=== PATIENT | female | born 1980 | race Caucasian/White ===

== ENCOUNTER 2017-11-06 18:40 | Inpatient (IN) | payer MEDICAID ==
[~2017-11-06] VITALS: Ht 152.4 cm; Wt 102.5 kg
--- OUTSIDE RECORDS SUMMARY | ~2017-11-06 | XMS ---
Demographics + + + | Address | [address] | | | [place] [address] | + + + | Preferred Language | Unknown | + + + | Marital Status | Unknown | + + + | Yazidi Affiliation | Unknown | + + + | Race | Unknown | + + + | Ethnic Group | Unknown | + + + Author + + + | Author | [facility] | + + + | Organization | [facility] | + + + | Address | [address] | | | [place] [address] | + + + | Phone | | + + + Care Team Providers + + + + | Care Smokehouse Operator Name | Role | Phone | + + + + Unavailable | Unavailable | + + + + PROBLEMS + + + + + + + + | Type | Condition | ICD9-CM | [id number] | Onset | Condition | SNOMED | | | | Code | Code | Dates | Status | Code | + + + + + + + + | Problem | History of | | Z86.39 | | Active | | | | | | | | | | | | hyperlipid | | | | | | | | emia | | | | | | + + + + + + + + | Problem | Hypertensi | | I10 | | Active | [id number] | | | on | | | | | | + + + + + + + + | Problem | PTSD | | F43.10 | | Active | 59263191 | | | (post-trau | | | | | | | | matic | | | | | | | | stress | | | | | | | | disorder) | | | | | | + + + + + + + + | Assessment | Peripheral | | G62.9 | 04 Apr, | Active | [id number] | | | | | | 2017 | | | | | neuropathy | | | | | | + + + + + + + + | Problem | Pain in | | M25.552 | | Active | 964406778 | | | left hip | | | | | | + + + + + + + + | Problem | Type 2 | | E11.9 | | Active | [id number] | | | diabetes | | | | | | | | mellitus | | | | | | | | without | | | | | | | | complicati | | | | | | | | ons | | | | | | + + + + + + + + | Problem | Peripheral | | G62.9 | | Active | [id number] | | | | | | | | | | | neuropathy | | | | | | + + + + + + + + | Problem | Menorrhagi | N92.0 | | | Active | [id number] | | | a | | | | | | + + + + + + + + | Problem | Insomnia | | G47.00 | | Active | 134515218 | + + + + + + + + | Problem | History of | Z87.09 | | | Active | 302403225 | | | sleep | | | | | | | | apnea | | | | | | + + + + + + + + | Problem | Encounter | | Z13.89 | | Active | 325980778 | | | for | | | | | | | | screening | | | | | | | | for other | | | | | | | | disorder | | | | | | + + + + + + + + | Problem | Lumbar | M54.16 | | | Active | 214978552 | | | radicular | | | | | | | | pain | | | | | | + + + + + + + + ALLERGIES + + + + +--------+ | Substance | Reaction | Event Type | Date | Status | + + + + +--------+ | lisinopril | dry cough | Drug Allergy | Oct, | Active | + + + + +--------+ | Doxepin HCl | behavior | Drug Allergy | Oct, | Active | | | change, mean | | | | + + + + +--------+ | Holter monitor | blister | Non Drug | Oct, | Active | | adhesive | | Allergy | | | + + + + +--------+ | tape | blisters | Non Drug | Oct, | Active | | | | Allergy | | | + + + + +--------+ | pork | anaphylaxis | Non Drug | Oct, | Active | | | | Allergy | | | + + + + +--------+ | Morphine | vomiting | Non Drug | Oct, | Active | | | | Allergy | | | + + + + +--------+ SOCIAL HISTORY No smoking Hx information available PLAN OF CARE VITAL SIGNS + + + + | Height | 59 in | 2016-10-06 | + + + + | Weight | 224.4 lbs | 2016-10-06 | + + + + | BMI | 45.32 kg/m2 | 2016-10-06 | + + + + | Temperature | 97.4 degrees Fahrenheit | 2016-10-06 | + + + + | Heart Rate | 64 /min | 2016-10-06 | + + + + | Blood pressure systolic | 131 mm Hg | 2016-10-06 | + + + + | Blood pressure diastolic | 64 mm Hg | 2016-10-06 | + + + + MEDICATIONS + + + + + + + +--------+ | Medicati | Instruct | Dosage | Frequenc | Start | End Date | Duration | Status | | on | ions | | y | Date | | | | + + + + + + + +--------+ | HydrOXYz | Orally | 1 tablet | | | | 30 | Active | | ine HCl | qhs | as | | | | day(s) | | | 25 MG | | needed | | | | | | + + + + + + + +--------+ | EpiPen | Injectio | as | | 29 Kwame, | | 1 | Active | | 2-Patrick | n as | directed | | 2016 | | dose(s) | | | 0.3 | needed | | | | | | | | MG/0.3ML | for | | | | | | | | | severe | | | | | | | | | allergic | | | | | | | | | | | | | | | | | | reaction | | | | | | | + + + + + + + +--------+ | Metformi | Orally | as | 12h | | | 1 month | Active | | n HCl | bid | directed | | | | | | | 1000 mg | | | | | | | | + + + + + + + +--------+ | Lyrica | Orally | 1 | 8h | 04 Apr, | | 30 | Active | | 50 mg | Three | capsule | | 2017 | | day(s) | | | | times a | | | | | | | | | day | | | | | | | + + + + + + + +--------+ | tylenol | | | | | | | Active | + + + + + + + +--------+ | ibuprofe | | | | | | | Active | | n 800mg | | | | | | | | + + + + + + + +--------+ | Metoprol | Orally | 1 tablet | 24h | May, | 11 Jul, | 90 days | Active | | ol | Once a | | | 2013 | 2018 | | | | Succinat | day | | | | | | | | e 50 mg | | | | | | | | + + + + + + + +--------+ | Albutero | Inhalati | 1 puff | 4h | Jul, | | 15 | Active | | l | on every | as | | 2017 | | day(s) | | | Sulfate | 4 hrs | needed | | | | | | | 108 (90 | | | | | | | | | Base) | | | | | | | | | MCG/ACT | | | | | | | | + + + + + + + +--------+ RESULTS No Results PROCEDURES No Known procedures IMMUNIZATIONS No Known Immunizations"
--- OUTSIDE RECORDS SUMMARY | ~2017-11-06 | XMS | Clinical Summary ---
Demographics + + + | Address | [address] | | | [place] [address] | + + + | Home Phone | | + + + | Preferred Language | Unknown | + + + | Marital Status | | + + + | Hoahaoism Affiliation | Unknown | + + + | Race | White | + + + | Ethnic Group | Not or | + + + Author + + + | Author | [facility] | + + + | Organization | [facility] | + + + | Address | Unknown | + + + | Phone | Unavailable | + + + Support + + +---------+ + | Name | Relationship | Address | Phone | + + +---------+ + | YANG ROGERS | ECON | Unknown | | + + +---------+ + Care Team Providers + +------+ + | Care Mushroom Laborer Name | Role | Phone | + +------+ + PP | Unavailable | + +------+ + Source Comments WENDY is fully live on both [facility] and [facility] InPatient.[facility] Allergies Not on File Current Medications Not on file Active Problems Not on file Social History + +-------+ +--------+------+ | Tobacco [...] on file | | + + + Plan of Treatment + + + + + | Health Maintenance | Due Date | Last Done | Comments | + + + + + | INFLUENZA VACCINE | | | | | (FLU SHOT) | 8 | | | + + + + + Results Not on filefrom Last 3 Months"
--- OUTSIDE RECORDS SUMMARY | ~2017-11-06 | XMS ---
Demographics + + + | Address | [address] | | | [place] [address] | + + + | Preferred Language | Unknown | + + + | Marital Status | Unknown | + + + | Yazidism Affiliation | Unknown | + + + | Race | Unknown | + + + | Ethnic Group | Unknown | + + + Author + + + | Author | [facility] | + + + | Organization | [facility] | + + + | Address | [address] | | | [place] [address] | + + + | Phone | | + + + Care Team Providers + + + + | Care Supervisor Dock Name | Role | Phone | + + + + Unavailable | Unavailable | + + + + PROBLEMS + + + + + + + + | Type | Condition | ICD9-CM | [id number] | Onset | Condition | SNOMED | [...] | | I10 | | Active | [id number] | | | on | | | | | | + + + + + + + + | Problem | PTSD | | F43.10 | | Active | 17826394 | | | (post-trau | | | | | | | | matic | | | | | | | | stress | | | | | | | | disorder) | | | | | | + + + + + + + + | Assessment | Iron | | D50.9 | 12 Apr, | Active | [id number] | | | deficiency | | | 2017 | | | | | anemia | | | | | | + + + + + + + + | Problem | Pain in | | M25.552 | | Active | 447704039 | | | left hip | | | | | | + + + + + + + + | Problem | Type 2 | | E11.9 | | Active | 945605944 | | | diabetes | | | [...] | | G62.9 | | Active | 031160515 | | | | | | | | | | | neuropathy | | | | | | + + + + + + + + | Problem | Menorrhagi | N92.0 | | | Active | 597024792 | | | a | | | | | | + + + + + + + + | Problem | Insomnia | | G47.00 | | Active | 047319588 | + + + + + + + + | Problem | History of | Z87.09 | | | Active | 354802329 | | | sleep | | | | | | | | apnea | | | | | | + + + + + + + + | Problem | Encounter | | Z13.89 | | Active | 414095931 | | | for | | | | | | | | screening | | | | | | | | for other | | | | | | | | disorder | | | | | | + + + + + + + + | Problem | Lumbar | M54.16 | | | Active | [id number] | | | radicular | | | [...] + | Height | 59 in | 2016-10-14 | + + + + | Weight | 223.4 lbs | 2016-10-14 | + + + + | BMI | 45.12 kg/m2 | 2016-10-14 | + + + + | Temperature | 96.6 degrees Fahrenheit | 2016-10-14 | + + + + | Heart Rate | 68 /min | 2016-10-14 | + + + + | Blood pressure systolic | 149 mm Hg | 2016-10-14 | + + + + | Blood pressure diastolic | 84 mm Hg | 2016-10-14 | + + + + MEDICATIONS + [...] + + + + + +--------+ | Dulcolax | Orally | 1 tablet | 24h | 12 Oct, | 10 Feb, | 30 | Active | | 5 MG | Once a | as | | 2017 | 2017 | day(s) | | | | day | needed | | | | | | + + + + + + + +--------+ | Lyrica | Orally | 1 | 8h | 04 Oct, | | 30 | Active | | [...] Inhalati | 1 puff | 4h | 28 Jul, | | 15 | Active | | l | on every | as | | 2016 | | day(s) | | | Sulfate [...] EpiPen | Injectio | as | | Dec, | | 1 | Active | | 2-Patrick | n as | directed | | 2015 | | dose(s) | | | 0.3 [...] + + + + + +--------+ | calcium | orally | 1 tablet | 24h | 12 Apr, | 16 Apr, | 1 | Active | | 500mg | daily | | | 2016 | 2017 | dose(s) | | + + + + + + + +--------+ | Feosol | Orally | 1 tablet | 12h | 12 Oct, | | 30 | Active | | 325 (65 | bid | | | 2017 | | day(s) | | | Fe) MG | | | | | | | | + + + + + + + +--------+ RESULTS No Results PROCEDURES + + + + + | Procedure | Date Ordered | Related Diagnosis | Body Site | + + + + + | Est Level III | October 14, 2016 | | | | Intermediate | | | | + + + + + IMMUNIZATIONS No Known Immunizations"
--- OUTSIDE RECORDS SUMMARY | ~2017-11-06 | XMS ---
Demographics + + + | Address | [address] | | | [place] [address] | + + + | Preferred Language | Unknown | + + + | Marital Status | Unknown | + + + | Hinduism Affiliation | Unknown | + + + | Race | Unknown | + + + | Ethnic Group | Unknown | + + + Author + + + | Author | [facility] | + + + | Organization | [facility] | + + + | Address | [address] | | | [place] [address] | + + + | Phone | | + + + Care Team Providers + + + + | Care Drug Abuse Technician Name | Role | Phone | + + + + Unavailable | Unavailable | + + + + PROBLEMS + + + + + + + + | Type | Condition | ICD9-CM | [id number] | Onset | Condition | SNOMED | [...] | | I10 | | Active | [id number] | | | on | | | | | | + + + + + + + + | Problem | PTSD | | F43.10 | | Active | 17077549 | | | (post-trau | | | | | | | | matic | | | | | | | | stress | | | | | | | | disorder) | | | | | | + + + + + + + + | Assessment | Peripheral | | G62.9 | 04 Apr, | Active | [id number] | | | | | | 2017 | | | | | neuropathy | | | | | | + + + + + + + + | Problem | Pain in | | M25.552 | | Active | 181886778 | | | left hip | | | | | | + + + + + + + + | Problem | Type 2 | | E11.9 | | Active | 539465177 | | | diabetes | | | [...] | | G62.9 | | Active | 351205003 | | | | | | | | | | | neuropathy | | | | | | + + + + + + + + | Problem | Menorrhagi | N92.0 | | | Active | 214375691 | | | a | | | | | | + + + + + + + + | Problem | Insomnia | | G47.00 | | Active | 867696190 | + + + + + + + + | Problem | History of | Z87.09 | | | Active | 010728031 | | | sleep | | | | | | | | apnea | | | | | | + + + + + + + + | Problem | Encounter | | Z13.89 | | Active | 149993164 | | | for | | | | | | | | screening | | | | | | | | for other | | | | | | | | disorder | | | | | | + + + + + + + + | Problem | Lumbar | M54.16 | | | Active | 571558420 | | | radicular | | | [...] | | 1 | Active | | 2-Ptarick | n as | directed | | [...] Once a | | | 2013 | 2017 | | | | Succinat | day [...] + | Est Level III | October 06, 2016 | | | | Intermediate | | | | + + + + + IMMUNIZATIONS No Known Immunizations"
--- OUTSIDE RECORDS SUMMARY | ~2017-11-06 | XMS | Clinical Summary ---
Demographics + + + | Address | [address] | | | [place] [address] | + + + | Home Phone | | + + + | Preferred Language | Unknown | + + + | Marital Status | | + + + | Worship Affiliation | Unknown | + + + [...] Team Providers + +------+ + | Care Map Maker Name | Role | Phone | + +------+ + PP | Unavailable | + +------+ + Source Comments WENDY is fully live on both [facility] and [facility] InPatient.[facility] Allergies Not on File Current [...]
--- OUTSIDE RECORDS SUMMARY | ~2017-11-06 | XMS | Clinical Summary ---
Demographics + + + | Address | [address] | | | [place] [address] | + + + | Home Phone | | + + + | Preferred Language | Unknown | + + + | Marital Status | Single | + + + | Orthodox Affiliation | Unknown | + + + | Race | Unknown | + + + | Ethnic Group | Unknown | + + + Author + + + | Author | [facility] | | | and [place] | + + + | Organization | [facility] | | | and [place] | + + + | Address | Unknown | + + + | Phone | Unavailable | + + + Support + + + + + | Name | Relationship | Address | Phone | + + + + + | Darrin Woods | ECON | [address] | | | | | [place], | | | | | [place] [address] | | + + + + + Care Team Providers + +------+ + | Care Chemistry Specialist Name | Role | Phone | + +------+ + | Tiffanie Flynn | PP | Unavailable | + +------+ + Allergies + + [...] + + + + + | Morphine And Related | Nausea And Vomiting | Medium | 02/17/20 | | | | | | 16 | | + + + + + + | Pork-Derived | Anaphylaxis | High | 02/04/20 | | | Products | | | 16 | | + + + + + + | Adhesive & Tape | Other (See Comments) | Low | 02/04/20 | Blisters | | | | | 16 | | + + + + + + Current Medications + + +--------+---------+------+------+-------+ | Prescription | Sig. | Disp. | Refills | Star | End | Statu | | | | | | t | Date | s | | | | | | Date | | | + + +--------+---------+------+------+-------+ | ferrous sulfate | Take 325 mg by mouth | | | | | Activ | | 325 mg tablet | Daily as needed. | | | | | e | + + +--------+---------+------+------+-------+ | metFORMIN | Take 500 mg by mouth | | | | | Activ | | (GLUCOPHAGE) 500 mg | daily (with | | | | | e | | tablet | breakfast). | | | | | | + + +--------+---------+------+------+-------+ | VENTOLIN HFA 108 | inhale 1 puff every | | 0 | 01/2 | | Activ | | (90 Base) MCG/ACT | 4 hours if needed | | | 8/20 | | e | | inhaler | | | | 17 | | | + + +--------+---------+------+------+-------+ | cyclobenzaprine | PRN ONLY | | 0 | 01/1 | | Activ | | (FLEXERIL) 10 mg | | | | 6/20 | | e | | tablet | | | | 17 | | | + + +--------+---------+------+------+-------+ | | take 1 tablet by | | 0 | 03/0 | | Activ | | HYDROcodone-acetamin | mouth twice a day if | | | 7/20 | | e | | ophen (NORCO) 5-325 | needed | | | 17 | | | | mg per tablet | | | | | | | + + +--------+---------+------+------+-------+ | losartan (COZAAR) | Take 1 tablet by | 90 | 3 | 04/1 | | Activ | | 50 mg tablet | mouth Daily. | tablet | | 2/20 | | e | | | | | | 17 | | | + + +--------+---------+------+------+-------+ | metoprolol | Take 0.5 tablets by | 45 | 3 | 04/1 | | Activ | | succinate | mouth Daily. | tablet | | 2/20 | | e | | (TOPROL-XL) 50 mg 24 | | | | 17 | | | | hr tablet | | | | | | | + + +--------+---------+------+------+-------+ | CALCIUM PO | Take 1 tablet by | | | | | Activ | | | mouth Daily. | | | | | e | + + +--------+---------+------+------+-------+ Active Problems + + + | Problem | Noted Date | + + + | Syncope | 02/18/2016 | + + + | Lightheadedness | 02/18/2016 | + + + | Obesity | | + + + | H/O eclampsia | | + + + | HBP (high blood pressure) | | + + + | Chronic kidney disease | | + + + + + | Overview: Related to history of eclampsia | + + + +---+ | Diabetes type 2, controlled (HCC) | | + +---+ | NIKOLAS (obstructive sleep apnea) | | + +---+ | Nocturnal hypoxemia | | + +---+ | Bipolar 1 disorder (HCC) | | + +---+ | Hypercholesterolemia | [...] implantable loop | 02/18/20 | | | efqndyke-OZLL-Iswdjihia-08/16/16-SSM | 16 | 7 | + + + + + + | Overview: Formatting of this note may be different from the | | original. MODEL NAME MODEL# SERIAL# DATE IMPLANTED GENERATOR | | MedXipin LINQ [id number] 02/18/16 Explanted 11/09/16 by | Shi Dupont. | |Explanted 11/09/[address] Dupont. | + + Family History + + +------+ [...] + +---------+ + | Alcohol Use | Drinks/We | oz/Week | Comments | | | ek | | | + + +---------+ + | Yes | 0 | 0.0 | every 6 months | | | Standard | | | | | drinks or | | | | | | | | | | equivalen | | | | | t | | | + + +---------+ + + + + | Sex Assigned at | Date Recorded | | | | + + + | Not on file | | + + + Last Filed Vital Signs + + + + | Vital Sign | Reading | Time Taken | + + + + | Blood Pressure | 107/66 | 11/03/2016914 PDT | + + + + | Pulse | 45 | 11/03/2016914 PDT | + + + + | Temperature | 36.3 C (97.3 F) | 11/03/2016631 PDT | + + + + | Respiratory Rate | 16 | 11/03/2016631 PDT | + + + + | Oxygen Saturation | 100% | 11/03/2016914 PDT | + + + + | Inhaled Oxygen | - | - | | Concentration | | | + + + + | Weight | 101.2 kg (223 lb) | 11/03/2016631 PDT | + + + + | Height | 152.4 cm (5') | 11/03/2016631 PDT | + + + + | Body Mass Index | 43.55 | 11/03/2016 0632 PDT | + + + + Plan of Treatment + + + + + | Health Maintenance | Due Date | Last Done | Comments | + + + + + | Diabetic Eye Exam | | | | | (Bi-Annually) | 9 | | | + + + + + | Diabetic Foot Exam | | | | | | 9 | | | + + + + + | Hemoglobin A1c Q3 | | | | | Months | 9 | | | + + + + + | Vaccine: | | | | | Dtap/Tdap/Td (1 - | 0 | | | | Tdap) | | | | + + + + + | Vaccine: | | | | | Pneumococcal 19-64 | 0 | | | | (PPSV23 only) Medium | | | | | Risk (1 of 1 - | | | | | PPSV23) | | | | + + + + + | CERVICAL CANCER | | | | | SCREENING (PAP EVERY | 2 | | | | 3 YEARS 21-64 ) | | | | + + + + + | Vaccine: Influenza | | | | | (Season Ended) | 8 | | | + + + + + Implants + +--------+--------+ +--------+--------+--------+ | Implanted | Type | Area | Manufacture | Device | Expira | Model | | | | | r | | tion | / | | | | | | Identi | Date | Serial | | | | | | fier | | / Lot | + +--------+--------+ +--------+--------+--------+ | Reveal LinqImplanted: Qty: 1 | Implan | Anteri | [employer] - | | 12/16/ | [id number] | | on 02/18/2016 by Cresencio, | table | or: | MEDT | | 2017 | /[id number] | | Delvin MD Bill | Loop | Chest | | | | [id number] | | | Record | | | | | / | | | er | | | | | | + +--------+--------+ +--------+--------+--------+ Results Not on filefrom Last 3 Months Insurance + +--------+ +--------+ +---------+ | Payer | Benefi | Subscriber | Type | Phone | Address | | | t Plan | ID | | | | | | / | | | | | | | Group | | | | | + +--------+ +--------+ +---------+ | [employer] | MODA | [id number] | Medica | [phone] | | MEDICAID HMO | HEALTH | | id | [id number] | | | | [place] | | | | | | | [place] | | | | | + +--------+ +--------+ +---------+ + +--------+ +--------+ + + | Guarantor Name | Accoun | Relation to | Date | Phone | Billing Address | | | t Type | Patient | of | | | | | | | | | | + +--------+ +--------+ + + | CORINA PARADA | Person | Self [birth year] Home: | [address] | | [place] | [place] | | 1979 | [phone] | [place] | | | [place] | | | [address] | [place] [address] | + +--------+ +--------+ + +"
--- OUTSIDE RECORDS SUMMARY | ~2017-11-06 | XMS ---
Demographics + + + | Address | [address] | | | [place] [address] | + + + | Preferred Language | Unknown | + + + | Marital Status | Unknown | + + + | Holiness Affiliation | Unknown | + + + | Race | Unknown | + + + | Ethnic Group | Unknown | + + + Author + + + | Author | [facility] | + + + | Organization | [facility] | + + + | Address | [address] | | | [place] [address] | + + + | Phone | | + + + Care Team Providers + + + + | Care Stitch Separator Name | Role | Phone | + + + + Unavailable | Unavailable | + + + + PROBLEMS + + + + + + + + | Type | Condition | ICD9-CM | [id number] | Onset | Condition | SNOMED | [...] | | I10 | | Active | [id number] | | | on | | | | | | + + + + + + + + | Problem | PTSD | | F43.10 | | Active | 80915696 | | | (post-trau | | | | | | | | matic | | | | | | | | stress | | | | | | | | disorder) | | | | | | + + + + + + + + | Assessment | Allergic | L23.9 | | 03 November, | Active | 66062282 | | | dermatitis | | | 2017 | | | + + + + + + + + | Problem | Pain in | | M25.552 | | Active | 969401399 | | | left hip | | | | | | + + + + + + + + | Problem | Type 2 | | E11.9 | | Active | 168944006 | | | diabetes | | | [...] | | G62.9 | | Active | 048563001 | | | | | | | | | | | neuropathy | | | | | | + + + + + + + + | Problem | Menorrhagi | N92.0 | | | Active | 713786188 | | | a | | | | | | + + + + + + + + | Problem | Insomnia | | G47.00 | | Active | 485513034 | + + + + + + + + | Problem | History of | Z87.09 | | | Active | 172004090 | | | sleep | | | | | | | | apnea | | | | | | + + + + + + + + | Problem | Encounter | | Z13.89 | | Active | 921154588 | | | for | | | | | | | | screening | | | | | | | | for other | | | | | | | | disorder | | | | | | + + + + + + + + | Problem | Lumbar | M54.16 | | | Active | 348225246 | | | radicular | | | | | | | | pain | | | | | | + + + + + + + + ALLERGIES + + + + +--------+ | Substance | Reaction | Event Type | Date | Status | + + + + +--------+ | lisinopril | dry cough | Drug Allergy | November, | Active | + + + + +--------+ | Doxepin HCl | behavior | Drug Allergy | November, | Active | | | change, mean | | | | + + + + +--------+ | Holter monitor | blister | Non Drug | November, | Active | | adhesive | | Allergy | | | + + + + +--------+ | tape | blisters | Non Drug | November, | Active | | | | Allergy | | | + + + + +--------+ | pork | anaphylaxis | Non Drug | November, | Active | | | | Allergy | | | + + + + +--------+ | Morphine | vomiting | Non Drug | November, | Active | | | | Allergy | | | + + + + +--------+ SOCIAL HISTORY No smoking Hx information available PLAN OF CARE VITAL SIGNS + + + + | Height | 59 in | 2016-11-03 | + + + + | Weight | 227.5 lbs | 2016-11-03 | + + + + | BMI | 45.94 kg/m2 | 2016-11-03 | + + + + | Temperature | 97.5 degrees Fahrenheit | 2016-11-03 | + + + + | Heart Rate | 62 /min | 2016-11-03 | + + + + | Blood pressure systolic | 150 mm Hg | 2016-11-03 | + + + + | Blood pressure diastolic | 96 mm Hg | 2016-11-03 | + + + + MEDICATIONS + [...] + + + + + +--------+ | Calcium | | | | | | | Active | + + + + + + + +--------+ | Stool | | | | | | | Active | | Softener | | | | | | | [...] Orally | 1 tablet | 24h | 04 May, | 11 Jul, | 90 days [...] 325 (65 | bid | | | 2016 | | day(s) | | | Fe) [...] + + + + + +--------+ | Iron | | | | | | | [...] + + + + | Est Level II | November 03, 2016 | | | | Limited | | | | + + + + + IMMUNIZATIONS No Known Immunizations"
--- OUTSIDE RECORDS SUMMARY | ~2017-11-06 | XMS ---
Demographics + + + | Address | [address] | | | [place] [address] | + + + | Preferred Language | Unknown | + + + | Marital Status | Unknown | + + + | Spiritism Affiliation | Unknown | + + + | Race | Unknown | + + + | Ethnic Group | Unknown | + + + Author + + + | Author | [facility] | + + + | Organization | [facility] | + + + | Address | [address] | | | [place] [address] | + + + | Phone | | + + + Care Team Providers + + + + | Care Last Scourer Name | Role | Phone | + + + + Unavailable | Unavailable | + + + + PROBLEMS +---------+ + + +--------+ + + | Type | Condition | ICD9-CM | [id number] | Onset | Condition | SNOMED | | | | Code | Code | Dates | Status | Code | +---------+ + + +--------+ + + | Problem | History of | | Z86.39 | | Active | | | | | | | | | | | | hyperlipid | | | | | | | | emia | | | | | | +---------+ + + +--------+ + + | Problem | Hypertensi | | I10 | | Active | [id number] | | | on | | | | | | +---------+ + + +--------+ + + | Problem | PTSD | | F43.10 | | Active | 34393926 | | | (post-trau | | | | | | | | matic | | | | | | | | stress | | | | | | | | disorder) | | | | | | +---------+ + + +--------+ + + | Problem | Pain in | | M25.552 | | Active | 650678656 | | | left hip | | | | | | +---------+ + + +--------+ + + | Problem | Type 2 | | E11.9 | | Active | 564930124 | | | diabetes | | | | | | | | mellitus | | | | | | | | without | | | | | | | | complicati | | | | | | | | ons | | | | | | +---------+ + + +--------+ + + | Problem | Peripheral | | G62.9 | | Active | 534739907 | | | | | | | | | | | neuropathy | | | | | | +---------+ + + +--------+ + + | Problem | Menorrhagi | N92.0 | | | Active | 530350434 | | | a | | | | | | +---------+ + + +--------+ + + | Problem | Insomnia | | G47.00 | | Active | 717368301 | +---------+ + + +--------+ + + | Problem | History of | Z87.09 | | | Active | 730639432 | | | sleep | | | | | | | | apnea | | | | | | +---------+ + + +--------+ + + | Problem | Encounter | | Z13.89 | | Active | 935469617 | | | for | | | | | | | | screening | | | | | | | | for other | | | | | | | | disorder | | | | | | +---------+ + + +--------+ + + | Problem | Lumbar | M54.16 | | | Active | 431811826 | | | radicular | | | | | | | | pain | | | | | | +---------+ + + +--------+ + + ALLERGIES Unknown Allergies SOCIAL HISTORY No smoking Hx information available PLAN OF CARE VITAL SIGNS MEDICATIONS + + + + + + + +--------+ | Medicati | Instruct | Dosage | Frequenc | Start | End Date | Duration | Status | | on | ions | | y | Date | | | | + + + + + + + +--------+ | Phoenix | Orally | 1 tablet | | 13 Apr, | 23 Apr, | 10 | Active | | 5-325 MG | up to 2 | as | | 2017 | 2017 | day(s) | | | | times | needed | | | | | | | | daily | | | | | | | + + + + + + + +--------+ RESULTS No Results PROCEDURES No Known procedures IMMUNIZATIONS No Known Immunizations"
--- OUTSIDE RECORDS SUMMARY | ~2017-11-06 | XMS ---
Demographics + + + | Address | [address] | | | [place] [address] | + + + | Preferred Language | Unknown | + + + | Marital Status | Unknown | + + + | Catholic Affiliation | Unknown | + + + | Race | Unknown | + + + | Ethnic Group | Unknown | + + + Author + + + | Author | [facility] | + + + | Organization | [facility] | + + + | Address | [address] | | | [place] [address] | + + + | Phone | | + + + Care Team Providers + + + + | Care Specialist Managers Name | Role | Phone | + + + + Unavailable | Unavailable | + + + + PROBLEMS +---------+ + + +--------+ + + | Type | Condition | ICD9-CM | [id number] | Onset | Condition | SNOMED | [...] | | I10 | | Active | [id number] | | | on | | | | | | +---------+ + + +--------+ + + | Problem | PTSD | | F43.10 | | Active | 45857893 | | | (post-trau | | | | | | | | matic | | | | | | | | stress | | | | | | | | disorder) | | | | | | +---------+ + + +--------+ + + | Problem | Pain in | | M25.552 | | Active | 782053533 | | | left hip | | | | | | +---------+ + + +--------+ + + | Problem | Type 2 | | E11.9 | | Active | 575000121 | | | diabetes | | | | | | | | mellitus | | | | | | | | without | | | | | | | | complicati | | | | | | | | ons | | | | | | +---------+ + + +--------+ + + | Problem | Peripheral | | G62.9 | | Active | 801082279 | | | | | | | | | | | neuropathy | | | | | | +---------+ + + +--------+ + + | Problem | Menorrhagi | N92.0 | | | Active | 927282706 | | | a | | | | | | +---------+ + + +--------+ + + | Problem | Insomnia | | G47.00 | | Active | 865625778 | +---------+ + + +--------+ + + | Problem | History of | Z87.09 | | | Active | 403095719 | | | sleep | | | | | | | | apnea | | | | | | +---------+ + + +--------+ + + | Problem | Encounter | | Z13.89 | | Active | 982731838 | | | for | | | | | | | | screening | | | | | | | | for other | | | | | | | | disorder | | | | | | +---------+ + + +--------+ + + | Problem | Lumbar | M54.16 | | | Active | 402782831 | | | radicular | | | | | | | | pain | | | | | | +---------+ + + +--------+ + + ALLERGIES Unknown Allergies SOCIAL HISTORY No smoking Hx information available PLAN OF CARE VITAL SIGNS MEDICATIONS Unknown Medications RESULTS No Results PROCEDURES No Known procedures IMMUNIZATIONS No Known Immunizations"
--- OUTSIDE RECORDS SUMMARY | ~2017-11-06 | XMS | Clinical Summary ---
Demographics + + + | Address | [address] | | | [place] [address] | + + + | Home Phone | | + + + | Preferred Language | Unknown | + + + | Marital Status | Single | + + + | Denominational Affiliation | Unknown | + + + | Race | Unknown | + + + | Ethnic Group | Unknown | + + + Author + + + | Author | [facility] | + + + | Organization | [facility] | + + + | Address | Unknown | + + + | Phone | Unavailable | + + + Support + + + + + | Name | Relationship | Address | Phone | + + + + + | Darrin Woods | ECON | Unknown | | + + + + + | Sonia,Heather | [place] | [address] | | | | | TRAIL | | | | | [place] | | | | | [address] | | + + + + + | Joel Adams | ECON | Unknown | | + + + + + Care Team Providers + +------+ + | Care Patient Financial Services Specialist Name | Role | Phone | + +------+ + | Tiffanie Flynn NP | PP | | + +------+ + Allergies + + + + + + | Active Allergy | Reactions | Severity | Noted | Comments | | | | | Date | | + + + + + + | Morphine | Nausea and Vomiting | Low | 03/20/20 | | | | | | 15 | | + + + + + + | Pork-Derived | Anaphylaxis | High | 04/25/20 | | | Products | | | 15 | | + + + + + + Current Medications + + +-------+---------+------+------+-------+ | Prescription | Sig. | Disp. | Refills | Star | End | Statu | | | | | | t | Date | s | | | | | | Date | | | + + +-------+---------+------+------+-------+ | Ferrous Sulfate | Take 325 mg by mouth | | | | | Activ | | (IRON) 325 (65 FE) | daily as needed. | | | | | e | | MG TABS | | | | | | | + + +-------+---------+------+------+-------+ | metoprolol | Take 25 mg by mouth | | | | | Activ | | (TOPROL-XL) 25 MG 24 | daily. | | | | | e | | hr tablet | | | | | | | + + +-------+---------+------+------+-------+ Active Problems +---------+ + | Problem | Noted Date | +---------+ + | Syncope | 11/13/2015 | +---------+ + + + | Last Assessment & Plan: Syncope. 35yo WF, with | | history of syncope. The first episode occurring [...] | | Cath: naLast Echo, 11/21/2015 ([facility]): cardiac chamber | | dimensions NML, LVEF [...] | + + + + + | Mediastinal adenopathy | 03/20/2015 | + + + | Lung nodules | 03/20/2015 | + + + Family History + + +------+ + | Medical History | Relation | Name | Comments | + + +------+ + | Heart disease | Father | | | + + +------+ + + +------+--------+ + | Relation | Name | Status | Comments | + +------+--------+ + | Father | | Alive | | + +------+--------+ + | Mother | | Alive | | + +------+--------+ + Social History + +-------+ +--------+------+ | [...] | | + + +---------+ + | No | 0 | 0.0 | | | | Standard | | | [...] + + + | Blood Pressure | 116/70 | 01/08/2016 10:04 AM PDT | + + + + | Pulse | 53 | 01/08/2016 10:04 AM PDT | + + + + | Temperature | 36 C (96.8 F) | 05/03/2015 9:47 AM PDT | + + + + | Respiratory Rate | 16 | 01/08/2016 10:04 AM PDT | + + + + | Oxygen Saturation | 97% | 01/08/2016 10:04 AM PDT | + + + + | Inhaled Oxygen | - | - | | Concentration | | | + + + + | Weight | 96.5 kg (212 lb 11.2 | 01/08/2016 10:04 AM PDT | | | oz) | | + + + + | Height | 152.4 cm (5') | 01/08/2016 10:04 AM PDT | + + + + | Body Mass Index | 41.54 | 01/08/2016 10:04 AM PDT | + + + + Plan [...] | | | | Screening (Pap) | 2 | | | + + + + + | Vaccine: Influenza | | | | | (Season Ended) | 8 | | | + + + + + Results Not on filefrom Last 3 Months Insurance + +--------+ +------+-------+ + | Payer | Benefi | Subscriber | Type | Phone | Address | | | t Plan | ID | | | | | | / | | | | | | | Group | | | | | + +--------+ +------+-------+ + | MEDICAID | [place] | xxxxxxxx | | | [address] | | | N | | | | [place], [place] | | | [place] | | | | [address] | | | ASSOCIATE SOFTWARE APPLICATION ENGINEER | | | | | + +--------+ +------+-------+ + + +--------+ +--------+ + + | Guarantor Name | Accoun | Relation to | Date | Phone | Billing Address | | | t Type | Patient | of | | | | | | | | | | + +--------+ +--------+ + + | CORINA PARADA | Person | Self [birth year] Home: | [address] | | | [place] | | 1980 | [phone] | | | [place] | | | [phone] | [place] [address] | + +--------+ +--------+ + +"
--- OUTSIDE RECORDS SUMMARY | ~2017-11-06 | XMS | Clinical Summary ---
Demographics + + + | Address | [address] | | | [place] [address] | + + + | Home Phone | | + + + | Preferred Language | Unknown | + + + | Marital Status | Single | + + + | Buddhist Affiliation | Unknown | + + + | Race | Unknown | + + + | Ethnic Group | Unknown | + + + Author + + + | Author | [facility] | + + + | Organization | [facility] | + + + | Address | Unknown | + + + | Phone | Unavailable | + + + Support + + + + + | Name | Relationship | Address | Phone | + + + + + | Darrin Woods | ECON | Unknown | | + + + + + | Sonia,Heather | [place] | [address] | | | | | TRAIL | | | | | [place] | | | | | [address] | | + + + + + | Joel Adams | ECON | Unknown | | + + + + + Care Team Providers + +------+ + | Care Bottom Presser Name | Role | Phone | + [...] | | [place] | | | | [address] | | | LOGISTICS TEAM LEADER | | | | | + +--------+ [...] | Self | [birth year] | Home: | [address] | | | [place] | | 1980 | [phone] | [address] | | | [place] | | | [phone] | [place] [address] | + +--------+ +--------+ + +"
--- OUTSIDE RECORDS SUMMARY | ~2017-11-06 | XMS ---
Demographics + + + | Address | [address] | | | [place] [address] | + + + | Preferred Language | Unknown | + + + | Marital Status | Unknown | + + + | Lutheran Affiliation | Unknown | + + + | Race | Unknown | + + + | Ethnic Group | Unknown | + + + Author + + + | Author | [facility] | + + + | Organization | [facility] | + + + | Address | [address] | | | [place] [address] | + + + | Phone | | + + + Care Team Providers + + + + | Care Imaging Manager Name | Role | Phone | + + + + Unavailable | Unavailable | + + + + PROBLEMS +---------+ + + +--------+ + + | Type | Condition | ICD9-CM | [id number] | Onset | Condition | SNOMED | [...] | | I10 | | Active | [id number] | | | on | | | | | | +---------+ + + +--------+ + + | Problem | PTSD | | F43.10 | | Active | 21834834 | | | (post-trau | | | | | | | | matic | | | | | | | | stress | | | | | | | | disorder) | | | | | | +---------+ + + +--------+ + + | Problem | Pain in | | M25.552 | | Active | 504267763 | | | left hip | | | | | | +---------+ + + +--------+ + + | Problem | Type 2 | | E11.9 | | Active | 268997314 | | | diabetes | | | | | | | | mellitus | | | | | | | | without | | | | | | | | complicati | | | | | | | | ons | | | | | | +---------+ + + +--------+ + + | Problem | Peripheral | | G62.9 | | Active | 984168313 | | | | | | | | | | | neuropathy | | | | | | +---------+ + + +--------+ + + | Problem | Menorrhagi | N92.0 | | | Active | 107344161 | | | a | | | | | | +---------+ + + +--------+ + + | Problem | Insomnia | | G47.00 | | Active | 750885808 | +---------+ + + +--------+ + + | Problem | History of | Z87.09 | | | Active | 944869152 | | | sleep | | | | | | | | apnea | | | | | | +---------+ + + +--------+ + + | Problem | Encounter | | Z13.89 | | Active | 340841509 | | | for | | | | | | | | screening | | | | | | | | for other | | | | | | | | disorder | | | | | | +---------+ + + +--------+ + + | Problem | Lumbar | M54.16 | | | Active | [id number] | | | radicular | | | | | | | | pain | | | | | | +---------+ + + +--------+ + + ALLERGIES Unknown Allergies SOCIAL HISTORY No smoking Hx information available PLAN OF CARE VITAL SIGNS MEDICATIONS Unknown Medications RESULTS No Results PROCEDURES No Known procedures IMMUNIZATIONS No Known Immunizations"
--- OUTSIDE RECORDS SUMMARY | ~2017-11-06 | XMS | Clinical Summary ---
Demographics + + + | Address | [address] | | | [place] [address] | + + + | Home Phone | | + + + | Preferred Language | Unknown | + + + | Marital Status | Single | + + + | Sikhism Affiliation [...] + | Darrin Woods | ECON | [address] | | | | | [place], | | | | | [place] [address] | | + + + + + Care Team Providers + +------+ + | Care Loss Prevention Supervisor Name | Role | Phone | [...] implantable loop | 02/18/20 | | | [id number]-DPDV-Lhzbtqurg-08/16/16-SSM | 16 | 7 | + + + + + + | Overview: Formatting of this note may be different from the | | original. MODEL NAME MODEL# SERIAL# DATE IMPLANTED GENERATOR | | [employer] LINQ [id number] 02/18/16 Explanted 11/09/16 by | Shi Dupont. [...] | Self | [birth year] | Home: | [address] | | [place] | [place] | | 1979 | [phone] | [place] | | | [place] | | | [phone] | [place] [address] | + +--------+ +--------+ + +"
[~2017-11-06 18:40] MED LIST: ALPRAZOLAM0.25 MG PO; AMBIEN5 MG; AMBIEN5 MG PO; DAYPRO600 MG PO; DOXEPIN HCL50 MG PO; EPIPEN 2-P0.3 MG/0.3 IM; FLAGYL500 MG PO; GABAPENTIN300 MG PO; HYZAAR 100-12.1 EACH PO; IBUPROFEN800 MG PO; LISINOPRIL2.5 MG; LOSARTAN-HCTZ1 EAC2 PO; METFORMIN HCL500 MG; METFORMIN HCL500 MG PO; METOPROLOL SUC100 MG PO; METOPROLOL SUCC50 MG PO; NEURONTIN100 MG PO; NITROSTAT0.4 MG SL; NORCO 5-325 TA1 EACH PO; NORCO 7.5-3251 EACH PO; PERCOCET 5-3251 EACH PO; SIMVASTATIN10 MG; SIMVASTATIN20 MG PO; SUCRALFATE1 GM PO; XANAX0.25 MG PO; ZOFRAN ODT8 MG SL; ZOLPIDEM TARTRAT5 MG PO
[2017-11-06] MEDS ORDERED: TOPROL XL50 MG PO (19:07)
[2017-11-06] MEDS ORDERED: COZAAR25 MG PO (19:09)
[2017-11-07] MEDS ORDERED: NORCO 5-325 TA1 EACH PO (11:49)
--- NOTE | 2017-11-09 12:56 | OR ---
[facility] [address] [place], [place] [address] Signed DATE OF OPERATION: 11/07/2017 SURGEON: Steve Garcia MD PREOPERATIVE DIAGNOSES: 1. Incarcerated incisional hernia at umbilicus. 2. Obesity. POSTOPERATIVE DIAGNOSES: 1. Incarcerated incisional hernia at umbilicus. 2. Obesity. 3. Incarcerated viscus, omentum. PROCEDURES: 1. Reduction of incarcerated incisional hernia. 2. Repair of incarcerated incisional hernia at umbilicus. 3. Implantation of Prolene mesh underlay technique with closure of fascia. ANESTHESIA: General endotracheal, Steve Polanco CRNA, and local 20 mL of 0.25% Marcaine with epinephrine. INDICATION: This 37-year-old obese white woman presented to the emergency room late last night, evaluated thoroughly by Dr. Elise and found to have market pain at the umbilicus. A small transverse incision was noted above the umbilicus related to the laparoscopy performed by Dr. Stein a number of years ago. Evaluation showed tenderness, but no erythema of the skin. Given her obesity, a CT scan was performed, which confirmed an incarcerated hernia. The fascial defect measured at 0.5 cm. Incarcerated viscus was omentum rather than hollow viscus (bowel). She was directly admitted to the hospital given fluid, pain medication, and is now to undergo repair of incarcerated incisional hernia. The risks of bleeding, infection, recurrence, and other unforeseen complications were reviewed with her in detail. She understands and wished to proceed. FINDINGS: The fascial defect was more than 0.5 cm, indeed about 1.5 cm I would say. A well-formed hernia sac was noted and the incarcerated viscus was omentum. This was reduced. Repair was undertaken with implantation of Prolene mesh in the properitoneal space with Electronically Signed By: STEVE GARCIA MD 11/09/17 8776 PATIENT NAME: RIAN SAUCEDA OPERATIVE REPORT DATE OF : 82 REPORT #: [id number] PHYSICIAN: STEVE GARCIA MD PCP: LORENZO SY REPORT IS CONFIDENTIAL AND NOT TO BE RELEASED WITHOUT AUTHORIZATION [facility] [address] [place], [place] [address] Signed transverse reapproximation of the fascia as well. DESCRIPTION OF PROCEDURE: The patient was brought to the operating room, given a general endotracheal anesthesia. Notably, she had desaturation rather promptly despite successful intubation, which promptly resolved notably. This may be indicative of underlying pulmonary disease. A transverse incision was noted cephalad to the umbilicus. An incision was made transecting that and circumnavigating the umbilicus to the left and dissection carried through the subcutaneous tissue where the hernia sac was identified. It was free from the surrounding soft tissue with blunt and electrocautery dissection. The fascial defect looked to be about 1.5 cm rather than 0.5 cm as measured on CT scan. With various maneuvers, the hernia sac was freed from the overlying dermis of the umbilicus and opened and incarcerated omentum was noted. This was reduced. Once reduced, a photograph was taken. The hernia sac was freed from the surrounding soft tissue of the fascia and opened longitudinally so as to avoid incorporation of internal organs and then reduced into the properitoneal space. Properitoneal space was dissected free circumferentially. Given the size of the defect, implantation of mesh was deemed advisable, particularly given the underlying obesity issue. An elliptical segment of Prolene mesh was secured in an underlay technique with interrupted 0 Prolene suture. This was well secured to the properitoneal space. The fascia was reapproximated with interrupted 0 Prolene sutures as well. A 20 mL of 0.25% Marcaine with epinephrine was injected locally. Bahman's layer was reapproximated with interrupted 2-0 Vicryl and skin closed with running subcuticular 3-0 Vicryl. Steri-Strips were applied as was a Mepilex silver sponge dressing and OpSite. The patient was ultimately extubated without problem, taken to recovery room in good condition and suffered no complication. Sponge, needle, and instruments counts reported as correct x3. Steve Garcia MD /MODL /[id number] Electronically Signed By: STEVE GARCIA MD 11/09/17 1256 PATIENT NAME: RIAN SAUCEDA OPERATIVE REPORT DATE OF : 82 REPORT #: [id number] PHYSICIAN: STEVE GARCIA MD PCP: LORENZO SY REPORT IS CONFIDENTIAL AND NOT TO BE RELEASED WITHOUT AUTHORIZATION [address] [address] Signed cc: TIERNEY Noe MD Copies: LORENZO SY SHELDON MD ~ Electronically Signed By: STEVE GARCIA MD 11/09/17 1256 PATIENT NAME: RIAN SAUCEDA OPERATIVE REPORT DATE OF : 82 REPORT #: [id number] PHYSICIAN: STEVE GARCIA MD PCP: LORENZO SY REPORT IS CONFIDENTIAL AND NOT TO BE RELEASED WITHOUT AUTHORIZATION
--- NOTE | 2017-11-09 12:56 | HP ---
[facility] [address] [place], [place] [address] Signed ADMISSION DATE: 11/06/2017 REASON FOR ADMISSION: Incarcerated symptomatic umbilical hernia. HISTORY: This obese (BMI of 44.1) a 37-year-old white woman, presented to the emergency room in the late hours and was evaluated by Dr. Elise with significant pain in the region of the umbilicus. Due to abdominal wall obesity and clear indication, the source of the problem was not forthcoming initially. She had noted a mass in the umbilical area the day prior to evaluation, which was uncomfortable and she manipulated it and it caused much more pain. A CT scan was performed in the direction of Dr. Elise, which confirmed a small fascial defect of about 5 mm, but with a 3.5 cm protruding fatty mass consistent with incarcerated hernia. She is admitted for further evaluation and care. PAST MEDICAL HISTORY: Does include obesity. She has never had abdominal surgery in the region of the umbilicus before. She does have type 2 diabetes, hypertension, and sleep apnea syndrome. SOCIAL HISTORY: She does not smoke nor has she ever. She does not use alcohol or drugs. PAST SURGICAL HISTORY: Her surgical history does include hernia repair, is said to have cholecystectomy, tubal ligation, x3, as well as some pulmonary operation in the past. Review of her archived medical records shows her to have undergone diagnostic laparoscopy by Dr. Stein in 2009. Therefore, this lesion may represent an incarcerated incisional hernia after all. REVIEW OF SYSTEMS: She denies any shortness of breath or chest pain. She has had no dysphagia or dysuria. Denies any hematemesis or blood per rectum. PHYSICAL EXAMINATION: GENERAL: An obese white woman, who looks to be not systemically toxic. HEENT: Trachea is midline. CHEST: Clear. Electronically Signed By: STEVE GARCIA MD 11/09/17 9806 PATIENT NAME: RIAN SAUCEDA HISTORY AND PHYSICAL DATE OF : 82 REPORT #: [id number] PHYSICIAN: STEVE GARCIA MD PCP: LORENZO SY REPORT IS CONFIDENTIAL AND NOT TO BE RELEASED WITHOUT AUTHORIZATION [facility] [address] [place], [place] [address] Signed HEART: Regular without murmur. ABDOMEN: Quite obese, but generally soft. She does not have signs of peritonitis proper. There is mild tenderness in the region of the umbilicus. It is difficult to palpate the incarcerated properitoneal fat that has been demonstrated on CT scan. CT scan is reviewed showing a small fascial defect and relatively large subcutaneous mass of fat that is herniated. LABORATORY DATA: Show a negative beta hCG. ALT of 66, alkaline phosphatase 82, lipase 14, glucose 143, calcium 10.6. Electrolytes otherwise normal. White count 7.7, hematocrit 35.4, platelets 297,000. Urinalysis is normal. ASSESSMENT: She has incarcerated incisional hernia at the umbilicus, probably related to laparoscopic incision from the past. The fascial defect is relatively small, although the herniated viscus is large. Spontaneous reduction is quite unlikely. Infarction of the fatty tissue is a possibility given her tenderness previously. I would recommend exploration of the area with reduction of the hernia or excision of the fat as necessary with fascial repair. This may not require mesh depending on its size and in fact. The risks of bleeding, infection, and recurrence were reviewed with her in detail. She understands and wished to proceed. PLAN: We will plan to do this today. She might be able to be done as an outpatient depending on findings. MD IBIS Teague/RAGHAVENDRAL /[id number] Copies: Electronically Signed By: STEVE GARCIA MD 11/09/17 1256 PATIENT NAME: RIAN SAUCEDA HISTORY AND PHYSICAL DATE OF : 82 REPORT #: [id number] PHYSICIAN: STEVE GARCIA MD PCP: LORENZO SY REPORT IS CONFIDENTIAL AND NOT TO BE RELEASED WITHOUT AUTHORIZATION [facility] [address] [facility] [place] [address] Signed ~ Electronically Signed By: STEVE GARCIA MD 11/09/17 1256 PATIENT NAME: RIAN SAUCEDA HISTORY AND PHYSICAL DATE OF : 82 REPORT #: [id number] PHYSICIAN: STEVE GARCIA MD PCP: LORENZO SY REPORT IS CONFIDENTIAL AND NOT TO BE RELEASED WITHOUT AUTHORIZATION
[2017-11-09] MEDS ORDERED: CEPHALEXIN500 MG PO (14:19)
[2017-11-09] MEDS ORDERED: PROMETHAZINE-C118 ML PO (14:19)
== END 2017-11-07 16:17 | disposition home or self-care (01) | DRG 354 ==
LOC: ED 18:40 → MS 22:40
PROVIDERS: ADMIT Surgery
PROC: 0WUF0JZ Supplement Abdominal Wall with Synthetic Substitute, Open Approach (ICD-10-PCS; principal; 2017-11-07 11:00)
DX: K43.0 Incisional hernia with obstruction, without gangrene (principal); Z68.41 Body mass index [BMI] 40.0-44.9, adult; E66.01 Morbid (severe) obesity due to excess calories; E11.9 Type 2 diabetes mellitus without complications; I10 Essential (primary) hypertension; G47.33 Obstructive sleep apnea (adult) (pediatric); Z79.899 Other long term (current) drug therapy; Z88.5 Allergy status to narcotic agent; Z88.8 Allergy status to other drugs, medicaments and biological substances
CPT/HCPCS: 00750; 74177; 80053; 81001; 83690; 84703; 85025; 96374; 96375; 96376; 99285; C1781; J0330; J0690; J1100; J1170; J1885; J2250; J2405; J2704; J2710; J2765; J3010; J7030; J7120; Q9967

== ENCOUNTER 2018-01-25 00:49 | Emergency (ER) | payer SELFPAY ==
[~2018-01-25] VITALS: Ht 152.4 cm; Wt 102.5 kg
[~2018-01-25 00:49] MED LIST changes: +CEPHALEXIN500 MG PO; +COZAAR25 MG PO; +PROMETHAZINE-C118 ML PO; +TOPROL XL50 MG PO
[2018-01-25] MEDS ORDERED: OXYBUTYNIN CHLOR5 M1 PO (02:13)
== END 2018-01-25 02:26 | disposition home or self-care (01) ==
LOC: ED 00:49
DX: R30.0 Dysuria (principal); R35.0 Frequency of micturition; E11.9 Type 2 diabetes mellitus without complications; I10 Essential (primary) hypertension; Z91.018 Allergy to other foods; Z88.5 Allergy status to narcotic agent; Z88.8 Allergy status to other drugs, medicaments and biological substances; Z79.899 Other long term (current) drug therapy
CPT/HCPCS: 81001; 84703; 87491; 87591; 99283

== ENCOUNTER 2018-12-15 13:56 | Emergency (ER) | payer OTHER ==
[~2018-12-15] VITALS: Ht 152.4 cm; Wt 98.0 kg
[~2018-12-15 13:56] MED LIST changes: +ASPIR-LOW81 MG PO; +DIFLUCAN150 MG PO; +DOXYCYCLINE HY100 MG PO; +GLUCOPHAGE XR500 MG PO; +LANTUS100 UNITS/ SUB-Q; +LIPITOR20 MG PO; +METOPROLOL SUCC25 MG PO; +MOTRIN IB200 MG PO; +OXYBUTYNIN CHLOR5 M1 PO; +VISTARIL25 MG PO; +WELLBUTRIN SR100 MG PO
--- OUTSIDE RECORDS SUMMARY | 2018-12-15 13:58 | XMS ---
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 Care History Medical/Surgical 06/09/2018 [facility] MARYLOU CHW OF [facility] HAS SENT OUT A REQUEST FOR PATIENT TO ESTABLISH CARE WITH A PROVIDER AT THE CLINIC. - PATIENT CURRENTLY DOES NOT HAVE A PCP BUT CAN UTILIZE THE WALK IN CLINIC UNTIL ESTABLISHED WITH A PROVIDER. E.D. VISIT COUNT (12 MO.) [address] [facility] T[facility] NOTE: Visits indicate total known visits. 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 - Essential (primary) hypertension - Hypertensive urgency - Other chest pain 04/11/2018 06:34 KAROLINE Erickson [place] TYPE: Emergency COMPLAINT: - VAGINAL PAIN DIAGNOSES: - Allergy to other foods - Type 2 diabetes mellitus without complications - Pelvic and perineal pain - Allergy status to narcotic agent status - Other supervisor long goods (current) drug therapy - senior living (current) use of oral hypoglycemic drugs - Allergy status to other drugs, medicaments and biological substances status - Essential (primary) hypertension - Other urethritis 01/25/2018 00:50 KAROLINE Erickson [place] TYPE: Emergency COMPLAINT: - UTI SX DIAGNOSES: - Other supervisor long goods (current) drug therapy - Frequency of micturition - Essential (primary) hypertension - Dysuria - Allergy status to narcotic agent status - Allergy status to other drugs, medicaments and biological substances status - Allergy to other foods - Other symptoms and signs involving the genitourinary system - Type 2 diabetes mellitus without complications 12/30/2017 07:38 Lucio CRUZ OR TYPE: Emergency DIAGNOSES: - Unspecified ovarian cyst, right side - Rt side pain - Abdominal Pain INPATIENT VISIT TRACKING (12 MO.) 06/08/2018 16:33 [facility] Gal TYLER TYPE: Medical Surgical DIAGNOSES: - Atherosclerotic heart disease of [place] coronary artery without angina pectoris - Chest pain, unspecified - Type 2 diabetes mellitus with unspecified complications - Excessive and frequent menstruation with irregular cycle - Essential (primary) hypertension - chest pain rule out [id number]
[2018-12-15] MEDS ORDERED: TRULICITY0.75 MG/0. SUB-Q (15:29)
[2018-12-15] MEDS ORDERED: INDOMETHACIN50 MG PO (16:56)
== END 2018-12-15 17:08 | disposition home or self-care (01) ==
LOC: ED 13:56
DX: R10.9 Unspecified abdominal pain (principal); E11.9 Type 2 diabetes mellitus without complications; I10 Essential (primary) hypertension; Z90.710 Acquired absence of both cervix and uterus; Z90.49 Acquired absence of other specified parts of digestive tract; Z88.5 Allergy status to narcotic agent; Z88.8 Allergy status to other drugs, medicaments and biological substances; Z79.4 Long term (current) use of insulin; Z79.899 Other long term (current) drug therapy
CPT/HCPCS: 80053; 81001; 83690; 85025; 99284

== ENCOUNTER 2019-04-18 12:59 | Emergency (ER) | payer OTHER ==
[~2019-04-18] VITALS: Ht 152.4 cm; Wt 100.3 kg
[~2019-04-18 12:59] MED LIST changes: +BACTRIM DS TAB1 EACH PO; +BUPROPION XL450 MG PO; +HYDROXYZINE HCL25 MG PO; +INDOMETHACIN50 MG PO; +KEFLEX500 MG PO; +KETOROLAC TROME10 MG PO; +METFORMIN HCL1000 MG PO; +METOPROLOL TART25 MG PO; +ONDANSETRON ODT8 MG PO; +TRULICITY0.75 MG/0. SUB-Q
--- OUTSIDE RECORDS SUMMARY | 2019-04-18 13:02 | XMS ---
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 Care History Medical/Surgical 12/16/2018 [facility] - Patient is currently established with [facility]. If patient is seen in the ED during business hours. Please contact CHWs at [facility]. Care Recommendation: This patient has had 5 or more Emergency Department visits in the last 12 months.\T\nbsp; Patient requires education on the scope and purpose of the ED as an acute care provider not a Primary Care Provider and should not be utilized for chronic conditions.\T\nbsp; These are guidelines and the provider should exercise clinical judgment when providing care. 06/09/2018 [facility] CHW OF [facility] HAS SENT OUT A REQUEST FOR PATIENT TO ESTABLISH CARE WITH A PROVIDER AT THE CLINIC. - PATIENT CURRENTLY DOES NOT HAVE A PCP BUT CAN UTILIZE THE WALK IN CLINIC UNTIL ESTABLISHED WITH A PROVIDER. E.D. VISIT COUNT (12 MO.) 7 [facility]. TOTAL 7 NOTE: Visits indicate total known visits. 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 therapy - Allergy status to oth drug/meds/biol subst status - Essential (primary) hypertension 02/07/2019 17:04 KAROLINE Erickson OR TYPE: Emergency COMPLAINT: - RIGHT FLANK PAIN 02/03/2019 06:40 KAROLINE Erickson OR TYPE: Emergency COMPLAINT: - BLOOD IN URINE DIAGNOSES: - Hydronephrosis with renal and ureteral calculous obstruction - Unspecified abdominal pain - 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 - Allergy status to narcotic agent status - 1 Type 2 diabetes mellitus without complications - Essential (primary) hypertension - Allergy status to oth drug/meds/biol subst status - Acquired absence of both cervix and uterus - Acquired absence of other specified parts of digestive tract - Other terminal worker (current) drug therapy 02/01/2019 12:48 KAROLINE Erickson OR TYPE: Emergency COMPLAINT: - BLOOD IN URINE, ABDOMINAL PAIN DIAGNOSES: - Allergy status to narcotic agent status - Essential (primary) hypertension - Acquired absence of both cervix and uterus - Unspecified abdominal pain - Other terminal worker (current) 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 therapy - Allergy status to oth drug/meds/biol subst status - shelter (current) use of oral hypoglycemic drugs - 1 Type 2 diabetes mellitus without complications - Urinary tract infection, site not specified 12/15/2018 13:56 KAROLINE Erickson OR TYPE: Emergency COMPLAINT: - LOWER ABD PAIN DIAGNOSES: - 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 - Allergy status to narcotic agent status - Essential (primary) hypertension - 1 Type 2 diabetes mellitus without complications - Acquired absence of both cervix and uterus - Other terminal worker (current) 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 therapy - Unspecified abdominal pain - Acquired absence of other specified parts of digestive tract - Allergy status to oth drug/meds/biol subst status 06/08/2018 10:22 KAROLINE Erickson OR TYPE: Emergency COMPLAINT: - CP BLOOD PRESSURE PROBLEM DIAGNOSES: - Allergy status to oth drug/meds/biol subst status - 1 Type 2 diabetes mellitus without complications - Allergy status to narcotic agent status - shelter (current) use of oral hypoglycemic drugs - Essential (primary) hypertension - Hypertensive urgency - Other chest pain INPATIENT VISIT TRACKING (12 MO.) 02/07/2019 21:32 KAROLINE Erickson OR TYPE: Observation COMPLAINT: - KIDNEY STONES DIAGNOSES: - Right lower quadrant pain - Nausea with vomiting, unspecified - Calculus of ureter - Essential (primary) hypertension - shelter (current) use of insulin - Allergy status to oth drug/meds/biol subst status - Allergy status to narcotic agent status - Morbid (severe) obesity due to excess calories - Other terminal worker (current) drug therapy - Obstructive sleep apnea (adult) (pediatric) - Sleep apnea, unspecified - 1 Type 2 diabetes mellitus without complications - Personal history of urinary calculi - Body mass index (BMI) 40.0-44.9, adult 06/08/2018 16:33 [facility] Gal TYLER TYPE: Medical Surgical DIAGNOSES: - Athscl heart disease of [place] coronary artery w/o ang pctrs - Chest pain, unspecified - 1 Type 2 diabetes mellitus with unspecified complications - Excessive and frequent menstruation with irregular cycle - Essential (primary) hypertension - chest pain rule out [email or web address]
[2019-04-18] MEDS ORDERED: FLOMAX0.4 MG PO (15:21)
[2019-04-18] MEDS ORDERED: ZOFRAN4 MG PO (15:21)
[2019-04-18] MEDS ORDERED: NORCO 5-325 TA1 EACH PO (15:21)
== END 2019-04-18 16:38 | disposition home or self-care (01) ==
LOC: ED 12:59
DX: N13.2 Hydronephrosis with renal and ureteral calculous obstruction (principal); E11.9 Type 2 diabetes mellitus without complications; I10 Essential (primary) hypertension; Z90.710 Acquired absence of both cervix and uterus; Z90.49 Acquired absence of other specified parts of digestive tract; Z88.5 Allergy status to narcotic agent; Z88.8 Allergy status to other drugs, medicaments and biological substances; Z79.4 Long term (current) use of insulin; Z87.442 Personal history of urinary calculi; Z79.899 Other long term (current) drug therapy
CPT/HCPCS: 74176; 80053; 81001; 83690; 84703; 85025; 96361; 96374; 96375; 96376; 99284-25; J1170; J1885; J2405; J7030

== ENCOUNTER 2019-11-14 08:29 | Emergency (ER) | payer OTHER ==
[~2019-11-14] VITALS: Ht 152.4 cm; Wt 100.3 kg
--- OUTSIDE RECORDS SUMMARY | ~2019-11-14 | XMS | Encounter Summary ---
Demographics + + + | Address | [address] | | | [place] [address] | + + + | Home Phone | | + + + | Preferred Language | Unknown | + + + | Marital Status | | + + + | Christian Affiliation | Unknown | + + + | Race | Unknown | + + + | Ethnic Group | Unknown | + + + Author + + + | Author | [facility] | | | and [place] | + + + | Organization | [facility] | | | and [place] | + + + | Address | Unknown | + + + | Phone | Unavailable | + + + Support + + +---------+ + | Name | Relationship | Address | Phone | + + +---------+ + | Darrin Woods | FRANK | Unknown | | + + +---------+ + Care Team Providers + +------+ + | Care Technical Producer Name | Role | Phone | + +------+ + | Tiffanie Flynn | PCP | | + +------+ + Reason for Visit + + + | Reason | Comments | + + + | Wound Check | loop recorder inplant | + + + Follow Up (Routine) +--------+--------+ + + + + | Status | Reason | Specialty | Diagnoses / | Referred By | Referred To | | | | | Procedures | Contact | Contact | +--------+--------+ + + + + | Closed | | Cardiology | Diagnoses | Gee, | Cresencio, | | | | | Essential | Tiffanie Gale, | Delvin | | | | | (primary) | VIDEOTAPE EDITOR [address] | MD Bill | | | | | hypertension | [address] | [address] | | | | | Syncope | [place], | [place] | | | | | and collapse | [place] [address] | [place], [place] | | | | | Pure | Phone: | [phone] Phone: | | | | | hypercholest | [phone] | [phone] | | | | | erolemia | Fax: | Fax: | | | | | WOUND CHECK | [phone] | [phone] | | | | | FOR IMPLANT | | | | | | | Procedures | | | | | | | FUP | | | +--------+--------+ + + + + Encounter Details +--------+ + + + + | Date | Type | Department | Care Team | Description | +--------+ + + + + | 02/25/ | Clinical | [facility] [place] | AnsonDelvin hunter | Status post | | 2015 | Support | CARDIOLOGY [address] | MD Bill [address] | placement of | | | | [address], | [address] [place] | implantable loop | | | | [place] [address] | [place] [address] | [id number]-Oufnvg | | | | [phone] | [phone] | kathi-02/18/16-[facility] | | | | | | (Primary Dx); | | | | | | Syncope, unspecified | | | | | | syncope type | +--------+ + + + + Social History + +-------+ +--------+------+ | Tobacco Use | Types | Packs/Day | Years | Date | | | | | Used | | + +-------+ +--------+------+ | Never Assessed | | | | | + +-------+ +--------+------+ + + + | Sex Assigned at | Date Recorded | | | | + + + | Not on file | | + + + + + + + | Job Start Date | Occupation | Industry | + + + + | Not on file | Not on file | Not on file | + + + + + + + + | Travel History | Travel Start | Travel End | + + + + + + | No recent travel history available. | + + documented as of this encounter Last Filed Vital Signs + +---------+ + + | Vital Sign | Reading | Time Taken | Comments | + +---------+ + + | Blood Pressure | 132/78 | 02/26/2016 1:46 PM | | | | | PDT | | + +---------+ + + | Pulse | 60 | 02/26/2016 1:46 PM | | | | | PDT | | + +---------+ + + | Temperature | - | - | | + +---------+ + + | Respiratory Rate | - | - | | + +---------+ + + | Oxygen Saturation | - | - | | + +---------+ + + | Inhaled Oxygen | - | - | | | Concentration | | | | + +---------+ + + | Weight | - | - | | + +---------+ + + | Height | - | - | | + +---------+ + + | Body Mass Index | - | - | | + +---------+ + + documented in this encounter Progress Notes Gayathri Saldana RN - 02/26/2016 1:48 PM Bren was here today with her for a one week wound check after loop recorder implantation. She states that the spot that she thought looked like a car cigarette specialty trimmer burn turned out to be the glue that they put on . She removed it a few days ago. She states that there was some drainage when she removed it but she cleaned it with alcohol and dressed it with a band aid and it is much better now. S he denies any fever, or palpitations. She states that she did have one episode of chest pain . She had surgical pain earlier on but that is much improved at this time. She does have so me dizziness, lightheadedness and shortness of breath. She has marked more than 3 episodes but has not downloaded any of them. She did not remember how it all worked and states that s he remembers someone telling her something but she was still very out of it so did not remem [place] much. She was instructed on how it all works and will do a remote download as soon as s he gets home. Her incision is well approximated and appears to be healing well. There is n o redness, moderate bruising and mild swelling. She will follow up as planned in May . ..........................................Gayathri Saldana RN on 02/26/16 at 13:55 documented in this encounter Plan of Treatment Not on filedocumented as of this encounter Visit Diagnoses + + | Diagnosis | + + | Status post placement of implantable loop [id number]-MESI-Hlmlrsrad-02/18/16-[facility] - | | Primary | + + | Syncope, unspecified syncope type | + + documented in this encounter"
--- OUTSIDE RECORDS SUMMARY | ~2019-11-14 | XMS | Encounter Summary ---
Demographics + + + | Address | [address] | | | [place] [address] | + + + | Home Phone | | + + + | Preferred Language | Unknown | + + + | Marital Status | | + + + | Sikh Affiliation | Unknown | + + + | Race | Unknown | + + + | Ethnic Group | Unknown | + + + Author + + + | Author | [facility] | | | and [place] | + + + | Organization | [facility] | | | and [...] Team Providers + +------+ + | Care Transporter Driver Name | Role | Phone | + +------+ + | Tiffanie Flynn | PCP | | + +------+ + Reason for Visit + + + | Reason | Comments | + + + | Device Check | | | (Remote) | | + + + Encounter Details +--------+ + + + + | Date | Type | Department | Care Team | Description | +--------+ + + + + | 03/11/ | Implant | [facility] [place] | Delvin Dupont | Remote Device | | 2016 | Monitor | CARDIOLOGY [address] | MD Bill [address] | Interrogation | | | | [place], | [address] [place] | (Primary Dx); Status | | | | [place] [address] | [place] [address] | post placement of | | | | [phone] | [phone] | implantable loop | | | | | | [id number]-CHLC-Glpcaz | | | | | | kathi-02/18/16-[facility]; | | | | | | Syncope, [...] + + documented as of this encounter Plan of Treatment Not on filedocumented as of this encounter Procedures + +--------+ + + + | Procedure Name | Priori | Date/Time | Associated Diagnosis | Comments | | | ty | | | | + +--------+ + + + | DEVICE | Routin | 06/24/2016 | Status post | Results for this | | INTERROGATION- | e | 5:15 PM | placement of | procedure are in the | | REMOTE | | PST | implantable loop | results section. | | | | | [id number]-ZDWE-Uxqcjj | | | | | | kathi-02/18/16-[facility] | | | | | | Remote Device | | | | | | Interrogation | | | | | | Syncope, unspecified | | | | | | syncope type | | + +--------+ + + + documented in this encounter Results Device Interrogation - Remote (06/24/2016 5:15 PM PST) + + + | Narrative | Performed At | + + + | Delvin Dupont MD 06/24/2016 17:15 Refer to [facility] | [facility] | | documentation and remote PDF scanned into [employer] for remote | | | interrogation results. Data collected by Antonella Dooley RN | | | Presenting rhythm: Sinus bradycardia to sinus rhythm heart rate | | | 51-76. 1 Symptom Episodes #9 occurred 03/06/16 at 2058. EGM is | | | consistent with sinus rhythm heart rate 61-85. 0 Tachy Episodes | | | 0 Pause Episodes 0 Jean Episodes 0 AT Episodes 0 AF Episodes | | | % of time in AT/AF 0.0 % Histogram good. Battery ok. Apparent | | | normal and stable function. Device interrogation due in office in | | | 06/12. Patient notified. Patient states "feels real dizzy." This | | | transmission was related to an alert and is not billable. | | + + + + +---------+ + + | Performing | Address | City/State/Zipcode | Phone Number | | Organization | | | | + +---------+ + + | [facility] | | | | + +---------+ + + documented in this encounter Visit Diagnoses + + | Diagnosis | + + | Remote Device Interrogation - Primary | + + | Status post placement of implantable loop anoqnswt-IDQF-Lcvxwvfhr-02/18/16-[facility] | + + | Syncope, unspecified syncope type | + + documented in this encounter
--- OUTSIDE RECORDS SUMMARY | ~2019-11-14 | XMS | Encounter Summary ---
Demographics + + + | Address | [address] | | | [place] [address] | + + + | Home Phone | | + + + | Preferred Language | Unknown | + + + | Marital Status | | + + + | Latter-Day Affiliation | Unknown | + + + | Race | Unknown | + + + | Ethnic Group | Unknown | + + + Author + + + | Author | [facility] | | | and [place] | + + + | Organization | [facility] | | | and [...] Team Providers + +------+ + | Care Supervisor Nurse Name | Role | Phone | + [...] W | Interrogation | | | | [place], | [address] [place] | (Primary Dx); Status | | | | [place] [address] | [place] [address] | post placement of | | | | [phone] | [phone] | implantable loop | | | | | | hvffxzlw-QBCU-Tdkcdu | | | | | | kathi-02/18/16-[facility]; [...] results section. | | | | | tqnxqgnq-ONRT-Hnnifo | | | | | | kathi-02/18/16-[facility] [...] | documentation and remote PDF scanned into [employer] for remote | | | interrogation results. [...] | Status post placement of implantable loop mjvevqaw-MPQX-Hsjvvslhh-02/18/16-[facility] | + + | Syncope, unspecified syncope type | + + documented in this encounter
--- OUTSIDE RECORDS SUMMARY | ~2019-11-14 | XMS | Encounter Summary ---
Demographics + + + | Address | [address] | | | [place] [address] | + + + | Home Phone | | + + + | Preferred Language | Unknown | + + + | Marital Status | | + + + | Latter-Day Affiliation | Unknown | + + + | Race | Unknown | + + + | Ethnic Group | Unknown | + + + Author + + + | Author | [facility] | | | and [place] | + + + | Organization | [facility] | | | and [...] Team Providers + +------+ + | Care Staffing Program Manager Name | Role | Phone | + +------+ + | Gee Tiffaniejennifer ROGERS | PCP | | + +------+ + Reason for Visit + + + | Reason | Comments | + + + | Abdominal Pain | right | + + + Encounter Details +--------+ + + + + | Date | Type | Department | Care Team | Description | +--------+ + + + + | 12/30/ | Emergency | [facility] | Tee Lamar | Cyst of right ovary | | 2018 | | [facility] | [address] | (Primary Dx) | | | | [address] [address] | [address] | | | | | [address] [place], [place] | [place] [address] | | | | | [address] | [phone] | | | | | [phone] | | | +--------+ + + + + Social History + +-------+ +--------+------+ | Tobacco Use | Types | Packs/Day | Years | Date | | | | | Used | | + +-------+ +--------+------+ | Never Smoker | | | | | + +-------+ +--------+------+ + +---+---+---+ | Smokeless Tobacco: | | | | | Never Used | | | | + +---+---+---+ + + +---------+ + | Alcohol Use | Drinks/Week | oz/Week | Comments | + + +---------+ + | Yes | 0 Standard drinks | 0.0 | every 6 months | | | or equivalent | | | + + +---------+ + + + + | Sex Assigned at [...] this encounter Last Filed Vital Signs + + + + + | Vital Sign | Reading | Time Taken | Comments | + + + + + | Blood Pressure | 113/69 | 12/30/2017 9:47 AM | | | | | PDT | | + + + + + | Pulse | 50 | 12/30/2017 9:56 AM | | | | | PDT | | + + + + + | Temperature | 35.8 C (96.4 F) | 12/30/2017 7:43 AM | | | | | PDT | | + + + + + | Respiratory Rate | 16 | 12/30/2017 9:56 AM | | | | | PDT | | + + + + + | Oxygen Saturation | 98% | 12/30/2017 9:56 AM | | | | | PDT | | + + + + + | Inhaled Oxygen | - | - | | | Concentration | | | | + + + + + | Weight | 95.3 kg (210 lb) | 12/30/2017 7:43 AM | | | | | PDT | | + + + + + | Height | 152.4 cm (5') | 12/30/2017 7:43 AM | | | | | PDT | | + + + + + | Body Mass Index | 41.01 | 12/30/2017 7:43 AM | | | | | PDT | | + + + + + documented in this encounter Discharge Instructions Tee Allen DO - 12/30/2017Follow up with your primary provider as needed. Continue to use ibuprofen and tylenol for pain and norco for breakthrough pain. AttachmentsThe following attachments cannot be sent through Care Everywhere.Ovarian Cyst (E nglish)documented in this encounter Medications at Time of Discharge + + + +---------+ + + | Medication | Sig | Dispensed | Refills | Start | End Date | | | | | | Date | | + + + +---------+ + + | losartan (COZAAR) | Take 1 tablet by | 90 | 3 | 10/15/19 | | | 50 mg tablet | mouth Daily. | tablet | | 17 | | + + + +---------+ + + | CALCIUM PO | Take 1 tablet by | | 0 | | | | | mouth Daily. | | | | 9 | + + + +---------+ + + | cyclobenzaprine | PRN ONLY | | 0 | 07/20/19 | | | (FLEXERIL) 10 mg | | | | 17 | 9 | | tablet | | | | | | + + + +---------+ + + | ferrous sulfate | Take 325 mg by mouth | | 0 | | | | 325 mg tablet | Daily as needed. | | | | 9 | + + + +---------+ + + | | Take 1 tablet by | 15 | 0 | 12/31/19 | | | HYDROcodone-acetamin | mouth every 6 hours | tablet | | 18 | 9 | | ophen (NORCO) 5-325 | as needed for Pain. | | | | | | mg per tablet | | | | | | + + + +---------+ + + | | take 1 tablet by | | 0 | 09/09/19 | | | HYDROcodone-acetamin | mouth twice a day if | | | 17 | 9 | | ophen (NORCO) 5-325 | needed | | | | | | mg per tablet | | | | | | + + + +---------+ + + | metFORMIN | Take 500 mg by mouth | | 0 | | | | (GLUCOPHAGE) 500 mg | daily (with | | | | 9 | | tablet | breakfast). | | | | | + + + +---------+ + + | metoprolol | Take 0.5 tablets by | 45 | 3 | 10/15/19 | | | succinate | mouth Daily. | tablet | | 17 | 9 | | (TOPROL-XL) 50 mg 24 | | | | | | | hr tablet | | | | | | + + + +---------+ + + | VENTOLIN HFA 108 | inhale 1 puff every | | 0 | 08/01/19 | | | (90 Base) MCG/ACT | 4 hours if needed | | | 17 | 9 | | inhaler | | | | | | + + + +---------+ + + documented as of this encounter Plan of Treatment Not on filedocumented as of this encounter Procedures + +--------+ + + + | Procedure Name | Priori | Date/Time | Associated Diagnosis | Comments | | | ty | | | | + +--------+ + + + | ECG - EXTERNAL SCAN | | 01/03/2018 | | Results for this | | | | 12:00 AM | | procedure are in the | | | | PDT | | results section. | + +--------+ + + + | URINALYSIS WITH | STAT | 12/30/2017 | | Results for this | | MICROSCOPIC WITH | | 8:56 AM | | procedure are in the | | CULTURE IF INDICATED | | PDT | | results section. | + +--------+ + + + | CT ABDOMEN PELVIS W | STAT | 12/30/2017 | | Results for this | | CONTRAST | | 8:45 AM | | procedure are in the | | | | PDT | | results section. | + +--------+ + + + | SEDIMENTATION RATE, | STAT | 12/30/2017 | | Results for this | | AUTOMATED | | 8:30 AM | | procedure are in the | | | | PDT | | results section. | + +--------+ + + + | CBC WITH | STAT | 12/30/2017 | | Results for this | | DIFFERENTIAL | | 8:30 AM | | procedure are in the | | | | PDT | | results section. | + +--------+ + + + | C-REACTIVE PROTEIN | STAT | 12/30/2017 | | Results for this | | | | 8:30 AM | | procedure are in the | | | | PDT | | results section. | + +--------+ + + + | LACTIC ACID | STAT | 12/30/2017 | | Results for this | | | | 8:30 AM | | procedure are in the | | | | PDT | | results section. | + +--------+ + + + | COMPREHENSIVE | STAT | 12/30/2017 | | Results for this | | METABOLIC PANEL | | 8:30 AM | | procedure are in the | | | | PDT | | results section. | + +--------+ + + + documented in this encounter Results ECG - EXTERNAL SCAN (01/03/2018 12:00 AM PDT) + + + | Narrative | Performed At | + + + | Ordered by an | | | unspecified provider. | | + + + Urinalysis with Microscopic with Culture if Indicated (12/30/2017 8:56 AM PDT) + + + + + + | Component | Value | Ref Range | Performed | Pathologist | | | | | At | Signature | + + + + + + | Color, | Yellow | Pale Yellow, | [facility] | | | Urine | | Yellow | [facility] | | | | | | [facility] | | + + + + + + | Clarity | Clear | Clear | [facility] | | | | | | [facility] | | | | | | [facility] | | + + + + + + | pH, Urine | 6.0 | 5.0 - 7.0 | [facility] | | | | | | [facility] | [facility] | | | | | | [facility] | | + + + + + + | Specific | 1.015 | 1.003 - 1.030 | [facility] | | | [place], | | | [facility] | | | Urine | | | [facility] | | | | | | [facility] | | + + + + + + | Protein, | 15 mg/dL (A) | Negative | [facility] | | | Urine | | | [facility] | [facility] | | | | | | [facility] | | + + + + + + | Blood, | Negative | Negative | [facility] | | | Urine | | | [facility] | | | | | | [facility] | | + + + + + + | Glucose, | 50 mg/dL (A) | Normal | [facility] | | | Urine | | | [facility] | | | | | | [facility] | | + + + + + + | Ketones, | Negative | Negative | [facility] | | | Urine | | | [facility] | | | | | | [facility] | | + + + + + + | Bilirubin, | Negative | Negative | [facility] | | | Urine | | | [facility] | | | | | | [facility] | | + + + + + + | Nitrite, | Negative | Negative | [facility] | | | Urine | | | [facility] | [facility] | [facility] | | | | | | [facility] | | + + + + + + | Leukocyte | Negative | Negative | [facility] | | | Esterase, | | | [facility] | | | Urine | | | [facility] | | | | | | [facility] | | + + + + + + | Urobilinoge | 1 mg/dL | 0-1.0 mg/dL | [facility] | | | n, Urine | | | [facility] | | | | [facility] | | | | | | [facility] | | + + + + + + | White Blood | 0-2 | <=5 /HPF | [facility] | | | Cells, | | | [facility] | | | Urine | | | [facility] | | | | | | LAB[facility]AT[facility] | | + + + + + + | Red Blood | None Seen | <=5 /HPF | [facility] | | | Cells, | | | [facility] | | | Urine | | | [facility] | | | | | | LAB[facility]ATORY | | + + + + + + | Squamous | Few (A) | None Seen /LPF | [facility] | | | Epithelial | | | [facility] | | | Cells, | | | [facility]OSP[facility] | | | Urine | | | LABORATORY | | + + + + + + | Bacteria, | None Seen | None Seen /HPF | [facility] | | | Urine | | | [facility] | | | | [facility] | | | | | | [facility] | | + + + + + + | Amorphous | Few (A) | None Seen /HPF | [facility] | | | Crystals, | | | [facility] | | | Urine | | | [facility] | | | | | | [facility] | | + + + + + + | Urine | Urine Culture Not | | [facility] | | | Comment | Indicated | | [facility] | | | | | | [facility] | | + + + + + + + + | Specimen | + + | Urine - Urine | | specimen obtained | | via indwelling | | urinary catheter | | (specimen) | + + + + + | Narrative | Performed At | + + + | Testing preformed on 6mL of Urine. | [facility] | | | [facility] | + + + + + + + + | Performing | Address | City/State/Zipcode | Phone Number | | Organization | | | | + + + + + | [facility] | [address] | [place] | [phone] | | [facility] | | [address] | | + + + + + CT Abdomen Pelvis w Contrast (12/30/2017 8:45 AM PDT) + + | Specimen | + + | | + + + + + | Impressions | Performed At | + + + | IMPRESSION: 1. No acute finding. 2. 5 cm right ovarian cyst | [facility] | | without evidence of acute process. Suggest 6 week follow-up pelvic | | | ultrasound to re-evaluate the finding. 3. Nonspecific bilateral hilar | | | enlarged lymph nodes which do appear similar to the 2015 CT thorax. | | | The findings are incompletely imaged. Given stable appearance | | | reactive process favorite. 4. Mild diverticulosis without evidence of | | | diverticulitis. 5. Disc and facet degenerative changes lower lumbar | | | spine. 6. Bilateral nonobstructing small renal calculi. 7. Mild | | | nonspecific mild splenomegaly. . Dictated by: Fan Hernandez | | | | | + + + + + + | Narrative | Performed At | + + + | EXAMINATION: CT ABDOMEN PELVIS W CONTRAST HISTORY: ABDOMINAL | [facility] | | PAIN COMPARISON STUDY: CT thorax 02/23/2015. TECHNIQUE: 5 mm | | | axial slices were acquired through the abdomen and pelvis with | | | contrast. DOSE REPORT: CTDIvol: 29.4 mGy. DLP: 1531 mGy-cm. | | | Automated exposure control was utilized. FINDINGS: | | | Genitourinary: 5 cm cyst is present at the right ovary. No CT | | | findings suspicious for torsion. Follicles are present at the left | | | ovary. Uterus volume appears within normal limits. | | | Nonobstructing 2 mm calculi is present at the left kidney. | | | Approximate 1 mm nonobstructing calculi also noted on the left. At | | | the lower pole of the right kidney a nonobstructing composite | | | calcification of approximately 3 mm present which may relate to 1 or | | | 2 calculi.. Gastrointestinal: Normal appendix. No dilated bowel | | | loops. Mild diverticulosis without evidence of diverticulitis. | | | The gallbladder is absent. No focal liver lesion is seen. Spleen | | | length is 16 cm. The pancreas and adrenal glands appear within | | | normal limits. No focal gastric wall thickening.. | | | Musculoskeletal: Facet hypertrophic change and sclerosis present L4-5. | | | Mild facet hypertrophic change and sclerosis on the left at L5-S1. | | | Disc space narrowing L5-S1.. Retroperitoneum: Normal aorta. No | | | adenopathy.. Lung base: At the right hilum 12 mm short axis | | | diameter lymph node is demonstrated. This finding is incompletely | | | imaged. At the left hilum incompletely imaged 10 mm short axis | | | diameter lymph node noted. Heart size is normal. No focal | | | infiltrate or effusion. The lymph nodes do appear similar to CT | | | thorax from 2015.. | | + + + + + | Procedure Note | + + | Derrick, Rad Results In - 12/30/2017 10:05 AM PDT EXAMINATION: CT ABDOMEN PELVIS W | | CONTRASTHISTORY:ABDOMINAL PAINCOMPARISON STUDY:CT thorax 02/23/2015.TECHNIQUE:5 mm axial | | slices were acquired through the abdomen and pelvis with contrast.DOSE REPORT:CTDIvol: | | 29.4 mGy. DLP: 1531 mGy-cm. Automated exposure control was | | utilized.FINDINGS:Genitourinary: 5 cm cyst is present at the right ovary. No CT | | findings suspicious for torsion. Follicles are present at the left ovary. Uterus | | volume appears within normal limits.Nonobstructing 2 mm calculi is present at the left | | kidney. Approximate 1 mm nonobstructing calculi also noted on the left. At the lower | | pole of the right kidney a nonobstructing composite calcification of approximately 3 mm | | present which may relate to 1 or 2 calculi..Gastrointestinal: Normal appendix. No | | dilated bowel loops. Mild diverticulosis without evidence of diverticulitis.The | | gallbladder is absent. No focal liver lesion is seen. Spleen length is 16 cm.The | | pancreas and adrenal glands appear within normal limits. No focal gastric wall | | thickening..Musculoskeletal: Facet hypertrophic change and sclerosis present L4-5. Mild | | facet hypertrophic change and sclerosis on the left at L5-S1. Disc space narrowing | | L5-S1..Retroperitoneum: Normal aorta. No adenopathy..Lung base: At the right hilum 12 | | mm short axis diameter lymph node is demonstrated. This finding is incompletely imaged. | | At the left hilum incompletely imaged 10 mm short axis diameter lymph node noted.Heart | | size is normal. No focal infiltrate or effusion. The lymph nodes do appear similar to | | CT thorax from 2015..IMPRESSION: IMPRESSION:1. No acute finding.2. 5 cm right ovarian | | cyst without evidence of acute process. Suggest 6 week follow-up pelvic ultrasound to | | re-evaluate the finding.3. Nonspecific bilateral hilar enlarged lymph nodes which do | | appear similar to the 2015 CT thorax. The findings are incompletely imaged. Given | | stable appearance reactive process favorite.4. Mild diverticulosis without evidence of | | diverticulitis.5. Disc and facet degenerative changes lower lumbar spine.6. Bilateral | | nonobstructing small renal calculi.7. Mild nonspecific mild splenomegaly..Dictated by: | | Fan Hernandez | | | |Musculoskeletal: Facet hypertrophic change and sclerosis present L4-5. Mild facet hypertro phic change and sclerosis on the left at L5-S1. Disc space narrowing L5-S1.. | | | |Retroperitoneum: Normal aorta. No adenopathy.. | | | |Lung base: At the right hilum 12 mm short axis diameter lymph node is demonstrated. This f inding is incompletely imaged. At the left hilum incompletely imaged [address] ter lymph node noted. | | | |Heart size is normal. No focal infiltrate or effusion. The lymph nodes do appear similar to CT thorax from 2015.. | | | |IMPRESSION: | |IMPRESSION: | |1. No acute finding. | |2. 5 cm right ovarian cyst without evidence of acute process. Suggest 6 week follow-up pel zee ultrasound to re-evaluate the finding. | |3. Nonspecific bilateral hilar enlarged lymph nodes which do appear similar to the 2015 CT thorax. The findings are incompletely imaged. Given stable appearance reactive process fav orite. | |4. Mild diverticulosis without evidence of diverticulitis. | |5. Disc and facet degenerative changes lower lumbar spine. | |6. Bilateral nonobstructing small renal calculi. | |7. Mild nonspecific mild splenomegaly. | |. | | | |Dictated by: Fan Hernandez | | | | | + + + +---------+ + + | Performing | Address | City/State/Zipcode | Phone Number | | Organization | | | | + +---------+ + + | [facility] | | | | + +---------+ + + Sedimentation rate, automated (12/30/2017 8:30 AM PDT) + +--------+ + + + | Component | Value | Ref Range | Performed | Pathologist | | | | | At | Signature | + +--------+ + + + | Erythrocyte | 22 (H) | 0 - 20 mm/hr | [facility] | | | | | | [facility] | | [facility] | [facility] | | | on Rate | | | LAB[facility]AT[facility] | | + +--------+ + + + + + | Specimen | + + | Blood | + + + + + + + | Performing | Address | City/State/Zipcode | Phone Number | | Organization | | | | + + + + + | [facility] | [address] | [place] | [phone] | | [facility] | | [address] | | + + + + + C-Reactive Protein (12/30/2017 8:30 AM PDT) + +-------+ + + + | Component | Value | Ref Range | Performed | Pathologist | | | | | At | Signature | + +-------+ + + + | C-Reactive | 0.3 | 0.0 - 0.9 mg/dL | [facility] | | | Protein | | | [facility] | | | | | | [facility] | | + +-------+ + + + + + | Specimen | + + | Blood | + + + + + + + | Performing | Address | City/State/Zipcode | Phone Number | | Organization | | | | + + + + + | [facility] | [address] | [place], [place] | [phone] | | [facility] | | [address] | | + + + + + Lactic Acid (12/30/2017 8:30 AM PDT) + +-------+ + + + | Component | Value | Ref Range | Performed | Pathologist | | | | | At | Signature | + +-------+ + + + | Lactate | 2.0 | 0.4 - 2.1 | [facility] | | | | | mmol/L | [facility] | | | | | | [facility] | | + +-------+ + + + + + | Specimen | + + | Blood | + + + + + + + | Performing | Address | City/State/Zipcode | Phone Number | | Organization | | | | + + + + + | [facility] | [address] | [place] | [phone] | | [facility] | | [address] | | + + + + + Comprehensive Metabolic Panel (12/30/2017 8:30 AM PDT) + + + + + + | Component | Value | Ref Range | Performed | Pathologist | | | | | At | Signature | + + + + + + | Na | 137 | 132 - 143 | [facility] | | | | | mmol/L | [facility] | | | | | | [facility] | | + + + + + + | K | 3.8 | 3.3 - 4.9 | [facility] | | | | | mmol/L | [facility] | | | | | | [facility] | | + + + + + + | Cl | 105 | 95 - 108 mmol/L | [facility] | | | | | | [facility] | | | | | | [facility] | | + + + + + + | CO2 | 24 | 23 - 34 mmol/L | [facility] | | | | | | [facility] | | | | | | [facility] | | + + + + + + | Anion Gap | 8 | 7 - 16 mmol/L | [facility] | | | | | | [facility] | | | | | | [facility] | | + + + + + + | Glucose | 192 (H) | 70 - 110 mg/dL | [facility] | | | | | | [facility] | | | | | | [facility] | | + + + + + + | BUN | 15 | 5 - 26 mg/dL | [facility] | | | | | | [facility] | | | | | | [facility] | | + + + + + + | Creatinine | 0.80 | 0.60 - 1.30 | [facility] | | | | | mg/dL | [facility] | | | | | | [facility] | | + + + + + + | eGFR if not | >60Comment: GLOMERULAR | >=60 | [facility] | | | | FILTRATION | mL/min/1.73m2 | [facility] | | | [facility] | RATE,ESTIMATED | | [facility] | | | | mL/min/[id number] than | | LABORATORY | | | | 60 Chronic kidney | | | | | | disease,if found over a | | | | | | 3-month period.Less than | | | | | | 15 Kidney failureFor | | | | | | | | | | | | Americans,multiply the | | | | | | calculated GFR by 1.21. | | | | | | | | | | + + + + + + | Calcium | 8.6 | 8.3 - 10.0 | [facility] | | | | | mg/dL | [facility] | | | | | | [facility] | | + + + + + + | Albumin | 2.9 (L) | 3.0 - 4.5 g/dL | [facility] | | | | | | [facility] | | | | | | [facility] | | + + + + + + | Bilirubin | 0.3 | 0.0 - 1.2 mg/dL | [facility] | | | Total | | | [facility] | | | | | | [facility] | | + + + + + + | Total | 6.4 (L) | 6.6 - 8.5 g/dL | [facility] | | | Protein | | | [facility] | | | | | | [facility] | | + + + + + + | AST | 28 | 0 - 38 U/L | [facility] | | | | | | [facility] | | | | | | [facility] | | + + + + + + | ALT | 49 | 14 - 59 U/L | [facility] | | | | | [facility] | | | | | | [facility] | | + + + + + + | Alkaline | 96 | 46 - 116 U/L | [facility] | | | Phosphatase | | | [facility] | | | | | | [facility] | | + + + + + + | Globulin | 3.5 | g/dL | [facility] | | | | | | [facility] | | | | | | [facility] | | + + + + + + | Albumin/Catherine | 0.8 | | [facility] | | | bulin Ratio | | | [facility] | | | | | | [facility] | | + + + + + + | BUN/Creatin | 18.8 | 7.0 - 24.0 | [facility] | | | ine Ratio | | | [facility] | | | | | | [facility] | | + + + + + + + + | Specimen | + + | Blood | + + + + + + + | Performing | Address | City/State/Zipcode | Phone Number | | Organization | | | | + + + + + | [facility] | [address] | [place], [place] | [phone] | | [facility] | | [address] | | + + + + + CBC with Differential (12/30/2017 8:30 AM PDT) + + + + + + | Component | Value | Ref Range | Performed | Pathologist | | | | | At | Signature | + + + + + + | WBC | 5.0 | 4.3 - 10.4 K/uL | [facility] | | | | | [facility] | | | | | | [facility] | | + + + + + + | RBC | 3.76 (L) | 4.12 - 5.30 | [facility] | | | | | M/uL | [facility] | | | | | | [facility] | | + + + + + + | Hemoglobin | 10.0 (L) | 12.4 - 15.7 | [facility] | | | | | g/dL | [facility] | | | | | | [facility] | | + + + + + + | Hct | 31.2 (L) | 37.7 - 47.0 % | [facility] | | | | | | [facility] | | | | | | [facility] | | + + + + + + | MCV | 83.0 | 82.0 - 97.0 fL | [facility] | | | | | [facility] | | | | | | [facility] | | + + + + + + | MCH | 26.6 (L) | 27.1 - 32.3 pg | [facility] | | | | | [facility] | | | | | | [facility] | | + + + + + + | MCHC | 32.1 | 32.0 - 36.9 | [facility] | | | | | g/dL | [facility] | | | | | | [facility] | | + + + + + + | RDW-CV | 15.8 | 0.0 - 17.0 % | [facility] | | | | | | [facility] | | | | | | [facility] | | + + + + + + | Platelet | 212 | 150 - 450 K/uL | [facility] | | | Count | | | [facility] | | | | | | [facility] | | + + + + + + | MPV | 9.5 | 9.4 - 12.3 fL | [facility] | | | | | | [facility] | | | | | | [facility] | | + + + + + + | % | 57.7 | 42.0 - 76.0 % | [facility] | | | Neutrophils | | | [facility] | | | | | | [facility] | | + + + + + + | % | 30.6 | 20.0 - 40.0 % | [facility] | | | Lymphocytes | | | [facility] | | | | | | [facility] | | + + + + + + | % Monocytes | 8.1 | 3.0 - 13.0 % | [facility] | | | | | | [facility] | | | | | | [facility] | | + + + + + + | % | 2.6 | 0.0 - 7.0 % | [facility] | | | Eosinophils | | | [facility] | | | | | | [facility] | | + + + + + + | % Basophils | 0.6 | 0.0 - 2.0 % | [facility] | | | | | [facility] | | | | | | [facility] | | + + + + + + | % Immature | 0.4 | 0.0 - 0.5 % | [facility] | | | Granulocyte | | | [facility] | | | [facility] | | | [facility] | | | | | | [facility] | | + + + + + + | Absolute | 2.86 | 2.50 - 8.50 | [facility] | | | Neutrophils | | K/uL | [facility] | | | | | | [facility] | | + + + + + + | Absolute | 1.52 | 1.00 - 3.80 | [facility] | | | Lymphocytes | | K/uL | [facility] | | | | | | [facility] | | + + + + + + | Absolute | 0.40 | 0.00 - 0.80 | [facility] | | | Monocytes | | K/uL | [facility] | | | | | | [facility]ATORY | | + + + + + + | Absolute | 0.13 | 0.00 - 0.70 | [facility] | | | Eosinophils | | K/uL | [facility] | | | | | | [facility] | | + + + + + + | Absolute | 0.03 | 0.00 - 0.20 | [facility] | | | Basophils | | K/uL | [facility] | | | | | | [facility] | | + + + + + + | Absolute | 0.02 | 0.00 - 0.15 | [facility] | | | Immature | | K/UL | [facility] | | | Granulocyte | | | [facility] | | | s | | | LABORATORY | | + + + + + + | % nRBC | 0 | 0 - 0 per 100 | [facility] | | | | | WBC's | [facility] | | | | | | [facility]ATORY | | + + + + + + | Absolute | 0.00 | 0.00 - 0.01 | [facility] | | | nRBC | | K/UL | [facility] | | | | | | [facility] | | + + + + + + + + | Specimen | + + | Blood | + + + + + + + | Performing | Address | City/State/Zipcode | Phone Number | | Organization | | | | + + + + + | [facility] | [address] | [place] | [phone] | | [facility] | | [id number] | | + + + + + documented in this encounter Visit Diagnoses + + | Diagnosis | + + | Cyst of right ovary - Primary Other and unspecified ovarian cyst | + + documented in this encounter Administered Medications + +--------+---------+------+------+------+ | Medication Order | MAR | Action | Dose | Rate | Site | | | Action | Date | | | | + +--------+---------+------+------+------+ + +---+ | fentaNYL (PF) injection 50 mcg | | | 50 mcg, Intravenous, EVERY 1 | | | HOUR PRN, Pain, Starting Jazmine | | | 12/30/17 at 0838, For 2 doses | | + +---+ | | | + +---+ + +-------+ +---------+---+---+ | iopamidol (ISOVUE-300) 300 | Given | 12/31/19 | 100 mLs | | | | mg/mL injection 100 mL 100 mL, | | 18 8:45 | | | | | Intravenous, ONCE PRN, Other, | | AM PDT | | | | | Starting Jazmine 12/30/17 at 0845, For | | | | | | | 1 dose, Cat Scanner | | | | | | + +-------+ +---------+---+---+ +---+---+ | | | +---+---+ documented in this encounter"
--- OUTSIDE RECORDS SUMMARY | ~2019-11-14 | XMS | Encounter Summary ---
Demographics + + + | Address | [address] | | | [place] [address] | + + + | Home Phone | | + + + | Preferred Language | Unknown | + + + | Marital Status | | + + + | Methodist Affiliation | Unknown | + + + | Race | Unknown | + + + | Ethnic Group | Unknown | + + + Author + + + | Author | [facility] | | | and [place] | + + + | Organization | [facility] | | | and [...] Team Providers + +------+ + | Care Pipefitter Welder Name | Role | Phone | + +------+ + | Tiffanie Flynn | PCP | | + +------+ + Reason for Visit +--------+ + | Reason | Comments | +--------+ + | Other | requesting prep instructions | +--------+ + Encounter Details +--------+ + + + + | Date | Type | Department | Care Team | Description | +--------+ + + + + | 06/27/ | Telephone | [facility] | Shun, | Other (requesting | | 2019 | | [facility] | Bob Johnson, | prep instructions) | | | | SURGERY [address] | MD [address] | | | | | [address], | [place], [place] | | | | | [place] [address] | [address] | | | | | [phone] | | | | | | | | +--------+ + + + + Social History + +-------+ +--------+------+ | Tobacco Use | Types | Packs/Day | Years | Date | | | | | Used | | + +-------+ +--------+------+ | Never Smoker | | 0 | 0 | | + +-------+ +--------+------+ + +---+---+--------+ | Smokeless Tobacco: | | | Quit: | | Former User | | | 2000 | + +---+---+--------+ + + +---------+ + | Alcohol Use [...] filedocumented as of this encounter Visit Diagnoses Not on filedocumented in this encounter"
--- OUTSIDE RECORDS SUMMARY | ~2019-11-14 | XMS | Encounter Summary ---
Demographics + + + | Address | [address] | | | [place] [address] | + + + | Home Phone | | + + + | Preferred Language | Unknown | + + + | Marital Status | | + + + | Moravian Affiliation | Unknown | + + + | Race | Unknown | + + + | Ethnic Group | Unknown | + + + Author + + + | Author | [facility] | | | and [place] | + + + | Organization | [facility] | | | [...] Team Providers + +------+ + | Care Life Insurance Salesperson Name | Role | Phone | + [...] | SURGERY [address] | MD [address] | | | | | DR [address], | [place], [place] | | | | | [place] [address] | [address] | | | | | [phone] | | | | | | | [...]
--- OUTSIDE RECORDS SUMMARY | ~2019-11-14 | XMS | Encounter Summary ---
Demographics + + + | Address | [address] | | | [place] [address] | + + + | Home Phone | | + + + | Preferred Language | Unknown | + + + | Marital Status | | + + + | Advent Affiliation | Unknown | + + + | Race | Unknown | + + + | Ethnic Group | Unknown | + + + Author + + + | Author | [facility] | | | and [place] | + + + | Organization | [facility] | | | [...] Team Providers + +------+ + | Care Automotive Glass Technician Name | Role | Phone | + +------+ + | Tiffanie Flynn | PCP | | + +------+ + Reason for Visit + + + | Reason | Comments | + + + | Appointment | | + + + Encounter Details +--------+ + + + + | Date | Type | Department | Care Team | Description | +--------+ + + + + | 06/12/ | Telephone | [facility] | Delvin Dupont | Appointment | | 2016 | | [facility] [address] | MD [address] | | | | | [place], | [address] [place] | | | | | [place] [address] | [place] [address] | | | | | [phone] | | | | | | | [...]
--- OUTSIDE RECORDS SUMMARY | ~2019-11-14 | XMS | Encounter Summary ---
Demographics + + + | Address | [address] | | | [place] [address] | + + + | Home Phone | | + + + | Preferred Language | Unknown | + + + | Marital Status | | + + + | Advent Affiliation | Unknown | + + + | Race | Unknown | + + + | Ethnic Group | Unknown | + + + Author + + + | Author | [facility] | | | and [place] | + + + | Organization | [facility] | | [...] Team Providers + +------+ + | Care Powerhouse Attendant Name | Role | Phone | + +------+ + PCP | Unavailable | + +------+ + Encounter Details +--------+ + + + + | Date | Type | Department | Care Team | Description | +--------+ + + + + | 05/07/ | Hospital | [facility] | Kirby Castro | | | 2014 | Encounter | H[facility]PITAL XRAY [address] | Stephen Dc MD [address] | | | | | [address] | [address] | | | | | [place] | [place] [address] | | | | | [address] | [phone] | | | | | [phone] | | | +--------+ + + + [...] + + documented as of this encounter Medications at Time of Discharge + + + +---------+ + + | Medication | Sig | Dispensed | Refills | Start | End Date | | | | | | Date | | + + + +---------+ + + | ALPRAZolam (XANAX | Take 1 mg by mouth | | 0 | | | | XR) 1 mg 24 hr | nightly. | | | | 6 | | tablet | | | | | | + + + +---------+ + + | ALPRAZolam (XANAX) | Take 0.25 mg by | | 0 | | | | 0.25 mg tablet | mouth 3 times daily | | | | 6 | | | as needed. | | | | | + + + +---------+ + + | doxepin (SINEQUAN) | Take 50 mg by mouth | | 0 | | | | 50 mg capsule | nightly. | | | | 6 | + + + +---------+ + + | ergocalciferol | Take 50,000 Units by | | 0 | | | | (VITAMIN D-2) 50,000 | mouth Once a week. | | | | 6 | | units capsule | | | | | | + + + +---------+ + + | gabapentin | Take 300 mg by | | 0 | | | | (NEURONTIN) 300 mg | mouth. 2 tablets in | | | | 6 | | capsule | the am, 2 tablets in | | | | | | | the afternoon, and | | | | | | | 2 tablets at night | | | | | + + + +---------+ + + | hydrOXYzine | Take 25 mg by mouth | | 0 | | | | hydrochloride | every 6 hours as | | | | 6 | | (ATARAX) 25 mg | needed. | | | | | | tablet | | | | | | + + + +---------+ + + | | Take 0.5 tablets by | | 0 | | | | losartan-hydrochloro | mouth Daily. | | | | 6 | | thiazide (HYZAAR) | | | | | | | 100-12.5 MG per | | | | | | | tablet | | | | | | + + + +---------+ + + | metFORMIN | Take 500 mg by mouth | | 0 | | | | (GLUCOPHAGE) 500 mg | 2 times daily (with | | | | 6 | | tablet | breakfast & | | | | | | | dinner). | | | | | + + + +---------+ + + | sertraline | Take 50 mg by mouth | | 0 | | | | (ZOLOFT) 50 mg | Daily. | | | | 6 | | tablet | | | | | | + + + +---------+ + + | simvastatin | Take 20 mg by mouth | | 0 | | | | (ZOCOR) 20 mg tablet | nightly. | | | | 6 | + + + +---------+ + + | Uncoded Medication | Convert CPAP to | 1 | 0 | 11/07/19 | | | | purchase for NIKOLAS | Device | | 14 | 6 | | | (327.23) | | | | | + + + +---------+ + + | zolpidem (AMBIEN | Take 12.5 mg by | | 0 | | | | CR) 12.5 MG CR | mouth nightly as | | | | 6 | | tablet | needed. | | | | | + + + +---------+ + + documented as of this encounter Plan of Treatment Not on filedocumented as of this encounter Procedures + +--------+ + + + | Procedure Name | Priori | Date/Time | Associated Diagnosis | Comments | | | ty | | | | + +--------+ + + + | XR CHEST 2 VIEWS | Routin | 05/07/2015 | | Results for this | | | e | 10:09 AM | | procedure are in the | | | | PST | | results section. | + +--------+ + + + documented in this encounter Results XR Chest 2 VW (05/07/2015 10:09 AM PST) + + | Specimen | + + | | + + + + + | Narrative | Performed At | + + + | ORIGINAL CHEST, TWO VIEW: CLINICAL STATEMENT: | | | Shortness of breath. COMPARISON: None. REPORT: Prominence of | | | the right bianca is present. No pleural effusion is seen. Heart | | | size is normal. No acute bony finding is identified. IMPRESSION: | | | 1. Prominence of the right bianca is present which could relate to | | | adenopathy, pneumonia, atelectasis and/or perihilar mass. CT may | | | provide additional information. Call report to the office of Kirby | | | MD Matthew is made at 10:47. 2. Chest radiograph from 02/23/2015 as | | | well as CT thorax from 02/23/2015 are made available for comparison. | | | The studies were acquired at [facility], | | | [place]. Right bianca adenopathy was demonstrated. The finding on the | | | current study is less apparent compared to the [facility] studies. | | | JOB# [id number] Read By: | | | COLTON SOFIA MD Released By: COLTON SOFIA MD Date: | | | 05/07/2015 21:19 | | + + + + + | Procedure Note | + + | Derrick, Rad Results In - 05/12/2017 8:48 PM PST ORIGINAL CHEST, TWO VIEW: | | CLINICAL STATEMENT:Shortness of breath. COMPARISON:None. REPORT:Prominence of the right | | bianca is present. No pleural effusion is seen. Heart size is normal. No acute bony | | finding is identified. IMPRESSION:1. Prominence of the right bianca is present which could | | relate to adenopathy, pneumonia, atelectasis and/or perihilar mass. CT may provide | | additional information. Call report to the office of Kriby Castro MD is made at | | 10:47.2. Chest radiograph from 02/23/[address] thorax from 02/23/2015 are made | | available for comparison. The studies were acquired at [facility] | | [place]. Right bianca adenopathy was demonstrated. The finding on the current study is | | less apparent compared to the [place] studies. B# [id number] | | Read By: COLTON SOFIA MD Released By: COLTON SOFIA MDDate: 05/07/2015 21:19 | | | |REPORT: | |Prominence of the right bianca is present. No pleural effusion is seen. Heart size is henok l. No acute bony finding is identified. | | | |IMPRESSION: | |1. Prominence of the right bianca is present which could relate to adenopathy, pneumonia, ate lectasis and/or perihilar mass. CT may provide additional information. Call report to the office of Kirby Castro MD is made at 10:47. | |2. Chest radiograph from 02/23/[address] thorax from 02/23/2015 are made available for comparison. The studies were acquired at [facility], [place], [place]. Rig ht bianca adenopathy was | |demonstrated. The finding on the current study | |is less apparent compared to the [place] studies. | | | | | | | |JOB# [id number] | | | | | | | |Read By: COLTON SOFIA MD | | | |Released By: COLTON SOFIA MD | |Date: 05/07/2015 21:19 | | | | | + + documented in this encounter Visit Diagnoses Not on filedocumented in this encounter"
--- OUTSIDE RECORDS SUMMARY | ~2019-11-14 | XMS | Encounter Summary ---
Demographics + + + | Address | [address] | | | [place] [address] | + + + | Home Phone | | + + + | Preferred Language | Unknown | + + + | Marital Status | | + + + | Church Affiliation | Unknown | + + + | Race | Unknown | + + + | Ethnic Group | Unknown | + + + Author + + + | Author | [facility] | | | and [place] | + + + | Organization | [facility] | | | and [...] Team Providers + +------+ + | Care Is Consultant Name | Role | Phone | + [...] | +--------+ + + + + | 09/24/ | Telephone | [facility] | Delvin Dupont | Appointment | | 2017 | | [facility] [address] | MD [address] | | | | | [place], | [address] [place] | | | | | [place] [address] | [place] [address] | | | | [phone] | | | | | | | [...]
--- OUTSIDE RECORDS SUMMARY | ~2019-11-14 | XMS | Encounter Summary ---
Demographics + + + | Address | [address] | | | [place] [address] | + + + | Home Phone | | + + + | Preferred Language | Unknown | + + + | Marital Status | | + + + | Yazidism Affiliation | Unknown | + + + | Race | Unknown | + + + | Ethnic Group | Unknown | + + + Author + + + | Author | [facility] | | | and [place] | + + + | Organization | [facility] | | | and [...] Team Providers + +------+ + | Care Dressing Machine Operator Name | Role | Phone | + +------+ + | Tiffanie Flynn | PCP | | + +------+ + Reason for Visit Auth/Cert +--------+--------+ + + + + | Status | Reason | Specialty | Diagnoses / | Referred By | Referred To | | | | | Procedures | Contact | Contact | +--------+--------+ + + + + | | | | Diagnoses | | | | | | | syncope, | | | | | | | bradycardia | | | | | | | LINQ implant | | | | | | | Procedures | | | | | | | CV EP LOOP | | | | | | | RECORDER | | | | | | | PROCEDURE | | | +--------+--------+ + + + + Encounter Details +--------+---------+ + + + | Date | Type | Department | Care Team | Description | +--------+---------+ + + + | 02/17/ | Surgery | [facility] | Delvin Dupont | CV EP Loop Recorder | | 2016 | | MED CTR CV INTRA OP | MD Bill [address] | Procedure | | | | [address] | [address] [facility] | | | | | [place] | [place] [address] | | | | | [address] | [phone] | | | | | [phone] | | | +--------+---------+ + + + Social History + +-------+ [...] | 0 Standard drinks | 0.0 | Rare | | | or equivalent | | [...] + + + | Blood Pressure | 102/55 | 02/18/2016 9:05 AM | | | | | PDT | | + + + + + | Pulse | 59 | 02/18/2016 9:05 AM | | | | | PDT | | + + + + + | Temperature | 35.6 C (96.1 F) | 02/18/2016 6:25 AM | | | | | PDT | | + + + + + | Respiratory Rate | 16 | 02/18/2016 9:05 AM | | | | | PDT | | + + + + + | Oxygen Saturation | 96% | 02/18/2016 9:05 AM | | | | | PDT | | + + + + + | Inhaled Oxygen | - | - | | | Concentration | | | | + + + + + | Weight | 93.1 kg (205 lb 5 | 02/18/2016 6:25 AM | | | | oz) | PDT | | + + + + + | Height | 152.4 cm (5') | 02/18/2016 6:25 AM | | | | | PDT | | + + + + + | Body Mass Index | 40.1 | 02/18/2016 6:25 AM | | | | | PDT | | + + + + + documented in this encounter Discharge Instructions Instructions Erik, Smiley M, RN - 02/18/2016 Understanding Loop Recorder Implantation An implantable loop recorder (ILR) is a device that records information about how your hear t is working. A loop recorder may be implanted if you have problems such as: Fainting Heart palpitations Very fast or slow heartbeats Unexplained falls Possible hidden heart rhythm problems that can cause strokes During implantation, a small device is placed under the skin on your chest, a few inches be low your collarbone. The device works as an electrocardiogram (ECG). It constantly picks up electrical signals from your heart. An ILR records for up to 3 years. How a loop recorder helps You may need an ILR if other tests haven t found the cause of your symptoms. An ILR const antly records your heart s electrical activity. For example, if you faint because of an ar rhythmia, the device records your heart s activity before, during, and after you faint. Th en your health care provider can see how your heart was acting. Or you may need to trigger your ILR with an activator. This is a small, handheld device. Yo u press a button on the activator when you are feeling symptoms. The IRL then records your h eart s activity. Once the cause of your symptoms is found, you can be treated. You may need another small de vice to help control your heart rhythm. This may be a pacemaker or an implantable cardiovert er-defibrillator (ICD). How loop recorder implantation is done The doctor will make a small cut (incision) in your skin. This is usually done in the left upper chest, a few inches below your collarbone. He or she will make a small pocket under yo ur skin. The doctor will place the loop recorder in this pocket. The machine is about the si ze of a flat AA battery. Risks of loop recorder implantation All procedures have some risks. The risks of this procedure include: Bleeding or bruising Infection that may require that the ILR be removed Damage to your heart or blood vessels Mild pain at your implantation site Your own risks will depend on your age, your other overall health, and other factors. Ask y our healthcare provider about which risks most apply to you. [id number] [employer]. [address] [place] [address], [place] [address]. All righ ts reserved. This information is not intended as a substitute for professional medical care. Always follow your healthcare professional's instructions. documented in this encounter Medications at Time of Discharge + + + +---------+--------+ + | Medication | Sig | Dispensed | Refills | Start | End Date | | | | | | Date | | + + + +---------+--------+ + | ferrous sulfate | Take 325 mg by mouth | | 0 | | | | 325 mg tablet | Daily as needed. | | | | 9 | + + + +---------+--------+ + documented as of this encounter Plan of Treatment Not on filedocumented as of this encounter Procedures + +--------+ + + + | Procedure Name | Priori | Date/Time | Associated Diagnosis | Comments | | | ty | | | | + +--------+ + + + | XR CHEST AP PORTABLE | Routin | 02/18/2016 | | Results for this | | | e | 10:33 AM | | procedure are in the | | | | PDT | | results section. | + +--------+ + + + | CV EP LOOP RECORDER | Routin | 02/18/2016 | | Results for this | | PROCEDURE | e | 8:04 AM | | procedure are in the | | | | PDT | | results section. | + +--------+ + + + | POC GLUCOSE | Routin | 02/18/2016 | | Results for this | | | e | 6:57 AM | | procedure are in the | | | | PDT | | results section. | + +--------+ + + + documented in this encounter Results XR Chest AP Portable (02/18/2016 10:33 AM PDT) + + | Specimen | + + | | + + + + + | Narrative | Performed At | + + + | XR CHEST AP PORTABLE 02/18/2016 8:24 AM HISTORY: post op | [facility] | | generator/battery change. COMPARISON: 09/11/2013. Findings: A | | | loop recorder device is seen in the left lower chest. The heart is | | | enlarged. Aorta is normal. Mediastinum is unremarkable. Central | | | pulmonary vasculature is normal. The bilateral lungs are clear with | | | no evidence for pleural effusion or pneumothorax. There are no acute | | | osseous abnormalities. IMPRESSION - Loop recorder device over | | | left lower chest, no acute findings. Cardiomegaly. Dictated | | | and Signed by: Stan Cornejo MD Electronically signed: 02/18/2016 | | | 10:04 AM | | + + + + + | Procedure Note | + + | Charles Meza Results In - 02/18/2016 10:08 AM PDT XR CHEST AP PORTABLE 02/18/2016 8:24 AM | | | | HISTORY: post op generator/battery change. | | | | COMPARISON: 09/11/2013. | | | | Findings: | | A loop recorder device is seen in the left lower chest. The heart is enlarged. | | Aorta is normal. Mediastinum is unremarkable. Central pulmonary vasculature is | | normal. The bilateral lungs are clear with no evidence for pleural effusion or | | pneumothorax. There are no acute osseous abnormalities. | | | | IMPRESSION - | | Loop recorder device over left lower chest, no acute findings. | | | | Cardiomegaly. | | | | Dictated and Signed by: Stan Cornejo MD | | Electronically signed: 02/18/2016 10:04 AM | + + + +---------+ + + | Performing | Address | City/State/Zipcode | Phone Number | | Organization | | | | + +---------+ + + | [facility] | | | | + +---------+ + + CV EP PROCEDURE (02/18/2016 8:04 AM PDT) + + | Specimen | + + | | + + + + + | Narrative | Performed At | + + + | Delvin Khan | | | MD Cresencio 02/18/2016 15:18 LOOP RECORDER IMPLANTATION PATIENT | | | NAME: Corina Parada : 1980: AGE: 36 | | | y.o. PRIMARY CARE:Tiffanie Flynn, | | | FNPSURGEON:Delvin Dupont MD, PhD, [facility] DATE OF PROCEDURE: | | | 02/18/2016 PROCEDURES PERFORMED:1. Implantation of a Medtronic | | | loop recorder. INDICATIONS: 1. Syncope, lightheadedness | | | DESCRIPTION OF PROCEDURE: After informed consent was obtained, the | | | patient was taken to the laborer aquatic life lab. Patient was hooked up to | | | EKG, pulse oximetry and blood pressure monitoring. All parameters | | | were kept stable during procedure. Patient received 4 mg of Versed | | | and 150 mcg of fentanyl as well as 25 mg of Benadryl intravenously for | | | conscious sedation during the procedure. The left pectoral area was | | | prepped and draped in the standard fashion. Under sterile | | | technique, and 12 mL of 2:3 ratio of 1% lidocaine and 0.5% marcaine | | | without epinephrine injection for local anesthesia, the incision was | | | made. Incision was made using a small Arik. The Medtronic loop | | | recorder was inserted in the diagonal axis which was predetermined to | | | provide the best vector. Hemostasis was obtained. The skin sealed | | | with a layer of Dermabond. Estimated blood loss was 0 mL. | | | COMPLICATIONS: There were no complications. The patient tolerated | | | the procedure well. DEVICE INFORMATION: A. Medtronic loop recorder, | | | model Reveal LINQ, serial #: [id number]. DEVICE SETTINGS: VT: 350 | | | ms(171bpm) for 16 beatsBradycardia: 2000 ms(30bpm) for 4 | | | beats.Asystole: 3 seconds. Delvin Dupont MD, PhD, | | | [facility]02/18/2016 15:15 | | |After informed consent was obtained, the patient was taken to | | |the laborer aquatic life lab. Patient was hooked up to EKG, pulse oximetry | | |and blood pressure monitoring. All parameters were kept stable | | |during procedure. Patient received 4 mg of Versed and 150 mcg of | | |fentanyl as well as 25 mg of Benadryl intravenously for conscious | | |sedation during the procedure. The left pectoral area was | | |prepped and draped in the standard fashion. Under sterile | | |technique, and 12 mL of 2:3 ratio of 1% lidocaine and 0.5% | | |marcaine without epinephrine injection for local anesthesia, the | | |incision was made. Incision was made using a small Arik. The | | |Medtronic loop recorder was inserted in the diagonal axis which | | |was predetermined to provide the best vector. Hemostasis was | | |obtained. The skin sealed with a layer of Dermabond. | | | | | |Estimated blood loss was 0 mL. | | | | | |COMPLICATIONS: There were no complications. The patient | | |tolerated the procedure well. | | | | | |DEVICE INFORMATION: | | |A. [employer] loop recorder, model Reveal LINQ, serial #: | | |[id number]. | | | | | |DEVICE SETTINGS: | | |VT: 350 ms(171bpm) for 16 beats | | |Bradycardia: 2000 ms(30bpm) for 4 beats. | | |Asystole: 3 seconds. | | | | | | | | |Delvin Bill Dupont MD, PhD, FACC | | |02/18/2016 15:15 | | + + + POC Glucose (02/18/2016 6:57 AM PDT) + +-------+ + + + | Component | Value | Ref Range | Performed | Pathologist | | | | | At | Signature | + +-------+ + + + | Glucose, | 117 | 70 - 150 mg/dL | [facility] | | [facility] | | | [facility] | [facility] - | | | | | | [facility]ATORY | | + +-------+ + + + + + | Specimen | + + | Blood | + + + + + + + | Performing | Address | City/State/Zipcode | Phone Number | | Organization | | | | + + + + + | [facility] | [address] | [place] | [phone] | | [facility] | | [address] | | | - LABORATORY | | | | + + + + + documented in this encounter Visit Diagnoses Not on filedocumented in this encounter Administered Medications + +--------+ +-------+------+------+ | Medication Order | MAR | Action | Dose | Rate | Site | | | Action | Date | | | | + +--------+ +-------+------+------+ | diphenhydrAMINE (BENADRYL) | Given | 02/18/20 | 25 mg | | | | injection ONCE PRN, Starting Wed | | 16 7:42 | | | | | 02/18/16 at 0742, Intra-op | | AM PDT | | | | + +--------+ +-------+------+------+ +---+---+ | | | +---+---+ + +-------+ +--------+---+---+ | fentaNYL (PF) injection ONCE | Given | 02/18/20 | 50 mcg | | | | PRN, Starting 02/18/16 at | | 16 7:38 | | | | | 0728, Intra-op | | AM PDT | | | | + +-------+ +--------+---+---+ +-------+ +--------+---+---+ | Given | 02/18/20 | 25 mcg | | | | | 16 7:34 | | | | | | AM PDT | | | | +-------+ +--------+---+---+ | Given | 02/18/20 | 25 mcg | | | | | 16 7:31 | | | | | | AM PDT | | | | +-------+ +--------+---+---+ +---+---+ | | | +---+---+ + +-------+ +--------+---+---+ | lidocaine 1% injection ONCE | Given | 02/18/20 | 12 mLs | | | | PRN, Starting 02/18/16 at | | 16 7:43 | | | | | 0743, Intra-op | | AM PDT | | | | + +-------+ +--------+---+---+ +---+---+ | | | +---+---+ + +-------+ +--------+---+---+ | midazolam (VERSED) 1 mg/mL | Given | 02/18/20 | 0.5 mg | | | | injection ONCE PRN, Starting Tue | | 16 7:40 | | | | | 02/18/16 at 0728, Intra-op | | AM PDT | | | | + +-------+ +--------+---+---+ +-------+ +--------+---+---+ | Given | 02/18/20 | 0.5 mg | | | | | 16 7:38 | | | | | | AM PDT | | | | +-------+ +--------+---+---+ | Given | 02/18/20 | 1 mg | | | | | 16 7:36 | | | | | | AM PDT | | | | +-------+ +--------+---+---+ +---+---+ | | | +---+---+ + +-------+ +------+---+---+ | ondansetron (ZOFRAN) injection | Given | 02/18/20 | 4 mg | | | | 4 mg 4 mg, Intravenous, EVERY 6 | | 16 8:40 | | | | | HOURS PRN, Nausea, Vomiting, | | AM PDT | | | | | Starting 02/18/16 at 0826, | | | | | | | Post-op/Phase II | | | | | | + +-------+ +------+---+---+ +---+---+ | | | +---+---+ + +---------+ +---+-------+---+ | sodium chloride 0.9% (NS) | New Bag | 02/18/20 | | 125 | | | infusion at 125 mL/hr, | | 16 6:58 | | mL/hr | | | Intravenous, FIXED VOLUME (see | | AM PDT | | | | | admin instruction), Starting Tue | | | | | | | 02/18/16 at 0700, For procedure | | | | | | | only, not to exceed 1 liter., | | | | | | | Pre-op | | | | | | + +---------+ +---+-------+---+ +---+---+ | | | +---+---+ documented in this encounter"
--- OUTSIDE RECORDS SUMMARY | ~2019-11-14 | XMS | Encounter Summary ---
Demographics + + + | Address | [address] | | | [place] [address] | + + + | Home Phone | | + + + | Preferred Language | Unknown | + + + | Marital Status | | + + + | Sikhism Affiliation | Unknown | + + + | Race | Unknown | + + + | Ethnic Group | Unknown | + + + Author + + + | Author | [facility] | | | and [place] | + + + | Organization | [facility] | | | [...] Team Providers + +------+ + | Care Virtual Reality Specialist Name | Role | Phone | + [...] | | | | | | | SYNCOPE | | | | | | | [...] | +--------+ + + + + | 11/03/ | Hospital | [facility] | Delvin Dupont | Encounter for loop | | 2017 | Encounter | MED CTR CV INTRA OP | MD Bill [address] | recorder check | | | | [address] | [address] [facility] | (Primary Dx); | | | | [place], [place] | [facility] [address] | Lightheadedness; | | | | [address] | [phone] | Status post | | | | [phone] | | placement of | | | | | | implantable loop | | | | | | recorder; Syncope, | | | | | | unspecified syncope | | | | | | type | +--------+ + + + + [...] + + + | Blood Pressure | 107/66 | 11/03/2016 9:15 AM | | | | | PDT | | + + + + + | Pulse | 45 | 11/03/2016 9:15 AM | | | | | PDT | | + + + + + | Temperature | 36.3 C (97.3 F) | 11/03/2016 6:32 AM | | | | | PDT | | + + + + + | Respiratory Rate | 16 | 11/03/2016 6:32 AM | | | | | PDT | | + + + + + | Oxygen Saturation | 100% | 11/03/2016 9:15 AM | | | | | PDT | | + + + + + | Inhaled Oxygen | - | - | | | Concentration | | | | + + + + + | Weight | 101.2 kg (223 lb) | 11/03/2016 6:32 AM | | | | | PDT | | + + + + + | Height | 152.4 cm (5') | 11/03/2016 6:32 AM | | | | | PDT | | + + + + + | Body Mass Index | 43.55 | 11/03/2016 6:32 AM | | | | | PDT | | + + + + + documented in this encounter Medications at Time [...] XR CHEST AP PORTABLE | Routin | 11/03/2016 | | Results for this | | | e | 9:12 AM | | procedure are in the | | | | PDT | | results section. | + +--------+ + + + | CV EP LOOP RECORDER | Routin | 11/03/2016 | | Results for this | | PROCEDURE | e | 8:20 AM | | procedure are in the | | | | PDT | | results section. | + +--------+ + + + | POC GLUCOSE | Routin | 11/03/2016 | | Results for this | | | e | 6:44 AM | | procedure are in the | | | | PDT | | results section. | + +--------+ + + + documented in this encounter Results XR Chest AP Portable (11/03/2016 9:12 AM PDT) + + | Specimen | + + | | + + + + + | Narrative | Performed At | + + + | PORTABLE CHEST X-RAY: 11/03/2016 9:12 AM CLINICAL HISTORY:post | [facility] | | cardiac device prodedure COMPARISON: 02/18/2016 FINDINGS: | | | Previously noted loop recorder over the left lower chest is no longer | | | present. Heart size is normal. Aorta and pulmonary vasculature | | | are within normal limits. No mediastinal widening. No areas of | | | abnormal lung density. No effusion or pneumothorax. No acute bony | | | abnormalities. No upper abdominal abnormalities. IMPRESSION | | | -Interval removal of loop recorder. No acute cardiopulmonary | | | abnormality. Dictated and Signed by: Salinas Flynn MD | | | Electronically signed: 11/03/2016 9:29 AM | | + + + + + | Procedure Note | + + | Charles Meza Results In - 11/03/2016 9:33 AM PDT PORTABLE CHEST X-RAY: 11/03/2016 9:12 AM | | | | CLINICAL HISTORY:post cardiac device prodedure | | | | COMPARISON: 02/18/2016 | | | | FINDINGS: Previously noted loop recorder over the left lower chest is no longer | | present. | | | | Heart size is normal. Aorta and pulmonary vasculature are within normal limits. | | No mediastinal widening. | | | | No areas of abnormal lung density. No effusion or pneumothorax. | | | | No acute bony abnormalities. No upper abdominal abnormalities. | | | | IMPRESSION -Interval removal of loop recorder. No acute cardiopulmonary | | abnormality. | | | | Dictated and Signed by: Salinas Flynn MD | | Electronically signed: 11/03/2016 9:29 AM | + + + +---------+ + + | Performing | Address | City/State/Zipcode | Phone Number | | Organization | | | | + +---------+ + + | [facility] | | | | + +---------+ + + CV EP PROCEDURE (11/03/2016 8:20 AM PDT) + + | Specimen | + + | | + + + + + | Narrative | Performed At | + + + | Delvin Khan | | | MD Cresencio 11/03/2016 11:03LINQ Extraction Note After obtaining | | | informed consent and administration of moderate/conscious sedation | | | using 150 g of fentanyl and 3 mg of Versed intravenously along with | | | 8 mg of Zofran, patient was injected with subcutaneous lidocaine | | | followed by successful extraction of a previously implanted LINQ | | | monitor device. The incision area was successfully closed with the | | | help of skin glue and Steri-Strips followed by administration of | | | dressing thereafter. Estimated blood loss was less than 3 cc. | | | Patient tolerated the procedure well. She will continue to be seen | | | as an outpatient in our cardiology clinic. Elijah Dupont MD, | | | PhD, FACC Moderate sedation start time: 07:50. Moderate sedation | | | stop time: 08:30. Delvin Sr MD, PhD, FACC reviewed | | | the patient's pre-sedation assessment and vital signs, supervised and | | | directed the Moderate Sedation from administration to patient | | | stabilization for recovery. | | |Moderate sedation start time: 07:50. Moderate sedation stop | | |time: 08:30. Delvin Sr MD, PhD, FACC reviewed the | | |patient's pre-sedation assessment and vital signs, supervised and | | |directed the Moderate Sedation from administration to patient | | |stabilization for recovery. | | | | | + + + POC Glucose (11/03/2016 6:44 AM PDT) + +-------+ + + + | Component | Value | Ref Range | Performed | Pathologist | | | | | At | Signature | + +-------+ + + + | Glucose, | 131 | 70 - 150 mg/dL | [facility] | | | POC | | | [...] | + + + + + | [facility] | [address] | [place] | [phone] | | [facility] | | [address] | | | - LABORATORY | | | | + + + + + documented in this encounter Visit Diagnoses + + | Diagnosis | + + | Encounter for loop recorder check - Primary | + + | Lightheadedness Dizziness and giddiness | + + | Status post placement of implantable loop recorder | + + | Syncope, unspecified syncope type | + + documented in this encounter Administered Medications + +---------+ +------+-------+------+ | Medication Order | MAR | Action | Dose | Rate | Site | | | Action | Date | | | | + +---------+ +------+-------+------+ | sodium chloride 0.9% (NS) | New Bag | 11/04/19 | | 125 | | | infusion at 125 mL/hr, | | 17 6:47 | | mL/hr | | | Intravenous, BOTTOM BLEACHER, Starting | | AM PDT | | | | | 11/03/16 at 0617, For 1 dose, | | | | | | | For procedure only, do not exceed | | | | | | | 1 liter., Pre-op | | | | | | + +---------+ +------+-------+------+ +---+---+ | | | +---+---+ documented in this encounter"
--- OUTSIDE RECORDS SUMMARY | ~2019-11-14 | XMS | Encounter Summary ---
Demographics + + + | Address | [address] | | | [place] [address] | + + + | Home Phone | | + + + | Preferred Language | Unknown | + + + | Marital Status | | + + + | Sikhism Affiliation | Unknown | + + + | Race | Unknown | + + + | Ethnic Group | Unknown | + + + Author + + + | Author | [facility] | | | and [place] | + + + | Organization | [facility] | | | [...] Team Providers + +------+ + | Care Airport Ramp Attendant Name | Role | Phone | + +------+ + | Tiffanie Flynn | PCP | | + +------+ + Encounter Details +--------+ + + + + | Date | Type | Department | Care Team | Description | +--------+ + + + + | 02/05/ | Abstract | [facility] | Delvin Dupont | | | 2015 | | [facility] [address] | MD Bill [address] | | | | | [place], | [place] | | | | | [place] [address] | [place] [address] | | | | | [phone] | [phone] | | | | | | | [...]
--- OUTSIDE RECORDS SUMMARY | ~2019-11-14 | XMS | Encounter Summary ---
Demographics + + + | Address | [address] | | | [place] [address] | + + + | Home Phone | | + + + | Preferred Language | Unknown | + + + | Marital Status | | + + + | Quaker Affiliation | Unknown | + + + | Race | Unknown | + + + | Ethnic Group | Unknown | + + + Author + + + | Author | [facility] | | | and [place] | + + + | Organization | [facility] | | | [...] Team Providers + +------+ + | Care Cut In Station Operator Name | Role | Phone | [...] | +--------+ + + + + | 02/17/ | Hospital | [facility] | Delvin Dupont | Lightheadedness | | 2016 | Encounter | MED CTR CV INTRA OP | MD Bill [address] | (Primary Dx); | | | | [address] | [address] [place] | Syncope, unspecified | | | | [place], [place] | [place] [address] | syncope type | | | | [id number] | [phone] | | | | | [phone] | | | +--------+ + + + [...] documented in this encounter Discharge Instructions Instructions Smiley Valencia RN - 02/18/2016 Understanding Loop Recorder Implantation [...] about which risks most apply to you. [id number] [employer]. [address] [place] [address] [place] [address]. All righ ts reserved. This information is [...] + | Derrick, Rad Results In - 02/18/2016 10:08 AM PDT [...] | | | FNPSURGEON:Delvin Dupont MD, PhD, [facility] DATE OF PROCEDURE: | | | 02/18/2016 PROCEDURES PERFORMED:1. Implantation of a Medtronic | | | loop recorder. INDICATIONS: 1. Syncope, lightheadedness | | | DESCRIPTION OF PROCEDURE: After informed consent was obtained, the | | | patient was taken to the shop laborer lab. Patient was hooked up to | [...] | | model Reveal LINQ, serial #: [id number]. DEVICE SETTINGS: VT: 350 | | | ms(171bpm) for 16 beatsBradycardia: 2000 ms(30bpm) for 4 | | | beats.Asystole: 3 seconds. Delvin Dupont MD, PhD, | | | [facility]02/18/2016 15:15 | | |After informed consent was obtained, the patient was taken to | | |the shop laborer lab. Patient was hooked up to EKG, [...] | | |DEVICE INFORMATION: | | |A. Optireno loop recorder, model Reveal LINQ, serial #: | | |[id number]. | | | | | |DEVICE SETTINGS: [...] | + + + + + | [facility] | [address] | [place] | [phone] | | [facility] | | [address] | | | - LABORATORY | | | | + + + + + documented in this encounter Visit Diagnoses + + | Diagnosis | + + | Lightheadedness - Primary Dizziness and giddiness | + + | Syncope, unspecified syncope type | + + documented in this encounter Administered Medications + +--------+ +------+------+------+ | Medication Order | MAR | Action | Dose | Rate | Site | | | Action | Date | | | | + +--------+ +------+------+------+ | ondansetron (ZOFRAN) injection | Given | 02/17/ | 4 mg | | | | 4 mg 4 mg, Intravenous, EVERY 6 | | 16 8:40 | | | | | HOURS PRN, Nausea, Vomiting, | | AM PDT | | | | | Starting 02/18/16 at 0826, | | | | | | | Post-op/Phase II | | | | | | + +--------+ +------+------+------+ +---+---+ | | | +---+---+ + +---------+ [...]
--- OUTSIDE RECORDS SUMMARY | ~2019-11-14 | XMS | Encounter Summary ---
Demographics + + + | Address | [address] | | | [place] [address] | + + + | Home Phone | | + + + | Preferred Language | Unknown | + + + | Marital Status | | + + + | Mandaen Affiliation | Unknown | + + + | Race | Unknown | + + + | Ethnic Group | Unknown | + + + Author + + + | Author | [facility] | | | and [place] | + + + | Organization | [facility] | | | and [...] Team Providers + +------+ + | Care Natural Resource Manager Name | Role | Phone | [...] [address] | | | | | [address], | [address] [place] | | | | | [place] [address] | [place] [address] | | | | | [phone] | [phone] | | | | | | | [...]
--- OUTSIDE RECORDS SUMMARY | ~2019-11-14 | XMS | Encounter Summary ---
Demographics + + + | Address | [address] | | | [place] [address] | + + + | Home Phone | | + + + | Preferred Language | Unknown | + + + | Marital Status | | + + + | Pentecostal Affiliation | Unknown | + + + | Race | Unknown | + + + | Ethnic Group | Unknown | + + + Author + + + | Author | [facility] | | | and [place] | + + + | Organization | [facility] | | | and [...] Team Providers + +------+ + | Care Hot [place] Shearer Name | Role | Phone | + +------+ + | Tiffanie Flynn | PCP | | + +------+ + Reason for Visit +--------+ + | Reason | Comments | +--------+ + | Other | | +--------+ + Encounter Details +--------+ + + + + | Date | Type | Department | Care Team | Description | +--------+ + + + + | 05/07/ | Telephone | [facility] | Delvin Dupont | Other | | 2016 | | CARDIOLOGY [address] | MD [address] | | | | | [place], | [address] [place] | | | | | [place] [address] | [place] [address] | | | | | [phone] | [phone] | | | | | | | [...]
--- OUTSIDE RECORDS SUMMARY | ~2019-11-14 | XMS | Encounter Summary ---
Demographics + + + | Address | [address] | | | [place] [address] | + + + | Home Phone | | + + + | Preferred Language | Unknown | + + + | Marital Status | | + + + | Gnosticist Affiliation | Unknown | + + + | Race | Unknown | + + + | Ethnic Group | Unknown | + + + Author + + + | Author | [facility] | | | and [place] | + + + | Organization | [facility] | | | [...] Team Providers + +------+ + | Care Vice President Of Human Resources Name | Role | Phone | + +------+ + | Tiffanie Flynn | PCP | | + +------+ + Reason for Referral Diagnostic/Screening (Routine) +--------+--------+ + + + + | Status | Reason | Specialty | Diagnoses / | Referred By | Referred To | | | | | Procedures | Contact | Contact | +--------+--------+ + + + + | Closed | | Radiology | Diagnoses | Page, | [facility] | | | | | Syncope, | Troy Buchanan MD | [address] | | | | | unspecified | [address] | [place], | | | | | syncope type | [address] | [place] | | | | | | [place], | [address] | | | | | [place] | [place] [address] | Phone: | | | | | | Phone: | [phone] | | | | | Hyperreflexi | [phone] | Fax: | | | | | a | Fax: | [phone] | | | | | Procedures | [phone] | | | | | | MRI | | | | | | | Angiogram | | | | | | | Head wo | | | | | | | Contrast | | | +--------+--------+ + + + + Diagnostic/Screening (Routine) +--------+--------+ + + + + | Status | Reason | Specialty | Diagnoses / | Referred By | Referred To | | | | | Procedures | Contact | Contact | +--------+--------+ + + + + | Closed | | Radiology | Diagnoses | Page, | [facility] | | | | | Syncope, | Troy E A, MD | [address] | | | | | unspecified | [address] | [place], | | | | | syncope type | [address] | [place] | | | | | | [place], | [address] | | | | | [place] | [place] [address] | Phone: | | | | | | Phone: | [phone] | | | | | Hyperreflexi | [phone] | Fax: | | | | | a | Fax: | [phone] | | | | | Procedures | [phone] | | | | | | MRI | | | | | | | Angiogram | | | | | | | Neck w wo | | | | | | | Contrast | | | +--------+--------+ + + + + Encounter Details +--------+ + + + + | Date | Type | Department | Care Team | Description | +--------+ + + + + | 02/18/ | Orders Only | [facility] [place] | Troy Page, | Syncope, unspecified | | 2016 | | PHYSIATRY [address] | MD [address] | syncope type | | | | [address] | [place] | (Primary Dx); | | | | [place] | [id number] | [place]; | | | | [address] | | Hyperreflexia | | | | [phone] | | | +--------+ + + + [...] Not on filedocumented as of this encounter Results MRI Angiogram Neck w wo Contrast (02/26/2016 4:21 PM PDT) + + | Specimen | + + | | + + + + + | Narrative | Performed At | + + + | MRI ANGIOGRAM NECK W WO CONTRAST. 02/26/2016 3:27 PM HISTORY: | [facility] | | syncope and pre-sycope with neck extension, hyperreflexion, numbness | [facility] | | in hands and feet. COMPARISON: MRI head 01/10/2016 TECHNIQUE | [facility] | | MRA HEAD: 3-D mdrf-pb-fqgmtb magnetic resonance angiograms were | - IMAGING | | obtained of the [place] and vertebrobasilar systems. MIP | | | and source images are available. TECHNIQUE MRA NECK: 3-D | | | wrqg-wh-xtoqbc magnetic resonance angiograms were obtained from the | | | level of the aortic arch to the skull base. Coronal subtracted T1 | | | 3-D GRE images were obtained postcontrast following administration of | | | 8 mL Gadavist. 3-D rotating MIP reformats and source images are | | | available for review. FINDINGS MRA HEAD: The internal carotid | | | arteries are within normal limits. The anterior cerebral arteries and | | | visualized branches are within normal limits. Although there is a | | | focal area of thinning at the anterior communicating artery, the | | | anterior technique using artery does appear to be patent. The | | | middle cerebral arteries and visualized branches are within normal | | | limits. The right posterior communicating artery is robust. The | | | left posterior indicating artery is not well seen, and may be | | | hypoplastic or absent. The posterior cerebral arteries are within | | | normal limits. The superior cerebellar arteries are within normal | | | limits. The basilar artery is within normal limits. The intracranial | | | portion of the left vertebral artery is within normal limits. The | | | distal/intracranial portion of the right vertebral artery is patent, | | | although smaller in caliber than the left. The anterior inferior | | | cerebellar arteries are visualized. No aneurysms, arteriovenous | | | malformations, or hemodynamically significant stenoses are visible. | | | FINDINGS MRA NECK: The visualized portion of the aortic arch is | | | within normal limits. The brachiocephalic artery is within normal | | | limits. The visualized portion of the right subclavian artery is | | | unremarkable. The right common carotid artery originates directly | | | from the aortic arch . The right common carotid artery is within | | | normal limits in caliber throughout its course. The right carotid | | | bulb is unremarkable. There is tortuosity of the right internal | | | carotid artery . The right internal carotid artery is normal in | | | caliber from its origin to the skull base. The right external carotid | | | artery and branching vessels are unremarkable. The right | | | vertebral artery is within normal limits throughout its course to the | | | skull base. The left common carotid artery is within normal | | | limits throughout its course. The left carotid bulb is unremarkable. | | | There is tortuosity of the left internal carotid artery . The left | | | internal carotid artery is normal in caliber from its origin to the | | | skull base. The left external carotid artery and branching vessels | | | are unremarkable. There is tortuosity of the proximal left | | | vertebral artery . The left vertebral artery is within normal | | | limits in caliber throughout its course to the skull base. There is | | | mild left dominance of the vertebral arteries. Left subclavian | | | artery is unremarkable. The visualized thoracic structures are | | | unremarkable. IMPRESSION - No hemodynamically significant | | | stenosis, aneurysm, or vascular malformation of the major arteries of | | | the head or neck. Dictated and Signed by: Eddie Parson MD | | | Electronically signed: 02/26/2016 5:45 PM | | + + + + + | Procedure Note | + + | Derrick, Rad Results In - 02/26/2016 5:48 PM PDT MRI ANGIOGRAM NECK W WO CONTRAST. | | 02/26/2016 3:27 PMHISTORY: syncope and pre-sycope with neck extension, hyperreflexion, | | numbness inhands and feet.COMPARISON: MRI head 01/10/2016TECHNIQUE MRA HEAD: 3-D | | wxyt-mt-owiaee magnetic resonance angiograms wereobtained of the [place] and | | vertebrobasilar systems. MIP and sourceimages are available.TECHNIQUE MRA NECK: 3-D | | msln-fa-jsrhjw magnetic resonance angiograms wereobtained from the level of the aortic | | arch to the skull base. Coronalsubtracted T1 3-D GRE images were obtained postcontrast | | following administrationof 8 mL Gadavist. 3-D rotating MIP reformats and source images | | are availablefor review.FINDINGS MRA HEAD:The internal carotid arteries are within | | normal limits.The anterior cerebral arteries and visualized branches are within normal | | limits.Although there is a focal area of thinning at the anterior communicating | | artery,the anterior technique using artery does appear to be patent.The middle cerebral | | arteries and visualized branches are within normal limits.The right posterior | | communicating artery is robust. The left posteriorindicating artery is not well seen, | | and may be hypoplastic or absent.The posterior cerebral arteries are within normal | | limits.The superior cerebellar arteries are within normal limits.The basilar artery is | | within normal limits.The intracranial portion of the left vertebral artery is within | | normal limits. The distal/intracranial portion of the right vertebral artery is | | patent,although smaller in caliber than the left.The anterior inferior cerebellar | | arteries are visualized.No aneurysms, arteriovenous malformations, or hemodynamically | | significantstenoses are visible.FINDINGS MRA NECK:The visualized portion of the aortic | | arch is within normal limits.The brachiocephalic artery is within normal limits. The | | visualized portion ofthe right subclavian artery is unremarkable.The right common | | carotid artery originates directly from the aortic arch . Theright common carotid | | artery is within normal limits in caliber throughout itscourse. The right carotid bulb | | is unremarkable.There is tortuosity of the right internal carotid artery . The right | | internalcarotid artery is normal in caliber from its origin to the skull base.The right | | external carotid artery and branching vessels are unremarkable.The right vertebral | | artery is within normal limits throughout its course to theskull base.The left common | | carotid artery is within normal limits throughout its course. The left carotid bulb is | | unremarkable.There is tortuosity of the left internal carotid artery . The left | | internalcarotid artery is normal in caliber from its origin to the skull base.The left | | external carotid artery and branching vessels are unremarkable.There is tortuosity of | | the proximal left vertebral artery . The left vertebralartery is within normal limits | | in caliber throughout its course to the skullbase.There is mild left dominance of the | | vertebral arteries.Left subclavian artery is unremarkable.The visualized thoracic | | structures are unremarkable.IMPRESSION -No hemodynamically significant stenosis, | | aneurysm, or vascular malformation ofthe major arteries of the head or neck.Dictated and | | Signed by: Eddie Parson MD Electronically signed: 02/26/2016 5:45 PM | |the right subclavian artery is unremarkable. | | | |The right common carotid artery originates directly from the aortic arch . The | |right common carotid artery is within normal limits in caliber throughout its | |course. The right carotid bulb is unremarkable. | |There is tortuosity of the right internal carotid artery . The right internal | |carotid artery is normal in caliber from its origin to the skull base. | |The right external carotid artery and branching vessels are unremarkable. | | | |The right vertebral artery is within normal limits throughout its course to the | |skull base. | | | |The left common carotid artery is within normal limits throughout its course. | |The left carotid bulb is unremarkable. | |There is tortuosity of the left internal carotid artery . The left internal | |carotid artery is normal in caliber from its origin to the skull base. | |The left external carotid artery and branching vessels are unremarkable. | | | |There is tortuosity of the proximal left vertebral artery . The left vertebral | |artery is within normal limits in caliber throughout its course to the skull | |base. | |There is mild left dominance of the vertebral arteries. | | | |Left subclavian artery is unremarkable. | | | |The visualized thoracic structures are unremarkable. | | | | | | | |IMPRESSION - | |No hemodynamically significant stenosis, aneurysm, or vascular malformation of | |the major arteries of the head or neck. | | | |Dictated and Signed by: Eddie Parson MD | | Electronically signed: 02/26/2016 5:45 PM | + + + + + + + | Performing | Address | City/State/Zipcode | Phone Number | | Organization | | | | + + + + + | [facility] | [address] | [place], [place] | [phone] | | [facility] | | [id number] | | | - IMAGING | | | | + + + + + MRI Angiogram Head wo Contrast (02/26/2016 4:13 PM PDT) + + | Specimen | + + | | + + + + + | Narrative | Performed At | + + + | MRI ANGIOGRAM HEAD WO CONTRAST. 02/26/2016 4:13 PM HISTORY: | [facility] | | syncope and pre-sycope with neck extension, hyperreflexion, numbness | [facility] | | in hands and feet. COMPARISON: MRI head 01/10/2016 TECHNIQUE | [facility] | | MRA HEAD: 3-D nrsf-gn-[id number] magnetic resonance angiograms were | - IMAGING | | obtained of the [place] and vertebrobasilar systems. MIP | | | and source images are available. TECHNIQUE MRA NECK: 3-D | | | vgiy-wx-vaqujn magnetic resonance angiograms were obtained from the | | | level of the aortic arch to the skull base. Coronal subtracted T1 | | | 3-D GRE images were obtained postcontrast following administration of | | | 8 mL Gadavist. 3-D rotating MIP reformats and source images are | | | available for review. FINDINGS MRA HEAD: The internal carotid | | | arteries are within normal limits. The anterior cerebral arteries and | | | visualized branches are within normal limits. Although there is a | | | focal area of thinning at the anterior communicating artery, the | | | anterior technique using artery does appear to be patent. The | | | middle cerebral arteries and visualized branches are within normal | | | limits. The right posterior communicating artery is robust. The | | | left posterior indicating artery is not well seen, and may be | | | hypoplastic or absent. The posterior cerebral arteries are within | | | normal limits. The superior cerebellar arteries are within normal | | | limits. The basilar artery is within normal limits. The intracranial | | | portion of the left vertebral artery is within normal limits. The | | | distal/intracranial portion of the right vertebral artery is patent, | | | although smaller in caliber than the left. The anterior inferior | | | cerebellar arteries are visualized. No aneurysms, arteriovenous | | | malformations, or hemodynamically significant stenoses are visible. | | | FINDINGS MRA NECK: The visualized portion of the aortic arch is | | | within normal limits. The brachiocephalic artery is within normal | | | limits. The visualized portion of the right subclavian artery is | | | unremarkable. The right common carotid artery originates directly | | | from the aortic arch . The right common carotid artery is within | | | normal limits in caliber throughout its course. The right carotid | | | bulb is unremarkable. There is tortuosity of the right internal | | | carotid artery . The right internal carotid artery is normal in | | | caliber from its origin to the skull base. The right external carotid | | | artery and branching vessels are unremarkable. The right | | | vertebral artery is within normal limits throughout its course to the | | | skull base. The left common carotid artery is within normal | | | limits throughout its course. The left carotid bulb is unremarkable. | | | There is tortuosity of the left internal carotid artery . The left | | | internal carotid artery is normal in caliber from its origin to the | | | skull base. The left external carotid artery and branching vessels | | | are unremarkable. There is tortuosity of the proximal left | | | vertebral artery . The left vertebral artery is within normal | | | limits in caliber throughout its course to the skull base. There is | | | mild left dominance of the vertebral arteries. Left subclavian | | | artery is unremarkable. The visualized thoracic structures are | | | unremarkable. IMPRESSION - No hemodynamically significant | | | stenosis, aneurysm, or vascular malformation of the major arteries of | | | the head or neck. Dictated and Signed by: Eddie Parson MD | | | Electronically signed: 02/26/2016 5:44 PM | | + + + + + | Procedure Note | + + | Derrick, Rad Results In - 02/26/2016 5:47 PM PDT MRI ANGIOGRAM HEAD WO CONTRAST. | | 02/26/2016 4:13 PMHISTORY: syncope and pre-sycope with neck extension, hyperreflexion, | | numbness inhands and feet.COMPARISON: MRI head 01/10/2016TECHNIQUE MRA HEAD: 3-D | | vxdn-sb-dbyosn magnetic resonance angiograms wereobtained of the [place] and | | vertebrobasilar systems. MIP and sourceimages are available.TECHNIQUE MRA NECK: 3-D | | udlr-fm-ykfhbp magnetic resonance angiograms wereobtained from the level of the aortic | | arch to the skull base. Coronalsubtracted T1 3-D GRE images were obtained postcontrast | | following administrationof 8 mL Gadavist. 3-D rotating MIP reformats and source images | | are availablefor review.FINDINGS MRA HEAD:The internal carotid arteries are within | | normal limits.The anterior cerebral arteries and visualized branches are within normal | | limits.Although there is a focal area of thinning at the anterior communicating | | artery,the anterior technique using artery does appear to be patent.The middle cerebral | | arteries and visualized branches are within normal limits.The right posterior | | communicating artery is robust. The left posteriorindicating artery is not well seen, | | and may be hypoplastic or absent.The posterior cerebral arteries are within normal | | limits.The superior cerebellar arteries are within normal limits.The basilar artery is | | within normal limits.The intracranial portion of the left vertebral artery is within | | normal limits. The distal/intracranial portion of the right vertebral artery is | | patent,although smaller in caliber than the left.The anterior inferior cerebellar | | arteries are visualized.No aneurysms, arteriovenous malformations, or hemodynamically | | significantstenoses are visible.FINDINGS MRA NECK:The visualized portion of the aortic | | arch is within normal limits.The brachiocephalic artery is within normal limits. The | | visualized portion ofthe right subclavian artery is unremarkable.The right common | | carotid artery originates directly from the aortic arch . Theright common carotid | | artery is within normal limits in caliber throughout itscourse. The right carotid bulb | | is unremarkable.There is tortuosity of the right internal carotid artery . The right | | internalcarotid artery is normal in caliber from its origin to the skull base.The right | | external carotid artery and branching vessels are unremarkable.The right vertebral | | artery is within normal limits throughout its course to theskull base.The left common | | carotid artery is within normal limits throughout its course. The left carotid bulb is | | unremarkable.There is tortuosity of the left internal carotid artery . The left | | internalcarotid artery is normal in caliber from its origin to the skull base.The left | | external carotid artery and branching vessels are unremarkable.There is tortuosity of | | the proximal left vertebral artery . The left vertebralartery is within normal limits | | in caliber throughout its course to the skullbase.There is mild left dominance of the | | vertebral arteries.Left subclavian artery is unremarkable.The visualized thoracic | | structures are unremarkable.IMPRESSION -No hemodynamically significant stenosis, | | aneurysm, or vascular malformation ofthe major arteries of the head or neck.Dictated and | | Signed by: Eddie Parson MD Electronically signed: 02/26/2016 5:44 PM | |the right subclavian artery is unremarkable. | | | |The right common carotid artery originates directly from the aortic arch . The | |right common carotid artery is within normal limits in caliber throughout its | |course. The right carotid bulb is unremarkable. | |There is tortuosity of the right internal carotid artery . The right internal | |carotid artery is normal in caliber from its origin to the skull base. | |The right external carotid artery and branching vessels are unremarkable. | | | |The right vertebral artery is within normal limits throughout its course to the | |skull base. | | | |The left common carotid artery is within normal limits throughout its course. | |The left carotid bulb is unremarkable. | |There is tortuosity of the left internal carotid artery . The left internal | |carotid artery is normal in caliber from its origin to the skull base. | |The left external carotid artery and branching vessels are unremarkable. | | | |There is tortuosity of the proximal left vertebral artery . The left vertebral | |artery is within normal limits in caliber throughout its course to the skull | |base. | |There is mild left dominance of the vertebral arteries. | | | |Left subclavian artery is unremarkable. | | | |The visualized thoracic structures are unremarkable. | | | | | | | |IMPRESSION - | |No hemodynamically significant stenosis, aneurysm, or vascular malformation of | |the major arteries of the head or neck. | | | |Dictated and Signed by: Eddie Parson MD | | Electronically signed: 02/26/2016 5:44 PM | + + + + + + + | Performing | Address | City/State/Zipcode | Phone Number | | Organization | | | | + + + + + | [facility] | [address] | [place] | [phone] | | [facility] | | [address] | | | - IMAGING | | | | + + + + + documented in this encounter Visit Diagnoses + + | Diagnosis | + + | Syncope, unspecified syncope type - Primary | + + | Bradycardia Other specified cardiac dysrhythmias | + + | Hyperreflexia Abnormal reflex | + + documented in this encounter"
--- OUTSIDE RECORDS SUMMARY | ~2019-11-14 | XMS | Encounter Summary ---
Demographics + + + | Address | [address] | | | [place] [address] | + + + | Home Phone | | + + + | Preferred Language | Unknown | + + + | Marital Status | | + + + | Orthodox Affiliation | Unknown | + + + | Race | Unknown | + + + | Ethnic Group | Unknown | + + + Author + + + | Author | [facility] | | | and [place] | + + + | Organization | [facility] | | | [...] Team Providers + +------+ + | Care Treasury Agent Name | Role | Phone | + +------+ + PCP | Unavailable | + +------+ + Encounter Details +--------+ + + + + | Date | Type | Department | Care Team | Description | +--------+ + + + + | 03/21/ | Hospital | [facility] | Conversion | Pain | | 2015 | Encounter | CONVERSION [address] | Transaction, | | | | | [address] | Provider Unknown | | | | | [place] | [phone] | | | | | [address] | | | | | | [phone] | | | +--------+ + + + [...] + +--------+ + + + | XR ABDOMEN AP | Routin | 05/01/2014 | | Results for this | | UPRIGHT KUB AND PA | e | 1:06 AM | | procedure are in the | | CHEST | | PDT | | results section. | + +--------+ + + + documented in this encounter Results XR Abd Supine and Upright w 1 Vw Chest (05/01/2014 1:06 AM PDT) + + | Specimen | + + | | + + + + + | Narrative | Performed At | + + + | This is a non-reportable procedure without a radiologist report and | | | is used for image storage only | | + + + + + | Procedure Note | + + | Charles Meza Lilli - 02/17/2019 10:10 AM PDT This is a non-reportable procedure | | without a radiologist report and isused for image storage only | + + documented in this encounter Visit Diagnoses + + | Diagnosis | + + | Pain Generalized pain | + + documented in this encounter"
--- OUTSIDE RECORDS SUMMARY | ~2019-11-14 | XMS | Encounter Summary ---
Demographics + + + | Address | [address] | | | [place] [address] | + + + | Home Phone | | + + + | Preferred Language | Unknown | + + + | Marital Status | | + + + | Hinduism Affiliation | Unknown | + + + | Race | Unknown | + + + | Ethnic Group | Unknown | + + + Author + + + | Author | [facility] | | | and [place] | + + + | Organization | [facility] | | | [...] Team Providers + +------+ + | Care Benefits Director Name | Role | Phone | + +------+ + PCP | Unavailable | + +------+ + Encounter Details +--------+ + + + + | Date | Type | Department | Care Team | Description | +--------+ + + + + | 03/21/ | Hospital | [facility] | Conversion | Pain | | 2015 | Encounter | [address]VERSION [address] | Transaction, | | | | | [address] | Provider Unknown | | | | | [place] | [phone] | | | | | [address] | | | | | | [phone] | | | +--------+ + + + [...] XR CHEST 2 VIEWS | Routin | 09/11/2013 | | Results for this | | | e | 1:07 AM | | procedure are in the | | | | PDT | | results section. | + +--------+ + + + documented in this encounter Results XR Chest 2 Vws (09/11/2013 1:07 AM PDT) + + | Specimen | [...]
--- OUTSIDE RECORDS SUMMARY | ~2019-11-14 | XMS | Encounter Summary ---
Demographics + + + | Address | [address] | | | [place] [address] | + + + | Home Phone | | + + + | Preferred Language | Unknown | + + + | Marital Status | | + + + | Rastafarian Affiliation | Unknown | + + + | Race | Unknown | + + + | Ethnic Group | Unknown | + + + Author + + + | Author | [facility] | | | and [place] | + + + | Organization | [facility] | | | and [...] Team Providers + +------+ + | Care Fisher Pound [employer] Or Trap Name | Role | Phone | + +------+ + PCP | Unavailable | + +------+ + Encounter Details +--------+ + + + + | Date | Type | Department | Care Team | Description | +--------+ + + + + | 03/21/ | Hospital | [facility] | Conversion | Pain | | 2015 | Encounter | [address]VERSION [address] | Transaction, | | | | | [address] | Provider Unknown | | | | | [place] | [phone] | | | | | [address] | | | | | | [phone] | | | +--------+ + + + [...] +--------+ + + + | XR CHEST 1 VIEW | Routin | 07/30/2014 | | Results for this | | | e | 1:06 AM | | procedure are in the | | | | PST | | results section. | + +--------+ + + + documented in this encounter Results XR Chest 1 Vw (07/30/2014 1:06 AM PST) + + | Specimen | [...]
--- OUTSIDE RECORDS SUMMARY | ~2019-11-14 | XMS | Encounter Summary ---
Demographics + + + | Address | [address] | | | [place] [address] | + + + | Home Phone | | + + + | Preferred Language | Unknown | + + + | Marital Status | | + + + | Advent Affiliation | Unknown | + + + | Race | Unknown | + + + | Ethnic Group | Unknown | + + + Author + + + | Author | [facility] | | | and [place] | + + + | Organization | [facility] | | | [...] Team Providers + +------+ + | Care Logistics Program Manager Name | Role | Phone | + +------+ + | Tiffanie Flynn | PCP | | + +------+ + Reason for Visit + + + | Reason | Comments | + + + | Procedure | BUE NCS/EMG | + + + Evaluate & Treat (Routine) +--------+ + + + + + | Status | Reason | Specialty | Diagnoses / | Referred By | Referred To | | | | | Procedures | Contact | Contact | +--------+ + + + + + | Closed | Specialty | Physical | Diagnoses | Page, | Page, Troy | | | Services | Medicine and | Numbness | Troy Buchanan MD | Hasmukh Buchanan MD [address] | | | Required | Rehabilitatio | and tingling | [address] | | | | n | in both | [address] | [place], | | | | | hands | [place], | [place] [address] | | | | | Numbness in | [place] [address] | Phone: | | | | | feet | Phone: | [phone] | | | | | Procedures | [phone] | Fax: | | | | | [place] NEEDLE | Fax: | [phone] | | | | | EMG EA | [phone] | | | | | | EXTREMITY | | | | | | | W/PARASPINL | | | | | | | AREA LIMITED | | | | | | | FL OFFICE | | | | | | | OUTPATIENT | | | | | | | VISIT 25 | | | | | | | MINUTES [place] | | | | | | | MOTOR &/SENS | | | | | | | 13/> NRV | | | | | | | CNDJ PRECONF | | | | | | | ELTRODE | | | | | | | LIMB [place] | | | | | | | NEEDLE EMG | | | | | | | EA EXTREMTY | | | | | | | W/PARASPINL | | | | | | | AREA | | | | | | | COMPLETE | | | | | | | DOS 03/11/16 | | | +--------+ + + + + + Encounter Details +--------+ + + + + | Date | Type | Department | Care Team | Description | +--------+ + + + + | 04/07/ | Procedure | [facility] | Troy Page, | Numbness and | | 2015 | visit | PHYSIATRY [address] | MD [address] | tingling in both | | | | [address] | HALI LAL MD | hands (Primary Dx); | | | | [place] | [id number] | Numbness in feet; | | | | [address] | | Hyperreflexia; | | | | [phone] | | Syncope, unspecified | | | [...] + + + | Blood Pressure | 129/86 | 04/07/2016 10:48 AM | | | | | PDT | | + + + + + | Pulse | 60 | 04/07/2016 10:48 AM | | | | | PDT | | + + + + + | Temperature | - | - | | + + + + + | Respiratory Rate | 16 | 04/07/2016 10:48 AM | | | | | PDT | | + + + + + | Oxygen Saturation | - | - | | + + + + + | Inhaled Oxygen | - | - | | | Concentration | | | | + + + + + | Weight | 97.1 kg (214 lb) | 04/07/2016 10:48 AM | | | | | PDT | | + + + + + | Height | 152.4 cm (5') | 04/07/2016 10:48 AM | | | | | PDT | | + + + + + | Body Mass Index | 41.79 | 04/07/2016 10:48 AM | | | | | PDT | | + + + + + documented in this encounter Patient Instructions Patient Instructions Troy Page MD - 04/07/2016 12:29 PM PDTPlease continue following up with the printed circuit board designer, Dr. Dupont. Please see the neurologist as scheduled. Talk to your cdl program coordinator about the skin abnormality on the back of your right upper arm.E lectronically signed by Troy Page MD at 04/07/2016 12:30 PM PDT documented in this encounter Progress Notes Troy Page MD - 04/07/2016 12:29 PM PDTFormatting of this note might be different fro m the original. [facility] Physical Medicine & Rehabilitation [address] [place] [address], [address] [place] [address] Test Date: 04/07/2016 Patient Name: Corina Parada : 1980 Physician: Troy Page MD (Jr.) MR #: [id number] Sex: Female Referring Physician: TIERNEY King HISTORY: Ms. Parada denies any significant changes in her symptoms compared to when she was last s een. Please see last visit note from 02/05/2016. She reports that she continues to have pa resthesia in her hands and feet. She reports that the tingling often feels like itching. S he reports that she feels the itchiness the strongest in her heals bilaterally. She reports that the symptoms vary in intensity. She reports that her symptoms may be stronger when he r blood pressure is lower. She reports tingling in her hands bilaterally. She reports that symptoms are symmetric from side to side. She reports today that her symptoms in the feet bother her more than her hands. She denies any weakness. She reports that she hasn t had any syncopal episodes in some time. She has seen the printed circuit board designer and has a loop recorder placed. She reports that she has neurology consult pending later this month. She completed her head and neck imaging, which was reviewed with her today. She has implanted loop recor alaina. She denies having a pacemaker. She denies taking blood thinning medications such as C oumadin. PHYSICAL EXAM: Sensation is intact to monofilament in the upper and lower extremities bilaterally. She caballero s 5/5 biceps, triceps, wrist dorsiflexion, finger abduction and hand heat treater helper in both upper extr emities. She has 5/5 hip flexion, knee flexion, knee extension, ankle dorsiflexion, EHL, an d ankle plantar flexion in both lower extremities. She has 3+ brisk reflexes over the bicep s and triceps of both upper extremities. She has 3+ brisk reflexes over the patella and Ach illes of both lower extremities. There is a few beats of clonus at both ankles. Babinski s is up-going bilaterally. Coordination is intact with finger to nose testing in both uppe r extremities. Gait is normal. Tinel s test is negative over the median nerves at both w rists and over the ulnar nerves at both elbows. Phalen s test is negative bilaterally. S purling s test is negative bilaterally. Seated straight leg raise is negative bilaterally . She has a small round skin lesion on the back of her right arm. She reports that it show ed up with her last . She reports that she already sees a cdl program coordinator for a smal l lesion on her face below her eye. She was advised to have the cdl program coordinator look at the l esion on the back of her right upper arm. Nerve Conduction Studies Anti Sensory Summary Table Site NR Peak (ms) Norm Peak (ms) O-P Amp (V) Norm O-P Amp Site1 Site2 Delta-0 (ms) Dist (cm) Jose G (m/s) Norm Jose G (m/s) Left Median Anti Sensory (2nd Digit) 22.1C Wrist 2.9 <3.6 57.1 >10 Wrist 2nd Digit 2.4 14.0 58 >39 Elbow 6.3 21.6 Elbow Wrist 3.3 21.0 64 >48 Left Radial Anti Sensory (Base 1st Digit) 22.2C Wrist 2.3 <2.7 29.8 Wrist Base 1st Digit 1.7 10.0 59 Right Radial Anti Sensory (Base 1st Digit) 22.8C Wrist 2.3 <2.7 29.5 Wrist Base 1st Digit 1.7 10.0 59 Right Sural Anti Sensory (Lat Mall) 23.1C Calf 3.8 <4.0 13.3 >5.0 Calf Lat Mall 3.1 14.0 45 >35 Site 2 3.7 13.2 Site 3 3.7 14.8 Left Ulnar Anti Sensory (5th Digit) 22.2C Wrist 3.0 <3.7 51.3 >15.0 Wrist 5th Digit 2.4 14.0 58 >38 B Elbow 5.8 29.7 B Elbow Wrist 2.8 18.0 64 >47 A Elbow 7.2 24.9 A Elbow B Elbow 1.3 10.0 77 Motor Summary Table Site NR Onset (ms) Norm Onset (ms) O-P Amp (mV) Norm O-P Amp Site1 Site2 Delta-0 (ms) Dist (cm) Jose G (m/s) Norm Jose G (m/s) Left Median Motor (Abd Poll Brev) 22.2C Wrist 3.4 <4.2 7.7 >5 Elbow Wrist 3.6 21.0 58 >50 Elbow 7.0 6.8 Axilla Elbow 1.7 11.5 68 Axilla 8.7 7.3 Right Median Motor (Abd Poll Brev) 22.8C Wrist 3.4 <4.2 9.5 >5 Elbow Wrist 3.6 20.5 57 >50 Elbow 7.0 8.4 Axilla Elbow 1.6 10.0 63 Axilla 8.6 8.5 Left Ulnar Motor (Abd Dig Minimi) 22.3C Wrist 2.9 <4.2 8.6 >3 B Elbow Wrist 3.0 17.5 58 >53 B Elbow 5.9 8.1 A Elbow B Elbow 1.4 10.0 71 >53 A Elbow 7.3 7.9 Right Ulnar Motor (Abd Dig Minimi) 22.8C Wrist 3.4 <4.2 7.8 >3 B Elbow Wrist 2.9 17.5 60 >53 B Elbow 6.3 7.8 A Elbow B Elbow 1.3 10.0 77 >53 A Elbow 7.6 7.8 Comparison Summary Table Site NR Peak (ms) Norm Peak (ms) P-T Amp (V) Site1 Site2 Delta-P (ms) Norm Delta (ms) Left Median/Radial Dig I Comparison (Digit 1 - 10cm) 22.2C Median 2.5 <2.9 90.3 Median Radial 0.0 <0.4 Radial 2.5 <2.8 9.7 Right Median/Radial Dig I Comparison (Digit 1 - 10cm) 22.6C Median 2.5 <2.9 67.1 Median Radial 0.2 <0.4 Radial 2.3 <2.8 6.5 Left Median/Ulnar Dig IV Comparison (Digit 4 - 14cm) 22.2C Median Wr 3.0 <3.3 40.3 Median Wr Ulnar Wr 0.1 <0.4 Ulnar Wr 3.1 <3.3 38.0 Right Median/Ulnar Dig IV Comparison (Digit 4 - 14cm) 22.5C Median Wr 2.9 <3.3 51.4 Median Wr Ulnar Wr 0.3 <0.4 Ulnar Wr 3.2 <3.3 38.8 Right Median/Ulnar Palm Comparison (Wrist - 8cm) 22.7C Median Palm 2.0 <2.5 66.9 Median Palm Ulnar Palm 0.0 <0.3 Ulnar Palm 2.0 <2.5 37.7 F Wave Studies NR F-Lat (ms) Lat Norm (ms) L-R F-Lat (ms) L-R Lat Norm Left Median (Mrkrs) (Abd Poll Brev) 22.3C 23.88 <33 1.39 <2.2 Right Median (Mrkrs) (Abd Poll Brev) 22.8C 25.27 <33 1.39 <2.2 Left Ulnar (Mrkrs) (Abd Dig Min) 22.3C 24.92 <36 0.52 <2.5 Right Ulnar (Mrkrs) (Abd Dig Min) 22.9C 25.44 <36 0.52 <2.5 EMG Side Muscle Nerve Root Ins Act Fibs Psw Amp Dur Poly Recrt Int Pat Comment Right Deltoid Axillary C5-6 Nml Nml Nml Nml Nml Nml Nml Nml Right Biceps Musculocut C5-6 Nml Nml Nml Nml Nml Nml Nml Nml Right Triceps Radial C6-7-8 Nml Nml Nml Nml Nml Nml Nml Nml Right Anconeus Radial C7-8 Nml Nml Nml Nml Nml Nml Nml Nml Right PronatorTeres Median C6-7 Nml Nml Nml Nml Nml Nml Nml Nml Right 1stDorInt Ulnar C8-T1 Nml Nml Nml Nml Nml Nml Nml Nml Right Abd Poll Brev Median C8-T1 Nml Nml Nml Nml Nml Nml Nml Nml Right GluteusMed SupGluteal L5-S1 Nml Nml Nml Nml Nml Nml Nml Nml Right RectFemoris Femoral L2-4 Nml Nml Nml Nml Nml Nml Nml Nml Right BicepsFemL Sciatic L5-S2 Nml Nml Nml Nml Nml Nml Nml Nml Right VastusMed Femoral L2-4 Nml Nml Nml Nml Nml Nml Nml Nml Right AntTibialis Dp Br Peron L4-5 Nml Nml Nml Nml Nml Nml Nml Nml Right PostTibialis Tibial L5, S1 Nml Nml Nml Nml Nml Nml Nml Nml Right Gastroc Tibial S1-2 Nml Nml Nml Nml Nml Nml Nml Nml Nerve Conduction Studies Motor Left/Right Comparison Site L Lat (ms) R Lat (ms) L-R Lat (ms) L Amp (mV) R Amp (mV) L-R Amp (%) Site1 Site2 L Ve l (m/s) R Jose G (m/s) L-R Jose G (m/s) Median Motor (Abd Poll Brev) 22.2C Wrist 3.4 3.4 0.0 7.7 9.5 18.9 Elbow Wrist 58 57 1 Elbow 7.0 7.0 0.0 6.8 8.4 19.0 Axilla Elbow 68 63 5 Axilla 8.7 8.6 0.1 7.3 8.5 14.1 Ulnar Motor (Abd Dig Minimi) 22.3C Wrist 2.9 3.4 0.5 8.6 7.8 9.3 B Elbow Wrist 58 60 2 B Elbow 5.9 6.3 0.4 8.1 7.8 3.7 A Elbow B Elbow 71 77 6 A Elbow 7.3 7.6 0.3 7.9 7.8 1.3 Anti Sensory Left/Right Comparison Site L Lat (ms) R Lat (ms) L-R Lat (ms) L Amp (V) R Amp (V) L-R Amp (%) Site1 Site2 L Jose G (m/s) R Jose G (m/s) L-R Jose G (m/s) Radial Anti Sensory (Base 1st Digit) 22.2C Wrist 2.3 2.3 0.0 29.8 29.5 1.0 Wrist Base 1st Digit 59 59 0 Comparison Left/Right Comparison Site L Lat (ms) R Lat (ms) L-R Lat (ms) L Amp (V) R Amp (V) L-R Amp (%) Median/Radial Dig I Comparison (Digit 1 - 10cm) 22.2C Median 2.5 2.5 0.0 90.3 67.1 25.7 Radial 2.5 2.3 0.2 9.7 6.5 33.0 Median/Ulnar Dig IV Comparison (Digit 4 - 14cm) 22.2C Median Wr 3.0 2.9 0.1 40.3 51.4 21.6 Ulnar Wr 3.1 3.2 0.1 38.0 38.8 2.1 Median/Ulnar Palm Comparison (Wrist - 8cm) 22.7C Median Palm 2.0 66.9 Ulnar Palm 2.0 37.7 NCV FINDINGS: All nerve conduction studies (as indicated in the following tables) were with in normal limits. All F Wave latencies were within normal limits. EMG FINDINGS: All examined muscles (as indicated in the following table) showed no evidence of electrical instability. IMPRESSION: This is a normal study. Extensive nerve conduction study of the left upper extremity was normal. There was no evid ence of median neuropathy (e.g. carpal tunnel syndrome) in the left upper extremity. There was no evidence of ulnar neuropathy (e.g. cubital tunnel syndrome) in the left upper extremi ty. There was no evidence of radial neuropathy in the left upper extremity. Screening nerve conduction study of the right upper extremity was normal. There was no lidia dence of median neuropathy in the right upper extremity. There was no evidence of ulnar isaiah ropathy in the right upper extremity. There was no evidence of radial neuropathy in the rig ht upper extremity. Limited study of the right lower extremity was normal. There was no evidence of sural neur opathy in the right lower extremity. There is no evidence of peripheral neuropathy seen on this study. Needle EMG of the right lower extremity was normal. There was no evidence of lumbar radicu lopathy seen in the right lower extremity. There was no evidence of myopathy in the right l ower extremity. Needle EMG of the right upper extremity was normal. There was no evidence of cervical radi culopathy in the right upper extremity. DISCUSSION: Ms. Parada demonstrated fair tolerance to nerve conduction study and EMG. She was able t o complete the exam. As noted above, this is a normal study involving both upper extremities and a limited study of the right lower extremity. There is no evidence of peripheral neuropathy seen on this study. There is no evidence of focal nerve injury in either upper extremity. There is no evidence of radiculopathy in the right upper or right lower extremity. There was no evidence of ALS or MS seen on this study . Today we discussed that based off her exam that it is likely and possible that she has an u pper motor neuron problem (e.g. brain and/or spinal cord). She reports that she has smelled burning rubber prior to prior syncopal episodes. It is possible that she has seizures. Gilberto cortez has bradycardia and has loop monitor. It is possible that she is having paresthesia relat ed to hypotension. It is recommended that she continue care with the printed circuit board designer. It is possible that her co nstellation of symptoms as a cardiac origin related to her bradycardia. It has been recomme nd that she see the neurologist for further evaluation as planned. Her brain MRI, her head and neck MR angiograms from 02/26/2016 were personally reviewed be me. I concur with the results as reported by the radiologist. This imaging is unremarkable . Approximately 30 minutes was spent face to face today with Ms. Parada, beyond the complet ion of the nerve conduction study and EMG above, over half of which was spent formulating an d discussing her medical treatment plan. Thank you for allowing me to be involved in the care of your patient. If you have any quest ions or comments, please do not hesitate to call. Troy Page MD (Jr.) Physical Medicine and Rehabilitation Cc: TIERNEY King MD Rodrigo Lim, MD documented in this en counter Plan of Treatment Not on filedocumented as of this encounter Visit Diagnoses + + | Diagnosis | + + | Numbness and tingling in both hands - Primary | + + | Numbness in feet Disturbance of skin sensation | + + | Hyperreflexia Abnormal reflex | + + | Syncope, unspecified syncope type | + + documented in this encounter"
--- OUTSIDE RECORDS SUMMARY | ~2019-11-14 | XMS | Encounter Summary ---
Demographics + + + | Address | [address] | | | [place] [address] | + + + | Home Phone | | + + + | Preferred Language | Unknown | + + + | Marital Status | | + + + | Mandaen Affiliation | Unknown | + + + | Race | Unknown | + + + | Ethnic Group | Unknown | + + + Author + + + | Author | [facility] | | | and [place] | + + + | Organization | [facility] | | [...] Team Providers + +------+ + | Care Maintainer Central Office Name | Role | Phone | + [...] | [address], [place] | [place] [address] | | | | | [address] | [phone] | | | | | [phone] | | | +--------+ + + + [...] - 1.030 | [place] | | | [place], | | | [facility] | | | [...] + + + + + | [place] [facility] | [address] | [place] | [phone] | | [facility] | | [address] | | + + + + + [...] + + | [place] [facility] | [address] | [place] | [phone] | | HOS[facility]ITAL [facility] | | [address] | | + + + + + [...] + + | [place] [facility] | [address] | [place], [place] | [phone] | | HOSPITAL [facility] | | [address] | | + + + + + [...] + + | [place] [facility] | [address] | [place] | [phone] | | HOS[facility]ITAL [facility] | | [address] | | + + + + + [...] | mL/min/1.73m2 | [facility] | | | [facility]OAT[facility] | RATE,ESTIMATED | | HOSPITAL | | | | mL/min/1.79m7Zsbr than | | LABORATORY | | | [...] + + | [facility] | [address] | [place], [place] | [phone] | | HOSPITAL [facility] | | [address] | | + + + + + [...] + + | [place] | [address] | [place] | [phone] | | HOSPITAL [facility] | | [address] | | + + + + + [...]
--- OUTSIDE RECORDS SUMMARY | ~2019-11-14 | XMS | Encounter Summary ---
Demographics + + + | Address | [address] | | | [place] [address] | + + + | Home Phone | | + + + | Preferred Language | Unknown | + + + | Marital Status | | + + + | Orthodox Affiliation | Unknown | + + + | Race | Unknown | + + + | Ethnic Group | Unknown | + + + Author + + + | Author | [facility] | | | and [place] | + + + | Organization | [facility] | | | and [...] Team Providers + +------+ + | Care Hand Bander Name | Role | Phone | + [...] | Appointment | | 2017 | | [facility] [address] | [address] | | | | | [address], | [address] [place] | | | | | [place] [address] | [place] [address] | | | | | [phone] | [phone] | | | | | | | [...]
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
--- OUTSIDE RECORDS SUMMARY | ~2019-11-14 | XMS | Encounter Summary ---
Demographics + + + | Address | [address] | | | [place] [address] | + + + | Home Phone | | + + + | Preferred Language | Unknown | + + + | Marital Status | | + + + | Yarsani Affiliation | Unknown | + + + | Race | Unknown | + + + | Ethnic Group | Unknown | + + + Author + + + | Author | [facility] | | | and [place] | + + + | Organization | [facility] | | | [...] Team Providers + +------+ + | Care Cigarette Making Machine Operator Name | Role | Phone | + +------+ + | Tiffanie Flynn | PCP | | + +------+ + Reason for Visit +---------+ + | Reason | Comments | +---------+ + | Results | | +---------+ + Encounter Details +--------+ + + + + | Date | Type | Department | Care Team | Description | +--------+ + + + + | 02/27/ | Telephone | [facility] [place] | Troy Page, | Results | | 2016 | | PHYSIATRY [address] | MD [address] | | | | | [address] | [place], [place] | | | | | [place], [place] | [address] | | | | | [address] | | | | | | [phone] | | | +--------+ + + + [...]
--- OUTSIDE RECORDS SUMMARY | ~2019-11-14 | XMS | Encounter Summary ---
Demographics + + + | Address | [address] | | | [place] [address] | + + + | Home Phone | | + + + | Preferred Language | Unknown | + + + | Marital Status | | + + + | Mosque Affiliation | Unknown | + + + [...] Team Providers + +------+ + | Care Chemicals Fermentation Operator Name | Role | Phone | [...] | | | | [place] | [place] [address] | | | | | [address] | [phone] | | | | | [phone] | | | +--------+ + + + [...] | | The studies were acquired at [facility], | | | [place]. Right bianca adenopathy was demonstrated. The finding on the | | | current study is less apparent compared to the [place] studies. | | | JOB# [id number] Read By: | | | COLTON SOFIA [...] of Kirby Castro MD is made at | | 10:47.2. Chest radiograph from 02/23/[address] thorax from 02/23/2015 are made | | available for comparison. The studies were acquired at [facility] | | [place]. Right bianca adenopathy was demonstrated. The finding on the current study is | | less apparent compared to the [place] studies. B# [id number] | | Read By: COLTON SOFIA MD [...] for comparison. The studies were acquired at [facility], [place], [place]. Rig ht bianca adenopathy was | |demonstrated. The finding on the current study | |is less apparent compared to the [place] studies. | | | | | | | |JOB# [id number] | | | | | | | |Read By: COLTON SOFIA MD | | | |Released By: COLTON SOFIA MD | |Date: 05/07/2015 21:19 | | | | | + + documented in this encounter Visit Diagnoses Not on filedocumented in this encounter"
--- OUTSIDE RECORDS SUMMARY | ~2019-11-14 | XMS | Encounter Summary ---
Demographics + + + | Address | [address] | | | [place] [address] | + + + | Home Phone | | + + + | Preferred Language | Unknown | + + + | Marital Status | | + + + | Denominational Affiliation | Unknown | + + + [...] Team Providers + +------+ + | Care Silo Tender Name | Role | Phone | + [...] | +--------+ + + + + | 04/10/ | Implant | [facility] [place] | Delvin Dupont | Remote Device | | 2016 | Monitor | CARDIOLOGY [address] | MD Bill [address] | Interrogation | | | | [place], | [address] [place] | (Primary Dx); Status | | | | [place] [address] | [place] [address] | post placement of | | | | [phone] | [phone] | implantable loop | | | | | | sfceqwpy-AUDI-Qrehuv | | | | | | kathi-02/18/16-SSM; | | | | | | Syncope, unspecified | | | | | | syncope type; | | | | | | Lightheadedness | +--------+ + + + + Social [...] | DEVICE | Routin | 06/24/2016 | Remote Device | Results for this | | INTERROGATION- | e | 5:15 PM | Interrogation | procedure are in the | | REMOTE | | PST | Status post | results section. | | | | | placement of | | | | | | implantable loop | | | | | | bdsbdklb-SNTE-Aiuipl | | | | | | kathi-02/18/16-SSM | | | | | | Syncope, unspecified | | | | | | syncope type | | | | | | Lightheadedness | | + +--------+ + + + documented in this encounter Results Device Interrogation - Remote (06/24/2016 5:15 PM PST) + + + | Narrative | Performed At | + + + | Delvin Dupont MD 06/24/2016 17:15 Refer to [facility] | [facility] | | documentation and remote PDF scanned into [employer] for remote | | | interrogation results. Data collected by Antonella Dooley RN | | | Presenting rhythm:sinus rhythm heart rate 75-80. 4 Symptom Episodes | | | #15 occurred 04/01 at 0804. EGM is consistent with sinus bradycardia | | | to sinus rhythm heart rate 58-100. #14 occurred 03/31 at 2225. EGM | | | is consistent with sinus rhythm heart rate 73-98. #13 occurred | | | 03/22 at 0045. EGM is consistent with sinus bradycardia to sinus | | | rhythm heart rate 44-81. #12 occurred 03/22 at 0013.EGM is consistent | | | with sinus bradycardia to sinus rhythm heart rate 57-100. 0 Tachy | | | Episodes 0 Pause Episodes 0 Jean Episodes 0 AT Episodes 0 AF | | | Episodes % of time in AT/AF 0.0 % Histogram good . Battery ok. | | | Apparent normal and stable function. Device interrogation due in | | | office in 06/12. Patient notified. Patient states "feels real dizzy." | | + + + + +---------+ [...] | Status post placement of implantable loop hrkejxgm-BVXT-Gncvrqefa-02/18/16-SS | + + | Syncope, unspecified syncope type | + + | Lightheadedness Dizziness and giddiness | + + documented in this encounter
--- OUTSIDE RECORDS SUMMARY | ~2019-11-14 | XMS | Encounter Summary ---
Demographics + + + | Address | [address] | | | [place] [address] | + + + | Home Phone | | + + + | Preferred Language | Unknown | + + + | Marital Status | | + + + | Oriental Orthodox Affiliation | Unknown | + + + | Race | Unknown | + + + | Ethnic Group | Unknown | + + + Author + + + | Author | [facility] | | | and [place] | + + + | Organization | [facility] | | [...] Team Providers + +------+ + | Care Bell Maker Name | Role | Phone | + [...] | +--------+ + + + + | 03/19/ | Implant | [facility] [place] | Delvin Dupont | Remote Device | | 2016 | Monitor | CARDIOLOGY [address] | MD [address] | Interrogation | | | | [place], | [address] [place] | (Primary Dx); Status | | | | [place] [address] | [place] [address] | post placement of | | | | [phone] | [phone] | implantable loop | | | | | | obfuzmlk-PJNB-Olapsx | | | | | | kathi-02/18/16-SSM; [...] loop | | | | | | sqgzbrnl-FMQZ-Deooui | | | | | | kathi-02/18/16-SSM [...] | documentation and remote PDF scanned into [employer] for remote | | | interrogation results. Data collected by Antonella Dooley RN | | | Presenting rhythm: Sinus rhythm heart rate 80-100. 2 Symptom Episodes | | | #11 occurred 03/18 at 1744. EGM is consistent with sinus rhythm to | | | sinus tachycardia heart rate 66-118. #10 occurred 03/18 at 1153. EGM | | | is consistent with sinus rhythm to sinus tachycardia heart rate | | | 68-122. 0 Tachy Episodes 0 Pause Episodes 0 Jean Episodes 0 AT | | | Episodes 0 AF Episodes % of time in AT/AF 0.0% Histogram good. | | | Battery ok. Apparent normal and stable function. Device | | | interrogation due in office in 06/12. Patient notified. Patient states | | | "feels real dizzy." This transmission was related to an alert and is | | | not billable. | | + + + [...] | Status post placement of implantable loop enjqchyw-AOGO-Nitevojgg-02/18/16-SSM | + + | Syncope, unspecified syncope type | + + documented in this encounter
--- OUTSIDE RECORDS SUMMARY | ~2019-11-14 | XMS | Encounter Summary ---
Demographics + + + | Address | [address] | | | [place] [address] | + + + | Home Phone | | + + + | Preferred Language | Unknown | + + + | Marital Status | | + + + | Congregational Affiliation | Unknown | + + + [...] Team Providers + +------+ + | Care Educational Recruiter Name | Role | Phone | + +------+ + PCP | Unavailable | + +------+ + Encounter Details +--------+ + + + + | Date | Type | Department | Care Team | Description | +--------+ + + + + | 06/08/ | Hospital | [facility] | Tiffanie Hardy, | | | 2010 | Encounter | MED CTR XRAY [address] | PA-C [address] | | | | | [place] | [address] | | | | | [place] [address] | [place] [address] | | | | | [phone] | [phone] | | | | | | | [...] + | CT ABDOMEN PELVIS W | | 06/08/2011 | | Results for this | | CONTRAST | | 3:31 PM | | procedure are in the | | | | PST | | results section. | + +--------+ + + + documented in this encounter Results CT Abdomen Pelvis w Contrast (06/08/2011 3:31 PM PST) + + | Specimen | + + | | + + + + + | Narrative | Performed At | + + + | [facility] Diagnostic Imaging Department | [facility] | | [address] [facility] | [facility] | | ENHANCED CT ABDOMEN AND PELVIS, | DIAG IMG | | 06/08/2011 CLINICAL HISTORY: CHRONIC ABDOMINAL PAIN WITH | | | INTERMITTENT DIARRHEA AND VOMITING. COMPARISON: None. | | | TECHNIQUE: Axial images are performed through the abdomen and pelvis | | | following the uneventful intrav enous administration of 100 mL | | | Isovue 370 contrast, as well as oral contrast. Coronal and sagittal | | | r eformations are also performed. ABDOMEN FINDINGS: Minimal | | | dependent density in the imaged lung bases favors atelectasis. | | | Imaged med iastinum is unremarkable. The liver, pancreas, and | | | adrenal glands are unremarkable. Punctate calcul i are suggested | | | superiorly and centrally in the right kidney and possibly inferiorly | | | in the left kidn ey. There is no hydronephrosis. A punctate | | | calcification along the left posterior aspect of the saroj dder may | | | reflect a phlebolith although a tiny distal left ureteral calculus is | | | not entirely excluded. The spleen is borderline to mildly | | | enlarged, measuring 12 cm in craniocaudal dimension and 14.5 cm in | | | AP dimension. The gallbladder is surgically absent. There is no | | | biliary ductal dilatation. The bowel and appendix are | | | unremarkable. No free air, free fluid, or pathologic lymph node | | | enlargement i s evident. There is a small, fat containing | | | periumbilical hernia, and a tiny fat containing supraumb ilical | | | hernia is also present. There is generalized leftward thoracolumbar | | | curvature with multilevel Schmorl node formation. There is | | | congenital narrowing of the central canal at L5-S1 as a result of | | | short pedicles. PELVIS FINDINGS: The bladder, uterus, and adnexa | | | are unremarkable. No free air, free fluid, patholo gic lymph node | | | enlargement or hernia is evident. There is vacuum phenomenon in the | | | sacroiliac joints . Bones and soft tissues are otherwise | | | unremarkable. IMPRESSION: 1. PUNCTATE CENTRAL RENAL CALCULI, | | | WITH A TINY CALCIFIC DENSITY ALONG THE LEFT POSTERIOR ASPECT OF TH E | | | BLADDER, POSSIBLY REFLECTING A PHLEBOLITH ALTHOUGH A DISTAL LEFT | | | URETERAL CALCULUS CANNOT BE ENTIRE LY EXCLUDED. THERE IS NO | | | HYDROURETERONEPHROSIS. 2. BORDERLINE TO MILD SPLENOMEGALY. | | | 3. SMALL, FAT CONTAINING PERIUMBILICAL AND SUPRAUMBILICAL HERNIAS. | | | 4. 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 Dictated Date/Time: | | | 06/09/2011 07:07 Transcribed Date/Time: 06/09/2011 07:16 | | | Plant Buyer: <Electronically Signed by Justin Alvarado MD> | | | 06/09/11 1048 | | + + + + + | Procedure Note | + + | Derrick, Rad Conversion - 08/11/2013 4:20 PM formerly [facility] | | Diagnostic Imaging Department [address] [place] [address] | | ENHANCED CT ABDOMEN AND PELVIS, 06/08/2011 CLINICAL | | HISTORY: CHRONIC ABDOMINAL PAIN WITH INTERMITTENT DIARRHEA AND VOMITING. COMPARISON: | | None. TECHNIQUE: Axial images are performed through the abdomen and pelvis following | | the uneventful intravenous administration of 100 mL Isovue 370 contrast, as well as oral | | contrast. Coronal and sagittal reformations are also performed. ABDOMEN FINDINGS: | | Minimal dependent density in the imaged lung bases favors atelectasis. Imaged | | mediastinum is unremarkable. The liver, pancreas, and adrenal glands are unremarkable. | | Punctate calculi are suggested superiorly and centrally in the right kidney and | | possibly inferiorly in the left kidney. There is no hydronephrosis. A punctate | | calcification along the left posterior aspect of the bladder may reflect a phlebolith | | although a tiny distal left ureteral calculus is not entirely excluded. The spleen is | | borderline to mildly enlarged, measuring 12 cm in craniocaudal dimension and 14.5 cm in | | AP dimension. The gallbladder is surgically absent. There is no biliary ductal | | dilatation. The bowel and appendix are unremarkable. No free air, free fluid, or | | pathologic lymph node enlargement is evident. There is a small, fat containing | | periumbilical hernia, and a tiny fat containing supraumbilical hernia is also present. | | There is generalized leftward thoracolumbar curvature with multilevel Schmorl node | | formation. There is congenital narrowing of the central canal at L5-S1 as a result of | | short pedicles. PELVIS FINDINGS: The bladder, uterus, and adnexa are unremarkable. No | | free air, free fluid, pathologic lymph node enlargement or hernia is evident. There is | | vacuum phenomenon in the sacroiliac joints. Bones and soft tissues are otherwise | | unremarkable. IMPRESSION: 1. PUNCTATE CENTRAL RENAL CALCULI, WITH A TINY CALCIFIC | | DENSITY ALONG THE LEFT POSTERIOR ASPECT OF THE BLADDER, POSSIBLY REFLECTING A PHLEBOLITH | | ALTHOUGH A DISTAL LEFT URETERAL CALCULUS CANNOT BE ENTIRELY EXCLUDED. THERE IS NO | | HYDROURETERONEPHROSIS. 2. BORDERLINE TO MILD SPLENOMEGALY. 3. SMALL, FAT CONTAINING | | PERIUMBILICAL AND SUPRAUMBILICAL HERNIAS. 4. 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 Dictated | | Date/Time: 06/09/2011 07:07Transcribed Date/Time: 06/09/2011 07:16Transcriptionist: | | <Electronically Signed by Justin Alvarado MD> 06/09/11 1048 | |. Bones and soft tissues are otherwise unremarkable. | | | |IMPRESSION: | |1. PUNCTATE CENTRAL RENAL CALCULI, WITH A TINY CALCIFIC DENSITY ALONG THE LEFT POSTERIOR PECT OF TH | |E BLADDER, POSSIBLY REFLECTING A PHLEBOLITH ALTHOUGH A DISTAL LEFT URETERAL CALCULUS CANNOT BE ENTIRE | |LY EXCLUDED. THERE IS NO HYDROURETERONEPHROSIS. | | | |2. BORDERLINE TO MILD SPLENOMEGALY. | | | |3. SMALL, FAT CONTAINING PERIUMBILICAL AND SUPRAUMBILICAL HERNIAS. | | | |4. LEFTWARD THORACOLUMBAR CURVATURE WITH SCHMORL NODE FORMATION AND CONGENITAL CENTRAL CUONG L STENOSIS | | AT L5-S1. | | | |Dictated Date/Time: 06/09/2011 07:07 | |Transcribed Date/Time: 06/09/2011 07:16 | |Plant Buyer: | |<Electronically Signed by Justin Alvarado MD> 06/09/11 1048 | + + + +---------+ + + | Performing | Address | City/State/Zipcode | Phone Number | | Organization | | | | + +---------+ + + | [place] | | | | | [facility] | | | | + +---------+ + + documented in this encounter Visit Diagnoses Not on filedocumented in this encounter"
--- OUTSIDE RECORDS SUMMARY | ~2019-11-14 | XMS | Encounter Summary ---
Demographics + + + | Address | [address] | | | [place] [address] | + + + | Home Phone | | + + + | Preferred Language | Unknown | + + + | Marital Status | | + + + | Yazdanism Affiliation | Unknown | + + + [...] Team Providers + +------+ + | Care Grand Jury Deputy Sheriff Name | Role | Phone | + [...] + + | 02/17/ | Surgery | [facility] | Delvin Dupont | CV EP Loop Recorder | | 2016 | | MED CTR CV INTRA OP | MD Bill [address] | Procedure | | | | [address] | [address] [facility] | | | | | [place] | [place] [address] | | | | | [address] | [phone] | | | | | [phone] | | | +--------+---------+ + + + [...] about which risks most apply to you. [id number] [employer]. [address] [place] [address], [place] [address]. All righ ts reserved. This information is [...] | | | FNPSURGEON:Delvin Dupont MD, PhD, [facility] DATE OF PROCEDURE: | | | 02/18/2016 PROCEDURES PERFORMED:1. Implantation of a Medtronic | | | loop recorder. INDICATIONS: 1. Syncope, lightheadedness | | | DESCRIPTION OF PROCEDURE: After informed consent was obtained, the | | | patient was taken to the laboratory equipment installer lab. Patient was hooked up to | [...] | | model Reveal LINQ, serial #: [id number]. DEVICE SETTINGS: VT: 350 | | | ms(171bpm) for 16 beatsBradycardia: 2000 ms(30bpm) for 4 | | | beats.Asystole: 3 seconds. Delvin Dupont MD, PhD, | | | [facility]02/18/2016 15:15 | | |After informed consent was obtained, the patient was taken to | | |the laboratory equipment installer lab. Patient was hooked up to EKG, [...] | | |DEVICE INFORMATION: | | |A. ReliOn loop recorder, model Reveal LINQ, serial #: | | |[id number]. | | | | | |DEVICE SETTINGS: [...] [address] | [place] | [phone] | | [facility] | | [id number] | | | - LABORATORY | | [...]
--- OUTSIDE RECORDS SUMMARY | ~2019-11-14 | XMS | Encounter Summary ---
Demographics + + + | Address | [address] | | | [place] [address] | + + + | Home Phone | | + + + | Preferred Language | Unknown | + + + | Marital Status | | + + + | Jew Affiliation | Unknown | + + + | Race | Unknown | + + + | Ethnic Group | Unknown | + + + Author + + + | Author | [facility] | | | and [place] | + + + | Organization | [facility] | | | [...] Team Providers + +------+ + | Care Oracle Applications Developer Name | Role | Phone | + +------+ + PCP | Unavailable | + +------+ + Encounter Details +--------+ + + + + | Date | Type | Department | Care Team | Description | +--------+ + + + + | 03/21/ | Hospital | [facility] | Conversion | Pain | | 2015 | Encounter | CONVERSION [address] | Transaction, | | | | | [address] | Provider Unknown | | | | | [place] | [phone] | | | | | [address] | | | | | | [phone] | | | +--------+ + + + [...] XR CHEST 2 VIEWS | Routin | 02/23/2015 | | Results for this | | | e | 1:06 AM | | procedure are in the | | | | PDT | | results section. | + +--------+ + + + documented in this encounter Results XR Chest 2 Vws (02/23/2015 1:06 AM PDT) + + | Specimen [...]
--- OUTSIDE RECORDS SUMMARY | ~2019-11-14 | XMS | Encounter Summary ---
Demographics + + + | Address | [address] | | | [place] [address] | + + + | Home Phone [...] Team Providers + +------+ + | Care Retail Associate Name | Role | Phone | + [...] + + + + | 02/17/ | Implant | [facility] | Delvin Dupont | Encounter for loop | | 2016 | Monitor | CARDIOLOGY [address] | MD Bill [address] | recorder check | | | | [address], | [address] [place] | (Primary Dx); Status | | | | [place] [address] | [place] [address] | post placement of | | | | [phone] | [phone] | implantable loop | | | | | | [id number] | | | | | | kathi-02/18/16-[facility]; | | | | | | Lightheadedness; | | | | | | Syncope, [...] | DEVICE | Routin | 06/24/2016 | Encounter for loop | Results for this | | INTERROGATION- | e | 5:16 PM | recorder check | procedure are in the | | REMOTE | | PST | Status post | results section. | | | | | placement of | | | | | | implantable loop | | | | | | [id number] | | | | | | kathi-02/18/16-[facility] | | | | | | Lightheadedness | | | | | | Syncope, unspecified | | | | | | syncope type | | + +--------+ + + + documented in this encounter Results Device Interrogation - Remote (06/24/2016 5:16 PM PST) + + + | Narrative | Performed At | + + + | Delvin Dupont MD 06/24/2016 17:16 Refer to [facility] | [facility] | | documentation and remote PDF scanned into [employer] for remote | | | interrogation results. Data collected by Antonella Dooley RN | | | Initial post implant report. Presenting rhythm: sinus bradycardia | | | to sinus rhythm between 49-60 beats 1 Symptom Episodes #1 | | | occurred 02/18/16 at 0809. EGM is consistent with sinus bradycardia | | | to sinus rhythm between 43-74 beats. This recording was made during | | | patient education. 0 Tachy Episodes 0 Pause Episodes 0 Jean | | | Episodes 0 AT Episodes 0 AF Episodes % of time in AT/AF ? % | | | Histogram good. Battery ok. Apparent normal and stable function. | | | Device interrogation due in office in June. This transmission | | | was related to an alert and is not billable. | | + + + + +---------+ + + | Performing | Address | City/State[facility] | Phone Number | | Organization | | | | + +---------+ + + | [facility] | | | | + +---------+ + + documented in this encounter Visit Diagnoses + + | Diagnosis | + + | Encounter for loop recorder check - Primary | + + | Status post placement of implantable loop [id number]-02/18/16-[facility] | + + | Lightheadedness Dizziness and giddiness | + + | Syncope, unspecified syncope type | + + documented in this encounter"
--- OUTSIDE RECORDS SUMMARY | ~2019-11-14 | XMS | Encounter Summary ---
Demographics + + + | Address | [address] | | | [place] [address] | + + + | Home Phone | | + + + | Preferred Language | Unknown | + + + | Marital Status | | + + + | Buddhism Affiliation | Unknown | + + + [...] Team Providers + +------+ + | Care Gutter Hanger Name | Role | Phone | + +------+ + | No, Physician | PCP | Unavailable | + +------+ + Reason for Visit Auth/Cert +--------+--------+ + + + + | Status | Reason | Specialty | Diagnoses / | Referred By | Referred To | | | | | Procedures | Contact | Contact | +--------+--------+ + + + + | | | | Diagnoses | | | | | | | chest pain | | | | | | | rule out | | | +--------+--------+ + + + + Encounter Details +--------+ + + + + | Date | Type | Department | Care Team | Description | +--------+ + + + + | 06/08/ | Hospital | [facility] | Stoney Suero, | Menorrhagia with | | 2018 - | Encounter | [facility] | MD Sarthak ALICIA | irregular cycle; | | | | [address] | [place] | Type 2 diabetes | | 06/11/ | | [place] [address] | [id number] | mellitus with | | 2018 | | [phone] | [phone] | complication, | | | | | | without long-term | | | | | | current use of | | | | | | insulin ([facility]); | | | | | | Hypertension, | | | | | | unspecified type; | | | | | | Coronary artery | | | | | | disease, angina | | | | | | presence | | | | | | unspecified, | | | | | | unspecified vessel | | | | | | or lesion type, | | | | | | unspecified whether | | | | | | council or | | | | | | transplanted heart; | | | | | | Chest pain at rest; | | | | | | Chest pain in adult | +--------+ + + + + Social History + +-------+ +--------+------+ | Tobacco Use | Types | Packs/Day | Years | Date | | | | | Used | | + +-------+ +--------+------+ | Never Assessed | | | | | + +-------+ +--------+------+ + + +---------+ + | Alcohol Use [...] + + + | Blood Pressure | 129/75 | 06/11/2018 3:41 PM | | | | | PST | | + + + + + | Pulse | 66 | 06/11/2018 3:41 PM | | | | | PST | | + + + + + | Temperature | 36.6 C (97.9 F) | 06/11/2018 3:41 PM | | | | | PST | | + + + + + | Respiratory Rate | 18 | 06/11/2018 3:41 PM | | | | | PST | | + + + + + | Oxygen Saturation | 96% | 06/11/2018 3:41 PM | | | | | PST | | + + + + + | Inhaled Oxygen | - | - | | | Concentration | | | | + + + + + | Weight | 93.6 kg (206 lb 5.6 | 06/10/2018 4:42 AM | | | | oz) | PST | | + + + + + | Height | 152.4 cm (5') | 06/10/2018 9:00 AM | | | | | PST | | + + + + + | Body Mass Index | 40.3 | 06/10/2018 4:42 AM | | | | | PST | | + + + + + documented in this encounter Discharge Summaries Norm Martinez DO - 06/11/2018 2:24 PM PST [place], [place] [facility] DISCHARGE SUMMARY Pt. Name/Age/: Corina Woods 38 y.o. 1980 Date of Admission: 06/08/2018 Date of Discharge: 06/11/2018 Admitting Physician: Stoney Suero MD Primary Care Provider: No Physician on file Discharging Physician: Norm Martinez DO DISCHARGE DIAGNOSES: Active Hospital Problems Diagnosis Chest pain in adult Hepatic steatosis Type 2 diabetes mellitus without complication, without long-term current use of insulin Essential hypertension Resolved Hospital Problems Diagnosis No resolved problems to display. DISCHARGE MEDICATIONS: Discharge Medications New Medications Details Blood Glucose Monitor System w/Device Kit 1 Units by Does not apply route 2 times daily. BLOOD GLUCOSE TEST STRIPS Strp Use to test blood sugar twice a day Lancets Misc. Misc Use to test blood sugar twice a day losartan 25 mg tablet Take 1 tablet by mouth every 24 hours. aka: COZAAR metFORMIN 500 mg tablet Start with 1 tablet a day for a week then increase to 1 tablet twice a day for a week then 2 tablets in the morning and 1 in the afternoon for a week then 2 tablets by mouth twice a day. aka: GLUCOPHAGE metoprolol tartrate 25 mg tablet Take 1 tablet by mouth 2 times daily. aka: LOPRESSOR sharps container 1 each by Does not apply route as needed. HOSPITAL COURSE: Please refer to the H&P for full details and the most recent rounding rounding (progress) n ote. In short This is Corina Woods who is 38 y.o. female with hx of uncontrolled DM, HTN, and dyslipi demia who presented to the ED with the c/c of chest pressure. She was found to be HTN in the ED. CP was initially only occurs with exertion. 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 The chest pressure radiated to the left jar, ear, and left arm. She presented to [facility] then was transferred to [facility] for further work up. Cardiology was consult given her family hx and comorbidity. Her trop was negative and echo. Stress test was done. Cardiology recommended BP control and work up for secondary HTN. Cardiology recommended agai t cardiac cath because she is at low risk given her work up thus far. She metoprolol dose was increased and her symptoms resolved. She is able to ambulate around the unit numerous ti me without chest pressure. She will cont metoprolol and losartan. She will resume on metform in and titrate it up. She will need close f/u with a PCP for DM and HTN management. She is s table for discharge. Work up for secondary HTN thus far is negative. Most recent weight: Input and output for last 24hrs: Wt Readings from Last 1 Encounters: 06/10/18 93.6 kg (206 lb 5.6 oz) I/O last 24 Hours: In: 870 [P.O.:870] Out: 2975 [Urine:2975] Vitals Ranges: Temp: [35.4 C (95.8 F)-36.6 C (97.9 F)] 36.6 C (97.9 F) Pulse: [57-72] 62 Resp: [16-20] 16 BP: (112-138)/(66-76) 130/70 Vitals: Temp: 36.6 C (97.9 F) BP: 130/70 Pulse: 62 Resp: 16 SpO2: 97 % SpO2 97 % on room air at flow rate L/min PHYSICAL EXAM: Patient seen and examined by me on discharge day GA: NAD, AAOX3 HEENT: EOMI, MMM Cardiac: rrr, no m/g/r, noLE swelling Lung: CTAB, normal respiratory effort Abdomen: soft, nt/nd, nabs Ext:no c/c/e Pych: normal mood and affect Neuro: eeg technician grossly intact, no focal weakness or sensory deficits PROCEDURES AND CONSULTS: Procedures cardiac stress test, echo Consults cardiology PENDING RESULTS: catecholamines 24hr urine and fractionated DISPOSITION AND DISCHARGE INSTRUCTIONS: Follow-up Information Please follow up. Why: Clinic will contact you regarding scheduling a new patient appointment. Please conta ct them at [phone] if you have not heard from them by the end of next week. Contact information: [facility] [address] [place] [id number] No Physician on file In 1 week. Contact information: P Condition: Patient being discharged with condition improved Diet:cardiac and diabetic Greater than 30 minutes were spent on discharge and coordination of post-hospital care. Electronically signed by: Norm Martinez DO, 06/11/2018 14:24 [facility] Portions of this chart may have been created with [employer] voice recognition software. Occasi onal wrong-word or sound-alike substitutions may have occurred due to the inherent degroot itations of voice recognition software. Please read the chart carefully and recognize, using context, where these substitutions have occurred documented in this enco unter Discharge Instructions Instructions Norm Martinez DO - 06/11/2018 You will start taking losartan and metoprolol as directed on the label Continue to check your blood pressure Start taking metformin. Start with 1 tablet by mouth daily for a week. If you tolerate it t he increase it to one tablet twice a day. Then two tablets in the morning and one at night. Then two tablets twice a day. If you have diarrhea after increasing the dose then go back to the previous dose. Check your blood sugar daily Follow up with a primary care doctor Using a Blood Sugar Log You have diabetes. This means your body has troubleregulating a sugar called glucose. To help manage your diabetes, you ll need to check your blood sugar level as directed by your healthcare provider. Keeping a log of your blood sugar levels will help you track your bloo d sugar readings. It s a simple and easy way to see how well you are controlling your diab etes. Checking your blood sugar level You can check your blood sugar level with a blood glucose meter. You ll first prick the s rose marie of your finger with a tiny lancet to draw a tiny drop of blood onto the test strip. Some glucose meters let you use another place on your body to test. But these other places shoul d not be used in some cases as they may be inaccurate. Follow the instructions for your gluc ose meter. And talk with your healthcare provider before doing the test on other places. The strip goes into the meter first, then a drop of blood is placed on the tip of the strip . The meter then shows a reading that tells you the level of your blood sugar. Your readings should be in your target range as often as possible. This means not too high or too low. St aying in this range helps lower your risk for complications. Your healthcare provider will h elp you figure out the target range that is best for you. Tracking your readings Every time you check your blood sugar, use your log to keep track of your readings. Your me ter will also probably have a memory feature that your healthcare provider can check at your next visit. You may be advised by your healthcare provider to check your blood sugar in the morning, at bedtime, and before and after meals. Be sure to write down all of your numbers. Also use your log to record things that might have affected your blood sugar. Some examples include being sick, certain medicines, being physically active, feeling stressed, or skippi ng meals. Lessons learned from your readings Tracking your blood sugar readings helps you see patterns. These patterns tell you how your actions affect your blood sugar. For instance, you may have higher numbers after eating cer tain foods or lower numbers after exercise. They just help you understand how to stay in you r target range more often, so that your diabetes remains in good control. Sharing your log with your healthcare team Bring your blood sugar log and glucose meter with you to all of your healthcare appointment s. This can help your healthcare team make changes to your treatment plan, if needed. This m ay involve making changes in what you eat, what medicines you take, or how much you exercise . To learn more The resources below can help you learn more: [place] Diabetes [phone].diabetes.org Lighthouse Dcqbqquqtvhfr879-182-3566lds.lighthouse.org National Eye [phone] www.nei.nih.gov Hormone Health [phone] www.hormone.org Date Last Reviewed: 11/03/201519995586-0200 [employer]. [address] [place] [address], [place] [address]. All righ ts reserved. This information is not intended as a substitute for professional medical care. Always follow your healthcare professional's instructions. Ufry-rq-[id number] Checking Your Blood Pressure Date Last Reviewed: 10/30/201519990548-9304 [employer]. [address] [place] [address], [place] [address]. All [facility] ts reserved. This information is not intended as a substitute for professional medical care. Always follow your healthcare professional's instructions. Noncardiac Chest Pain Based on your visit today, the healthcare provider doesn t know what is causing your ches t pain. In most cases, people who come to the emergency department with chest pain don t h ave a problem with their heart. Instead, the pain is caused by other conditions. It's import ant for the healthcare team to be sure you are not having a life threatening cause for chest pain such as a heart attack, blood clot in the lungs, collapsed lung, ruptured esophagus, o r tearing of the aorta. Once these major causes have been ruled out, you may have further ev aluation for non-heart causes of chest pain. These may be problems with the lungs, muscles, bones, digestive tract, nerves, or mental health. Lung problems Inflammation around the lungs (pleurisy) Collapsed lung (pneumothorax) Fluid around the lungs (pleural effusion) Lung cancer (a rare cause of chest pain) Muscle or bone problems Inflamed cartilage between the ribs (costochondritis) Fibromyalgia Rheumatoid arthritis Chest wall strain Digestive system problems Reflux Stomach ulcer Spasms of the esophagus Gall stones Gallbladder inflammation Mental health conditions Panic or anxiety attacks Emotional distress Your condition doesn t seem serious and your pain doesn t appear to be coming from your heart. But sometimes the signs of a serious problem take more time to appear. Watch for the warning signs listed below. Home care Follow these guidelines when caring for yourself at home: Rest today and avoid strenuous activity. Take any prescribed medicine as directed. Follow-up care Follow up with your healthcare provider, or as advised, if you don t start to feel better within 24 hours. When to seek medical advice Call your healthcare provider right away if any of these occur: A change in the type of pain. Call if it feels different, becomes more serious, lasts lo nger, or begins to spread into your shoulder, arm, neck, jaw, or back. Shortness of breath You feel more pain when you breathe Cough with dark-colored mucus or blood Weakness, dizziness, or fainting Fever of 100.4F (38C) or higher, or as directed by your healthcare provider Swelling, pain, or redness in one leg Date Last Reviewed: 06/04/201619992288-0879 [employer]. [address] [place] [address], [place] [address]. All righ ts reserved. This information is not intended as a substitute for professional medical care. Always follow your healthcare professional's instructions. Diabetes and Heart Disease Take your medicines as directed each day, even if you feel fine. If you have diabetes, you aretwo to four times more likely to have heart disease than ortiz eone without diabetes. This higher risk is due to diabetes, but it is also due to other risk factors for heart disease that happen in people with diabetes. But there s good news. You can helpcontrol your health risks by making some changes in your life. You can take steps to reduce your risk of heart disease by half similar to the risk in people who don't have diabetes. Your main risk factors Three major risk factors for heart disease are high blood sugar, high blood pressure, and h igh levels of lipids. By keeping risk factors under control, you can help keep your heart an d arteries healthy. This may reduce your chances of a heart attack. Blood sugar.High blood sugar can make artery krishna tough and rough. Plaque (waxy mater ial in the blood) can then build up along the artery krishna, making it harder for blood to fl ow through the arteries. Having high blood sugar increases the chances of having high blood pressure and high cholesterol. Blood pressure. When blood pressure is high all the time it causes your heart to work caballero rder to pump blood. Artery krishna become damaged. This increases the risk for plaque build up . Lipids.The body needs some lipids in the blood to stay healthy. But lipid levels that are too high can damage the artery krishna. Lipids include cholesterol and triglycerides. Ther e are two kinds of cholesterol. LDL ( bad ) cholesterol can damage the arteries. But HDL ( good ) cholesterol helps clear LDL cholesterol from the blood vessels. This helps wiley p the arteries healthy. When blood sugar is high, the level of triglycerides in the blood ma y also be high. High blood triglyceride levelscan cause plaque to form. Other risk factors Certain lifestyle factors can increase levels of your blood sugar, blood pressure, and lipi ds. Such increases raise your risk of heart disease: Smokingdamages the lining of your arteries. This allows plaque to build up in the ronny ry krishna. Smoking also constricts (narrows) the arteries. This can raise blood pressure and cause chest pain or angina. Smoking also increases your risk of getting type 2 diabetes. Not being activemakes it harder for your heart to do its work. Inactivity is linked to many other risk factors, such as high blood pressure and poor cholesterol levels. Inactivit y also increases your risk of getting type 2 diabetes. Being overweightmakes it harder for your body to use insulin. It also makes your heart work too hard. Being overweight is also the main contributor to the development of type 2 d iabetes, Changes you can make Following a few simple steps can help keep your risk factors under control. Work with your healthcare team to reach your goals. Quitting smokingcould save your life. Smoking damages the lining of the blood vessels and raises blood pressure. Smoking also affects how your body uses insulin. This makes it caballero rder to keep blood sugar under control. If you smoke and need help quitting, talk to your [facility]. Testing your blood sugar is the only way to know whether it is under control. Be sure to test your blood sugar yourself. Also get your blood tested in the lab, as directed. Monitoring your blood pressure and lipid levels can help you achieve safe levels. Visit your healthcare team as scheduled. Taking medicines as directed can help control blood sugar, blood pressure, blood clottin g, and/or cholesterol levels. Eating rightcan reduce your risk factors and help you lose weight. Try to limit the am ount of processed or refined carbohydrates you eat at one time. Cut back on your total calor ie intake. Eat foods low in saturated fat and cholesterol. Eat fiber, including vegetables a nd whole grains, and cut down on salt. A dietitian or coding educator can help form a meal plan that works for you even if you are on a low budget. Being activecan help reduce your weight, strengthen your heart, and lower your lipid l evels and blood pressure. Exercise and activity are good for your whole body. Talk to your [facility] team about increasing your activity safely over time. Keeping your appointmentswith your healthcare provider helps you stay healthy. Go in f or checkups and lab tests as scheduled. Date Last Reviewed: 11/21/201519992265-0775 [employer]. [address] [place] [address], [place] [address]. All righ ts reserved. This information is not intended as a substitute for professional medical care. Always follow your healthcare professional's instructions. Diet: Diabetes Food is an important tool that you can use to control diabetes and stay healthy. Eating wel l-balanced meals in the correct amounts will help you control your blood glucose levels and prevent low blood sugar reactions. It will also help you reduce the health risks of diabetes . There is no one specific diet that is right for everyone with diabetes. But there are gene ral guidelines to follow. A registered dietitian (VAHE) will create a tailored diet approach t hat s just right for you. He or she will also help you plan healthy meals and snacks. If y ou have any questions, call your dietitian for advice. Guidelines for success Talk with your healthcare provider before starting a diabetes diet or weight loss program. If you haven't talked with a dietitian yet, ask your provider for a referral. The following guidelines can help you succeed: Select foods from the 6 food groups below. Your dietitian will help you find food choice s within each group. He or she will also show you serving sizes and how many servings you ca n have at each meal. Grains, beans, and starchy vegetables Vegetables Fruit Milk or yogurt Meat, poultry, fish, or tofu Healthy fats Check your blood sugar levels as directed by your provider. Take any medicine as prescri bed by your provider. Learn to read food labels and pick the right portion sizes. Eat only the amount of food in your meal plan. Eat about the same amount of food at regu lar times each day. Don t skip meals. Eat meals 4 to 5 hours apart, with snacks in between . Limit alcohol. It raises blood sugar levels. Drink water or calorie-free diet drinks flavio t use safe sweeteners. Eat less fat to help lower your risk of heart disease. Use nonfat or low-fat dairy produ cts and lean meats. Avoid fried foods. Use cooking oils that are unsaturated, such as olive, canola, or peanut oil. Talk with your dietitian about safe sugar substitutes. Avoid added salt. It can contribute to high blood pressure, which can cause heart diseas e. People with diabetes already have a risk of high blood pressure and heart disease. Stay at a healthy weight. If you need to lose weight, cut down on your portion sizes. Bu t don t skip meals. Exercise is an important part of any weight management program. Talk w ith your provider about an exercise program that s right for you. For more information about the best diet plan for you, talk with a registered dietitian (RD). To find an RD in your area, contact: Academy of Nutrition and Dietetics www.eatright.org The [place] [employer] [phone] www.diabetes.org Date Last Reviewed: 02/03/201619997901-6881 [employer] [address] [place] [address]. All righ ts reserved. This information is not intended as a substitute for professional medical care. Always follow your healthcare professional's instructions. Healthy Meals for Diabetes A healthcare provider will help you develop a meal plan that fits your needs. Ask your healthcare team to help you make a meal plan that fits your needs. Your meal plan tells you when to eat your meals and snacks, what kinds of foods to eat, and how much of eac h food to eat. You don t have to give up all the foods you like. But you do need to follow some guidelines. Choose healthy carbohydrates Starches, sugars, and fiber are all types of carbohydrates.Fiber can help lower your chol esterol and triglycerides. Fiber is also healthy for your heart. You should have 20 to 35 gr ams of total fiber each day. Fiber-rich foods include: Whole-grain breads and cereals Bulgur wheat Brown rice Whole-wheat pasta Fruits and vegetables Dry beans, and peas Keep track of the amount of carbohydrates you eat. This can help you keep the right balance of physical activity and medicine. The amount of carbohydrates needed will vary for each pe rson. It depends on many things such as your health, the medicines you take, and how active you are. Your healthcare team will help you figure out the right amount of carbohydrates for you. You may start with around 45 to 60 grams of carbohydrates per meal, depending on your situation. Here are some examples of foods containing about 15 grams of carbohydrates (1 serving of ca rbohydrates): 1/2 cup of canned or frozen fruit A small piece of fresh fruit (4 ounces) 1 slice of bread 1/2 cup of oatmeal 1/3 cup of rice 4 to 6 crackers 1/2 Gibraltarian muffin 1/2 cup of black beans 1/4 of a large baked potato (3 ounces) 2/3 cup of plain fat-free yogurt 1 cup of soup 1/2 cup of casserole 6 chicken nuggets 7-ycvz-xvnkqd brownie or cake without frosting 2 small cookies 1/2 cup of ice cream or sherbet Choose healthy protein foods Eating protein that is low in fat can help you control your weight. It also helps keep your heart healthy. Low-fat protein foods include: Fish Plant proteins, such as dry beans and peas, nuts, and soy products like tofu and soymilk Lean meat with all visible fat removed Poultry with the skin removed Low-fat ornonfat milk, cheese, and yogurt Limit unhealthy fats and sugar Saturated and trans fats are unhealthy for your heart. They raise LDL (bad) cholesterol. Fa t is also high in calories, so it can make you gain weight. To cut down on unhealthy fats an d sugar, limit these foods: Butter or margarine Palm and palm kernel oils and coconut oil Cream Cheese Correia Lunch meats Ice cream Sweet bakery goods such as pies, muffins, and donuts Jams and jellies Candy bars Regular sodas How much to eat The amount of food you eat affects your blood sugar. It also affects your weight. Your [facility] team will tell you how much of each type of food you should eat. Use measuring cups and spoons and afood scale to measure serving sizes. Learn what a correct serving size looks like on your plate. This will help when you are away from home and can t measure your servings. Eat only the number of servings given on your meal plan for each food. Don t take seco nds. Learn to read food labels. Be sure to look at serving size, total carbohydrates, fiber, calories, sugar, and saturated and trans fats. Look for healthier alternatives to foods that have added sugar. Plan ahead for parties so you can still have a good time without going overboard with un healthy food choices. Set a good example yourself by bringing a healthy dish to [employer]. Choose healthy snacks When it comes to snacks, we usually think about foods with added sugar and fats. But there are many other options for healthier snack choices. Here are a few snack ideas to choose fro m: Snacks with less than 5 grams of carbohydrates 1 piece of string cheese 3 celery sticks plus 1 tablespoon of peanut butter 5 vargas tomatoes plus 1 tablespoon of ranch dressing 1 hard-boiled egg 1/4 cup of fresh blueberries 5 baby carrots 1 cup of light popcorn 1/2 cup of sugar-free gelatin 15 almonds Snacks with about 10 to 20 grams of carbohydrates 1/3 cup of hummus plus 1 cup of fresh cut nonstarchy vegetables (carrots, green peppers, broccoli, celery, or a combination) 1/2 cup of fresh or canned fruit plus 1/4 cup of cottage cheese 1/2 cup of tuna salad with 4 crackers 2 rice cakes and a tablespoon of peanut butter 1 small apple or orange 3 cups light popcorn 1/2 of a turkey sandwich (1 slice of whole-wheat bread, 2 ounces of turkey, and mustard) Portion sizes are important to controlling your blood sugar and staying at a healthy weight . Stock up on healthy snack items so you always have them on hand. When to eat Your meal plan will likely include breakfast, lunch, dinner, and some snacks. Try to eat your meals and snacks at about the same times each day. Eat all your meals and snacks. Skipping a meal or snack can make your blood sugar drop t oo low. It can also cause you to eat too much at the next meal or snack. Then your blood sug ar could get too high. Date Last Reviewed: 01/03/201619991726-9858 [employer]. [address] [place] [address], [place] [address]. All righ ts reserved. This information is not intended as a substitute for professional medical care. Always follow your healthcare professional's instructions. Oral Medicines for Type 2 Diabetes Diabetes pills can help to manage your blood sugar. These pills are not insulin. They work to manage your blood sugar in several ways. You may be given a combination of medicines. Alw ays follow your healthcare provider's instructions. Some pills may put you at higherrisk for low blood sugar (hypoglycemia). Watch for sympto ms of low blood sugar. Symptoms are listed below.Call your healthcare provider if low bloo d sugar happens often. Type of diabetes pills Biguanides These pills help control the amount of glucose in your blood. They do this by decreasing th e amount of glucose made by your liver and helping your muscles use insulin more effectively . These medicines are usually takenwith oraftereach meal. Possible side effects and ot her problems include: Diarrhea Nausea Vomiting Belly (abdominal) bloating Excess gas (flatulence) Metallic taste in mouth Lower blood vitamin B12 levels from decreased absorption from the GI tract of this essen tial vitamin Have your vitamin B12 levels checked regularly if you have used Biguanides for a long time. This is especially important if you have anemia or peripheral neuropathy. Sulfonylureas These pills help your body make more insulin. They are usually taken 30 minutes before a me al. Possible side effects include hypoglycemia. Alpha-glucosidase inhibitors These pills slow the digestion of sugars and starches. They can help keep your blood sugar from going too high after a meal. Take them with the first bite of each main meal. Possible side effects include: Stomach pain Diarrhea Excess gas (flatulence) Thiazolidinediones These pills help your muscle cells use insulin better. Your healthcare provider may order l ab tests to check the function of your liver before prescribing these pills and regularly wh ile you are taking them. Possible side effects include: Weight gain Extra fluid in your body and swelling Increased risk for heart failure Osteoporosis and increased risk for broken bones Meglitinides These pills increase your insulin for a short period of time. They are usually taken before meals. Possible side effects include: Low blood sugar Diarrhea Headache Slightly increased risk for heart problems DPP-4 inhibitors These pills help lower blood sugar levels in people with type 2 diabetes. They are less lik paramjit to cause hypoglycemia, unless you take them with a sulfonylurea. They are taken once a d ay. Possible side effects include: Upper respiratory tract infection Stuffy or runny nose Sore throat Headache Other side effects are under investigation. SGLT-2 inhibitors These pills help lower blood sugar levels in people with type 2 diabetes by increasing the amount of sugar that leaks into the urine. Possible side effects include: Urinary tract infections Genital infections, especially in women Dehydration and low blood pressure Increased bone fractures Development of keotacidosis while blood sugar is only mildly raised above the target ran ge Note: The FDA has issued a safety warning for the SGLT-2 inhibitor [address]zin. Recent st udies have shown that this medicine increases the risk of leg and foot amputations. If you a re taking this medicine, tell your healthcare provider right away if you have any new pain o r tenderness, sores, or infections in your legs or feet. Talk with your healthcare provider before stopping any diabetes medicine. Dopamine D2 receptor agonist (bromocriptine mesylate) These pills help lower blood sugar levels in people with type 2 diabetes. Possible side eff ects of this medicine include: Nausea Vomiting Fatigue Dizziness Headaches Combination pills These medicines may help keep your blood glucose within your target range. They also help y our pancreas make more insulin and may help your muscles use insulin more effectively. Side effects depend on which type of combination you use. Your healthcare provider can tell you m ore. Watch for symptoms of hypoglycemia Symptoms include the following: Headaches Shakiness or dizziness Hunger Cold, clammy skin; sweating A hard, fast heartbeat Confusion or irritability Date Last Reviewed: 12/04/201519999811-6477 [employer] [address] [place] [address]. All righ ts reserved. This information is [...] + + + +---------+ + + | Blood Glucose | 1 Units by Does not | 1 each | 0 | 06/11/20 | | | Monitoring Suppl | apply route 2 times | | | 18 | | | (BLOOD GLUCOSE | daily. | | | | | | MONITOR SYSTEM) | | | | | | | w/Device KIT | | | | | | + + + +---------+ + + | Glucose Blood | Use to test blood | 60 each | 1 | 06/11/20 | | | (BLOOD GLUCOSE TEST | sugar twice a day | | | 18 | | | STRIPS) STRP | | | | | | + + + +---------+ + + | Lancets Misc. MISC | Use to test blood | 60 each | 1 | 06/11/20 | | | | sugar twice a day | | | 18 | | + + + +---------+ + + | losartan (COZAAR) | Take 1 tablet by | 90 | 3 | 10/15/19 | | | 50 mg tablet | mouth Daily. | tablet | | 17 | | + + + +---------+ + + | metoprolol | Take 1 tablet by | 60 | 1 | 06/11/20 | | | tartrate (LOPRESSOR) | mouth 2 times daily. | tablet | | 18 | | | 25 mg tablet | | | | | | + + + +---------+ + + | sharps container | 1 each by Does not | 1 each | 1 | 06/11/20 | | | | apply route as | | | 18 | | | | needed. | | | | | [...] (COZAAR) | Take 1 tablet by | 30 | 1 | 06/11/20 | | | 25 mg tablet | mouth every 24 | tablet | | 18 | 9 | | | hours. | | | | | + + + +---------+ + + | metFORMIN | Start with 1 tablet | 120 | 1 | 06/11/20 | | | (GLUCOPHAGE) 500 mg | a day for a week | tablet | | 18 | 9 | | tablet | then increase to 1 | | | | | | | tablet twice a day | | | | | | | for a week then 2 | | | | | | | tablets in the | | | | | | | morning and 1 in the | | | | | | | afternoon for a | | | | | | | week then 2 tablets | | | | | | | by mouth twice a | | | | | | | day. | | | | | + + [...] + + documented as of this encounter Progress Notes Damián Crowley MD - 06/11/2018 9:11 AM PST Hospital Day: 4 DATE/TIME: 06/11/2018 9:11 38 y.o. year old female hospitalized with Chest pain in adult which is gradually improving Patient reports no further episodes of chest pains or hypertensive crisis. Her concern at this point is her poor glucose control with values in the high 200s. There is no side affec ts from increase metoprolol and decreasing losartan. CURRENT MEDICATIONS albuterol 2.5 mg Nebulization RT Q6H aspirin 81 mg Oral Daily atorvaSTATin 20 mg Oral Nightly enoxaparin 40 mg Subcutaneous Q24H insulin glargine 14 Units Subcutaneous Nightly insulin lispro 0-12 Units Subcutaneous 4x Daily WC and HS losartan 25 mg Oral Q24H metoprolol tartrate 25 mg Oral BID I personally reviewed the above medications. OBJECTIVE: Temp: 35.8 C (96.4 F) BP: 125/75 Pulse: 63 Resp: 16 SpO2: 98 % on Min/Max Temp past 24 hours:Temp Av.9 C (96.6 F) Min: 35.4 C (95.8 F) Max: 3 6.1 C (97 F) Intake/Output Summary (Last 24 hours) at 06/11/18 0911 Last data filed at 06/11/18 0536 Gross per 24 hour Intake 870 ml Output 2975 ml Net -2105 ml Wt. Admission: Weight: 95.2 kg (209 lb 14.1 oz) Wt. Current: Weight: 93.6 kg (206 lb 5. 6 oz) General: alert, appears stated age and cooperative Heart: Regular rate and rhythm, S1S2 present or without murmur or extra heart sounds Lungs: clear Abdomen: abdomen is soft without significant tenderness, masses, organomegaly or guarding Recent Results (from the past 24 hour(s)) POC Glucose Result Value Ref Range Glucose, POC 326 (H) 70 - 109 mg/dL POC Glucose Result Value Ref Range Glucose, POC 300 (H) 70 - 109 mg/dL POC Glucose Result Value Ref Range Glucose, POC 249 (H) 70 - 109 mg/dL POC Glucose Result Value Ref Range Glucose, POC 266 (H) 70 - 109 mg/dL T4, Free Result Value Ref Range FT4 1.1 0.6 - 1.1 ng/dL Lipid Panel Result Value Ref Range Triglycerides 401 (H) 35 - 160 mg/dL Cholesterol 172 140 - 200 mg/dL HDL 20 (L) 28 - 83 mg/dL Chol/HDL Ratio 8.6 LDL, Calculated <=130 mg/dL Comprehensive Metabolic Panel Result Value Ref Range Na 132 (L) 136 - 149 mmol/L K 3.6 3.5 - 5.1 mmol/L Cl 102 98 - 109 mmol/L CO2 22 (L) 24 - 31 mmol/L Anion Gap 8 3 - 16 mmol/L Glucose 284 (H) 70 - 109 mg/dL BUN 7 7 - 18 mg/dL Creatinine 0.53 (L) 0.60 - 1.30 mg/dL eGFR if not >60 >=60 mL/min/1.73m2 Ca 9.0 8.3 - 10.5 mg/dL Albumin 3.4 3.2 - 5.0 g/dL Bilirubin Total 0.9 0.1 - 1.5 mg/dL Total Protein 6.3 6.0 - 7.8 g/dL AST 100 (H) 10 - 42 U/L ALT 126 (H) 6 - 45 U/L Alkaline Phosphatase 97 40 - 110 U/L Globulin 2.9 2.1 - 3.8 g/dL Albumin/Globulin Ratio 1.2 0.8 - 2.0 BUN/Creatinine Ratio 13.2 Extra Lavender Top Tube Result Value Ref Range Extra Lavender Top Tube Done POC Glucose Result Value Ref Range Glucose, POC 284 (H) 70 - 109 mg/dL Recent Labs Lab 06/09/18 0504 06/08/18 2357 06/08/18 1755 TROPONIN <0.01 <0.[address] Chest W Contrast Result Date: 06/10/2018 CT CHEST W CONTRAST 06/10/2018 12:14 PM HISTORY: chest pressure with exertion. COMPARISON: 1 08/09/2017 PROTOCOL: Axial images of the chest were obtained after uneventful administration o f 75 mL Omnipaque 350. Coronal and sagittal reformations were acquired. FINDINGS: LUNGS: The bilateral lungs are clear. There is no evidence for pleural effusion or pneumothorax. Tiny left posterior medial diaphragm Bochdalek hernia. No suspicious lung mass or nodule identifi ed. HEART: The heart is of normal size. VASCULATURE: Aorta is normal in size and without lidia dence of dissection or aneurysmal dilation. The pulmonary arteries are unremarkable. Visuali zed venous structures are patent. Minimal gas within the main pulmonary artery is likely rel ated to intravenous injection of contrast. LYMPH NODES: No evidence of axillary, mediastinal , or hilar lymphadenopathy. MEDIASTINUM: Trachea and esophagus are normal. Neck base is nor mal. ABDOMEN: The upper abdomen demonstrates no acute findings. Hepatic steatosis. SOFT TISS UES: Chest wall structures are normal. BONES: There are no acute osseous abnormalities. Mild multilevel thoracic spondylosis IMPRESSION - Essentially normal CT of the chest. Hepatic st eatosis. Dictated and Signed by: Jarret Marcano MD Electronically signed: 06/10/2018 2:06 PM ASSESSMENT AND PLAN: 1. Chest pains and hypertensive episodes Patient is undergoing urine collection for workup of pheochromocytoma. However, there gurpreet ears to be no paradoxical effect from increasing her beta blockade with no outflow blockade therapy thyroid studies are also pending. Overall, she seems to be improving with increase in beta blockers. 2. Diabetes Patient admits to poor compliance and not following her glucoses. She has a primary care doctor now signed to her and appears motivated to make changes. Consider dietary consult wh ile in the hospi It are no further episodes of hypertensive crisis and chest pains, patient can be followed up after her urine collection as an outpatient. Electronically Signed by: Damián Crowley MD, 06/11/2018 9:11 [facility] Norm Mead DO - 01/2018 4:13 PM PST [facility] NAYELI CURRY HOSPITALIST PROGRESS NOTE Patient: Corina Woods : 1980: Age: 38 y.o. MedRec: [id number] Admission date: 06/08/2018 Hospital day # : 2 Physician author: Norm Martinez DO Today: 06/10/2018 Assessment and Hospital Course Active Hospital Problems Diagnosis Chest pain in adult Type 2 diabetes mellitus without complication, without long-term current use of insulin Essential hypertension Resolved Hospital Problems Diagnosis No resolved problems to display. HPI from H&P: This is a 38 y.o. obese female with hx of DM, HTN who presents with onset of non- exertional chest pain during the evening prior to admission. She describes chest discomfort as pressure which radiated to (L) jaw, ear and (L) arm. Symptoms persisted with rest and e ventually became so severe that she presented to [facility] in [place]. On arrival th [facility], chest pain continued and pt's BP was markedly elevated. The pt reports that she has caballero d difficulty affording her medication and therefore has not been taking her usual antihypert ensives or her oral hypoglycemic agents. The evaluating physician at [facility] was concerned about ACS and referred pt to [facility] f or further evaluation. While there pt received SL NTG with relief on symptoms and improveme nt in BP. On arrival here, pt is pain free but still hypertensive. She denies nausea, SOB at rest. She does note heavy vaginal bleeding for the past few weeks. Her Hgb is adequate at 12.4g/d l. She has no additional problems or complaints at this time. Plan # Chest Pain CP only with ambulation. One episode last night. hx of poorly controlled HTN and DM (unable to afford meds at this time) and strong family hx of early onset CAD who presented with acu te onset of chest pain and marked elevation in BP. Trop neg x 3. EKG with IWMI. Stress test without EKG changes ,but she did have chest pressure and HTN during the test. Echo was norm al. No cardiac cath per cardiology. - Pain control with MS and nitro - O2 prn - cont metoprolol - Cardiology consulted, appreciate help. - check lipid panel - ruling out pheo - Monitor on Tele - cont aspirin and statin # hepatic steatosis - discussed weight loss with her - follow up with PCP # HTN Controlled. - Cont metoprolol and losartan # DM - SS insulin coverage; hold metformin - increase lantus nightly Code: full DVT ppx: lovenox Dispo: home tomorrow Allergies: Allergies Allergen Reactions Lisinopril Cough Morphine Nausea/ Vomiting Tape [Adhesive & Tape] Itching, blisters Current Medications: Current Facility-Administered Medications Medication Dose Route Frequency Provider Last Rate Last Dose acetaminophen (TYLENOL) tablet 650 mg 650 mg Oral Q4H PRN Stoney Suero MD 650 m g at 06/09/18 1935 albuterol 2.5 mg/3 mL nebulizer solution 2.5 mg 2.5 mg Nebulization RT Q6H Normmeme Garcia n, DO 2.5 mg at 06/10/18 1446 aspirin chewable tablet 81 mg 81 mg Oral Daily Stoney Suero MD 81 mg at 8 0908 atorvaSTATin (LIPITOR) tablet 20 mg 20 mg Oral Nightly Stoney Suero MD 20 mg at 06/09/18 2100 dextrose 50% injection 12.5 g 12.5 g Intravenous PRN Stoney Suero MD docusate sodium (COLACE) capsule 100 mg 100 mg Oral BID PRN Stoney Suero MD enoxaparin (LOVENOX) 40 mg/0.4 mL injection 40 mg 40 mg Subcutaneous Q24H Stoney jimenez MD 40 mg at 06/09/18 1726 ibuprofen (ADVIL, MOTRIN) tablet 400 mg 400 mg Oral Q6H PRN Jonathan Mai MD 400 mg at 06/10/18 0146 insulin glargine (LANTUS SOLOSTAR) injection (pen) 10 Units 0.1 Units/kg/day Subcutane ous Nightly Normmeme Martinez, DO 10 Units at 06/09/18 2100 insulin lispro (humaLOG KWIKPEN) injection (pen) 0-12 Units 0-12 Units Subcutaneous 4x Daily WC and HS Stoney Suero MD 8 Units at 06/10/18 1156 losartan (COZAAR) tablet 25 mg 25 mg Oral Q24H Damián Crowley MD metoprolol tartrate (LOPRESSOR) tablet 25 mg 25 mg Oral BID Damián Crowley MD nitroglycerin (NITROSTAT) SL tablet 0.4 mg 0.4 mg Sublingual Q5 Min PRN Stoney somers MD ondansetron (ZOFRAN ODT) disintegrating tablet 4 mg 4 mg Oral Q6H PRN Stoney Suero MD zolpidem (AMBIEN) tablet 5 mg 5 mg Oral Nightly PRN Stoney Suero MD Current Infusions: Objective Data Point of care glucose Recent Labs Lab 06/10/18 1428 06/10/18 1152 06/10/18 0910 06/09/18 1940 06/09/18 1638 06/09/18 1136 POCGLU 300* 326* 399* 274* 240* 229* Labs last 24 hours Recent Results (from the past 24 hour(s)) TSH Collection Time: 06/09/18 16:18 Result Value Ref Range TSH 2.05 0.45 - 5.33 uIU/mL Hemoglobin A1C Collection Time: 06/09/18 16:18 Result Value Ref Range Hemoglobin A1c 11.5 (H) 4.3 - 6.0 % Estimated Average Glucose 283 mg/dL Eosinophil Smear, Urine Collection Time: 06/09/18 16:36 Result Value Ref Range Eosinophil, Urine None seen None seen POC Glucose Collection Time: 06/09/18 16:38 Result Value Ref Range Glucose, POC 240 (H) 70 - 109 mg/dL POC Glucose Collection Time: 06/09/18 19:40 Result Value Ref Range Glucose, POC 274 (H) 70 - 109 mg/dL CBC no Differential Collection Time: 06/10/18 4:47 Result Value Ref Range WBC 5.5 4.0 - 11.0 K/uL RBC 4.74 3.70 - 5.20 M/uL Hgb 11.3 (L) 11.5 - 16.0 g/dL Hct 37.2 34.0 - 47.0 % MCV 78.5 (L) 83.0 - 101.0 fL MCH 23.8 (L) 28.0 - 35.0 pg MCHC 30.4 (L) 32.0 - 36.0 g/dL RDW-CV 14.4 <15.0 % RDW-SD 41.1 35.1 - 46.3 fL Platelet Count 237 140 - 440 K/uL MPV 9.6 6.5 - 12.4 fL nRBC 0 0 - 2 per 100 WBC's NRBC ABS 0.00 0.00 - 0.01 K/uL Comprehensive Metabolic Panel Collection Time: 06/10/18 4:47 Result Value Ref Range Na 135 (L) 136 - 149 mmol/L K 3.7 3.5 - 5.1 mmol/L Cl 104 98 - 109 mmol/L CO2 27 24 - 31 mmol/L Anion Gap 4 3 - 16 mmol/L Glucose 273 (H) 70 - 109 mg/dL BUN 8 7 - 18 mg/dL Creatinine 0.55 (L) 0.60 - 1.30 mg/dL eGFR if not >60 >=60 mL/min/1.73m2 Ca 9.3 8.3 - 10.5 mg/dL Albumin 3.4 3.2 - 5.0 g/dL Bilirubin Total 1.1 0.1 - 1.5 mg/dL Total Protein 6.4 6.0 - 7.8 g/dL AST 94 (H) 10 - 42 U/L ALT 126 (H) 6 - 45 U/L Alkaline Phosphatase 104 40 - 110 U/L Globulin 3.0 2.1 - 3.8 g/dL Albumin/Globulin Ratio 1.1 0.8 - 2.0 BUN/Creatinine Ratio 14.5 Magnesium Collection Time: 06/10/18 4:47 Result Value Ref Range Magnesium 1.8 1.8 - 2.5 mg/dL POC Glucose Collection Time: 06/10/18 9:10 Result Value Ref Range Glucose, POC 399 (H) 70 - 109 mg/dL POC Glucose Collection Time: 06/10/18 11:52 Result Value Ref Range Glucose, POC 326 (H) 70 - 109 mg/dL POC Glucose Collection Time: 06/10/18 14:28 Result Value Ref Range Glucose, POC 300 (H) 70 - 109 mg/dL Micro results Microbiology Results (72 hrs) Procedure Component Value Units Date/Time Culture, MRSA [[id number]] (Normal) Collected: 06/08/18 1639 Order Status: Completed Lab Status: Final result Updated: 06/09/18 1351 Specimen: Tissue from Nares Culture Negative for MRSA by chromogenic agar method Radiology results Ct Chest W Contrast Result Date: 06/10/2018 CT CHEST W CONTRAST 06/10/2018 12:14 PM HISTORY: chest pressure with exertion. COMPARISON: 1 08/09/2017 PROTOCOL: Axial images of the chest were obtained after uneventful administration o f 75 mL Omnipaque 350. Coronal and sagittal reformations were acquired. FINDINGS: LUNGS: The bilateral lungs are clear. There is no evidence for pleural effusion or pneumothorax. Tiny left posterior medial diaphragm Bochdalek hernia. No suspicious lung mass or nodule identifi ed. HEART: The heart is of normal size. VASCULATURE: Aorta is normal in size and without lidia dence of dissection or aneurysmal dilation. The pulmonary arteries are unremarkable. Visuali zed venous structures are patent. Minimal gas within the main pulmonary artery is likely rel ated to intravenous injection of contrast. LYMPH NODES: No evidence of axillary, mediastinal , or hilar lymphadenopathy. MEDIASTINUM: Trachea and esophagus are normal. Neck base is nor mal. ABDOMEN: The upper abdomen demonstrates no acute findings. Hepatic steatosis. SOFT TISS UES: Chest wall structures are normal. BONES: There are no acute osseous abnormalities. Mild multilevel thoracic spondylosis IMPRESSION - Essentially normal CT of the chest. Hepatic st eatosis. Dictated and Signed by: Jarret Marcano MD Electronically signed: 06/10/2018 2:06 PM Xr Chest Ap Portable Result Date: 06/08/2018 EXAM: XR CHEST AP PORTABLE dated 06/08/2018 6:11 PM HISTORY: Chest pain. Comparison: None. T ECHNIQUE: A single portable view of the chest. FINDINGS: The lungs are symmetrically aerated . Low lung volumes. No acute airspace disease. There are no large pleural effusions. The re is no pneumothorax. The cardiac and mediastinal contours are not enlarged. No acute oss eous abnormalities. IMPRESSION - No acute disease. Dictated and Signed by: Kamaljit Coffman MD Electronically signed: 06/08/2018 6:34 PM Vitals Ranges: Temp: [35.6 C (96.1 F)-36.1 C (97 F)] 36.1 C (97 F) Pulse: [58-79] 72 Resp: [16-18] 18 BP: (108-138)/(55-90) 108/66 Vitals: Temp: 36.1 C (97 F) BP: 108/66 Pulse: 72 Resp: 18 SpO2: 97 % SpO2 97 % on room air at flow rate L/min Subjective CC No chest pain currently, but did have chest pressure when she walks. No SOB, fever/chil l, n/v. ROS See above Exam GA: NAD, AAOX3 HEENT: EOMI, MMM Neck: no JVD, no LDN Cardiac: rrr, no m/g/r, noLE swelling Lung: CTAB, normal respiratory effort Abdomen: soft, nt/nd, nabs Ext:no c/c/e Pych: normal mood and affect Neuro: eeg technician grossly intact, no focal weakness or sensory deficits Norm Martinez DO 06/10/2018 16:13 [facility] Portions of this chart may have been created with [employer] voice recognition software. Occasi onal wrong-word or sound-alike substitutions may have occurred due to the inherent degroot itations of voice recognition software. Please read the chart carefully and recognize, using context, where these substitutions have occurred Damián Quiroz MD - 01/2018 2:54 PM PST Hospital Day: 3 DATE/TIME: 06/10/2018 14:54 38 y.o. year old female hospitalized with Chest pain in adult which is unchanged CURRENT INFUSIONS CURRENT MEDICATIONS albuterol 2.5 mg Nebulization RT Q6H aspirin 81 mg Oral Daily atorvaSTATin 20 mg Oral Nightly enoxaparin 40 mg Subcutaneous Q24H insulin glargine 0.1 Units/kg/day Subcutaneous Nightly insulin lispro 0-12 Units Subcutaneous 4x Daily WC and HS losartan 25 mg Oral Q24H metoprolol tartrate 25 mg Oral BID I personally reviewed the above medications. OBJECTIVE: Temp: 36.1 C (97 F) BP: 108/66 Pulse: 72 Resp: 18 SpO2: 97 % on Min/Max Temp past 24 hours:Temp Av.9 C (96.6 F) Min: 35.6 C (96 F) Max: 36. 1 C (97 F) Intake/Output Summary (Last 24 hours) at 06/10/18 1454 Last data filed at 06/10/18 0935 Gross per 24 hour Intake 1240 ml Output 1250 ml Net -10 ml Wt. Admission: Weight: 95.2 kg (209 lb 14.1 oz) Wt. Current: Weight: 93.6 kg (206 lb 5. 6 oz) General: alert, appears stated age and cooperative Heart: Regular rate and rhythm, S1S2 present or without murmur or extra heart sounds Lungs: clear Abdomen: abdomen is soft without significant tenderness, masses, organomegaly or guarding Recent Results (from the past 24 hour(s)) TSH Result Value Ref Range TSH 2.05 0.45 - 5.33 uIU/mL Hemoglobin A1C Result Value Ref Range Hemoglobin A1c 11.5 (H) 4.3 - 6.0 % Estimated Average Glucose 283 mg/dL Eosinophil Smear, Urine Result Value Ref Range Eosinophil, Urine None seen None seen POC Glucose Result Value Ref Range Glucose, POC 240 (H) 70 - 109 mg/dL POC Glucose Result Value Ref Range Glucose, POC 274 (H) 70 - 109 mg/dL CBC no Differential Result Value Ref Range WBC 5.5 4.0 - 11.0 K/uL RBC 4.74 3.70 - 5.20 M/uL Hgb 11.3 (L) 11.5 - 16.0 g/dL Hct 37.2 34.0 - 47.0 % MCV 78.5 (L) 83.0 - 101.0 fL MCH 23.8 (L) 28.0 - 35.0 pg MCHC 30.4 (L) 32.0 - 36.0 g/dL RDW-CV 14.4 <15.0 % RDW-SD 41.1 35.1 - 46.3 fL Platelet Count 237 140 - 440 K/uL MPV 9.6 6.5 - 12.4 fL nRBC 0 0 - 2 per 100 WBC's NRBC ABS 0.00 0.00 - 0.01 K/uL Comprehensive Metabolic Panel Result Value Ref Range Na 135 (L) 136 - 149 mmol/L K 3.7 3.5 - 5.1 mmol/L Cl 104 98 - 109 mmol/L CO2 27 24 - 31 mmol/L Anion Gap 4 3 - 16 mmol/L Glucose 273 (H) 70 - 109 mg/dL BUN 8 7 - 18 mg/dL Creatinine 0.55 (L) 0.60 - 1.30 mg/dL eGFR if not >60 >=60 mL/min/1.73m2 Ca 9.3 8.3 - 10.5 mg/dL Albumin 3.4 3.2 - 5.0 g/dL Bilirubin Total 1.1 0.1 - 1.5 mg/dL Total Protein 6.4 6.0 - 7.8 g/dL AST 94 (H) 10 - 42 U/L ALT 126 (H) 6 - 45 U/L Alkaline Phosphatase 104 40 - 110 U/L Globulin 3.0 2.1 - 3.8 g/dL Albumin/Globulin Ratio 1.1 0.8 - 2.0 BUN/Creatinine Ratio 14.5 Magnesium Result Value Ref Range Magnesium 1.8 1.8 - 2.5 mg/dL POC Glucose Result Value Ref Range Glucose, POC 399 (H) 70 - 109 mg/dL POC Glucose Result Value Ref Range Glucose, POC 326 (H) 70 - 109 mg/dL POC Glucose Result Value Ref Range Glucose, POC 300 (H) 70 - 109 mg/dL Recent Labs Lab 06/09/18 0504 06/08/18 2357 06/08/18 1755 TROPONIN <0.01 <0.[address] <[address]01 [address] Chest W Contrast Result Date: 06/10/2018 CT CHEST W CONTRAST 06/10/2018 12:14 PM HISTORY: chest pressure with exertion. COMPARISON: 1 08/09/2017 PROTOCOL: Axial images of the chest were obtained after uneventful administration o f 75 mL Omnipaque 350. Coronal and sagittal reformations were acquired. FINDINGS: LUNGS: The bilateral lungs are clear. There is no evidence for pleural effusion or pneumothorax. Tiny left posterior medial diaphragm Bochdalek hernia. No suspicious lung mass or nodule identifi ed. HEART: The heart is of normal size. VASCULATURE: Aorta is normal in size and without lidia dence of dissection or aneurysmal dilation. The pulmonary arteries are unremarkable. Visuali zed venous structures are patent. Minimal gas within the main pulmonary artery is likely rel ated to intravenous injection of contrast. LYMPH NODES: No evidence of axillary, mediastinal , or hilar lymphadenopathy. MEDIASTINUM: Trachea and esophagus are normal. Neck base is nor mal. ABDOMEN: The upper abdomen demonstrates no acute findings. Hepatic steatosis. SOFT TISS UES: Chest wall structures are normal. BONES: There are no acute osseous abnormalities. Mild multilevel thoracic spondylosis IMPRESSION - Essentially normal CT of the chest. Hepatic st eatosis. Dictated and Signed by: Jarret Marcano MD Electronically signed: 06/10/2018 2:06 PM Xr Chest Ap Portable Result Date: 06/08/2018 EXAM: XR CHEST AP PORTABLE dated 06/08/2018 6:11 PM HISTORY: Chest pain. Comparison: None. T ECHNIQUE: A single portable view of the chest. FINDINGS: The lungs are symmetrically aerated . Low lung volumes. No acute airspace disease. There are no large pleural effusions. The re is no pneumothorax. The cardiac and mediastinal contours are not enlarged. No acute oss eous abnormalities. IMPRESSION - No acute disease. Dictated and Signed by: Kamaljit Coffman MD Electronically signed: 06/08/2018 6:34 PM ASSESSMENT AND PLAN: 1. Recurrent episodes of hyperteniosn and chest pain. Suspicion of cad low. Must consider p heochromocytoma and thyroid status. Labs ordered. SUBJECTIVE/ROS: Electronically Signed by: Damián Crowley MD, 06/10/2018 14:54 [facility] ee, Damián Perez MD - 12/2017 10:41 AM PST Hospital Day: 2 DATE/TIME: 06/09/2018 10:41 38 y.o. year old female hospitalized with Chest pain in adult which is completely nresolved . Patient still remains anxious was intimately elevated blood pressure. However, this a grad ual trend down to normal level at this time despite her history of long-standing hypertensio n. EKG is abnormal with loss of R waves across precordium and small septal Q waves in the i nferior leads. Troponins have been negative. Echo this morning was normal without any wall motion abnormalities. CURRENT MEDICATIONS aspirin 81 mg Oral Daily atorvaSTATin 20 mg Oral Nightly enoxaparin 40 mg Subcutaneous Q24H insulin glargine 0.1 Units/kg/day Subcutaneous Nightly insulin lispro 0-12 Units Subcutaneous 4x Daily WC and HS losartan 50 mg Oral Q24H metoprolol tartrate 12.5 mg Oral BID I personally reviewed the above medications. OBJECTIVE: Temp: 35.9 C (96.6 F) BP: 122/85 Pulse: 68 Resp: 15 SpO2: 97 % on Min/Max Temp past 24 hours:Temp Av.1 C (96.9 F) Min: 35.9 C (96.6 F) Max: 3 6.6 C (97.9 F) Intake/Output Summary (Last 24 hours) at 06/09/18 1041 Last data filed at 06/09/18 0947 Gross per 24 hour Intake 1090 ml Output 2100 ml Net -1010 ml Wt. Admission: Weight: 95.2 kg (209 lb 14.1 oz) Wt. Current: Weight: 95.2 kg (209 lb 14 .1 oz) General: alert, appears stated age and cooperative Heart: Regular rate and rhythm or S1S2 present Lungs: clear Abdomen: abdomen is soft without significant tenderness, masses, organomegaly or guarding Recent Results (from the past 24 hour(s)) ECG 12 lead Result Value Ref Range VENTRICULAR RATE EKG 86 BPM ATRIAL RATE 86 BPM P-R INTERVAL 164 ms QRS DURATION 104 ms Q-T INTERVAL 370 ms Q-T INTERVAL (CORRECTED) 442 ms P WAVE AXIS 27 degrees QRS AXIS -16 degrees T AXIS 28 degrees INTERPRETATION TEXT Normal sinus rhythm Inferior infarct , age undetermined Abnormal ECG No previous ECGs available Confirmed by CHRISTOPHER MARIE, DIANE ([id number]) on 06/09/2018 6:51:55 AM Troponin I Result Value Ref Range Troponin I <0.01 <0.06 ng/mL POC Glucose Result Value Ref Range Glucose, POC 319 (H) 70 - 109 mg/dL Extra Lavender Top Tube Result Value Ref Range Extra Lavender Top Tube Done Extra Gold Top Tube Result Value Ref Range EGDT Done POC Glucose Result Value Ref Range Glucose, POC 316 (H) 70 - 109 mg/dL Troponin I Result Value Ref Range Troponin I <0.01 <0.06 ng/mL CBC no Differential Result Value Ref Range WBC 5.1 4.0 - 11.0 K/uL RBC 4.54 3.70 - 5.20 M/uL Hgb 11.0 (L) 11.5 - 16.0 g/dL Hct 35.6 34.0 - 47.0 % MCV 78.4 (L) 83.0 - 101.0 fL MCH 24.2 (L) 28.0 - 35.0 pg MCHC 30.9 (L) 32.0 - 36.0 g/dL RDW-CV 14.6 <15.0 % RDW-SD 40.8 35.1 - 46.3 fL Platelet Count 231 140 - 440 K/uL MPV 9.8 6.5 - 12.4 fL nRBC 0 0 - 2 per 100 WBC's NRBC ABS 0.00 0.00 - 0.01 K/uL Comprehensive Metabolic Panel Result Value Ref Range Na 133 (L) 136 - 149 mmol/L K 3.6 3.5 - 5.1 mmol/L Cl 105 98 - 109 mmol/L CO2 21 (L) 24 - 31 mmol/L Anion Gap 7 3 - 16 mmol/L Glucose 323 (H) 70 - 109 mg/dL BUN 7 7 - 18 mg/dL Creatinine 0.51 (L) 0.60 - 1.30 mg/dL eGFR if not >60 >=60 mL/min/1.73m2 Ca 9.0 8.3 - 10.5 mg/dL Albumin 3.3 3.2 - 5.0 g/dL Bilirubin Total 0.9 0.1 - 1.5 mg/dL Total Protein 6.1 6.0 - 7.8 g/dL AST 76 (H) 10 - 42 U/L ALT 129 (H) 6 - 45 U/L Alkaline Phosphatase 98 40 - 110 U/L Globulin 2.8 2.1 - 3.8 g/dL Albumin/Globulin Ratio 1.2 0.8 - 2.0 BUN/Creatinine Ratio 13.7 Magnesium Result Value Ref Range Magnesium 1.7 (L) 1.8 - 2.5 mg/dL Troponin I Result Value Ref Range Troponin I <0.01 <0.06 ng/mL ECHO Complete Result Value Ref Range BASELINE BLOOD PRESSURE 114/77 mmHg Patient Weight (lbs) 209 lb Patient Height 5'0" LVIDd 4.76 cm FS 39 % LA volume 57.87 mL Ascending aorta 3.21 cm Aortic arch 2.69 cm AV mean gradient 2.27 mmHg MV Area by P 1/2 method 3.49 cm2 IVRT 102.22 msec LVOT peak tarik 74.31 cm/s LVOT peak VTI 17.45 cm AV peak tarik 1 cm/s AV VTI 23.42 cm AV peak gradient 0 mmHg MV peak gradient 3.18 mmHg MV Pressure 1/2 time 63.04 msec LA Volume Index 30 mL/m2 AV LVOT Peak Gradient 2.35 mmHg AV LVOT Mean Gradient 1.1 mmHg LV Diastolic Length 4C 8.32 cm LV Systolic Area PSAX 16.82 cm2 LV Cardoso's Biplane EF 64 % AV Acceleration Time 116.03 msec LV ED Volume (Cardoso's) 94.06 ml LV ED Volume Index 50 ml/m2 LV ES Volume 34.05 ml LVOT Mean Velocity 48.22 cm/s MV A' Lateral Velocity 9.19 cm/s MV E' Lateral Velocity 10.36 cm/s MV A' Septal Velocity 8.6 cm/s MV E' Septal Velocity 10.46 cm/s MV Deceleration Bossier 410.2 cm/s2 MV Deceleration Time 217.39 msec MV E/A Ratio 1.42 MV Peak A-Wave 62.97 cm/s MV Peak E-Wave 89.17 cm/s AV Mean Velocity 71.53 cm/s LA/Aorta Ratio 1.23 LA Area 18.83 cm2 LA Systolic Pressure 12.76 mmHg MV E/E SEPTAL 8.52 MV E/E LATERAL 8.61 LA Major 0.2342 cm LV ES Volume Index 18 ml/m2 LV Area Diastolic 30.78 cm2 Aortic Root Diameter 3.27 cm IVS Diastolic Thickness MM 0.89 cm LVPW Diastolic Thickness MM 1.07 cm IVS Systolic Thickness MM 1.56 cm LV Systolic Diameter MM 2.92 cm LVPW Systolic Thickness MM 1.49 cm AV Cusp Seperation MM 2.1 cm LA Systolic Diameter MM 4.02 cm TAPSE 2.1 cm RA PRESSURE 3 mmHg LVEF-TTE TRANSTHORACIC ECHO 50 % POC Glucose Result Value Ref Range Glucose, POC 329 (H) 70 - 109 mg/dL Recent Labs Lab 06/09/18 0504 06/08/18 2357 06/08/18 1755 TROPONIN <0.01 <0.01 <0.01 Xr Chest Ap Portable Result Date: 06/08/2018 EXAM: XR CHEST AP PORTABLE dated 06/08/2018 6:11 PM HISTORY: Chest pain. Comparison: None. T ECHNIQUE: A single portable view of the chest. FINDINGS: The lungs are symmetrically aerated . Low lung volumes. No acute airspace disease. There are no large pleural effusions. The re is no pneumothorax. The cardiac and mediastinal contours are not enlarged. No acute oss eous abnormalities. IMPRESSION - No acute disease. Dictated and Signed by: Kamaljit Coffman MD Electronically signed: 06/08/2018 6:34 PM ASSESSMENT AND PLAN: 1. Presentation was chest pains with significant risk factors but in a young female. There was concern about ACS given her baseline abnormal EKG but apical shows no suggestive ischem ic heart disease. At this point suspicion of ischemic osseous is low. We'll discuss with Dr. Martinez. Electronically Signed by: Damián Crowley MD, 06/09/2018 10:41 [facility] Norm Mead DO - 12/2017 6:57 AM PST [facility] [place] [facility] PROGRESS NOTE Patient: Corina Woods : 1980: Age: 38 y.o. MedRec: [id number] Admission date: 06/08/2018 Hospital day # : 1 Physician author: Norm Martinez DO Today: 06/09/2018 Assessment and Hospital Course Active Hospital Problems Diagnosis Chest pain in adult Resolved Hospital Problems Diagnosis No resolved problems to display. HPI from H&P: This is a 38 y.o. obese female with hx of DM, HTN who presents with onset of non- exertional chest pain during the evening prior to admission. She describes chest discomfort as pressure which radiated to (L) jaw, ear and (L) arm. Symptoms persisted with rest and e ventually became so severe that she presented to [facility] in [place]. On arrival th ere, chest pain continued and pt's BP was markedly elevated. The pt reports that she has caballero d difficulty affording her medication and therefore has not been taking her usual antihypert ensives or her oral hypoglycemic agents. The evaluating physician at [facility] was concerned about ACS and referred pt to [facility] f or further evaluation. While there pt received SL NTG with relief on symptoms and improveme nt in BP. On arrival here, pt is pain free but still hypertensive. She denies nausea, SOB at rest. She does note heavy vaginal bleeding for the past few weeks. Her Hgb is adequate at 12.4g/d l. She has no additional problems or complaints at this time. Plan # Chest Pain No CP currently. One episode last night. hx of poorly controlled HTN and DM (unable to affo rd meds at this time) and strong family hx of early onset CAD who presented with acute onset of chest pain and marked elevation in BP. Trop neg x 3. EKG with IWMI. - Pain control with MS and nitro - O2 prn - cont metoprolol - Cardiology consulted - Monitor on Tele - F/U Echo - cont aspirin and statin # HTN Controlled. - Cont metoprolol and losartan Serial troponins # DM - SS insulin coverage; hold metformin - start lantus nightly Code: full DVT ppx: lovenox Dispo: home in 1-2 days depending on cardiology work up Allergies: Allergies Allergen Reactions Lisinopril Cough Morphine Nausea/ Vomiting Tape [Adhesive & Tape] Itching, blisters Current Medications: Current Facility-Administered Medications Medication Dose Route Frequency Provider Last Rate Last Dose acetaminophen (TYLENOL) tablet 650 mg 650 mg Oral Q4H PRN Stoney Suero MD 650 m g at 06/09/18 0205 aspirin chewable tablet 81 mg 81 mg Oral Daily Stoney Suero MD 81 mg at 8 0803 atorvaSTATin (LIPITOR) tablet 20 mg 20 mg Oral Nightly Stoney Suero MD 20 mg at 06/08/18 2159 dextrose 50% injection 12.5 g 12.5 g Intravenous PRN Stoney Suero MD docusate sodium (COLACE) capsule 100 mg 100 mg Oral BID PRN Stoney Suero MD enoxaparin (LOVENOX) 40 mg/0.4 mL injection 40 mg 40 mg Subcutaneous Q24H Stoney jimenez MD 40 mg at 06/08/18 1807 insulin lispro (humaLOG KWIKPEN) injection (pen) 0-12 Units 0-12 Units Subcutaneous 4x Daily WC and HS Stoney Suero MD 8 Units at 06/09/18 0807 losartan (COZAAR) tablet 50 mg 50 mg Oral Q24H Stoney Suero MD 50 mg at 8 1807 metoprolol tartrate (LOPRESSOR) tablet 12.5 mg 12.5 mg Oral BID Stoney Suero MD 12.5 mg at 06/09/18 0803 nitroglycerin (NITROSTAT) SL tablet 0.4 mg 0.4 mg Sublingual Q5 Min PRN Stoney somers MD ondansetron (ZOFRAN ODT) disintegrating tablet 4 mg 4 mg Oral Q6H PRN Stoney Suero MD zolpidem (AMBIEN) tablet 5 mg 5 mg Oral Nightly PRN Stoney Suero MD Current Infusions: Objective Data Point of care glucose Recent Labs Lab 06/09/18 0707 06/08/18 2156 06/08/18 1755 POCGLU 329* 316* 319* Labs last 24 hours Recent Results (from the past 24 hour(s)) ECG 12 lead Collection Time: 06/08/18 17:16 Result Value Ref Range VENTRICULAR RATE EKG 86 BPM ATRIAL RATE 86 BPM P-R INTERVAL 164 ms QRS DURATION 104 ms Q-T INTERVAL 370 ms Q-T INTERVAL (CORRECTED) 442 ms P WAVE AXIS 27 degrees QRS AXIS -16 degrees T AXIS 28 degrees INTERPRETATION TEXT Normal sinus rhythm Inferior infarct , age undetermined Abnormal ECG No previous ECGs available Confirmed by CHRISTOPHER MARIE, DIANE ([id number]) on 06/09/2018 6:51:55 AM Troponin I Collection Time: 06/08/18 17:55 Result Value Ref Range Troponin I <0.01 <0.06 ng/mL POC Glucose Collection Time: 06/08/18 17:55 Result Value Ref Range Glucose, POC 319 (H) 70 - 109 mg/dL Extra Lavender Top Tube Collection Time: 06/08/18 17:55 Result Value Ref Range Extra Lavender Top Tube Done Extra Gold Top Tube Collection Time: 06/08/18 17:55 Result Value Ref Range EGDT Done POC Glucose Collection Time: 06/08/18 21:56 Result Value Ref Range Glucose, POC 316 (H) 70 - 109 mg/dL Troponin I Collection Time: 06/08/18 23:57 Result Value Ref Range Troponin I <0.01 <0.06 ng/mL CBC no Differential Collection Time: 06/09/18 5:04 Result Value Ref Range WBC 5.1 4.0 - 11.0 K/uL RBC 4.54 3.70 - 5.20 M/uL Hgb 11.0 (L) 11.5 - 16.0 g/dL Hct 35.6 34.0 - 47.0 % MCV 78.4 (L) 83.0 - 101.0 fL MCH 24.2 (L) 28.0 - 35.0 pg MCHC 30.9 (L) 32.0 - 36.0 g/dL RDW-CV 14.6 <15.0 % RDW-SD 40.8 35.1 - 46.3 fL Platelet Count 231 140 - 440 K/uL MPV 9.8 6.5 - 12.4 fL nRBC 0 0 - 2 per 100 WBC's NRBC ABS 0.00 0.00 - 0.01 K/uL Comprehensive Metabolic Panel Collection Time: 06/09/18 5:04 Result Value Ref Range Na 133 (L) 136 - 149 mmol/L K 3.6 3.5 - 5.1 mmol/L Cl 105 98 - 109 mmol/L CO2 21 (L) 24 - 31 mmol/L Anion Gap 7 3 - 16 mmol/L Glucose 323 (H) 70 - 109 mg/dL BUN 7 7 - 18 mg/dL Creatinine 0.51 (L) 0.60 - 1.30 mg/dL eGFR if not >60 >=60 mL/min/1.73m2 Ca 9.0 8.3 - 10.5 mg/dL Albumin 3.3 3.2 - 5.0 g/dL Bilirubin Total 0.9 0.1 - 1.5 mg/dL Total Protein 6.1 6.0 - 7.8 g/dL AST 76 (H) 10 - 42 U/L ALT 129 (H) 6 - 45 U/L Alkaline Phosphatase 98 40 - 110 U/L Globulin 2.8 2.1 - 3.8 g/dL Albumin/Globulin Ratio 1.2 0.8 - 2.0 BUN/Creatinine Ratio 13.7 Magnesium Collection Time: 06/09/18 5:04 Result Value Ref Range Magnesium 1.7 (L) 1.8 - 2.5 mg/dL Troponin I Collection Time: 06/09/18 5:04 Result Value Ref Range Troponin I <0.01 <0.06 ng/mL ECHO Complete Collection Time: 06/09/18 6:55 Result Value Ref Range BASELINE BLOOD PRESSURE 114/77 mmHg Patient Weight (lbs) 209 lb Patient Height 5'0" LVIDd 4.76 cm FS 39 % LA volume 57.87 mL Ascending aorta 3.21 cm Aortic arch 2.69 cm AV mean gradient 2.27 mmHg MV Area by P 1/2 method 3.49 cm2 IVRT 102.22 msec LVOT peak tarik 74.31 cm/s LVOT peak VTI 17.45 cm AV peak tarik 1 cm/s AV VTI 23.42 cm AV peak gradient 0 mmHg MV peak gradient 3.18 mmHg MV Pressure 1/2 time 63.04 msec LA Volume Index 30 mL/m2 AV LVOT Peak Gradient 2.35 mmHg AV LVOT Mean Gradient 1.1 mmHg LV Diastolic Length 4C 8.32 cm LV Systolic Area PSAX 16.82 cm2 LV Cardoso's Biplane EF 69 % AV Acceleration Time 116.03 msec LV ED Volume (Cardoso's) 94.06 ml LV ED Volume Index 50 ml/m2 LV ES Volume 34.05 ml LVOT Mean Velocity 48.22 cm/s MV A' Lateral Velocity 9.19 cm/s MV E' Lateral Velocity 10.36 cm/s MV A' Septal Velocity 8.6 cm/s MV E' Septal Velocity 10.46 cm/s MV Deceleration Bossier 410.2 cm/s2 MV Deceleration Time 217.39 msec MV E/A Ratio 1.42 MV Peak A-Wave 62.97 cm/s MV Peak E-Wave 89.17 cm/s AV Mean Velocity 71.53 cm/s LA/Aorta Ratio 1.23 LA Area 18.83 cm2 LA Systolic Pressure 12.76 mmHg MV E/E SEPTAL 8.52 MV E/E LATERAL 8.61 LA Major 0.2342 cm LV ES Volume Index 18 ml/m2 LV Area Diastolic 30.78 cm2 Aortic Root Diameter 3.27 cm IVS Diastolic Thickness MM 0.89 cm LVPW Diastolic Thickness MM 1.07 cm IVS Systolic Thickness MM 1.56 cm LV Systolic Diameter MM 2.92 cm LVPW Systolic Thickness MM 1.49 cm AV Cusp Seperation MM 2.1 cm LA Systolic Diameter MM 4.02 cm TAPSE 2.1 cm POC Glucose Collection Time: 06/09/18 7:07 Result Value Ref Range Glucose, POC 329 (H) 70 - 109 mg/dL Micro results Microbiology Results (72 hrs) Procedure Component Value Units Date/Time Culture, MRSA [[id number]] Collected: 06/08/18 6100 Order Status: Sent Lab Status: In process Updated: 06/08/18 9273 Specimen: Tissue from Nares Radiology results Xr Chest Ap Portable Result Date: 06/08/2018 EXAM: XR CHEST AP PORTABLE dated 06/08/2018 6:11 PM HISTORY: Chest pain. Comparison: None. T ECHNIQUE: A single portable view of the chest. FINDINGS: The lungs are symmetrically aerated . Low lung volumes. No acute airspace disease. There are no large pleural effusions. The re is no pneumothorax. The cardiac and mediastinal contours are not enlarged. No acute oss eous abnormalities. IMPRESSION - No acute disease. Dictated and Signed by: Kamaljit Coffman MD Electronically signed: 06/08/2018 6:34 PM Vitals Ranges: Temp: [35.9 C (96.6 F)-36.6 C (97.9 F)] 35.9 C (96.6 F) Pulse: [65-97] 68 Resp: [15-24] 15 BP: (114-160)/(79-102) 122/85 Vitals: Temp: 35.9 C (96.6 F) BP: 122/85 Pulse: 68 Resp: 15 SpO2: 97 % SpO2 97 % on room air at flow rate L/min Subjective CC No chest pain currently. She have been coughing. Cough is worst at night and during the winter months. She does have a strong family hx of CAD. No hx of asthma or smoking. No SOB, fever/chill, n/v. ROS See above Exam GA: NAD, AAOX3 HEENT: EOMI, MMM Neck: no JVD, no LDN Cardiac: rrr, no m/g/r, noLE swelling Lung: CTAB, normal respiratory effort Abdomen: soft, nt/nd, nabs Ext:no c/c/e Pych: normal mood and affect Neuro: eeg technician grossly intact, no focal weakness or sensory deficits Norm Martinez DO 06/09/2018 9:26 [facility] Portions of this chart may have been created with [employer] voice recognition software. Occasi onal wrong-word or sound-alike substitutions may have occurred due to the inherent degroot itations of voice recognition software. Please read the chart carefully and recognize, using context, where these substitutions have occurred Marline Garcia RN - 06/08/2018 6:55 PM PSTChristina was a [place], denies any chest pain ju st headache, PRN tylenol given, voids without difficulty, BG well managed with sliding scale , Dr. Crowley consulted cath tomorrow morning. Calls appropriately and makes needs known. Electr onically signed by: Marline Polanco RN 06/08/2018 18:58 Marline Garcia RN - 06/08/2018 4:36 PM PSTPatient arrived via ambulance, A&O denies any chest pain just an ache, jump straight up out of the gurney and into the restroom voided without d MD wendy paged. Electronically signed by: Marline Polanco RN 06/08/2018 16:37 documented in this encounter Plan of Treatment Not on filedocumented as of this encounter Procedures + +--------+ + + + | Procedure Name | Priori | Date/Time | Associated Diagnosis | Comments | | | ty | | | | + +--------+ + + + | CATECHOLAMINES | Routin | 06/11/2018 | | Results for this | | FRACTIONATED, URINE | e | 8:10 PM | | procedure are in the | | 24HR | | PST | | results section. | + +--------+ + + + | POC GLUCOSE | Routin | 06/11/2018 | | Results for this | | | e | 5:34 PM | | procedure are in the | | | | PST | | results section. | + +--------+ + + + | POC GLUCOSE | Routin | 06/11/2018 | | Results for this | | | e | 12:18 PM | | procedure are in the | | | | PST | | results section. | + +--------+ + + + | POC GLUCOSE | Routin | 06/11/2018 | | Results for this | | | e | 6:06 AM | | procedure are in the | | | | PST | | results section. | + +--------+ + + + | LIPID PANEL | Routin | 06/11/2018 | | Results for this | | | e | 5:31 AM | | procedure are in the | | | | PST | | results section. | + +--------+ + + + | EXTRA LAVENDER TOP | Routin | 06/11/2018 | | Results for this | | TUBE | e | 5:31 AM | | procedure are in the | | | | PST | | results section. | + +--------+ + + + | CATECHOLAMINE, | Routin | 06/11/2018 | | Results for this | | FRACTIONATED | e | 5:31 AM | | procedure are in the | | | | PST | | results section. | + +--------+ + + + | T3, FREE | Routin | 06/11/2018 | | Results for this | | | e | 5:31 AM | | procedure are in the | | | | PST | | results section. | + +--------+ + + + | T4, FREE | Routin | 06/11/2018 | | Results for this | | | e | 5:31 AM | | procedure are in the | | | | PST | | results section. | + +--------+ + + + | COMPREHENSIVE | Routin | 06/11/2018 | | Results for this | | METABOLIC PANEL | e | 5:31 AM | | procedure are in the | | | | PST | | results section. | + +--------+ + + + | POC GLUCOSE | Routin | 06/10/2018 | | Results for this | | | e | 8:56 PM | | procedure are in the | | | | PST | | results section. | + +--------+ + + + | POC GLUCOSE | Routin | 06/10/2018 | | Results for this | | | e | 5:04 PM | | procedure are in the | | | | PST | | results section. | + +--------+ + + + | POC GLUCOSE | Routin | 06/10/2018 | | Results for this | | | e | 2:28 PM | | procedure are in the | | | | PST | | results section. | + +--------+ + + + | CT CHEST W CONTRAST | LUC | 06/10/2018 | | Results for this | | | | 12:33 PM | | procedure are in the | | | | PST | | results section. | + +--------+ + + + | POC GLUCOSE | Routin | 06/10/2018 | | Results for this | | | e | 11:52 AM | | procedure are in the | | | | PST | | results section. | + +--------+ + + + | POC GLUCOSE | Routin | 06/10/2018 | | Results for this | | | e | 9:10 AM | | procedure are in the | | | | PST | | results section. | + +--------+ + + + | CBC NO DIFFERENTIAL | Routin | 06/10/2018 | | Results for this | | | e | 4:47 AM | | procedure are in the | | | | PST | | results section. | + +--------+ + + + | MAGNESIUM | Routin | 06/10/2018 | | Results for this | | | e | 4:47 AM | | procedure are in the | | | | PST | | results section. | + +--------+ + + + | COMPREHENSIVE | Routin | 06/10/2018 | | Results for this | | METABOLIC PANEL | e | 4:47 AM | | procedure are in the | | | | PST | | results section. | + +--------+ + + + | POC GLUCOSE | Routin | 06/09/2018 | | Results for this | | | e | 7:40 PM | | procedure are in the | | | | PST | | results section. | + +--------+ + + + | POC GLUCOSE | Routin | 06/09/2018 | | Results for this | | | e | 4:38 PM | | procedure are in the | | | | PST | | results section. | + +--------+ + + + | EOSINOPHIL SMEAR, | Routin | 06/09/2018 | | Results for this | | URINE | e | 4:36 PM | | procedure are in the | | | | PST | | results section. | + +--------+ + + + | TSH | Routin | 06/09/2018 | | Results for this | | | e | 4:18 PM | | procedure are in the | | | | PST | | results section. | + +--------+ + + + | HEMOGLOBIN A1C | Routin | 06/09/2018 | | Results for this | | | e | 4:18 PM | | procedure are in the | | | | PST | | results section. | + +--------+ + + + | STRESS ECG | Routin | 06/09/2018 | | Results for this | | | e | 3:05 PM | | procedure are in the | | | | PST | | results section. | + +--------+ + + + | POC GLUCOSE | Routin | 06/09/2018 | | Results for this | | | e | 11:36 AM | | procedure are in the | | | | PST | | results section. | + +--------+ + + + | POC GLUCOSE | Routin | 06/09/2018 | | Results for this | | | e | 7:07 AM | | procedure are in the | | | | PST | | results section. | + +--------+ + + + | ECHO COMPLETE | Routin | 06/09/2018 | | Results for this | | | e | 6:55 AM | | procedure are in the | | | | PST | | results section. | + +--------+ + + + | TROPONIN I | Routin | 06/09/2018 | | Results for this | | | e | 5:04 AM | | procedure are in the | | | | PST | | results section. | + +--------+ + + + | CBC NO DIFFERENTIAL | Routin | 06/09/2018 | | Results for this | | | e | 5:04 AM | | procedure are in the | | | | PST | | results section. | + +--------+ + + + | MAGNESIUM | Routin | 06/09/2018 | | Results for this | | | e | 5:04 AM | | procedure are in the | | | | PST | | results section. | + +--------+ + + + | COMPREHENSIVE | Routin | 06/09/2018 | | Results for this | | METABOLIC PANEL | e | 5:04 AM | | procedure are in the | | | | PST | | results section. | + +--------+ + + + | TROPONIN I | Routin | 06/08/2018 | | Results for this | | | e | 11:57 PM | | procedure are in the | | | | PST | | results section. | + +--------+ + + + | POC GLUCOSE | Routin | 06/08/2018 | | Results for this | | | e | 9:56 PM | | procedure are in the | | | | PST | | results section. | + +--------+ + + + | XR CHEST AP PORTABLE | Routin | 06/08/2018 | | Results for this | | | e | 6:31 PM | | procedure are in the | | | | PST | | results section. | + +--------+ + + + | POC GLUCOSE | Routin | 06/08/2018 | | Results for this | | | e | 5:55 PM | | procedure are in the | | | | PST | | results section. | + +--------+ + + + | EXTRA LAVENDER TOP | Routin | 06/08/2018 | | Results for this | | TUBE | e | 5:55 PM | | procedure are in the | | | | PST | | results section. | + +--------+ + + + | EXTRA GOLD TOP TUBE | Routin | 06/08/2018 | | Results for this | | | e | 5:55 PM | | procedure are in the | | | | PST | | results section. | + +--------+ + + + | TROPONIN I | Routin | 06/08/2018 | | Results for this | | | e | 5:55 PM | | procedure are in the | | | | PST | | results section. | + +--------+ + + + | ECG 12 LEAD | LUC | 06/08/2018 | | Results for this | | | | 5:16 PM | | procedure are in the | | | | PST | | results section. | + +--------+ + + + | CULTURE, MRSA | Routin | 06/08/2018 | | Results for this | | | e | 4:39 PM | | procedure are in the | | | | PST | | results section. | + +--------+ + + + | LABS - EXTERNAL SCAN | | 06/08/2018 | | Results for this | | | | 12:00 AM | | procedure are in the | | | | PST | | results section. | + +--------+ + + + documented in this encounter Results Catecholamines, fractionated, urine, 24 hour (06/11/2018 8:10 PM PST) + + + + + + | Component | Value | Ref Range | Performed | Pathologist | | | | | At | Signature | + + + + + + | Norepinephr | 80 | 0 - 135 ug/24 | [facility]FER[facility] | | | ine, Urine, | | hr | LAB [facility] | | | 24Hr | | | - BKR | | + + + + + + | Epinephrine | 11 | 0 - 20 ug/24 hr | [facility]FER[facility] | | | , Urine, | | | LAB [facility] | | | 24Hr | | | - BKR | | + + + + + + | Dopamine, | 275 | 0 - 510 ug/24 | REFERENCE | | | Urine, 24hr | | hr | LAB [facility] | | | | | | - BKR | | + + + + + + | Epinephrine | 3Comment: This test was | Undefined ug/L | REFERENCE | | | | developed and its | | LAB [facility] | | | | performance | | - BKR | | | | characteristicsdetermine | | | | | | d by [facility]. It has not | | | | | | been cleared or | | | | | | approvedby the Food and | | | | | | Drug Administration. | | | | + + + + + + | Norepinephr | 21Comment: This test was | Undefined ug/L | REFERENCE | | | ine, Urine | developed and its | | LAB [facility] | | | | performance | | - BKR | | | | characteristicsdetermine | | | | | | d by [facility]. It has not | | | | | | been cleared or | | | | | | approvedby the Food and | | | | | | Drug Administration. | | | | + + + + + + | Dopamine, | 72Comment: This test was | Undefined ug/L | REFERENCE | | | Urine, ug/L | developed and its | | LAB [facility] | | | | performance | | - BKR | | | | characteristicsdetermine | | | | | | d by [facility]. It has not | | | | | | been cleared or | | | | | | approvedby the Food and | | | | | | Drug Administration. | | | | + + + + + + + + | Specimen | + + | Urine - Urine | | specimen (specimen) | + + + + + | Narrative | Performed At | + + + | Performed at: 01 - [facility] [address] [id number], | REFERENCE LAB | | [place], [place] [id number] Cafeteria Director: Hakan Blood MD, Phone: | [facility] | | [phone] | | + + + + + + + + | Performing | Address | City/State/Zipcode | Phone Number | | Organization | | | | + + + + + | REFERENCE LAB | [address] | [place], [place] | [phone] | | [facility] | Drive [facility] | [address] | | + + + + + POC Glucose (06/11/2018 5:34 PM PST) + +---------+ + + + | Component | Value | Ref Range | Performed | Pathologist | | | | | At | Signature | + +---------+ + + + | Glucose, | 238 (H) | 70 - 109 mg/dL | [facility] | | [facility] | | [facility] | | | | | | [facility] | | | | | | CENTER - | | | | | | LABORATORY | | + +---------+ + + + + + | Specimen | + + | Blood | + + + + + + + | Performing | Address | City/State/Zipcode | Phone Number | | Organization | | | | + + + + + | [facility] | [address] | [place] | [phone] | | [facility] | | [address] | | | - LABORATORY | | | | + + + + + POC Glucose (06/11/2018 12:18 PM PST) + +---------+ + + + | Component | Value | Ref Range | Performed | Pathologist | | | | | At | Signature | + +---------+ + + + | Glucose, | 230 (H) | 70 - 109 mg/dL | [facility] | | | [facility] | | | [facility] | | | | | | [facility]ICAL | | | | | | CENTER - | | | | | | LABORATORY | | + +---------+ + + + + + | Specimen | + + | Blood | + + + + + | Narrative | Performed At | + + + | Glu2: Use This Result | [facility] | | | [facility] | [facility] | | | - LABORATORY | + + + + + + + + | Performing | Address | City/State/Zipcode | Phone Number | | Organization | | | | + + + + + | [facility] | [address] | [place] | [phone] | | [facility] | | [address] | | | - LABORATORY | | | | + + + + + POC Glucose (06/11/2018 6:06 AM PST) + +---------+ + + + | Component | Value | Ref Range | Performed | Pathologist | | | | | At | Signature | + +---------+ + + + | Glucose, | 284 (H) | 70 - 109 mg/dL | [facility] | | | POC | | | [facility] | | | | | | [facility] | | | | | | CENTER - | | | | | | LABORATORY | | + +---------+ + + + + + | Specimen | + + | Blood | + + + + + + + | Performing | Address | City/State/Zipcode | Phone Number | | Organization | | | | + + + + + | [facility] | [address] | [place] | [phone] | | [facility] | | [address] | | | - LABORATORY | | | | + + + + + Extra Lavender Top Tube (06/11/2018 5:31 AM PST) + +-------+ + + + | Component | Value | Ref Range | Performed | Pathologist | | | | | At | Signature | + +-------+ + + + | Extra | Done | | [facility] | | | Lavender | | | [facility] | | | Top Tube | | | MEDICAL | | | [...] | + + + + + | [facility] | [address] | [place] | [phone] | | [facility] | | [address] | | | - LABORATORY | | | | + + + + + Comprehensive Metabolic Panel (06/11/2018 5:31 AM PST) + + + + + + | Component | Value | Ref Range | Performed | Pathologist | | | | | At | Signature | + + + + + + | Na | 132 (L) | 136 - 149 | [facility] | | | | | mmol/L | [facility] | | | | | | MEDICAL | | | | | | CENTER - | | | | | | LABORATORY | | + + + + + + | K | 3.6 | 3.5 - 5.1 | [facility] | | | | | mmol/L | [facility] | | | | | | MEDICAL | | | | | | CENTER - | | | | | | LABORATORY | | + + + + + + | Cl | 102 | 98 - 109 mmol/L | [facility] | | | | | | [facility] | | | | | | MEDICAL | | | | | | CENTER - | | | | | | LABORATORY | | + + + + + + | CO2 | 22 (L) | 24 - 31 mmol/L | [facility] | | | | | | [facility] | | | | | | MEDICAL | | | | | | CENTER - | | | | | | LABORATORY | | + + + + + + | Anion Gap | 8 | 3 - 16 mmol/L | [facility] | | | | | | [facility] | | | | | | MEDICAL | | | | | | CENTER - | | | | | | LABORATORY | | + + + + + + | Glucose | 284 (H) | 70 - 109 mg/dL | [facility] | | | | | | [facility] | | | | | | MEDICAL | | | | | | CENTER - | | | | | | LABORATORY | | + + + + + + | BUN | 7 | 7 - 18 mg/dL | [facility] | | | | | | [facility] | | | | | | MEDICAL | | | | | | CENTER - | | | | | | LABORATORY | | + + + + + + | Creatinine | 0.53 (L) | 0.60 - 1.30 | [facility] | | | | | mg/dL | [facility] | | | | | | MEDICAL | | | | | | CENTER - | | | | | | LABORATORY | | + + + + + + | eGFR if not | >60Comment: GLOMERULAR | >=60 | [facility] | | | | FILTRATION | mL/min/1.73m2 | [facility] | | | [place] | RATE,ESTIMATED | | MEDICAL | | | | mL/min/1.37u6Memg than | | CENTER - | | | | 60 Chronic kidney | | LABORATORY | | | | disease,if found over [...] + + + + | Calcium | 9.0 | 8.3 - 10.5 | [facility] | | | | | mg/dL | [facility] | | | | | | MEDICAL | | | | | | CENTER - | | | | | | LABORATORY | | + + + + + + | Albumin | 3.4 | 3.2 - 5.0 g/dL | [facility] | | | | | | [facility] | | | | | | MEDICAL | | | | | | CENTER - | | | | | | LABORATORY | | + + + + + + | Bilirubin | 0.9 | 0.1 - 1.5 mg/dL | [facility] | | | Total | | | [facility] | | | | | | MEDICAL | | | | | | CENTER - | | | | | | LABORATORY | | + + + + + + | Total | 6.3 | 6.0 - 7.8 g/dL | [facility] | | | Protein | | | [facility] | | | | | | MEDICAL | | | | | | CENTER - | | | | | | LABORATORY | | + + + + + + | AST | 100 (H) | 10 - 42 U/L | [facility] | | | | | | [facility] | | | | | | MEDICAL | | | | | | CENTER - | | | | | | LABORATORY | | + + + + + + | ALT | 126 (H) | 6 - 45 U/L | [facility] | | | | | | [facility] | | | | | | MEDICAL | | | | | | CENTER - | | | | | | LABORATORY | | + + + + + + | Alkaline | 97 | 40 - 110 U/L | [facility] | | | Phosphatase | | | [facility] | | | | | | MEDICAL | | | | | | CENTER - | | | | | | LABORATORY | | + + + + + + | Globulin | 2.9 | 2.1 - 3.8 g/dL | [facility] | | | | | | [facility] | | | | | | MEDICAL | | | | | | CENTER - | | | | | | LABORATORY | | + + + + + + | Albumin/Catherine | 1.2 | 0.8 - 2.0 | [facility] | | | bulin Ratio | | | [facility] | | | | | | MEDICAL | | | | | | CENTER - | | | | | | LABORATORY | | + + + + + + | BUN/Creatin | 13.2 | | [facility] | | | ine Ratio | | | [facility] | | | | | | MEDICAL [...] | + + + + + | [facility] | [address] | [place] | [phone] | | [facility] | | [address] | | | - LABORATORY | | | | + + + + + Lipid Panel (06/11/2018 5:31 AM PST) + + + + + + | Component | Value | Ref Range | Performed | Pathologist | | | | | At | Signature | + + + + + + | Triglycerid | 401 (H) | 35 - 160 mg/dL | [facility] | | | es | | | [facility] | | | | | | MEDICAL | | | | | | CENTER - | | | | | | LABORATORY | | + + + + + + | Cholesterol | 172 | 140 - 200 mg/dL | [facility] | | | | | | [facility] | | | | | | MEDICAL | | | | | | CENTER - | | | | | | LABORATORY | | + + + + + + | HDL | 20 (L)Comment: New | 28 - 83 mg/dL | [facility] | | | | HDL Reference Range as | | [facility] | | | | of March 14, 2015 | | MEDICAL | | | | Values may be 10-20% | | CENTER - | | | | lower with new, | | LABORATORY | | | | standardized method. | | | | + + + + + + | Chol/HDL | 8.6 | | [facility] | | | Ratio | | | [facility] | | | | | | MEDICAL | | | | | | CENTER - | | | | | | LABORATORY | | + + + + + + | LDL, | Comment: CHOL/HDL RATIO | <=130 mg/dL | [facility] | | | Calculated | IS UNABLE TO BE | | [facility] | | | | DETERMINED DUE TO HIGH | | MEDICAL | | | | TRIGLYCERIDES | | CENTER - | | | | | | LABORATORY | | + + + + + + + + | Specimen | + + | Blood | + + + + + + + | Performing | Address | City/State/Zipcode | Phone Number | | Organization | | | | + + + + + | [facility] | [address] | [place] | [phone] | | [facility] | | [address] | | | - LABORATORY | | | | + + + + + Catecholamine, Fractionated, Plasma (06/11/2018 5:31 AM PST) + +-------+ + + + | Component | Value | Ref Range | Performed | Pathologist | | | | | At | Signature | + +-------+ + + + | Epinephrine | <15 | 0 - 62 pg/mL | [facility] | | | , Plasma | | | LAB [facility] | | | | | | - BKR | | + +-------+ + + + | Norepinephr | 250 | 0 - 874 pg/mL | [facility] | | | ine, Plasma | | | [facility] | | | | | | - BKR | | + +-------+ + + + | Dopamine, | <30 | 0 - 48 pg/mL | [facility] | | | Plasma | | | LAB [facility] | | | | | | - BKR | | + +-------+ + + + + + | Specimen | + + | Blood | + + + + + | Narrative | Performed At | + + + | Performed at: 01 - [facility] [address] [place], | REFERENCE LAB | | [place], [place] [id number] Cafeteria Director: Jennifer Negrete MD, Phone: | [facility] | | [phone] | | + + + + + + + + | Performing | Address | City/State/Zipcode | Phone Number | | Organization | | | | + + + + + | REFERENCE LAB | [address] | [place], [place] | [phone] | | [facility] | [facility] | [address] | | + + + + + T4, Free (06/11/2018 5:31 AM PST) + +-------+ + + + | Component | Value | Ref Range | Performed | Pathologist | | | | | At | Signature | + +-------+ + + + | FT4 | 1.1 | 0.6 - 1.1 ng/dL | [facility] | | | | | [facility] | | | | | | MEDICAL [...] [address] | [place] | [phone] | | [facility] | | [address] | | | - LABORATORY | | | | + + + + + T3, Free (06/11/2018 5:31 AM PST) + +-------+ + + + | Component | Value | Ref Range | Performed | Pathologist | | | | | At | Signature | + +-------+ + + + | T3, Total | 2.8 | 2.0 - 4.4 pg/mL | [facility] | | | ICMA | | | LAB [facility] | | | | | | - BKR | | + +-------+ + + + + + | Specimen | + + | Blood | + + + + + | Narrative | Performed At | + + + | Performed at: 01 - [facility] [place] [address], | REFERENCE LAB | | [place], [place] [id number] Cafeteria Director: Ar Rios MD, Phone: | [facility] | | [phone] | | + + + + + + + + | Performing | Address | City/State/Zipcode | Phone Number | | Organization | | | | + + + + + | REFERENCE LAB | [address] | [place], [place] | [phone] | | [facility] | [facility] | [address] | | + + + + + POC Glucose (06/10/2018 8:56 PM PST) + +---------+ + + + | Component | Value | Ref Range | Performed | Pathologist | | | | | At | Signature | + +---------+ + + + | Glucose, | 266 (H) | 70 - 109 mg/dL | [facility] | | | POC | | | [facility] | | | | | | MEDICAL | | | | | | CENTER - | | | | | | LABORATORY | | + +---------+ + + + + + | Specimen | + + | Blood | + + + + + + + | Performing | Address | City/State/Zipcode | Phone Number | | Organization | | | | + + + + + | [facility] | [address] | [place] | [phone] | | [facility] | | [address] | | | - LABORATORY | | | | + + + + + POC Glucose (06/10/2018 5:04 PM PST) + +---------+ + + + | Component | Value | Ref Range | Performed | Pathologist | | | | | At | Signature | + +---------+ + + + | Glucose, | 249 (H) | 70 - 109 mg/dL | [facility] | | [facility] | | | [facility] | | | | | | MEDICAL | | | | | | CENTER - | | | | | | LABORATORY | | + +---------+ + + + + + | Specimen | + + | Blood | + + + + + + + | Performing | Address | City/State/Zipcode | Phone Number | | Organization | | | | + + + + + | [facility] | [address] | [place] | [phone] | | [facility] | | [address] | | | - LABORATORY | | | | + + + + + POC Glucose (06/10/2018 2:28 PM PST) + +---------+ + + + | Component | Value | Ref Range | Performed | Pathologist | | | | | At | Signature | + +---------+ + + + | Glucose, | 300 (H) | 70 - 109 mg/dL | [facility] | | | POC | | | [facility] | | | | | | MEDICAL | | | | | | CENTER - | | | | | | LABORATORY | | + +---------+ + + + + + | Specimen | + + | Blood | + + + + + + + | Performing | Address | City/State/Zipcode | Phone Number | | Organization | | | | + + + + + | [facility] | [address] | [place] | [phone] | | [facility] | | [address] | | | - LABORATORY | | | | + + + + + CT Chest w Contrast (06/10/2018 12:33 PM PST) + + | Specimen | + + | | + + + + + | Narrative | Performed At | + + + | CT CHEST W CONTRAST 06/10/2018 12:14 PM HISTORY: chest pressure | [facility] | | with exertion. COMPARISON: 06/08/2018 PROTOCOL: Axial images of | | | the chest were obtained after uneventful administration of 75 mL | | | Omnipaque 350. Coronal and sagittal reformations were acquired. | | | FINDINGS: LUNGS: The bilateral lungs are clear. There is no evidence | | | for pleural effusion or pneumothorax. Tiny left posterior medial | | | diaphragm Bochdalek hernia. No suspicious lung mass or nodule | | | identified. HEART: The heart is of normal size. VASCULATURE: Aorta | | | is normal in size and without evidence of dissection or aneurysmal | | | dilation. The pulmonary arteries are unremarkable. Visualized venous | | | structures are patent. Minimal gas within the main pulmonary artery is | | | likely related to intravenous injection of contrast. LYMPH NODES: | | | No evidence of axillary, mediastinal, or hilar lymphadenopathy. | | | MEDIASTINUM: Trachea and esophagus are normal. Neck base is normal. | | | ABDOMEN: The upper abdomen demonstrates no acute findings. Hepatic | | | steatosis. SOFT TISSUES: Chest wall structures are normal. BONES: | | | There are no acute osseous abnormalities. Mild multilevel thoracic | | | spondylosis IMPRESSION - Essentially normal CT of the chest. | | | Hepatic steatosis. Dictated and Signed by: Jarret Marcano MD | | | Electronically signed: 06/10/2018 2:06 PM | | + + + + + | Procedure Note | + + | Derrick, Rad Results In - 06/10/2018 2:[address] CHEST W CONTRAST 06/10/2018 12:14 PM | | | | HISTORY: chest pressure with exertion. | | | | COMPARISON: 06/08/2018 | | | | PROTOCOL: Axial images of the chest were obtained after uneventful | | administration of 75 mL Omnipaque 350. Coronal and sagittal reformations were | | acquired. | | | | FINDINGS: | | LUNGS: The bilateral lungs are clear. There is no evidence for pleural effusion | | or pneumothorax. Tiny left posterior medial diaphragm Bochdalek hernia. No | | suspicious lung mass or nodule identified. | | HEART: The heart is of normal size. | | VASCULATURE: Aorta is normal in size and without evidence of dissection or | | aneurysmal dilation. The pulmonary arteries are unremarkable. Visualized venous | | structures are patent. Minimal gas within the main pulmonary artery is likely | | related to intravenous injection of contrast. | | LYMPH NODES: No evidence of axillary, mediastinal, or hilar lymphadenopathy. | | MEDIASTINUM: Trachea and esophagus are normal. Neck base is normal. | | ABDOMEN: The upper abdomen demonstrates no acute findings. Hepatic steatosis. | | SOFT TISSUES: Chest wall structures are normal. | | BONES: There are no acute osseous abnormalities. Mild multilevel thoracic | | spondylosis | | | | IMPRESSION - | | Essentially normal CT of the chest. | | | | Hepatic steatosis. | | | | Dictated and Signed by: Jarret Marcano MD | | Electronically signed: 06/10/2018 2:06 PM | + + + +---------+ + + | Performing | Address | City/State/Zipcode | Phone Number | | Organization | | | | + +---------+ + + | [facility] | | | | + +---------+ + + POC Glucose (06/10/2018 11:52 AM PST) + +---------+ + + + | Component | Value | Ref Range | Performed | Pathologist | | | | | At | Signature | + +---------+ + + + | Glucose, | 326 (H) | 70 - 109 mg/dL | [facility] | | | [facility] | | | [facility] | | | | | | MEDICAL | | | | | | CENTER - | | | | | | LABORATORY | | + +---------+ + + + + + | Specimen | + + | Blood | + + + + + + + | Performing | Address | City/State/Zipcode | Phone Number | | Organization | | | | + + + + + | [facility] | [address] | [place] | [phone] | | [facility] | | [address] | | | - LABORATORY | | | | + + + + + POC Glucose (06/10/2018 9:10 AM PST) + +---------+ + + + | Component | Value | Ref Range | Performed | Pathologist | | | | | At | Signature | + +---------+ + + + | Glucose, | 399 (H) | 70 - 109 mg/dL | [facility] | | | POC | | | [facility] | | | | | | MEDICAL | | | | | | CENTER - | | | | | | LABORATORY | | + +---------+ + + + + + | Specimen | + + | Blood | + + + + + + + | Performing | Address | City/State/Zipcode | Phone Number | | Organization | | | | + + + + + | [facility] | [address] | [place] | [phone] | | [facility] | | [address] | | | - LABORATORY | | | | + + + + + Magnesium (06/10/2018 4:47 AM PST) + +-------+ + + + | Component | Value | Ref Range | Performed | Pathologist | | | | | At | Signature | + +-------+ + + + | Magnesium | 1.8 | 1.8 - 2.5 mg/dL | [facility] | | | | | | [facility] | | | | | | [...] + + | [facility] | [address] | [place] | [phone] | | [facility] | | [address] | | | - LABORATORY | | | | + + + + + Comprehensive Metabolic Panel (06/10/2018 4:47 AM PST) + + + + + + | Component | Value | Ref Range | Performed | Pathologist | | | | | At | Signature | + + + + + + | Na | 135 (L) | 136 - 149 | [facility] | | | | | mmol/L | [facility] | | | | | | MEDICAL | | | | | | CENTER - | | | | | | LABORATORY | | + + + + + + | K | 3.7 | 3.5 - 5.1 | [facility] | | | | | mmol/L | [facility] | | | | | | MEDICAL | | | | | | CENTER - | | | | | | LABORATORY | | + + + + + + | Cl | 104 | 98 - 109 mmol/L | [facility] | | | | | | [facility] | | | | | | MEDICAL | | | | | | CENTER - | | | | | | LABORATORY | | + + + + + + | CO2 | 27 | 24 - 31 mmol/L | [facility] | | | | | | [facility] | [facility] | [facility] | | [facility] | | | | [facility] - | | | | | | LABORATORY | | + + + + + + | Anion Gap | 4 | 3 - 16 mmol/L | [facility] | | | | | [facility] | | [facility] | [facility] | | | | [facility] | [facility] - | | | | | | LABORATORY | | + + + + + + | Glucose | 273 (H) | 70 - 109 mg/dL | [facility] | [facility] | [facility] | | | | [facility] - | | | | | | LABORATORY | | + + + + + + | BUN | 8 | 7 - 18 mg/dL | [facility] | [facility] | [facility] | [facility] | [facility] | [facility] | | | | | | [facility] - | | | | | | LABORATORY | | + + + + + + | Creatinine | 0.55 (L) | 0.60 - 1.30 | [facility] | | | | | mg/dL | [facility] | | [facility] | | | [facility] | | | | | | [facility] - | | | | | | LABORATORY | | + + + + + + | eGFR if not | >60Comment: GLOMERULAR | >=60 | [facility] | | | | FILTRATION | mL/min/1.73m2 | [facility] | | | [place] | RATE,ESTIMATED | | MEDICAL | | | | mL/min/1.99e7Gqyx than | | CENTER - | | | | 60 Chronic kidney | | LABORATORY | | | | disease,if found over [...] + + + + | Calcium | 9.3 | 8.3 - 10.5 | [facility] | | | | | mg/dL | [facility] | | [facility] | [facility] | | | | | | [facility] - | | | | | | LABORATORY | | + + + + + + | Albumin | 3.4 | 3.2 - 5.0 g/dL | [facility] | | | | | | [facility] | | | | | | [facility] | | | | | | [facility] - | | | | | | LABORATORY | | + + + + + + | Bilirubin | 1.1 | 0.1 - 1.5 mg/dL | [facility] | | | Total | | | [facility] | | | | | | [facility] | | | | | | CENTER - | | | | | | LABORATORY | | + + + + + + | Total | 6.4 | 6.0 - 7.8 g/dL | [facility] | | | Protein | | | [facility] | | | | | | [facility] | | | | | | [facility] - | | | | | | LABORATORY | | + + + + + + | AST | 94 (H) | 10 - 42 U/L | [facility] | | | | | | [facility] | | | | | | MEDICAL | | | | | | CENTER - | | | | | | LABORATORY | | + + + + + + | ALT | 126 (H) | 6 - 45 U/L | [facility] | | | | [facility] | | | | | | [facility] | | | | | | CENTER - | | | | | | LABORATORY | | + + + + + + | Alkaline | 104 | 40 - 110 U/L | [facility] | | | Phosphatase | | | [facility] | | | | | | [facility] | | | | | | CENTER - | | | | | | LABORATORY | | + + + + + + | Globulin | 3.0 | 2.1 - 3.8 g/dL | [facility] | | | | | | [facility] | | | [facility] | [facility] | | | | | | [facility] - | | | | | | LABORATORY | | + + + + + + | Albumin/Catherine | 1.1 | 0.8 - 2.0 | [facility] | | | bulin Ratio | | | [facility] | | | | | | [facility] | | | | | | CENTER - | | | | | | LABORATORY | | + + + + + + | BUN/Creatin | 14.5 | | [facility] | | | ine Ratio | | | [facility] | | | | | | MEDICAL [...] + | [facility] | [address] | [place] | [phone] | | [facility] | | [id number] | | | - LABORATORY | | | | + + + + + CBC no Differential (06/10/2018 4:47 AM PST) + + + + + + | Component | Value | Ref Range | Performed | Pathologist | | | | | At | Signature | + + + + + + | WBC | 5.5 | 4.0 - 11.0 K/uL | [facility] | | | | | [facility] | | | | | | [facility] | | | | | | CENTER - | | | | | | LABORATORY | | + + + + + + | RBC | 4.74 | 3.70 - 5.20 | [facility] | | | | | M/uL | [facility] | | | | | | MEDICAL | | | | | | CENTER - | | | | | | LABORATORY | | + + + + + + | Hemoglobin | 11.3 (L) | 11.5 - 16.0 | [facility] | | | | | g/dL | [facility] | | | | | | MEDICAL | | | | | | CENTER - | | | | | | LABORATORY | | + + + + + + | Hematocrit | 37.2 | 34.0 - 47.0 % | [facility] | | | | | | [facility] | | | | | | [facility] | | | | | | CENTER - | | | | | | LABORATORY | | + + + + + + | MCV | 78.5 (L) | 83.0 - 101.0 fL | [facility] | | | | | | [facility] | | | | | | [facility] | | | | | | CENTER - | | | | | | LABORATORY | | + + + + + + | MCH | 23.8 (L) | 28.0 - 35.0 pg | [facility] | | | | | | [facility] | | | | | | MEDICAL | | | | | | CENTER - | | | | | | LABORATORY | | + + + + + + | MCHC | 30.4 (L) | 32.0 - 36.0 | [facility] | | | | | g/dL | [facility] | | | | | | MEDICAL | | | | | | CENTER - | | | | | | LABORATORY | | + + + + + + | RDW-CV | 14.4 | <15.0 % | [facility] | | | | | | [facility] | | | | | | [facility]ICAL | | | | | | CENTER - | | | | | | LABORATORY | | + + + + + + | RDW-SD | 41.1 | 35.1 - 46.3 fL | [facility] | | | | | | [facility] | | | | | | MEDICAL | | | | | | CENTER - | | | | | | LABORATORY | | + + + + + + | Platelet | 237 | 140 - 440 K/uL | [facility] | | | Count | | | [facility] | | | | | | MEDICAL | | | | | | CENTER - | | | | | | LABORATORY | | + + + + + + | MPV | 9.6 | 6.5 - 12.4 fL | [facility] | | | | | | [facility] | | | | | | MEDICAL | | | | | | CENTER - | | | | | | LABORATORY | | + + + + + + | % nRBC | 0 | 0 - 2 per 100 | [facility] | | | | | WBC's | [facility] | | | | | | MEDICAL | | | | | | CENTER - | | | | | | LABORATORY | | + + + + + + | Absolute | 0.00 | 0.00 - 0.01 | [facility] | | | nRBC | | K/uL | [facility] | | | | | | MEDICAL [...] + + + + + | [facility] | [address] | [place] | [phone] | | [facility] | | [address] | | | - LABORATORY | | | | + + + + + POC Glucose (06/09/2018 7:40 PM PST) + +---------+ + + + | Component | Value | Ref Range | Performed | Pathologist | | | | | At | Signature | + +---------+ + + + | Glucose, | 274 (H) | 70 - 109 mg/dL | [facility] | | | POC | | | [facility] | | | | | | MEDICAL | | | | | | CENTER - | | | | | | LABORATORY | | + +---------+ + + + + + | Specimen | + + | Blood | + + + + + + + | Performing | Address | City/State/Zipcode | Phone Number | | Organization | | | | + + + + + | [facility] | [address] | [place] | [phone] | | [facility] | | [address] | | | - LABORATORY | | | | + + + + + POC Glucose (06/09/2018 4:38 PM PST) + +---------+ + + + | Component | Value | Ref Range | Performed | Pathologist | | | | | At | Signature | + +---------+ + + + | Glucose, | 240 (H) | 70 - 109 mg/dL | [facility] | | | POC | | | [facility] | | | | | | MEDICAL | | | | | | CENTER - | | | | | | LABORATORY | | + +---------+ + + + + + | Specimen | + + | Blood | + + + + + + + | Performing | Address | City/State/Zipcode | Phone Number | | Organization | | | | + + + + + | [facility] | [address] | [place] | [phone] | | [facility] | | [address] | | | - LABORATORY | | | | + + + + + Eosinophil Smear, Urine (06/09/2018 4:36 PM PST) + + + + + + | Component | Value | Ref Range | Performed | Pathologist | | | | | At | Signature | + + + + + + | Eosinophils | None seen | None seen | [facility] | | | , Urine | | | [facility] | | | | | | MEDICAL | | | | | | CENTER - | | | | | | LABORATORY | | + + + + + + + + | Specimen | + + | Urine | + + + + + + + | Performing | Address | City/State/Zipcode | Phone Number | | Organization | | | | + + + + + | [facility] | [address] | [place] | [phone] | | [facility] | | [address] | | | - LABORATORY | | | | + + + + + Hemoglobin A1C (06/09/2018 4:18 PM PST) + + + + + + | Component | Value | Ref Range | Performed | Pathologist | | | | | At | Signature | + + + + + + | Hemoglobin | 11.5 (H) | 4.3 - 6.0 % | [facility] | | | A1c | | | [facility] | | | | | | MEDICAL | | | | | | CENTER - | | | | | | LABORATORY | | + + + + + + | Estimated | 283 | mg/dL | [facility] | | | Average | | | [facility] | | | Glucose | | | MEDICAL | | | [...] + + | [facility] | [address] | [place] | [phone] | | [facility] | | [address] | | | - LABORATORY | | | | + + + + + TSH (06/09/2018 4:18 PM PST) + + + + + + | Component | Value | Ref Range | Performed | Pathologist | | | | | At | Signature | + + + + + + | TSH | 2.05Comment: This is a | 0.45 - 5.33 | [facility] | | | | third generation TSH | uIU/mL | [facility] | | | | test. | | MEDICAL | | | | [...] | + + + + + | [facility] | [address] | [place] | [phone] | | [facility] | | [address] | | | - LABORATORY | | | | + + + + + Stress ECG (06/09/2018 3:05 PM PST) + + + | Narrative | Performed At | + + + | Delvin Dupont MD 06/09/2018 15:07 | [facility] | | TREADMILL STRESS TEST REPORT Patient Name: Corina Woods | | | Study Date: 06/08/2018 Primary Care Provider: No Physician on | | | file : [id number] Age: 38 y.o. Gender: | | | female CLINICAL HISTORY/DIAGNOSIS: Hypertension, chest pain | | | EXERCISE TREADMILL STRESS TEST Indication: HTN, CP | | | Procedure: The patient exercised using a standard Christiano protocol and | | | walked for 9 minutes. Heart rate increased from 70 beats per | | | minute to 154 beats per minute which is 84% of the maximal predicted | | | heart rate. Blood pressure aung from 135/98 mmHg to 220/90 mmHg. | | | The test was stopped because of achievement of targeted heart | | | rate. Baseline EKG showed a sinus rhythm, normal EKG. | | | IMPRESSION: 1. Exercise EKG is negative for diagnostic changes. | | | 2. Blood pressure response is hypertensive. | | | 3. The patient had head, shoulder, and chest pressure during the | | | procedure. 4. There is no arrhythmia during procedure. | | | 5. Exercise tolerance is average for age. | | | Signed by: Elijah Dupont MD PhD [facility] 06/09/2018, 15:05 | | + + + + +---------+ + + | Performing | Address | City/State/[facility] | Phone Number | | Organization | | | | + +---------+ + + | [facility] | | | | + +---------+ + + POC Glucose (06/09/2018 11:36 AM PST) + +---------+ + + + | Component | Value | Ref Range | Performed | Pathologist | | | | | At | Signature | + +---------+ + + + | Glucose, | 229 (H) | 70 - 109 mg/dL | [facility] | | | POC | | | [facility] | | | | | | MEDICAL | | | | | | CENTER - | | | | | | LABORATORY | | + +---------+ + + + + + | Specimen | + + | Blood | + + + + + + + | Performing | Address | City/State/Zipcode | Phone Number | | Organization | | | | + + + + + | [facility] | [address] | [place] | [phone] | | [facility] | | [address] | | | - LABORATORY | | | | + + + + + POC Glucose (06/09/2018 7:07 AM PST) + +---------+ + + + | Component | Value | Ref Range | Performed | Pathologist | | | | | At | Signature | + +---------+ + + + | Glucose, | 329 (H) | 70 - 109 mg/dL | [facility] | | | POC | | | [facility] | | | | | | MEDICAL | | | | | | CENTER - | | | | | | LABORATORY | | + +---------+ + + + + + | Specimen | + + | Blood | + + + + + + + | Performing | Address | City/State/Zipcode | Phone Number | | Organization | | | | + + + + + | [facility] | [address] | [place] | [phone] | | [facility] | | [address] | | | - LABORATORY | | | | + + + + + ECHO Complete (06/09/2018 6:55 AM PST) + +--------+ + + + | Component | Value | Ref Range | Performed | Pathologist | | | | | At | Signature | + +--------+ + + + | BASELINE | 114/77 | mmHg | [facility] | | | BLOOD | | | | | | PRESSURE | | | | | + +--------+ + + + | Patient | 209 lb | | [facility] | | | Weight | | | | | | (lbs) | | | | | + +--------+ + + + | Patient | 5'0" | | [facility] | | | Height | | | | | + +--------+ + + + | LVIDd | 4.76 | cm | [facility] | | + +--------+ + + + | FS | 39 | % | [facility] | | + +--------+ + + + | LA volume | 57.87 | mL | [facility] | | + +--------+ + + + | Ascending | 3.21 | cm | [facility] | | | aorta | | | | | + +--------+ + + + | Aortic arch | 2.69 | cm | [facility] | | + +--------+ + + + | AV mean | 2.27 | mmHg | [facility] | | | gradient | | | | | + +--------+ + + + | MV Area by | 3.49 | cm2 | [facility] | | | P 1/2 | | | | | | method | | | | | + +--------+ + + + | IVRT | 102.22 | msec | [facility] | | + +--------+ + + + | LVOT peak | 74.31 | cm/s | [facility] | | | tarik | | | | | + +--------+ + + + | LVOT peak | 17.45 | cm | [facility] | | | VTI | | | | | + +--------+ + + + | AV peak tarik | 1 | cm/s | [facility] | | + +--------+ + + + | AV VTI | 23.42 | cm | [facility] | | + +--------+ + + + | AV peak | 0 | mmHg | [facility] | | | gradient | | | | | + +--------+ + + + | MV peak | 3.18 | mmHg | [facility] | | | gradient | | | | | + +--------+ + + + | MV Pressure | 63.04 | msec | [facility] | | | 1/2 time | | | | | + +--------+ + + + | LA Volume | 30 | mL/m2 | [facility] | | | Index | | | | | + +--------+ + + + | AV LVOT | 2.35 | mmHg | [facility] | | | Peak | | | | | | Gradient | | | | | + +--------+ + + + | AV LVOT | 1.1 | mmHg | [facility] | | | Mean | | | | | | Gradient | | | | | + +--------+ + + + | LV | 8.32 | cm | [facility] | | | Diastolic | | | | | | Length 4C | | | | | + +--------+ + + + | LV Systolic | 16.82 | cm2 | [facility] | | | Area PSAX | | | | | + +--------+ + + + | LV | 64 | % | [facility] | | | Cardoso's | | | | | | Biplane EF | | | | | + +--------+ + + + | AV | 116.03 | msec | [facility] | | | Acceleratio | | | | | | n Time | | | | | + +--------+ + + + | LV ED | 94.06 | ml | [facility] | | | Volume | | | | | | (Cardoso's) | | | | | + +--------+ + + + | LV ED | 50 | ml/m2 | [facility] | | | Volume | | | | | | Index | | | | | + +--------+ + + + | LV ES | 34.05 | ml | [facility] | | | Volume | | | | | + +--------+ + + + | LVOT Mean | 48.22 | cm/s | [facility] | | | Velocity | | | | | + +--------+ + + + | MV A' | 9.19 | cm/s | [facility] | | | Lateral | | | | | | Velocity | | | | | + +--------+ + + + | MV E' | 10.36 | cm/s | [facility] | | | Lateral | | | | | | Velocity | | | | | + +--------+ + + + | MV A' | 8.6 | cm/s | [facility] | | | Septal | | | | | | Velocity | | | | | + +--------+ + + + | MV E' | 10.46 | cm/s | [facility] | | | Septal | | | | | | Velocity | | | | | + +--------+ + + + | MV | 410.2 | cm/s2 | [facility] | | | Deceleratio | | | | | | n Bossier | | | | | + +--------+ + + + | MV | 217.39 | msec | [facility] | | | Deceleratio | | | | | | n Time | | | | | + +--------+ + + + | MV E/A | 1.42 | | [facility] | | | Ratio | | | | | + +--------+ + + + | MV Peak | 62.97 | cm/s | [facility] | | | A-Wave | | | | | + +--------+ + + + | MV Peak | 89.17 | cm/s | [facility] | | | E-Wave | | | | | + +--------+ + + + | AV Mean | 71.53 | cm/s | [facility] | | | Velocity | | | | | + +--------+ + + + | LA/Aorta | 1.23 | | [facility] | | | Ratio | | | | | + +--------+ + + + | LA Area | 18.83 | cm2 | [facility] | | + +--------+ + + + | LA Systolic | 12.76 | mmHg | [facility] | | | Pressure | | | | | + +--------+ + + + | MV E/E | 8.52 | | [facility] | | | SEPTAL | | | | | + +--------+ + + + | MV E/E | 8.61 | | [facility] | | | LATERAL | | | | | + +--------+ + + + | LA Major | 0.2342 | cm | [facility] | | + +--------+ + + + | LV ES | 18 | ml/m2 | [facility] | | | Volume | | | | | | Index | | | | | + +--------+ + + + | LV Area | 30.78 | cm2 | [facility] | | | Diastolic | | | | | + +--------+ + + + | Aortic Root | 3.27 | cm | [facility] | | | Diameter | | | | | + +--------+ + + + | IVS | 0.89 | cm | [facility] | | | Diastolic | | | | | | Thickness | | | | | | MM | | | | | + +--------+ + + + | LVPW | 1.07 | cm | [facility] | | | Diastolic | | | | | | Thickness | | | | | | MM | | | | | + +--------+ + + + | IVS | 1.56 | cm | [facility] | | | Systolic | | | | | | Thickness | | | | | | MM | | | | | + +--------+ + + + | LV Systolic | 2.92 | cm | [facility] | | | Diameter | | | | | | MM | | | | | + +--------+ + + + | LVPW | 1.49 | cm | [facility] | | | Systolic | | | | | | Thickness | | | | | | MM | | | | | + +--------+ + + + | AV Cusp | 2.1 | cm | [facility] | | | Seperation | | | | | | MM | | | | | + +--------+ + + + | LA Systolic | 4.02 | cm | [facility] | | | Diameter | | | | | | MM | | | | | + +--------+ + + + | TAPSE | 2.1 | cm | [facility] | | + +--------+ + + + | RA PRESSURE | 3 | mmHg | [facility] | | + +--------+ + + + | LVEF-TTE | 50 | % | [facility] | | | TRANSTHORAC | | | | | | IC ECHO | | | | | + +--------+ + + + + + | Specimen | + + | | + + + + + | Narrative | Performed At | + + + | Summary: | [facility] | | | | | 1. Normal left ventricular size and function. | | | 2. Normal left atrial size. | | | 3. Normal tricuspid aortic valve. | | | 4. Normal mitral valve | | | 5. Normal right heart valves and chambers.6. | | | 6. Normal study | | + + + + +---------+ + + | Performing | Address | City/State/Zipcode | Phone Number | | Organization | | | | + +---------+ + + | [facility] | | | | + +---------+ + + Troponin I (06/09/2018 5:04 AM PST) + + + + + + | Component | Value | Ref Range | Performed | Pathologist | | | | | At | Signature | + + + + + + | Troponin I | <0.01Comment: Reference | <0.06 ng/mL | [facility] | | | | Ranges:0.00-0.06 = | | [facility] | | | | NORMAL>0.06 = | | MEDICAL | | | | SUSPICIOUS FOR | | CENTER - | | | | MYOCARDIAL DAMAGE NOTE: | | LABORATORY | | | | Values greater than 0.50 | | | | | | ng/mL have been shown | | | | | | to be strongly | | | | | | associated with acute | | | | | | myocardial infarction. | | | | | | The [employer] | | | | | | Cardiology (ACC) | | | | | | recommends a decision | | | | | | limit of 0.06 ng/mL for | | | | | | this assay. Results | | | | | | greater than 0.06 can | | | | | | reflect a pre-infarct | | | | | | acute coronary syndrome, | | | | | | but can also reflect | | | | | | myocardial necrosis or | | | | | | injury that is not due | | | | | | to coronary artery | | | | | | disease. Some of these | | | | | | causes are sepsis, | | | | | | hypocolemia, atrial | | | | | | fibrillation, heart | | | | | | failure, pulmonary | | | | | | embolism, myocarditis, | | | | | | myocardial contusion, | | | | | | and renal failure. The | | | | | | diagnosis of myocardial | | | | | | infarction should be | | | | | | based on a combination | | | | | | of the patient's | | | | | | clinical presentation | | | | | | and the clinical | | | | | | laboratory test results | | | | | | (especially serial | | | | | | troponin levels). | | | | + + + + + + + + | Specimen | + + | Blood | + + + + + + + | Performing | Address | City/State/Zipcode | Phone Number | | Organization | | | | + + + + + | [facility] | [address] | [place] | [phone] | | [facility] | | [address] | | | - LABORATORY | | | | + + + + + Magnesium (06/09/2018 5:04 AM PST) + +---------+ + + + | Component | Value | Ref Range | Performed | Pathologist | | | | | At | Signature | + +---------+ + + + | Magnesium | 1.7 (L) | 1.8 - 2.5 mg/dL | [facility] | | | | [facility] | | | | | | [facility] | | | | | | C[facility] - | | | | | | LABORATORY | | + +---------+ + + + + + | Specimen | + + | Blood | + + + + + + + | Performing | Address | City/State/Zipcode | Phone Number | | Organization | | | | + + + + + | [facility] | [address] | [place] | [phone] | | [facility] | | [address] | | | - LABORATORY | | | | + + + + + Comprehensive Metabolic Panel (06/09/2018 5:04 AM PST) + + + + + + | Component | Value | Ref Range | Performed | Pathologist | | | | | At | Signature | + + + + + + | Na | 133 (L) | 136 - 149 | [facility] | | | | | mmol/L | [facility] | | | | | | MEDICAL | | | | | | CENTER - | | | | | | LABORATORY | | + + + + + + | K | 3.6 | 3.5 - 5.1 | [facility] | | | | | mmol/L | [facility] | | | | | | MEDICAL | | | | | | CENTER - | | | | | | LABORATORY | | + + + + + + | Cl | 105 | 98 - 109 mmol/L | [facility] | | | | | | [facility] | | | | | | [facility] | | | | | | CENTER - | | | | | | LABORATORY | | + + + + + + | CO2 | 21 (L) | 24 - 31 mmol/L | [facility] | | | | | | [facility] | | | | | | MEDICAL | | | | | | CENTER - | | | | | | LABORATORY | | + + + + + + | Anion Gap | 7 | 3 - 16 mmol/L | [facility] | | | | | | [facility] | | | | | | MEDICAL | | | | | | CENTER - | | | | | | LABORATORY | | + + + + + + | Glucose | 323 (H) | 70 - 109 mg/dL | [facility] | | | | | | [facility] | | | | | | MEDICAL | | | | | | CENTER - | | | | | | LABORATORY | | + + + + + + | BUN | 7 | 7 - 18 mg/dL | [facility] | | | | | | [facility] | | | | | | MEDICAL | | | | | | CENTER - | | | | | | LABORATORY | | + + + + + + | Creatinine | 0.51 (L) | 0.60 - 1.30 | [facility] | | | | | mg/dL | [facility] | | | | | | MEDICAL | | | | | | CENTER - | | | | | | LABORATORY | | + + + + + + | eGFR if not | >60Comment: GLOMERULAR | >=60 | [facility] | | | | FILTRATION | mL/min/1.73m2 | [facility] | | | [place] | RATE,ESTIMATED | | MEDICAL | | | | mL/min/1.12b5Hpcv than | | CENTER - | | | | 60 Chronic kidney | | LABORATORY | | | | disease,if found over [...] + + + + | Calcium | 9.0 | 8.3 - 10.5 | [facility] | | | | | mg/dL | [facility] | | | | | | MEDICAL | | | | | | CENTER - | | | | | | LABORATORY | | + + + + + + | Albumin | 3.3 | 3.2 - 5.0 g/dL | [facility] | | | | | | [facility] | | | | | | MEDICAL | | | | | | CENTER - | | | | | | LABORATORY | | + + + + + + | Bilirubin | 0.9 | 0.1 - 1.5 mg/dL | [facility] | | | Total | | | [facility] | | | | | | MEDICAL | | | | | | CENTER - | | | | | | LABORATORY | | + + + + + + | Total | 6.1 | 6.0 - 7.8 g/dL | [facility] | | | Protein | | | [facility] | | | | | | MEDICAL | | | | | | CENTER - | | | | | | LABORATORY | | + + + + + + | AST | 76 (H) | 10 - 42 U/L | [facility] | | | | | | [facility] | | | | | | MEDICAL | | | | | | CENTER - | | | | | | LABORATORY | | + + + + + + | ALT | 129 (H) | 6 - 45 U/L | [facility] | | | | | | [facility] | | | | | | MEDICAL | | | | | | CENTER - | | | | | | LABORATORY | | + + + + + + | Alkaline | 98 | 40 - 110 U/L | [facility] | | | Phosphatase | | | [facility] | | | | | | MEDICAL | | | | | | CENTER - | | | | | | LABORATORY | | + + + + + + | Globulin | 2.8 | 2.1 - 3.8 g/dL | [facility] | | | | | | [facility] | | | | | | MEDICAL | | | | | | CENTER - | | | | | | LABORATORY | | + + + + + + | Albumin/Catherine | 1.2 | 0.8 - 2.0 | [facility] | | | bulin Ratio | | | [facility] | | | | | | MEDICAL | | | | | | CENTER - | | | | | | LABORATORY | | + + + + + + | BUN/Creatin | 13.7 | | [facility] | | | ine Ratio | | | [facility] | | | | | | MEDICAL [...] + + | [facility] | [address] | [place] | [phone] | | [facility] | | [address] | | | - LABORATORY | | | | + + + + + CBC no Differential (06/09/2018 5:04 AM PST) + + + + + + | Component | Value | Ref Range | Performed | Pathologist | | | | | At | Signature | + + + + + + | WBC | 5.1 | 4.0 - 11.0 K/uL | [facility] | | | | | | [facility] | | | | | | MEDICAL | | | | | | CENTER - | | | | | | LABORATORY | | + + + + + + | RBC | 4.54 | 3.70 - 5.20 | [facility] | | | | | M/uL | [facility] | | | | | | MEDICAL | | | | | | CENTER - | | | | | | LABORATORY | | + + + + + + | Hemoglobin | 11.0 (L) | 11.5 - 16.0 | [facility] | | | | | g/dL | [facility] | | | | | | [facility] | | | | | | [facility] - | | | | | | LABORATORY | | + + + + + + | Hematocrit | 35.6 | 34.0 - 47.0 % | [facility] | | | | | | [facility] | | | | | | [facility] | | | | | | [facility] - | | | | | | LABORATORY | | + + + + + + | MCV | 78.4 (L) | 83.0 - 101.0 fL | [facility] | | | | | | [facility] | | | | | | [facility] | | | | | | [facility] - | | | | | | LABORATORY | | + + + + + + | MCH | 24.2 (L) | 28.0 - 35.0 pg | [facility] | | | | | | [facility] | | | | | | [facility] | | | | | | [facility] - | | | | | | LABORATORY | | + + + + + + | MCHC | 30.9 (L) | 32.0 - 36.0 | [facility] | | | | | g/dL | [facility] | | | | | | [facility] | | | | | | [facility] - | | | | | | LABORATORY | | + + + + + + | RDW-CV | 14.6 | <15.0 % | [facility] | | [facility] | | | [facility] | | | | | | [facility] | | | | | | [facility] - | | | | | | LABORATORY | | + + + + + + | RDW-SD | 40.8 | 35.1 - 46.3 fL | [facility] | | | | | | [facility] | | | | | | [facility] | | | | | | [facility] - | | | | | | LABORATORY | | + + + + + + | Platelet | 231 | 140 - 440 K/uL | [facility] | | | Count | | | [facility] | | | | | | [facility] | | | | | | [facility] - | | | | | | LABORATORY | | + + + + + + | MPV | 9.8 | 6.5 - 12.4 fL | [facility] | | | | | | [facility] | | | | | | [facility] | | | | | | [facility] - | | | | | | LABORATORY | | + + + + + + | % nRBC | 0 | 0 - 2 per 100 | [facility] | | | | | WBC's | [facility] | | | | | | [facility] | | | | | | C[facility] - | | | | | | LABORATORY | | + + + + + + | Absolute | 0.00 | 0.00 - 0.01 | [facility] | | | nRBC | | K/uL | [facility] | | | | [...] [address] | [place] | [phone] | | [facility] | | [id number] | | | - LABORATORY | | | | + + + + + Troponin I (06/08/2018 11:57 PM PST) + + + + + + | Component | Value | Ref Range | Performed | Pathologist | | | | | At | Signature | + + + + + + | Troponin I | <0.01Comment: Reference | <0.06 ng/mL | [facility] | | | | Ranges:0.00-0.06 = | | [facility] | | | | NORMAL>0.06 = | | MEDICAL | | | | SUSPICIOUS FOR | | CENTER - | | | | MYOCARDIAL DAMAGE NOTE: | | LABORATORY | | | | Values greater than 0.50 | | | | | | ng/mL have been shown | | | | | | to be strongly | | | | | | associated with acute | | | | | | myocardial infarction. | | | | | | The [employer] | | | | | | Cardiology (ACC) | | | | | | recommends a decision | | | | | | limit of 0.06 ng/mL for | | | | | | this assay. Results | | | | | | greater than 0.06 can | | | | | | reflect a pre-infarct | | | | | | acute coronary syndrome, | | | | | | but can also reflect | | | | | | myocardial necrosis or | | | | | | injury that is not due | | | | | | to coronary artery | | | | | | disease. Some of these | | | | | | causes are sepsis, | | | | | | hypocolemia, atrial | | | | | | fibrillation, heart | | | | | | failure, pulmonary | | | | | | embolism, myocarditis, | | | | | | myocardial contusion, | | | | | | and renal failure. The | | | | | | diagnosis of myocardial | | | | | | infarction should be | | | | | | based on a combination | | | | | | of the patient's | | | | | | clinical presentation | | | | | | and the clinical | | | | | | laboratory test results | | | | | | (especially serial | | | | | | troponin levels). | | | | + + + + + + + + | Specimen | + + | Blood | + + + + + + + | Performing | Address | City/State[facility] | Phone Number | | Organization | | | | + + + + + | [address] | [address] | [place] | [phone] | | [facility] | | [address] | | | - LABORATORY | | | | + + + + + POC Glucose (06/08/2018 9:56 PM PST) + +---------+ + + + | Component | Value | Ref Range | Performed | Pathologist | | | | | At | Signature | + +---------+ + + + | Glucose, | 316 (H) | 70 - 109 mg/dL | [facility] | | | P[facility] | | | [facility] | | | | | | [facility] | | | | | | CENTER - | | | | | | LABORATORY | | + +---------+ + + + + + | Specimen | + + | Blood | + + + + + + + | Performing | Address | City/State/Zipcode | Phone Number | | Organization | | | | + + + + + | [facility] | [address] | [place] | [phone] | | [facility] | | [address] | | | - LABORATORY | | | | + + + + + XR Chest AP Portable (06/08/2018 6:31 PM PST) + + | Specimen | + + | | + + + + + | Narrative | Performed At | + + + | EXAM: XR CHEST AP PORTABLE dated 06/08/2018 6:11 PM HISTORY: | [facility] | | Chest pain. Comparison: None. TECHNIQUE: A single portable | | | view of the chest. FINDINGS: The lungs are symmetrically | | | aerated. Low lung volumes. No acute airspace disease. There are | | | no large pleural effusions. There is no pneumothorax. The | | | cardiac and mediastinal contours are not enlarged. No acute osseous | | | abnormalities. IMPRESSION - No acute disease. Dictated | | | and Signed by: Kamaljit Coffman MD Electronically signed: 06/08/2018 | | | 6:34 PM | | + + + + + | Procedure Note | + + | Derrick, Rad Results In - 06/08/2018 6:37 PM PST EXAM: XR CHEST AP PORTABLE dated | | 06/08/2018 6:11 PMHISTORY: Chest pain.Comparison: None.TECHNIQUE: A single portable view | | of the chest.FINDINGS:The lungs are symmetrically aerated. Low lung volumes. No acute | | airspacedisease. There are no large pleural effusions. There is no pneumothorax. | | Thecardiac and mediastinal contours are not enlarged. No acute osseousabnormalities. | | IMPRESSION -No acute disease. Dictated and Signed by: Kamaljit Coffman MD | | Electronically signed: 06/08/2018 6:34 PM | | | |FINDINGS: | | | |The lungs are symmetrically aerated. Low lung volumes. No acute airspace | |disease. There are no large pleural effusions. There is no pneumothorax. The | |cardiac and mediastinal contours are not enlarged. No acute osseous | |abnormalities. | | | |IMPRESSION - | | | |No acute disease. | | | |Dictated and Signed by: Kamaljit Coffman MD | | Electronically signed: 06/08/2018 6:34 PM | + + + +---------+ + + | Performing | Address | City/State/Zipcode | Phone Number | | Organization | | | | + +---------+ + + | [facility] | | | | + +---------+ + + Extra Gold Top Tube (06/08/2018 5:55 PM PST) + +-------+ + + + | Component | Value | Ref Range | Performed | Pathologist | | | | | At | Signature | + +-------+ + + + | Extra Gold | Done | | [facility] | | | Top Tube | | | [facility] | | | | | | [facility] [...] + | [facility] | [address] | [place] | [phone] | | [facility] | | [address] | | | - LABORATORY | | | | + + + + + Extra Lavender Top Tube (06/08/2018 5:55 PM PST) + +-------+ + + + | Component | Value | Ref Range | Performed | Pathologist | | | | | At | Signature | + +-------+ + + + | Extra | Done | | [facility] | | | Lavender | | | [facility] | | | Top Tube | | | MEDICAL | | | [...] + | [facility] | [address] | [place] | [phone] | | [facility] | | [address] | | | - LABORATORY | | | | + + + + + POC Glucose (06/08/2018 5:55 PM PST) + +---------+ + + + | Component | Value | Ref Range | Performed | Pathologist | | | | | At | Signature | + +---------+ + + + | Glucose, | 319 (H) | 70 - 109 mg/dL | [facility] | | | [facility] | | [facility] | | | | | [facility] | | | | | | CENTER - | | | | | | LABORATORY | | + +---------+ + + + + + | Specimen | + + | Blood | + + + + + + + | Performing | Address | City/State/Zipcode | Phone Number | | Organization | | | | + + + + + | [facility] | [address] | [place] | [phone] | | [facility] | | [address] | | | - LABORATORY | | | | + + + + + Troponin I (06/08/2018 5:55 PM PST) + + + + + + | Component | Value | Ref Range | Performed | Pathologist | | | | | At | Signature | + + + + + + | Troponin I | <0.01Comment: Reference | <0.06 ng/mL | [facility] | | | | Ranges:0.00-0.06 = | | [facility] | | | | NORMAL>0.06 = | | MEDICAL | | | | SUSPICIOUS FOR | | CENTER - | | | | MYOCARDIAL DAMAGE NOTE: | | LABORATORY | | | | Values greater than 0.50 | | | | | | ng/mL have been shown | | | | | | to be strongly | | | | | | associated with acute | | | | | | myocardial infarction. | | | | | | The [employer] | | | | | | Cardiology (ACC) | | | | | | recommends a decision | | | | | | limit of 0.06 ng/mL for | | | | | | this assay. Results | | | | | | greater than 0.06 can | | | | | | reflect a pre-infarct | | | | | | acute coronary syndrome, | | | | | | but can also reflect | | | | | | myocardial necrosis or | | | | | | injury that is not due | | | | | | to coronary artery | | | | | | disease. Some of these | | | | | | causes are sepsis, | | | | | | hypocolemia, atrial | | | | | | fibrillation, heart | | | | | | failure, pulmonary | | | | | | embolism, myocarditis, | | | | | | myocardial contusion, | | | | | | and renal failure. The | | | | | | diagnosis of myocardial | | | | | | infarction should be | | | | | | based on a combination | | | | | | of the patient's | | | | | | clinical presentation | | | | | | and the clinical | | | | | | laboratory test results | | | | | | (especially serial | | | | | | troponin levels). | | | | + + + + + + + + | Specimen | + + | Blood | + + + + + + + | Performing | Address | City/State/Zipcode | Phone Number | | Organization | | | | + + + + + | [facility] | [address] | [place] | [phone] | | [facility] | | [address] | | | - LABORATORY | | | | + + + + + ECG 12 lead (06/08/2018 5:16 PM PST) + + + + + + | Component | Value | Ref Range | Performed | Pathologist | | | | | At | Signature | + + + + + + | VENTRICULAR | 86 | BPM | [facility] | | | RATE EKG | | | | | + + + + + + | ATRIAL RATE | 86 | BPM | [facility] | | + + + + + + | P-R | 164 | ms | [facility] | | | INTERVAL | | | | | + + + + + + | QRS | 104 | ms | [facility] | | | DURATION | | | | | + + + + + + | Q-T | 370 | ms | [facility] | | | INTERVAL | | | | | + + + + + + | Q-T | 442 | ms | [facility] | | | INTERVAL | | | | | | (CORRECTED) | | | | | + + + + + + | P WAVE AXIS | 27 | degrees | [facility] | | + + + + + + | QRS AXIS | -16 | degrees | [facility] | | + + + + + + | T AXIS | 28 | degrees | [facility] | | + + + + + + | INTERPRETAT | Normal sinus | | [facility] | | | ION TEXT | rhythmInferior infarct , | | | | | | age | | | | | | undeterminedAbnormal | | | | | | ECGNo previous ECGs | | | | | | availableConfirmed by | | | | | | DIANE WHITE MD ([id number]) | | | | | | on 06/09/2018 6:51:55 AM | | | | + + + + + + + + | Specimen | + + | | + + + + + | Narrative | Performed At | + + + | | | + + + + +---------+ + + | Performing | Address | City/State/Zipcode | Phone Number | | Organization | | | | + +---------+ + + | [facility] | | | | + +---------+ + + Culture, MRSA (06/08/2018 4:39 PM PST) + + + + + + | Component | Value | Ref Range | Performed | Pathologist | | | | | At | Signature | + + + + + + | Culture | Negative for MRSA by | | [facility] | | | | chromogenic agar method | | [facility] | | | | | | MEDICAL | | | | | | CENTER - | | | | | | LABORATORY | | + + + + + + + + | Specimen | + + | Tissue - Both | | anterior nares (body | | structure) | + + + + + + + | Performing | Address | City/State/Zipcode | Phone Number | | Organization | | | | + + + + + | [facility] | [address] | [place] | [phone] | | [facility] | | [address] | | | - LABORATORY | | | | + + + + + LABS - EXTERNAL SCAN (06/08/2018 12:00 AM PST) + + + | Narrative | Performed At | + + + | Ordered by an | | | unspecified provider. | | + + + documented in this encounter Visit Diagnoses + + | Diagnosis | + + | Chest pain in adult - Primary | + + | Menorrhagia with irregular cycle Excessive or frequent menstruation | + + | Type 2 diabetes mellitus with complication, without long-term current use of insulin | | (HCC) | + + | Hypertension, unspecified type | + + | Coronary artery disease, angina presence unspecified, unspecified vessel or lesion | | type, unspecified whether council or transplanted heart | + + | Chest pain at rest Chest pain, unspecified | + + | Type 2 diabetes mellitus without complication, without long-term current use of | | insulin (HCC) | + + | Essential hypertension Unspecified essential hypertension | + + | Hepatic steatosis Other chronic nonalcoholic liver disease | + + documented in this encounter Administered Medications + +--------+ +--------+------+------+ | Medication Order | MAR | Action | Dose | Rate | Site | | | Action | Date | | | | + +--------+ +--------+------+------+ | acetaminophen (TYLENOL) tablet | Given | 06/09/20 | 650 mg | | | | 650 mg 650 mg, Oral, EVERY 4 | | 18 7:35 | | | | | HOURS PRN, Pain, or fever >= 38.6 | | PM PST | | | | | C (101.5 F), Starting Wed | | | | | | | 06/08/18 at 1734 | | | | | | + +--------+ +--------+------+------+ +-------+ +--------+---+---+ | Given | 06/09/20 | 650 mg | | | | | 18 1:47 | | | | | | PM PST | | | | +-------+ +--------+---+---+ | Given | 06/09/20 | 650 mg | | | | | 18 2:05 | | | | | | AM PST | | | | +-------+ +--------+---+---+ +---+---+ | | | +---+---+ + +-------+ +--------+---+---+ | albuterol 2.5 mg/3 mL nebulizer | Given | 06/11/20 | 2.5 mg | | | | solution 2.5 mg 2.5 mg, | | 18 8:00 | | | | | Nebulization, RT Q6H, First dose | | AM PST | | | | | on Wed06/10/18 at 0845, RT will | | | | | | | administer., | | | | | | + +-------+ +--------+---+---+ +-------+ +--------+---+---+ | Given | 06/10/20 | 2.5 mg | | | | | 18 8:00 | | | | | | PM PST | | | | +-------+ +--------+---+---+ | Given | 06/10/20 | 2.5 mg | | | | | 18 2:46 | | | | | | PM PST | | | | +-------+ +--------+---+---+ +---+---+ | | | +---+---+ + +-------+ +-------+---+---+ | aspirin chewable tablet 81 mg | Given | 06/11/20 | 81 mg | | | | 81 mg, Oral, DAILY, First dose on | | 18 9:37 | | | | | 06/08/18 at 1815 | | AM PST | | | | + +-------+ +-------+---+---+ +-------+ +-------+---+---+ | Given | 06/10/20 | 81 mg | | | | | 18 9:08 | | | | | | AM PST | | | | +-------+ +-------+---+---+ | Given | 06/09/20 | 81 mg | | | | | 18 8:03 | | | | | | AM PST | | | | +-------+ +-------+---+---+ +---+---+ | | | +---+---+ + +-------+ +-------+---+---+ | atorvaSTATin (LIPITOR) tablet | Given | 06/10/20 | 20 mg | | | | 20 mg 20 mg, Oral, NIGHTLY, | | 18 8:58 | | | | | First dose on Wed06/08/18 at 2100 | | PM PST | | | | + +-------+ +-------+---+---+ +-------+ +-------+---+---+ | Given | 06/09/20 | 20 mg | | | | | 18 9:00 | | | | | | PM PST | | | | +-------+ +-------+---+---+ | Given | 06/08/20 | 20 mg | | | | | 18 9:59 | | | | | | PM PST | | | | +-------+ +-------+---+---+ + +---+ | | | + +---+ | dextrose 50% injection 12.5 g | | | 12.5 g, Intravenous, PRN, Low | | | Blood Sugar, Starting 06/08/18 | | | at 1735 | | + +---+ | | | + +---+ + +-------+ +-------+---+ + | enoxaparin (LOVENOX) 40 mg/0.4 | Given | 06/10/20 | 40 mg | | Abdomen- | | mL injection 40 mg 40 mg, | | 18 6:19 | | | LLQ | | Subcutaneous, EVERY 24 HOURS | | PM PST | | | | | INTERVAL, First dose on Wed | | | | | | | 06/08/18 at 1800 | | | | | | + +-------+ +-------+---+ + +-------+ +-------+---+ + | Given | 06/09/20 | 40 mg | | Abdomen- | | | 18 5:26 | | | RUQ | | | PM PST | | | | +-------+ +-------+---+ + | Given | 06/08/20 | 40 mg | | Abdomen- | | | 18 6:07 | | | LLQ | | | PM PST | | | | +-------+ +-------+---+ + +---+---+ | | | +---+---+ + +-------+ +--------+---+---+ | ibuprofen (ADVIL, MOTRIN) | Given | 06/10/20 | 400 mg | | | | tablet 400 mg 400 mg, Oral, | | 18 1:46 | | | | | EVERY 6 HOURS PRN, Pain, | | AM PST | | | | | Headaches, Starting Jazmine 06/09/18 | | | | | | | at 2116, Give with food., | | | | | | + +-------+ +--------+---+---+ +---+---+ | | | +---+---+ + +-------+ + +---+ + | insulin glargine (LANTUS | Given | 06/09/20 | 10 Units | | Abdomen- | | SOLOSTAR) injection (pen) 10 | | 18 9:00 | | | LUQ | | Units 10 Units (rounded from | | PM PST | | | | | 9.52 Units = 0.1 Units/kg/day | | | | | | | 95.2 kg), Subcutaneous, NIGHTLY, | | | | | | | First dose on Jazmine 06/09/18 at | | | | | | | 2100, For subcutaneous use only. | | | | | | | Basal (long acting) insulin., | | | | | | + +-------+ + +---+ + +---+---+ | | | +---+---+ + +-------+ + +---+ + | insulin glargine (LANTUS | Given | 06/10/20 | 14 Units | | Abdomen- | | SOLOSTAR) injection (pen) 14 | | 18 9:14 | | | LLQ | | Units 14 Units, Subcutaneous, | | PM PST | | | | | NIGHTLY, First dose (after last | | | | | | | modification) on Wed06/10/18 at | | | | | | | 2100, For subcutaneous use only. | | | | | | | Basal (long acting) insulin., | | | | | | + +-------+ + +---+ + +---+---+ | | | +---+---+ + +-------+ +---------+---+ + | insulin lispro (humaLOG | Given | 06/11/20 | 4 Units | | Abdomen- | | KWIKPEN) injection (pen) 0-12 | | 18 5:36 | | | RLQ | | Units 0-12 Units, Subcutaneous, | | PM PST | | | | | 4 TIMES DAILY WITH MEALS & | | | | | | | NIGHTLY, First dose on Wed | | | | | | | 06/08/18 at 2100, CORRECTION | | | | | | | SCALE: Blood Glucose (BG) < | | | | | | | 150: None BG | | | | | | | 150-200: DAY: 2 units. NIGHT: | | | | | | | 0 units BG 201-250: DAY: 4 | | | | | | | units. NIGHT: 2 units BG | | | | | | | 251-300: DAY: 6 units. NIGHT: | | | | | | | 4 units BG 301-350: DAY: 8 | | | | | | | units. NIGHT: 6 units BG | | | | | | | 351-400: DAY: 10 units. NIGHT: 8 | | | | | | | units BG > 400 : DAY: 12 | | | | | | | units. NIGHT: 10 units | | | | | | | AND CALL PROVIDER | | | | | | | , Use DAY DOSE for doses | | | | | | | scheduled: AC, NPO, Daytime | | | | | | | [phone] Use NIGHT DOSE for | | | | | | | doses scheduled: HS, 3AM, | | | | | | | Nighttime 1582-8241, | | | | | | + +-------+ +---------+---+ + +-------+ +---------+---+ + | Given | 06/11/20 | 4 Units | | Abdomen- | | | 18 12:19 | | | LLQ | | | PM PST | | | | +-------+ +---------+---+ + | Given | 06/11/20 | 6 Units | | Abdomen- | | | 18 8:06 | | | LUQ | | | AM PST | | | | +-------+ +---------+---+ + +---+---+ | | | +---+---+ + +-------+ +---------+---+ + | insulin lispro (humaLOG | Given | 06/08/20 | 8 Units | | Abdomen- | | KWIKPEN) injection (pen) 0-12 | | 18 6:07 | | | LLQ | | Units 0-12 Units, Subcutaneous, | | PM PST | | | | | ONCE, Wed06/08/18 at 1830, For 1 | | | | | | | dose, CORRECTION SCALE: Blood | | | | | | | Glucose (BG) < 150: | | | | | | | None BG 150-200: DAY: 2 units. | | | | | | | NIGHT: 0 units BG 201-250: | | | | | | | DAY: 4 units. NIGHT: 2 units | | | | | | | BG 251-300: DAY: 6 units. | | | | | | | NIGHT: 4 units BG 301-350: DAY: | | | | | | | 8 units. NIGHT: 6 units BG | | | | | | | 351-400: DAY: 10 units. NIGHT: 8 | | | | | | | units BG > 400 : DAY: 12 | | | | | | | units. NIGHT: 10 units | | | | | | | AND CALL PROVIDER | | | | | | | , Use DAY DOSE for doses | | | | | | | scheduled: AC, NPO, Daytime | | | | | | | 8254-1531 Use NIGHT DOSE for | | | | | | | doses scheduled: HS, 3AM, | | | | | | | Nighttime 6855-5327, | | | | | | + +-------+ +---------+---+ + +---+---+ | | | +---+---+ + +-------+ +--------+---+---+ | iohexol (OMNIPAQUE 350) 350 | Given | 06/10/20 | 75 mLs | | | | mg/mL injection 75 mL 75 mL, | | 18 12:33 | | | | | Intravenous, ONCE PRN, Other, | | PM PST | | | | | Starting 06/10/18 at 1232, For | | | | | | | 1 dose, Cat Scanner | | | | | | + +-------+ +--------+---+---+ +---+---+ | | | +---+---+ + +-------+ +-------+---+---+ | losartan (COZAAR) tablet 25 mg | Given | 06/11/20 | 25 mg | | | | 25 mg, Oral, EVERY 24 HOURS | | 18 5:40 | | | | | INTERVAL, First dose (after last | | PM PST | | | | | modification) on Wed06/10/18 at | | | | | | | 1800 | | | | | | + +-------+ +-------+---+---+ +-------+ +-------+---+---+ | Given | 06/10/20 | 25 mg | | | | | 18 6:19 | | | | | | PM PST | | | | +-------+ +-------+---+---+ +---+---+ | | | +---+---+ + +-------+ +-------+---+---+ | losartan (COZAAR) tablet 50 mg | Given | 06/09/20 | 50 mg | | | | 50 mg, Oral, EVERY 24 HOURS | | 18 5:23 | | | | | INTERVAL, First dose on Wed | | PM PST | | | | | 06/08/18 at 1800 | | | | | | + +-------+ +-------+---+---+ +-------+ +-------+---+---+ | Given | 06/08/20 | 50 mg | | | | | 18 6:07 | | | | | | PM PST | | | | +-------+ +-------+---+---+ +---+---+ | | | +---+---+ + +-------+ +--------+---+---+ | magnesium oxide (MAG-OX) tablet | Given | 06/09/20 | 400 mg | | | | 400 mg 400 mg, Oral, ONCE, Jazmine | | 18 8:03 | | | | | 06/09/18 at 0730, For 1 dose | | AM PST | | | | + +-------+ +--------+---+---+ +---+---+ | | | +---+---+ + +-------+ +---------+---+---+ | metoprolol tartrate (LOPRESSOR) | Given | 06/10/20 | 12.5 mg | | | | tablet 12.5 mg 12.5 mg, Oral, 2 | | 18 9:08 | | | | | TIMES DAILY, First dose on Wed | | AM PST | | | | | 06/08/18 at 2100 | | | | | | + +-------+ +---------+---+---+ +-------+ +---------+---+---+ | Given | 06/09/20 | 12.5 mg | | | | | 18 9:00 | | | | | | PM PST | | | | +-------+ +---------+---+---+ | Given | 06/09/20 | 12.5 mg | | | | | 18 8:03 | | | | | | AM PST | | | | +-------+ +---------+---+---+ +---+---+ | | | +---+---+ + +-------+ +-------+---+---+ | metoprolol tartrate (LOPRESSOR) | Given | 06/11/20 | 25 mg | | | | tablet 25 mg 25 mg, Oral, 2 | | 18 9:22 | | | | | TIMES DAILY, First dose (after | | AM PST | | | | | last modification) on Wed06/10/18 | | | | | | | at 2100 | | | | | | + +-------+ +-------+---+---+ +-------+ +-------+---+---+ | Given | 06/10/20 | 25 mg | | | | | 18 8:58 | | | | | | PM PST | | | | +-------+ +-------+---+---+ +---+---+ | | | +---+---+ + +-------+ +--------+---+---+ | potassium chloride (Klor-Con | Given | 06/09/20 | 40 mEq | | | | M20) ER tablet 40 mEq 40 mEq, | | 18 8:03 | | | | | Oral, ONCE, Jazmine 06/09/18 at 0730, | | AM PST | | | | | For 1 dose | | | | | | + +-------+ +--------+---+---+ +---+---+ | | | +---+---+ documented in this encounter
--- OUTSIDE RECORDS SUMMARY | ~2019-11-14 | XMS | Encounter Summary ---
Demographics + + + | Address | [address] | | | [place] [address] | + + + | Home Phone | | + + + | Preferred Language | Unknown | + + + | Marital Status | | + + + | Anglican Affiliation | Unknown | + + + | Race | Unknown | + + + | Ethnic Group | Unknown | + + + Author + + + | Author | [facility] | | | and [place] | + + + | Organization | [facility] | | | [...] Team Providers + +------+ + | Care Satellite Dish Technician Name | Role | Phone | [...] + + | 11/03/ | Hospital | [facility] | Delvin Dupont | Encounter for loop | | 2017 | Encounter | [facility] | MD Bill [address] | recorder check | | | | [address] | [address] [facility] | (Primary Dx); | | | | [place], [place] | [facility] [place] [address] | Lightheadedness; | | | | [address] | [phone] | Status post | | | | [phone] | | placement of | | | [...] 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
--- OUTSIDE RECORDS SUMMARY | ~2019-11-14 | XMS | Encounter Summary ---
Demographics + + + | Address | [address] | | | [place] [address] | + + + | Home Phone [...] Team Providers + +------+ + | Care Ppap Coordinator Name | Role | Phone | + [...] [facility] | | | | | Numbness | Troy Buchanan MD | [address] | | | | | and tingling | [address] | [place], | | | | | in both | [address] | [place] | | | | | hands | [place], | [address] | | | | | [place] | [place] [address] | Phone: | | | | | a | Phone: | [phone] | | | | | Procedures | [phone] | Fax: | | | | | MRI Cervical | Fax: | [phone] | | | | | Spine wo | [phone] | | | | | | Contrast | | | +--------+--------+ + + + + Reason for Visit Diagnostic/Screening (Routine) +--------+--------+ + + + + | Status | Reason | Specialty | Diagnoses / | Referred By | Referred To | | | | | Procedures | Contact | Contact | +--------+--------+ + + + + | Closed | | Radiology | Diagnoses | Page, | [facility] | | | | | Numbness | Troy Buchanan MD | [address] | | | | | and tingling | [address] | [place], | | | | | in both | [address] | [place] | | | | | hands | [place], | [address] | | | | | [place] | [place] [address] | Phone: | | | | | a | Phone: | [phone] | | | | | Procedures | [phone] | Fax: | | | | | MRI Cervical | Fax: | [phone] | | | | | Spine wo | [phone] | | | | | | Contrast | | | +--------+--------+ + + + + Encounter Details +--------+ + + + + | Date | Type | Department | Care Team | Description | +--------+ + + + + | 02/25/ | Hospital | [facility] | Troy Page, | Numbness and | | 2015 | Encounter | [facility] MRI [address] | MD [address] | tingling in both | | | | [address] [place], | [place], [place] | hands; [place] | | | | [place] [address] | [address] | | | | | [phone] | | | +--------+ + + + [...] | + +--------+ + + + | MRI CERVICAL SPINE | Routin | 02/26/2016 | Numbness and | Results for this | | WO CONTRAST | e | 2:45 PM | tingling in both | procedure are in the | | | | PDT | hands [place]reflexia | results section. | + +--------+ + + + documented in this encounter Results MRI Cervical Spine wo Contrast (02/26/2016 2:45 PM PDT) + + | Specimen | + + | | + + + + + | Narrative | Performed At | + + + | MRI CERVICAL SPINE WO CONTRAST. 02/26/2016 2:30 PM HISTORY: | [facility] | | numbness in hands, hyperreflexion. COMPARISON: None available. | [facility] | | TECHNIQUE: Multiplanar, multisequence MRI images of the cervical [facility] | | spine were obtained without IV contrast. FINDINGS: The visible | - IMAGING | | posterior fossa structures are within normal limits. The | | | craniocervical relationship is maintained. The lateral masses of C1 | | | and C2 are well aligned. No evidence of fracture of the odontoid. | | | Vertebral body alignment is maintained. Vertebral body heights are | | | maintained. Bone marrow signal is within normal limits for the | | | patient's age. The disc heights are within normal limits. On | | | axial imaging: C2-3: Thecal sac and neural foramina within normal | | | limits. C3-4: Thecal sac and neural foramina within normal | | | limits. C4-5: Thecal sac and neural foramina within normal | | | limits. C5-6: Thecal sac and neural foramina within normal | | | limits. C6-7: Thecal sac and neural foramina within normal | | | limits. C7-T1: Thecal sac and neural foramina within normal | | | limits. The cervical cord is normal in signal and caliber. The | | | prevertebral and paraspinal structures are within normal limits. The | | | visualized intrathoracic structures are unremarkable. IMPRESSION - | | | Normal MRI evaluation of the cervical spine. Dictated and Signed | | | by: Eddie Parson MD Electronically signed: 02/26/2016 5:29 PM | | | | | + + + + + | Procedure Note | + + | Charles Meza Results In - 02/26/2016 5:32 PM PDT MRI CERVICAL SPINE WO CONTRAST. | | 02/26/2016 2:30 PMHISTORY: numbness in hands, hyperreflexion.COMPARISON: None | | available.TECHNIQUE: Multiplanar, multisequence MRI images of the cervical spine | | wereobtained without IV contrast.FINDINGS:The visible posterior fossa structures are | | within normal limits. Thecraniocervical relationship is maintained. The lateral | | masses of C1 and C2 arewell aligned. No evidence of fracture of the odontoid.Vertebral | | body alignment is maintained.Vertebral body heights are maintained.Bone marrow signal is | | within normal limits for the patient's age.The disc heights are within normal limits.On | | axial imaging:C2-3: Thecal sac and neural foramina within normal limits.C3-4: Thecal | | sac and neural foramina within normal limits.C4-5: Thecal sac and neural foramina | | within normal limits.C5-6: Thecal sac and neural foramina within normal limits.C6-7: | | Thecal sac and neural foramina within normal limits.C7-T1: Thecal sac and neural | | foramina within normal limits.The cervical cord is normal in signal and caliber.The | | prevertebral and paraspinal structures are within normal limits.The visualized | | intrathoracic structures are unremarkable.IMPRESSION -Normal MRI evaluation of the | | cervical spine.Dictated and Signed by: Eddie Parson MD Electronically signed: | | 02/26/2016 5:29 PM | | | |On axial imaging: | |C2-3: Thecal sac and neural foramina within normal limits. | | | |C3-4: Thecal sac and neural foramina within normal limits. | | | |C4-5: Thecal sac and neural foramina within normal limits. | | | |C5-6: Thecal sac and neural foramina within normal limits. | | | |C6-7: Thecal sac and neural foramina within normal limits. | | | |C7-T1: Thecal sac and neural foramina within normal limits. | | | |The cervical cord is normal in signal and caliber. | |The prevertebral and paraspinal structures are within normal limits. | |The visualized intrathoracic structures are unremarkable. | | | |IMPRESSION - | |Normal MRI evaluation of the cervical spine. | | | |Dictated and Signed by: Eddie Parson MD | | Electronically signed: 02/26/2016 5:29 PM | + + + + + + + | Performing | Address | City/State/Zipcode | Phone Number | | Organization | | | | + + + + + | [facility] | [address] | [place] | [phone] | | [facility] | | [address] | | | - IMAGING | | | | + + + + + documented in this encounter Visit Diagnoses + + | Diagnosis | + + | Numbness and tingling in both hands | + + | Hyperreflexia Abnormal reflex | + + documented in this encounter"
--- OUTSIDE RECORDS SUMMARY | ~2019-11-14 | XMS | Encounter Summary ---
Demographics + + + | Address | [address] | | | [place] [address] | + + + | Home Phone | | + + + | Preferred Language | Unknown | + + + | Marital Status | | + + + | Mandaen Affiliation | Unknown | + + + | Race | Unknown | + + + | Ethnic Group | Unknown | + + + Author + + + | Author | [facility] | | | and [place] | + + + | Organization | [facility] | | | [...] Team Providers + +------+ + | Care Circulation Librarian Name | Role | Phone | + [...] | Troy Buchanan MD | [address] | | | | | and tingling | [address] | [place], | | | | | in both | [address] | [place] | | | | | hands | [place], | [address] | | | | | [place] | [place] [address] | Phone: | | | | | a | Phone: | [phone] | | | | | Procedures | [phone] | Fax: | | | | | MRI Cervical | Fax: | [phone] | | | | | Spine wo | [phone] | | | | | | Contrast [...] | Troy Buchanan MD | [address] | | | | | and tingling | [address] | [place], | | | | | in both | [address] | [place] | | | | | hands | [place], | [address] | | | | | [place] | [place] [address] | Phone: | | | | | a | Phone: | [phone] | | | | | Procedures | [phone] | Fax: | | | | | MRI Cervical | Fax: | [phone] | | | | | Spine wo | [phone] | | | | | | Contrast | | | +--------+--------+ + + + + Encounter Details +--------+ + + + + | Date | Type | Department | Care Team | Description | +--------+ + + + + | 02/25/ | Hospital | [facility] | Troy Page, | Numbness and | | 2015 | Encounter | MED [facility] MRI [address] | MD [address] | tingling in both | | | | [address] [place], | [place], [place] | hands; [place] | | | | [place] [address] | [address] | | | | | [phone] | | | +--------+ + + + [...] in hands, hyperreflexion. COMPARISON: None available. | [facility] | | TECHNIQUE: Multiplanar, multisequence MRI images of the cervical [facility] | | spine were obtained without [...] + | [facility] | [address] | [place] | [phone] | | [facility] | | [address] | | | - IMAGING | | | | + + + + + documented in this encounter Visit Diagnoses + + | Diagnosis | + + | Numbness and tingling in both hands | + + | Hyperreflexia Abnormal reflex | + + documented in this encounter"
--- OUTSIDE RECORDS SUMMARY | ~2019-11-14 | XMS | Encounter Summary ---
Demographics + + + | Address | [address] | | | [place] [address] | + + + | Home Phone | | + + + | Preferred Language | Unknown | + + + | Marital Status | | + + + | Hoahaoism Affiliation | Unknown | + + + | Race | Unknown | + + + | Ethnic Group | Unknown | + + + Author + + + | Author | [facility] | | | and [place] | + + + | Organization | [facility] | | | [...] Team Providers + +------+ + | Care Solar Energy System Installer Name | Role | Phone | + +------+ + | Sonam Blanchard MD | PCP | | + +------+ + Reason for Visit Auth/Cert (Routine) +--------+--------+ + + + + | Status | Reason | Specialty | Diagnoses / | Referred By | Referred To | | | | | Procedures | Contact | Contact | +--------+--------+ + + + + | | | | Diagnoses | | | | | | | Epigastric | | | | | | | pain Change | | | | | | | in bowel | | | | | | | habits | | | | | | | Procedures | | | | | | | IA | | | | | | | ESOPHAGOGAST | | | | | | | RODUODENOSCO | | | | | | | PY TRANSORAL | | | | | | | DIAGNOSTIC | | | | | | | IA EGD | | | | | | | TRANSORAL | | | | | | | BIOPSY | | | | | | | SINGLE/MULTI | | | | | | | PLE IA | | | | | | | COLONOSCOPY | | | | | | | FLX DX | | | | | | | W/COLLJ SPEC | | | | | | | WHEN PFRMD | | | +--------+--------+ + + + + Encounter Details +--------+ + + + + | Date | Type | Department | Care Team | Description | +--------+ + + + + | 06/30/ | Hospital | [facility] | [place], | | | 2019 | Encounter | [facility] | [place], | | | | | [address] | [address] | | | | | [place] | [place] | | | | | [address] | [address] | | | | | [phone] | [phone] | | | | | | | [...] + + + | Blood Pressure | 121/78 | 06/30/2019 12:23 PM | | | | | PST | | + + + + + | Pulse | 57 | 06/30/2019 12:23 PM | | | | | PST | | + + + + + | Temperature | 36.5 C (97.7 F) | 06/30/2019 12:23 PM | | | | | PST | | + + + + + | Respiratory Rate | 14 | 06/30/2019 12:32 PM | | | | | PST | | + + + + + | Oxygen Saturation | 98% | 06/30/2019 12:23 PM | | | | | PST | | + + + + + | Inhaled Oxygen | - | - | | | Concentration | | | | + + + + + | Weight | - | - | | + + + + + | Height | - | - | | + + + + + | Body Mass Index | - | - | | + + + + + documented in this encounter Discharge Instructions Instructions Bob Hoffmann MD - 06/30/2019TO INSURE PROPER POST-SURGICAL RE COVERY, PLEASE FOLLOW THE HOME CARE INSTRUCTIONS MARKED BELOW FOLLOW-UP APPOINTMENTS: [x] No follow up appointment necessary [] Dr. Hoffmann's office will call you to set up a follow up appointment MEDICATIONS: [] Take a stool softener while taking narcotic pain medication . [] When taking pain medications, you may experience drowsiness. Do not drink alcohol or dr paulie while you were taking these medications. [] Do not take Tylenol with your prescribed pain medication. [] You may take Ibuprofen (600 mg every 6 hours). [] You may take Tylenol (650 mg every 6 hours). WOUND CARE & HYGIENE: [] Ice to incision 20 minutes at a time for comfort. [x] May shower today. [] Your wound has glue on it as a dressing. Do not try to remove the glue. It will fall off in about 2 weeks. [] No tub baths, swimming pools, or hot tubs until seen by physician. [] observe for color changes, increased pain, or drainage. ANESTHESIA PRECAUTIONS: [] No special precautions. [x] A responsible adult should stay with you for at least 24 hours. You may experience drowsiness, lightheadedness, or mild nausea. [x] Do not operate a vehicle (automobile, bicycle, motorcycle), machinery or power tools. Do not make important decisions or drink any alcoholic beverages for at least 24 hours. [] Children: no riding bicycles, skateboards, swings, etc. for 24 hours. DIET: [] No dietary restrictions. [x] Drink plenty of fluids and a light meal today; resume regular diet tomorrow. ACTIVITY: [] No vigorous/strenuous activity for 2 weeks. [] Limit lifting to 10 pounds for the next 6 weeks. [] Resume normal activities in 24 hours. ADDITIONAL INSTRUCTIONS: Use Citrucel, Benefiber, or Metamucil daily with several large glasses of water as a bulki ng agent. REPORT ANY OF THE FOLLOWING SYMPTOMS TO YOUR SURGEON IMMEDIATELY: ? Fever over 101F by mouth ? Excessive bleeding. ? Pain not improved by medication ordered. ? Numb, tingling or cold fingers or toes. ? Increased redness, swelling or foul odor from surgical site. ? Inability to urinate. ? Difficulty breathing. ? Persistent nausea/vomiting. IF UNABLE TO REACH THE SURGEON AND YOUR SYMPTOMS ARE WORSENING, GO TO THE NEAREST EMERGENCY ROOM A follow-up call will be attempted by an Outpatient Surgery Nurse in 24-48 hours to check y our progress. If you have any questions, call your physician at or . If you need assistance after normal business hours, please contact the [facility] at . documented in this encounter Medications at Time of Discharge + + + +---------+ + + | Medication | Sig | Dispensed | Refills | Start | End Date | | | | | | Date | | + + + +---------+ + + | atorvaSTATin | | | 0 | /15/20 | | | (LIPITOR) 20 mg | | | | 19 | | | tablet | | | [...] + + + +---------+ + + | buPROPion (FORFIVO | | | 0 | 05/19/20 | | | XL) 450 mg 24 hr | | | | 19 | | | tablet | | | [...] + +---------+ + + | hydrOXYzine | | | 0 | 04/18/20 | | | hydrochloride | | | | 19 | | | (ATARAX) 25 mg | | | | | | | tablet | | | | | | + + + +---------+ + + | JANUVIA 100 MG | | | 0 | 06/06/20 | | | tablet | | | | 19 | | + + + +---------+ + + | Lancguy Misc. MISC | Use to test blood [...] + +---------+ + + | metFORMIN | 2 times daily. | | 0 | 05/19/20 | | | (GLUCOPHAGE) 1000 MG | | | | 19 | | | tablet | | | [...] | + +--------+ + + + | IA COLONOSCOPY FLX | Routin | 06/30/2019 | | Results for this | | DX W/COLLJ SPEC WHEN | e | 2:45 PM | | procedure are in the | | PFRMD | | PST | | results section. | + +--------+ + + + | IA | Routin | 06/30/2019 | | Results for this | | ESOPHAGOGASTRODUODEN | e | 2:45 PM | | procedure are in the | | OSCOPY TRANSORAL | | PST | | results section. | | DIAGNOSTIC | | | | | + +--------+ + + + | HELICOBACTER PYLORI | Routin | 06/30/2019 | | Results for this | | BIOPSY | e | 2:18 PM | | procedure are in the | | | | PST | | results section. | + +--------+ + + + | EGD | | 06/30/2019 | unknown | | | | | 2:13 PM | | | | | | PST | | | + +--------+ + + + | COLONOSCOPY | | 06/30/2019 | unknown | | | | | 2:13 PM | | | | | | PST | | | + +--------+ + + + | POC GLUCOSE | Routin | 06/30/2019 | | Results for this | | | e | 12:40 PM | | procedure are in the | | | | PST | | results section. | + +--------+ + + + | SURGICAL PATHOLOGY | Routin | 06/30/2019 | | Results for this | | EXAM | e | 12:00 AM | | procedure are in the | | | | PST | | results section. | + +--------+ + + + documented in this encounter Results COLONOSCOPY (06/30/2019 2:45 PM PST) + + + | Narrative | Performed At | + + + | Bob Hoffmann MD 06/30/2019 2:48 PM | [facility] | | Endoscopy Report OPERATION PERFORMED: Flexible EGD with | [facility] | | biopsies, colonoscopy with biopsies REFERRING PROVIDER: Sonam | | | Lo PRE-OP DIAGNOSIS: Bloating and epigastric pain with | | | diarrhea POST-OP DIAGNOSIS: Same SURGEON: Bob Nava | | | MD Shun ANESTHESIA: Sedation ANESTHESIA PROVIDER: | | | Anesthesiologist: Nitesh Mtz Jr., MD SPECIMEN: ID Type | | | Source Tests Collected by Time Destination A : GE Juntion Tissue | | | SURGICAL PATHOLOGY EXAM Bob Hoffmann MD 06/30/2019 | | | 1425 Pathology B : Ilium bx Tissue SURGICAL PATHOLOGY EXAM | | | Bob Hoffmann MD 06/30/2019 1436 Pathology C : | | | Random colon bx Tissue SURGICAL PATHOLOGY EXAM Bob Johnson | | | MD Shun 06/30/2019 1437 Pathology COMPLICATIONS: None | | | INDICATIONS FOR PROCEDURE: Corina Woods is a 39 y.o. | | | female PROCEDURE IN DETAIL: With consent obtained, the | | | patient was taken to the endoscopy suite and placed in the left | | | lateral decubitus position. A timeout was taken, and the patient | | | was adequately sedated by the department of anesthesia. I began by | | | advancing a flexible gastroscope into the oropharynx and into the | | | patient's esophagus under direct visualization. I continued to | | | advance the scope into the gastric lumen. I traversed the pylorus | | | and advanced the scope to the second portion of the duodenum. The | | | duodenal mucosa was normal without ulcer. The scope was withdrawn | | | through the pylorus. The antrum was inspected and was also | | | minimally inflamed without ulcer. Single biopsy was obtained for | | | CLOtest. At this point, the instrument was retroflexed. The | | | incisura was normal. The stomach was insufflated such that the | | | rugal folds flattened. There was no hiatal hernia and there were | | | no mucosal lesions in the fundal mucosa. The scope was anteverted | | | and the remainder of the gastric mucosa was inspected. No | | | abnormalities were identified. The scope was slowly withdrawn | | | through the GE junction. The squamocolumnar mucosa was inspected | | | and found to be mildly chronically inflamed. Single biopsy was | | | obtained for histology. The instrument was ultimately removed | | | from the patient's mouth. Attention was then turned to the | | | colonoscopy. The patient was turned around on the table and the | | | scope was passed easily up through the entire length of the colon to | | | the cecal pit which was confirmed with the identification of the | | | usual landmarks of the appendiceal orifice and the ileocecal valve. | | | Ileocecal valve was entered without difficulty showing no | | | abnormalities of the terminal ileum. Terminal ileum biopsies were | | | obtained followed by random colonic biopsies in withdrawal. No | | | polyps are seen throughout the course the examination. She did | | | have mild diverticulosis. Upon reaching the rectum, retroflexion | | | was done showing no abnormalities. The patient tolerated the | | | procedure well and there were no immediate complications. | | | Electronically Signed by: Bob Hoffmann MD, | | | 06/30/2019 2:46 PM [facility] This note was | | | transcribed using voice recognition software; there may be speech | | | recognition errors which escaped detection during highway landscape architect. | | | | | + + + + +---------+ + + | Performing | Address | City/State/Zipcode | Phone Number | | Organization | | | | + +---------+ + + | [facility] [place] | | | | + +---------+ + + Endoscopy Procedures (06/30/2019 2:45 PM PST) + + + | Narrative | Performed At | + + + | Bob Hoffmann MD 06/30/2019 2:48 PM | | | Endoscopy Report OPERATION PERFORMED: Flexible EGD with | | | biopsies, colonoscopy with biopsies REFERRING PROVIDER: Sonam | | | Lo PRE-OP DIAGNOSIS: Bloating and epigastric pain with | | | diarrhea POST-OP DIAGNOSIS: Same SURGEON: Bob Nava | | | MD Shun ANESTHESIA: Sedation ANESTHESIA PROVIDER: | | | Anesthesiologist: Nitesh Mtz Jr., MD SPECIMEN: ID Type | | | Source Tests Collected by Time Destination A : GE Juntion Tissue | | | SURGICAL PATHOLOGY EXAM Bob Hoffmann MD 06/30/2019 | | | 1425 Pathology B : Ilium bx Tissue SURGICAL PATHOLOGY EXAM | | | Bob Hoffmann MD 06/30/2019 1436 Pathology C : | | | Random colon bx Tissue SURGICAL PATHOLOGY EXAM Bob Johnson | | | MD Shun 06/30/2019 1437 Pathology COMPLICATIONS: None | | | INDICATIONS FOR PROCEDURE: Corina Woods is a 39 y.o. | | | female PROCEDURE IN DETAIL: With consent obtained, the | | | patient was taken to the endoscopy suite and placed in the left | | | lateral decubitus position. A timeout was taken, and the patient | | | was adequately sedated by the department of anesthesia. I began by | | | advancing a flexible gastroscope into the oropharynx and into the | | | patient's esophagus under direct visualization. I continued to | | | advance the scope into the gastric lumen. I traversed the pylorus | | | and advanced the scope to the second portion of the duodenum. The | | | duodenal mucosa was normal without ulcer. The scope was withdrawn | | | through the pylorus. The antrum was inspected and was also | | | minimally inflamed without ulcer. Single biopsy was obtained for | | | CLOtest. At this point, the instrument was retroflexed. The | | | incisura was normal. The stomach was insufflated such that the | | | rugal folds flattened. There was no hiatal hernia and there were | | | no mucosal lesions in the fundal mucosa. The scope was anteverted | | | and the remainder of the gastric mucosa was inspected. No | | | abnormalities were identified. The scope was slowly withdrawn | | | through the GE junction. The squamocolumnar mucosa was inspected | | | and found to be mildly chronically inflamed. Single biopsy was | | | obtained for histology. The instrument was ultimately removed | | | from the patient's mouth. Attention was then turned to the | | | colonoscopy. The patient was turned around on the table and the | | | scope was passed easily up through the entire length of the colon to | | | the cecal pit which was confirmed with the identification of the | | | usual landmarks of the appendiceal orifice and the ileocecal valve. | | | Ileocecal valve was entered without difficulty showing no | | | abnormalities of the terminal ileum. Terminal ileum biopsies were | | | obtained followed by random colonic biopsies in withdrawal. No | | | polyps are seen throughout the course the examination. She did | | | have mild diverticulosis. Upon reaching the rectum, retroflexion | | | was done showing no abnormalities. The patient tolerated the | | | procedure well and there were no immediate complications. | | | Electronically Signed by: Bob Hoffmann MD, | | | 06/30/2019 2:46 PM CC [facility] This note was | | | transcribed using voice recognition software; there may be speech | | | recognition errors which escaped detection during highway landscape architect. | | | | | + + + Helicobactor pylori Biopsy (06/30/2019 2:18 PM PST) + + + + + + | Component | Value | Ref Range | Performed | Pathologist | | | | | At | Signature | + + + + + + | Clotest | Negative | Negative | [facility] | | | (Urease), | | | [facility] | | | Qualitative | | | [facility] | | | | | | LABORATORY | | + + + + + + + + | Specimen | + + | Tissue - Specimen | | from stomach | | (specimen) | + + + + + + + | Performing | Address | City/State/Zipcode | Phone Number | | Organization | | | | + + + + + | [facility] | [address] | [place] | [phone] | | [facility] | | [address] | | + + + + + POC Glucose (06/30/2019 12:40 PM PST) + +---------+ + + + | Component | Value | Ref Range | Performed | Pathologist | | | | | At | Signature | + +---------+ + + + | Glucose, | 247 (H) | 70 - 110 mg/dL | [facility] | | | POC | | | [facility] | | | [...] + + | [facility] | [address] | [place] | [phone] | | HOSPITAL [facility] | | [address] | | + + + + + Surgical Pathology Exam (06/30/2019 12:00 AM PST) + + | Specimen | + + | Tissue | + + + + + | Narrative | Performed At | + + + | SPECIMEN(S): A GE JUNCTION SPECIMEN(S): B ILEUM SPECIMEN(S): C | [facility] | | RANDOM COLON SPECIMEN SOURCE: A. GE JUNCTION B. ILEUM C. RANDOM | [facility] | | COLON CLINICAL HISTORY: No preop or clinical information is | | | given on requisition. MICROSCOPIC DESCRIPTION: Histologic | | | sections of all submitted blocks are examined by light microscopy. | | | These findings, together with the gross examination, support the | | | pathologic diagnosis. FINAL PATHOLOGIC DIAGNOSIS: A. | | | Gastroesophageal junction, biopsy: - Gastric body-type mucosa | | | with mild chronic, inactive gastritis. - Negative for Helicobacter | | | pylori-type organisms on HE stain. - No goblet cell metaplasia or | | | intraepithelial neoplasia (no dysplasia) identified. B. Ileum, | | | biopsy: - Ileal mucosa with no significant pathologic alteration, | | | including no active inflammation and no granulomas. C. Colon, | | | random, biopsy: - Colonic mucosa with no significant pathologic | | | alteration, including no chronic, active or microscopic colitis. | | | NRT:caw:C2NR GROSS DESCRIPTION: A. Received in formalin in a | | | container labeled "Corina Woods, GE junction" is a single | | | unoriented, rodriguez-pink soft tissue measuring 0.4 x 0.3 x 0.2 cm. The | | | entire specimen is submitted in (A1). B. Received in formalin in | | | a container labeled "Corina Woods, ileum biopsy" are two | | | unoriented, rodriguez-pink soft tissues measuring 0.6 x 0.4 x 0.3 cm in | | | aggregate dimension. The entire specimen is submitted in (B1). | | | C. Received in formalin in a container labeled "Corina Woods, | | | colon biopsy, random," are multiple unoriented, rodriguez-pink soft tissues | | | measuring 0.8 x 0.5 x 0.3 cm in aggregate dimension. The entire | | | specimen is submitted in (C1). NRT:caw PERFORMING LABORATORY: | | | The technical component was performed by [facility], [address] | | [place], [place] [address] ([employer] Dental Assistant: Arianne Shankar | | | Christina Magaña). Professional interpretation was performed by [facility] | | | [facility], [facility], [address], [address], [place] | | | [place] [address] ([employer] Dental Assistant: Bob Quevedo, | | | Christina; [facility]# [id number]. Diagnostician: Arianne Magaña MD | | | Pathologist Electronically Signed 07/04/2019 | | + + + + +---------+ + + | Performing | Address | City/State[facility] | Phone Number | | Organization | | | | + +---------+ + + | [facility] | | | | | [facility] | | | | + +---------+ + + documented in this encounter Visit Diagnoses Not on filedocumented in this encounter Administered Medications + +---------+ +------+------+------+ | Medication Order | MAR | Action | Dose | Rate | Site | | | Action | Date | | | | + +---------+ +------+------+------+ | lactated ringers (LR) infusion | New Bag | 06/30/20 | | | | | at 10-100 mL/hr, Intravenous, | | 19 2:00 | | | | | CONTINUOUS, Starting 06/30/19 | | PM PST | | | | | at 1230, TKO., Pre-op | | | | | | + +---------+ +------+------+------+ +---+---+ | | | +---+---+ documented in this encounter
--- OUTSIDE RECORDS SUMMARY | ~2019-11-14 | XMS | Encounter Summary ---
Demographics + + + | Address | [address] | | | [place] [address] | + + + | Home Phone | | + + + | Preferred Language | Unknown | + + + | Marital Status | | + + + | Confucianist Affiliation | Unknown | + + + [...] Team Providers + +------+ + | Care Splash Line Operator Name | Role | Phone | [...] + + + + | 02/25/ | Implant | [facility] [place] | Delvin Dupont | Remote Device | | 2016 | Monitor | CARDIOLOGY [address] | MD Bill [address] | Interrogation | | | | [place], | [address] [place] [address] [place] | (Primary Dx); Status | | | | [place] [address] | [place] [address] | post placement of | | | | [phone] | [phone] | implantable loop | | | | | | [id number]-MEBF-Xbeqja | | | | | | kathi-02/18/16-SSM; [...] INTERROGATION- | e | 5:16 PM | placement of | procedure are in the | | REMOTE | | PST | implantable loop | results section. | | | | | nqoxmzhp-IYMK-Yggich | | | | | | kathi-02/18/16-SSM | | | | | | Syncope, unspecified | | | | | | syncope type | | | | | | Remote Device | | | | | | Interrogation | | + +--------+ + + + documented in this encounter Results Device Interrogation - Remote (06/24/2016 5:16 PM PST) + + + | Narrative | Performed At | + + + | Delvin Dupont MD 06/24/2016 17:16 Refer to [employer] | [facility] | | documentation and remote PDF scanned into [employer] for remote | | | interrogation results. Data collected by Antonella Dooley RN | | | Presenting rhythm:Sinus rhythm heart rate 64-74. 7 Symptom Episodes | | | #8 occurred 02/22/16 at 1512. EGM is consistent with sinus rhythm to | | | sinus tachycardia heart rate 75-108. #7 occurred 02/22/16 at 1501. | | | EGM is consistent with sinus rhythm to sinus tachycardia heart rate | | | 74-110. #6 occurred 02/22/16 at 1453. EGM is consistent with sinus | | | rhythm heart rate 74-110. #5 occurred 02/20/16 at 1428. EGM is | | | consistent with sinus bradycardia to sinus rhythm heart rate 47-82. | | | Some EGM's unavailable due to storage limitations of device. 0 | | | Tachy Episodes 0 Pause Episodes 0 Jean Episodes 0 AT Episodes | | | 0 AF Episodes % of time in AT/AF 0.0% Histogram good. Battery | | | ok. Apparent normal and stable function. Device interrogation due in | | | office in 06/12. Patient notified. Patient states "feels real dizzy." | | | This transmission was related to an alert [...] | Status post placement of implantable loop [id number]-FVPB-Yhctaonpx-02/18/16-SSM | + + | Syncope, unspecified syncope type | + + documented in this encounter
--- OUTSIDE RECORDS SUMMARY | ~2019-11-14 | XMS | Encounter Summary ---
Demographics + + + | Address | [address] | | | [place] [address] | + + + | Home Phone | | + + + | Preferred Language | Unknown | + + + | Marital Status | | + + + | Congregational Affiliation | Unknown | + + + | Race | Unknown | + + + | Ethnic Group | Unknown | + + + Author + + + | Author | [facility] | | | and [place] | + + + | Organization | [facility] | | | and [...] Providers + +------+ + | Care Manager Immunology Name | Role | Phone | + [...] W | Interrogation | | | | [place], | [address] [place] | (Primary Dx); Status | | | | [place] [address] | [place] [address] | post placement of | | | | [phone] | [phone] | implantable loop | | | | | | yfkztlwh-JMHS-Xdhwob | | | | | | kathi-02/18/16-SSM; [...] loop | | | | | | cyhljijs-LKYO-Dkzwzc | | | | | | kathi-02/18/16-SSM [...] | documentation and remote PDF scanned into [email or web address] for remote | | | interrogation results. [...] | Status post placement of implantable loop gfbdpnfl-LCAP-Sawtozokg-02/18/16-SS | + + | Syncope, unspecified syncope type | + + | Lightheadedness Dizziness and giddiness | + + documented in this encounter
--- OUTSIDE RECORDS SUMMARY | ~2019-11-14 | XMS | Encounter Summary ---
Demographics + + + | Address | [address] | | | [place] [address] | + + + | Home Phone | | + + + | Preferred Language | Unknown | + + + | Marital Status | | + + + | Yazidi Affiliation | Unknown | + + + | Race | Unknown | + + + | Ethnic Group | Unknown | + + + Author + + + | Author | [facility] | | | and [place] | + + + | Organization | [facility] | | | [...] Team Providers + +------+ + | Care Director Of Retail Name | Role | Phone | + +------+ + PCP | Unavailable | + +------+ + Encounter Details +--------+---------+ + + + | Date | Type | Department | Care Team | Description | +--------+---------+ + + + | 11/06/ | Office | [facility] | Vinay Lyn PA | NIKOLAS on CPAP (Primary | | 2013 | Visit | SLEEP DISORDER [address] | [address] | Dx) | | | | [address] | [place] | | | | | [place] [id number] | [id number] | | | | | [phone] | | | +--------+---------+ + + + [...] + + +---------+ + | Yes | | | Rare | + + +---------+ + + + [...] + + + | Blood Pressure | 122/98 | 11/06/2013 2:53 PM | | | | | PDT | | + + + + + | Pulse | 77 | 11/06/2013 2:53 PM | | | | | PDT | | + + + + + | Temperature | - | - | | + + + + + | Respiratory Rate | 16 | 11/06/2013 2:53 PM | | | | | PDT | | + + + + + | Oxygen Saturation | 98% | 11/06/2013 2:53 PM | | | | | PDT | | + + + + + | Inhaled Oxygen | - | - | | | Concentration | | | | + + + + + | Weight | 110.1 kg (242 lb | 11/06/2013 2:53 PM | | | | 12.8 oz) | PDT | | + + + + + | Height | 149.9 cm (4' 11") | 11/06/2013 2:53 PM | | | | | PDT | | + + + + + | Body Mass Index | 49.04 | 11/06/2013 2:53 PM | | | | | PDT | | + + + + + documented in this encounter Progress Notes Karen Spann CMA - 11/06/2013 3:13 PM PDTFormatting of this note might be different fro m the original. 11/06/13 1500 [place] Depression Inventory-II Depression Score 5 - Minimal depression Insomnia Severity Index Insomnia Severity Index 2 [place] Sleepiness Scale Sitting and reading 1 Watching TV 2 Sitting, inactive in a public place (e.g. a theatre or a meeting) 0 As a passenger in a car for an hour without a break 0 Lying down to rest in the afternoon when circumstances permit 2 Sitting and talking to someone 0 Sitting quietly after a lunch without alcohol 1 In a car, while stopped for a few minutes in traffic 1 Total score 7 SF-36v2 Score PF 54.93 RP 44.61 BP 57.89 GH 45.78 VT 58.33 SF 56.85 RE 55.88 MH 61.27 PCS 48.22 MCS 60.66 operry, FABIANA Oliveros - 11/06/2013 3:08 PM PDT Subjective: Patient ID: Corina Parada is a 33 y.o. female. HPI last office visit was: 09/07/2013 date of polysomnography: 12/16/2009 at [facility] RDI: 5.4 O2%: 68% Machine type: ResMed S9 with Enedina nasal mask obtained from: [facility] in [place] pressure: 5-20 cm 95%: 12.5 cm maxium: 13.8 cm Nights using CPAP: 58/60 average usage (all nights): 6:02 average usage (nights used): 6:15 AHI: 0.1 Corina comes in for CPAP compliance. She continues to do well with her compliance. She is sleeping so much better that she is sleeping fewer hours and is rested during the day wi th more energy. She is working extra hours during the day and still feels rested enough to do things when she gets home. She is now excited to go to bed at night because she is sleep ing so well. I have discussed the download and results of the paperwork in detail. She is unchanged or improved in nearly all categories, with a significant improvement in Vitality, ESS, RICHY and BDI. The download shows that her sleep apnea is well controlled, with an AHI of 0.1. It al so shows that her leaks are well controlled. It shows that she is wearing her CPAP >4 hours for 83% of the nights during the last 60 nights. Review of Systems Objective: Physical Exam Assessment: Problem #1: OBSTRUCTIVE SLEEP APNEA (327.23) This is well controlled with CPAP. Her CPAP compliance is going well. She is wearing her CPAP >4 hours for 83% of the nights during the last 60 nights. Plan: She is to continue with CPAP indefinitely. We have faxed a prescription to [facility] in [place] to convert her ResMed S9 to purchase. I have recommended that she touch base with them twice per year to ensure that her equipment is satisfactory. I will follow up again in 1 year, sooner prn. At that time we will reassess with all appro piate paperwork. Fifteen minutes were spent [id number], with the majority of time spent i n counseling. Vinay Lyn PA-C cc: Dr. Deonte Salmeron documented in this enco unter Plan of Treatment Not on filedocumented as of this encounter Visit Diagnoses + + | Diagnosis | + + | NIKOLAS on CPAP - Primary Obstructive sleep apnea (adult) (pediatric) | + + documented in this encounter
--- OUTSIDE RECORDS SUMMARY | ~2019-11-14 | XMS | Encounter Summary ---
Demographics + + + | Address | [address] | | | [place] [address] | + + + | Home Phone [...] Team Providers + +------+ + | Care Forensic Chemist Name | Role | Phone | + [...] | Troy Buchanan MD | [address] | | | | | unspecified | [address] | [place], | | | | | syncope type | [address] | [place] | | | | | | [place], | [address] | | | | | [place] | [place] [address] | Phone: | | | | | | Phone: | [phone] | | | | | Hyperreflexi | [phone] | Fax: | | | | | a | Fax: | [phone] | | | | | Procedures | [phone] | | | | | | MRI [...] | Troy Buchanan MD | [address] | | | | | unspecified | [address] | [place], | | | | | syncope type | [address] | [place] | | | | | | [place], | [address] | | | | | [place] | [place] [address] | Phone: | | | | | | Phone: | [phone] | | | | | Hyperreflexi | [phone] | Fax: | | | | | a | Fax: | [phone] | | | | | Procedures | [phone] | | | | | | MRI [...] | 02/25/ | Hospital | [facility] | Troy Page, | Syncope, unspecified | | 2016 | Encounter | [facility] MRI [address] | MD [address] | syncope type; | | | | [address] [place], | [place], [place] | [place]; | | | | [place] [address] | [address] | Hyperreflexia | | | | [phone] | | | +--------+ + + + [...] + +--------+ + + + | MRI ANGIOGRAM NECK W | Routin | 02/26/2016 | Syncope, | Results for this | | WO CONTRAST | e | 4:21 PM | unspecified syncope | procedure are in the | | | | PDT | type [place] | results section. | | | | | Hyperreflexia | | + +--------+ + + + documented in this encounter Results MRI Angiogram Neck w [...] feet. COMPARISON: MRI head 01/10/2016 TECHNIQUE | [facility] | | MRA HEAD: 3-D uoti-fj-fezqvq magnetic resonance angiograms were | - IMAGING | | obtained of the [place] and vertebrobasilar systems. MIP | | | and source images are available. TECHNIQUE MRA NECK: 3-D | | | rzxs-hw-heuriy magnetic resonance angiograms were obtained from the [...] head 01/10/2016TECHNIQUE MRA HEAD: 3-D | | pzgs-ji-jjosxp magnetic resonance angiograms wereobtained of the [place] and | | vertebrobasilar systems. MIP and sourceimages are available.TECHNIQUE MRA NECK: 3-D | | qear-gn-ahbuse magnetic resonance angiograms wereobtained from the level [...] | [address] | [address] | [place] | [phone] | | [facility] | | [id number] | | | - IMAGING | | | | + + + + + documented in this encounter Visit Diagnoses + + | Diagnosis | + + | Syncope, unspecified syncope type | + + | [place]cardia Other specified cardiac dysrhythmias | + + | Hyperreflexia Abnormal reflex | + + documented in this encounter Administered Medications + +--------+ +-------+------+------+ | Medication Order | MAR | Action | Dose | Rate | Site | | | Action | Date | | | | + +--------+ +-------+------+------+ | gadobutrol (GADAVIST) injection | Given | 02/26/20 | 8 mLs | | | | 8 mL 8 mL, Intravenous, ONCE | | 16 4:21 | | | | | PRN, Other, Starting 02/26/16 | | PM PDT | | | | | at 1620, For 1 dose, MRI | | | | | | + +--------+ +-------+------+------+ +---+---+ | | | +---+---+ documented in this encounter"
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
--- OUTSIDE RECORDS SUMMARY | ~2019-11-14 | XMS | Encounter Summary ---
Demographics + + + | Address | [address] | | | [place] [address] | + + + | Home Phone | | + + + | Preferred Language | Unknown | + + + | Marital Status | | + + + | Yazidi Affiliation | Unknown | + + + | Race | Unknown | + + + | Ethnic Group | Unknown | + + + Author + + + | Author | [facility] | | | and [place] | + + + | Organization | [facility] | | [...] Team Providers + +------+ + | Care Taxicab Coordinator Name | Role | Phone | + +------+ + | Tiffanie Flynn | PCP | | + +------+ + Encounter Details +--------+ + + + + | Date | Type | Department | Care Team | Description | +--------+ + + + + | 06/28/ | Hospital | [facility] | [facility] | | | 2015 | Encounter | [facility] | [facility] [address] | | | | | CENTER [address] | [place] | | | | | [address] [place] | [id number] | | | | | [address] | | | | | | [phone] | | | +--------+ + + + [...] + + + | URINALYSIS WITH | Routin | 06/28/2016 | | Results for this | | MICROSCOPIC WITH | e | 7:38 PM | | procedure are in the | | CULTURE IF INDICATED | | PST | | results section. | + +--------+ + + + | CBC W/AUTO | STAT | 06/28/2016 | | Results for this | | DIFFERENTIAL | | 6:11 PM | | procedure are in the | | | | PST | | results section. | + +--------+ + + + | , SERUM, | STAT | 06/28/2016 | | Results for this | | QUAL | | 6:11 PM | | procedure are in the | | | | PST | | results section. | + +--------+ + + + documented in this encounter Results Urinalysis with Microscopic with Culture if Indicated (06/28/2016 7:38 PM PST) + + + + + + | Component | Value | Ref Range | Performed | Pathologist | | | | | At | Signature | + + + + + + | Source | Clean Catch / VOID | | EXTERNAL | | | | | | LAB | | + + + + + + | Clarity | BLOODY | CLEAR | EXTERNAL | | | | | | LAB | | + + + + + + | Color, | RED | | EXTERNAL | | | Urine | | | LAB | | + + + + + + | Specific | 1.01 | 1.005 - 1.030 | EXTERNAL | | | [place], | | | LAB | | | Urine | | | | | + + + + + + | pH, Urine | 7 | 5.0 - 7.0 pH | EXTERNAL | | | | | | LAB | | + + + + + + | Leukocyte | 25 | NEGATIVE /uL | EXTERNAL | | | Esterase, | | | LAB | | | Urine | | | | | + + + + + + | Nitrite, | NEGATIVE | NEGATIVE | EXTERNAL | | | Urine | | | LAB | | + + + + + + | Protein, | NEGATIVE | NEGATIVE mg/dL | EXTERNAL | | | Urine | | | LAB | | + + + + + + | Glucose, | NORMAL | NORMAL mg/dL | EXTERNAL | | | Urine | | | LAB | | + + + + + + | Reducing | NOT REQUIRED | | EXTERNAL | | | Substance, | | | LAB | | | UA, POC | | | | | + + + + + + | Ketones, | NEGATIVE | NEGATIVE mg/dL | EXTERNAL | | | Urine | | | LAB | | + + + + + + | Urobilinoge | NORMAL | NORMAL mg/dL | EXTERNAL | | | n, Urine | | | LAB | | + + + + + + | Bilirubin, | NEGATIVE | NEGATIVE mg/dL | EXTERNAL | | | Urine | | | LAB | | + + + + + + | Blood, | 250 | NEGATIVE /uL | EXTERNAL | | | Urine | | | LAB | | + + + + + + | White Blood | NONE SEEN | </= 5 /HPF | EXTERNAL | | | Cells, | | | LAB | | | Urine | | | | | + + + + + + | RBC COUNT | TNTC | </= 5 PER HPF | EXTERNAL | | | | | | LAB | | + + + + + + | Bacteria, | RARE | NONE SEEN /HPF | EXTERNAL | | | UA | | | LAB | | + + + + + + | Culture | NO | | EXTERNAL | | | Indicated | | | LAB | | + + + + + + | Squamous | FEW | /LPF | EXTERNAL | | | Epithelial | | | LAB | | | Cells, | | | | | | Urine | | | | | + + + + + + + + | Specimen | + + | | + + + +---------+ + + | Performing | Address | City/State/Zipcode | Phone Number | | Organization | | | | + +---------+ + + | EXTERNAL LAB | | | | + +---------+ + + , Serum, Qual (06/28/2016 6:11 PM PST) + + + + + + | Component | Value | Ref Range | Performed | Pathologist | | | | | At | Signature | + + + + + + | HCG | NEGATIVE | NEGATIVE | EXTERNAL | | | QUALITATIVE | | | LAB | | + + + + + + | Internal QC | POSITIVE | POSITIVE | EXTERNAL | | | | | | LAB | | + + + + + + + + | Specimen | + + | | + + + +---------+ + + | Performing | Address | City/State/Zipcode | Phone Number | | Organization | | | | + +---------+ + + | EXTERNAL LAB | | | | + +---------+ + + CBC w/ Auto Differential (06/28/2016 6:11 PM PST) + +-------+ + + + | Component | Value | Ref Range | Performed | Pathologist | | | | | At | Signature | + +-------+ + + + | WBC | 8.8 | 4.3 - 10.4 | EXTERNAL | | | | | 1000/mm3 | LAB | | + +-------+ + + + | RBC | 4.23 | 4.12 - 5.30 | EXTERNAL | | | | | mil/mm3 | LAB | | + +-------+ + + + | HGB, | 10.8 | 12.4 - 15.7 | EXTERNAL | | | External | | g/dL | LAB | | + +-------+ + + + | HCT, | 33.5 | 37.7 - 47.0 % | EXTERNAL | | | External | | | LAB | | + +-------+ + + + | MCV | 79 | 82 - 97 fl | EXTERNAL | | | | | | LAB | | + +-------+ + + + | MCH | 25.5 | 27.1 - 32.3 pg | EXTERNAL | | | | | | LAB | | + +-------+ + + + | MCHC | 32.2 | 32.0 - 36.9 | EXTERNAL | | | | | g/dL | LAB | | + +-------+ + + + | RDW-CV | 15.1 | <=17.0 % | EXTERNAL | | | | | | LAB | | + +-------+ + + + | RDW-SD | 42.8 | 34.0 - 57.0 fL | EXTERNAL | | | | | | LAB | | + +-------+ + + + | Platelet | 316 | 150 - 450 | EXTERNAL | | | Count | | 1000/mm3 | LAB | | | Plasma | | | | | + +-------+ + + + | MPV | 9.5 | 9.4 - 12.3 FL | EXTERNAL | | | | | | LAB | | + +-------+ + + + | % Segmented | 52.2 | 42.0 - 76.0 % | EXTERNAL | | | | | | LAB | | | Neutrophils | | | | | + +-------+ + + + | % | 39.4 | 20.0 - 40.0 % | EXTERNAL | | | Lymphocytes | | | LAB | | + +-------+ + + + | % Monocytes | 5.5 | 3.0 - 13.0 % | EXTERNAL | | | | | | LAB | | + +-------+ + + + | % | 2 | 0.0 - 7.0 % | EXTERNAL | | | Eosinophils | | | LAB | | + +-------+ + + + | % Basophils | 0.6 | 0.0 - 2.0 % | EXTERNAL | | | | | | LAB | | + +-------+ + + + | % Immature | 0.3 | 0.0 - 0.5 % | EXTERNAL | | | Granulocyte | | | LAB | | | s | | | | | + +-------+ + + + | % nRBC | 0 | 0.0 - 0.2 /100 | EXTERNAL | | | | | WBC | LAB | | + +-------+ + + + | Absolute | 4.6 | 2.50 - 8.50 | EXTERNAL | | | Neutrophils | | 1000/mm3 | LAB | | + +-------+ + + + | Absolute | 3.48 | 1.00 - 3.80 | EXTERNAL | | | Lymphocytes | | 1000/mm3 | LAB | | + +-------+ + + + | Absolute | 0.49 | 0.00 - 0.80 | EXTERNAL | | | Monocytes | | 1000/mm3 | LAB | | + +-------+ + + + | Absolute | 0.18 | 0.00 - 0.70 | EXTERNAL | | | Eosinophils | | 1000/mm3 | LAB | | + +-------+ + + + | Absolute | 0.05 | 0.00 - 0.20 | EXTERNAL | | | Basophils | | 1000/mm3 | LAB | | + +-------+ + + + | Absolute | 0.03 | 0.00 - 0.15 | EXTERNAL | | | Immature | | 1000/mm3 | LAB | | | Granulocyte | | | | | | s | | | | | + +-------+ + + + | Absolute | 0.01 | 0.00 - 0.01 | EXTERNAL | | | nRBC | | 1000/mm3 | LAB | | + +-------+ + + + | SLIDE | NO | | EXTERNAL | | | REVIEWED | | | LAB | | + +-------+ + + + + + | Specimen | + + | | + + + +---------+ + + | Performing | Address | City/State/Zipcode | Phone Number | | Organization | | | | + +---------+ + + | EXTERNAL LAB | | | | + +---------+ + + documented in this encounter Visit Diagnoses Not on filedocumented in this encounter"
--- OUTSIDE RECORDS SUMMARY | ~2019-11-14 | XMS | Encounter Summary ---
Demographics + + + | Address | [address] | | | [place] [address] | + + + | Home Phone [...] Team Providers + +------+ + | Care Tool Room Attendant Name | Role | Phone | [...] and tingling | [address] | | | | n | in both | [address] | [place], | | | | | hands | [place], | [place] [address] | | | | | Numbness in | [place] [address] | Phone: | | | | | feet | Phone: | [phone] | | | | | Procedures | [phone] | Fax: | | | | | AL NEEDLE | Fax: | [phone] | | | | | EMG EA | [phone] | | | | | | EXTREMITY | | | | | | | W/PARASPINL | | | | | | | AREA LIMITED | | | | | | | AL OFFICE | | | | | | | OUTPATIENT | | | | | | | VISIT 25 | | | | | | | MINUTES AL | | | | | | | MOTOR &/SENS | | | | | | | 13/> NRV | | | | | | | CNDJ PRECONF | | | | | | | ELTRODE | | | | | | | LIMB AL | | | | | | | [...] PHYSIATRY [address] | MD [address] | tingling in both | | | | [address] | [place] | hands (Primary Dx); | | | | [place] | [id number] | Numbness in feet; | | | | [address] | | Hyperreflexia; | | | | [phone] | | Syncope, unspecified | | | [...] PM PDTPlease continue following up with the long chain beamer, Dr. Dupont. Please see the neurologist as scheduled. Talk to your scaffold worker about the skin abnormality on the back of your right upper arm.E lectronically signed by Troy Page MD at 04/07/2016 12:30 PM PDT documented in this encounter Progress Notes Tory Page MD - 04/07/2016 12:29 PM PDTFormatting of this note might be different fro m the original. [facility] Physical Medicine & Rehabilitation [address] [place] [address], [address] [place] [address] Test Date: 04/07/2016 Patient Name: Corina Parada : 1980 Physician: Troy Page MD (Jr.) MR #: [id number] Sex: Female Referring Physician: TEIRNEY King HISTORY: Ms. Parada denies any significant [...] in some time. She has seen the long chain beamer and has a loop recorder placed. She [...] triceps, wrist dorsiflexion, finger abduction and hand door glass installer in both upper extr emities. She has [...] She reports that she already sees a scaffold worker for a smal l lesion on her face below her eye. She was advised to have the scaffold worker look at the l esion on the [...] recommended that she continue care with the long chain beamer. It is possible that her co nstellation [...]
--- OUTSIDE RECORDS SUMMARY | ~2019-11-14 | XMS | Encounter Summary ---
Demographics + + + | Address | [address] | | | [place] [address] | + + + | Home Phone | | + + + | Preferred Language | Unknown | + + + | Marital Status | | + + + | Protestant Affiliation | Unknown | + + + | Race | Unknown | + + + | Ethnic Group | Unknown | + + + Author + + + | Author | [facility] | | | and [place] | + + + | Organization | [facility] | | | [...] Team Providers + +------+ + | Care Tuckpointer Name | Role | Phone | + [...] Description | +--------+---------+ + + + | 11/03/ | Surgery | [facility] | Delvin Dupont | CV EP Loop Recorder | | 2017 | | MED CTR CV INTRA OP | MD Bill [address] | Procedure | | | | [address] [facility] | | | | | [place] | [place] [address] | | | | | [address] | [phone] | | | | | [phone] | | | +--------+---------+ + + + [...] 131 | 70 - 150 mg/dL | [facility] | | | POC [...] [address] | [place] | [phone] | | [facility] | | [address] | | | - LABORATORY | | | | + + + + + documented in this encounter Visit Diagnoses Not on filedocumented in this encounter Administered Medications + +--------+ +--------+------+------+ | Medication Order | MAR | Action | Dose | Rate | Site | | | Action | Date | | | | + +--------+ +--------+------+------+ | fentaNYL (PF) injection ONCE | Given | 11/04/19 | 25 mcg | | | | PRN, Starting Wed11/03/16 at 0747, | | 17 7:59 | | | | | Intra-op | | AM PDT | | | | + +--------+ +--------+------+------+ +-------+ +--------+---+---+ | Given | 11/04/19 | 25 mcg | | | | | 17 7:53 | | | | | | AM PDT | | | | +-------+ +--------+---+---+ | Given | 11/04/19 | 50 mcg | | | | | 17 7:49 | | | | | | AM PDT | | | | +-------+ +--------+---+---+ +---+---+ | | | +---+---+ + +-------+ +--------+---+---+ | midazolam (VERSED) 1 mg/mL | Given | 11/04/19 | 0.5 mg | | | | injection ONCE PRN, Starting Tue | | 17 7:59 | | | | | 11/03/16 at 0747, Intra-op | | AM PDT | | | | + +-------+ +--------+---+---+ +-------+ +--------+---+---+ | Given | 11/04/19 | 0.5 mg | | | | | 17 7:53 | | | | | | AM PDT | | | | +-------+ +--------+---+---+ | Given | 11/04/19 | 1 mg | | | | | 17 7:49 | | | | | | AM PDT | | | | +-------+ +--------+---+---+ +---+---+ | | | +---+---+ + +-------+ +------+---+---+ | ondansetron (ZOFRAN) injection | Given | 11/04/19 | 8 mg | | | | ONCE PRN, Starting 11/03/16 at | | 17 7:36 | | | | | 0736, Intra-op | | AM PDT | | | | + +-------+ +------+---+---+ +---+---+ | | | +---+---+ + +---------+ +---+-------+---+ | sodium chloride 0.9% (NS) | New Bag | 11/04/19 | | 125 | | | infusion at 125 mL/hr, | | 17 6:47 | | mL/hr | | | Intravenous, CREDIT INVESTIGATOR, Starting | | AM PDT | | [...]
--- OUTSIDE RECORDS SUMMARY | ~2019-11-14 | XMS | Encounter Summary ---
Demographics + + + | Address | [address] | | | [place] [address] | + + + | Home Phone | | + + + | Preferred Language | Unknown | + + + | Marital Status | | + + + | Restoration Affiliation | Unknown | + + + | Race | Unknown | + + + | Ethnic Group | Unknown | + + + Author + + + | Author | [facility] | | | and [place] | + + + | Organization | [facility] | | [...] Team Providers + +------+ + | Care Licensed Occupational Therapist Name | Role | Phone | + +------+ + PCP | Unavailable | + +------+ + Encounter Details +--------+ + + + + | Date | Type | Department | Care Team | Description | +--------+ + + + + | 03/21/ | Hospital | [facility] | Conversion | Pain | | 2015 | Encounter | CONVERSION [address] | Transaction, | | | | | [address] | Provider Unknown | | | | | [place] | [phone] | | | | | [address] | | | | | | [phone] | | | +--------+ + + + [...]
--- OUTSIDE RECORDS SUMMARY | ~2019-11-14 | XMS | Encounter Summary ---
Demographics + + + | Address | [address] | | | [place] [address] | + + + | Home Phone | | + + + | Preferred Language | Unknown | + + + | Marital Status | | + + + | Gnosticism Affiliation | Unknown | + + + | Race | Unknown | + + + | Ethnic Group | Unknown | + + + Author + + + | Author | [facility] | | | and [place] | + + + | Organization | [facility] | | [...] Team Providers + +------+ + | Care Program Management Professional Name | Role | Phone | + [...] | Troy Buchanan MD | [address] | | | | | unspecified | [address] | [place], | | | | | syncope type | [address] | [place] | | | | | | [place], | [address] | | | | | [place] | [place] [address] | Phone: | | | | | | Phone: | [phone] | | | | | Hyperreflexi | [phone] | Fax: | | | | | a | Fax: | [phone] | | | | | Procedures | [phone] | | | | | | MRI [...] | | | | Syncope, | Troy Hasmukh Buchanan MD | [address] | | | | | unspecified | [address] | [place], | | | | | syncope type | [address] | [place] | | | | | | [place], | [address] | | | | | [place] | [place] [address] | Phone: | | | | | | Phone: | [phone] | | | | | Hyperreflexi | [phone] | Fax: | | | | | a | Fax: | [phone] | | | | | Procedures | [phone] | | | | | | MRI [...] + + | 02/25/ | Hospital | [facility] | Troy Page, | Syncope, unspecified | | 2016 | Encounter | MED CTR MRI [address] | MD [address] | syncope type; | | | | [place], | [place], [place] | [place]; | | | | [place] [address] | [address] | Hyperreflexia | | | | [phone] | | | +--------+ + + + [...] +--------+ + + + | MRI ANGIOGRAM HEAD | Routin | 02/26/2016 | Syncope, | Results for this | | WO CONTRAST | e | 4:13 PM | unspecified syncope | procedure are in the | | | | PDT | type Bradycardia | results section. | | | | | Hyperreflexia | | + +--------+ + + + documented in this encounter Results MRI Angiogram Head wo Contrast (02/26/2016 4:13 PM PDT) + + | Specimen | + + | | + + + + + | Narrative | Performed At | + + + | MRI ANGIOGRAM HEAD WO CONTRAST. 02/26/2016 4:13 PM HISTORY: | [facility] | | syncope and pre-sycope with neck extension, hyperreflexion, numbness | . [facility] | | in hands and feet. COMPARISON: MRI head 01/10/2016 TECHNIQUE | [facility] | | MRA HEAD: 3-D qxlb-yg-bixfxy magnetic resonance angiograms were | - IMAGING | | obtained of the [place] and vertebrobasilar systems. MIP | | | and source images are available. TECHNIQUE MRA NECK: 3-D | | | zoae-jy-lpvcqs magnetic resonance angiograms were obtained from the [...] head 01/10/2016TECHNIQUE MRA HEAD: 3-D | | qrth-tn-wnduyk magnetic resonance angiograms wereobtained of the [place] and | | vertebrobasilar systems. MIP and sourceimages are available.TECHNIQUE MRA NECK: 3-D | | xonr-ve-wbkitr magnetic resonance angiograms wereobtained from the level [...] | [address] | [address] | [place] | [phone] | | [facility] | | [address] | | | - IMAGING | | | | + + + + + documented in this encounter Visit Diagnoses + + | Diagnosis | + + | Syncope, unspecified syncope type | + + | Bradycardia Other specified cardiac dysrhythmias | + + | Hyperreflexia Abnormal reflex | + + documented in this encounter"
--- OUTSIDE RECORDS SUMMARY | ~2019-11-14 | XMS | Encounter Summary ---
Demographics + + + | Address | [address] | | | [place] [address] | + + + | Home Phone | | + + + | Preferred Language | Unknown | + + + | Marital Status | | + + + | Adventist Affiliation | Unknown | + + + [...] Providers + +------+ + | Care Director Marketing Name | Role | Phone | + [...] | +--------+ + + + + | 11/02/ | Implant | [facility] [place] | Delvin Dupont | Remote Device | | 2017 | Monitor | CARDIOLOGY [address] | MD Bill [address] | Interrogation | | | | [place], | [address] [place] | (Primary Dx); Status | | | | [place] [address] | [place] [address] | post placement of | | | | [phone] | [phone] | implantable loop | | | | | | [id number]-[id number] | | | | | | kathi-02/18/16-[facility]M; [...] + + | DEVICE | Routin | 01/08/2017 | Remote Device | Results for this | | INTERROGATION- | e | 4:11 PM | Interrogation | procedure are in the | | REMOTE | | PDT | Status post | results section. | | | | | placement of | | | | | | implantable loop | | | | | | [id number]-ZTYY-[id number] | | | | | | kathi-02/18/16-[facility] | | | | | | Syncope, unspecified | | | | | | syncope type | | + +--------+ + + + documented in this encounter Results Device Interrogation - Remote (01/08/2017 4:11 PM PDT) + + + | Narrative | Performed At | + + + | Delvin Dupont MD 01/08/2017 16:11 Refer to [facility] | [facility]ACE[facility] | | documentation and remote PDF scanned into [employer] for remote | | | interrogation results. Data collected by Antonella Dooley RN | | | Presenting rhythm: Sinus rhythm heart rate 88-95. 1 Symptom | | | Episodes #20 occurred 10/17 at 1441. EGM is consistent with sinus | | | rhythm to sinus bradycardia heart rate 40-89 with an isolated PAC. | | | 0 Tachy Episodes 0 Pause Episodes 0 Jean Episodes 0 AT Episodes | | | 0 AF Episodes % of time in AT/AF 0.0 % Histogram fair. Battery | | | ok. Apparent normal and stable function. Device interrogation due in | | | office in 01-13. Patient notified. Patient states witnessed | | | lightheaded, dizzy, sweaty, vomited. | | + + + + +---------+ [...] | Status post placement of implantable loop [id number]-ZWIA-Wqpfzohsi-02/18/16-SSM | + + | Syncope, unspecified syncope type | + + documented in this encounter"
--- OUTSIDE RECORDS SUMMARY | ~2019-11-14 | XMS | Encounter Summary ---
Demographics + + + | Address | [address] | | | [place] [address] | + + + | Home Phone [...] Team Providers + +------+ + | Care Dryer Operator Name | Role | Phone | + +------+ + | Tiffanie Flynn | PCP | | + +------+ + Encounter Details +--------+ + + + + | Date | Type | Department | Care Team | Description | +--------+ + + + + | 11/20/ | Orders Only | [facility] | Luis Carlos Sullivan | | | 2016 | | CONVERSION 888 | MD [address] | | | | | [place] [address] | Stephanie Mccurdy | | | | | [place], [place] | [place] [address] | | | | | [address] | [phone] | | | | | [phone] | | | +--------+ + + + [...] + +--------+ + + + | ECHO INTERPRETATION | Routin | 11/21/2015 | | Results for this | | OF OUTSIDE FILMS | e | 1:49 PM | | procedure are in the | | | | PDT | | results section. | + +--------+ + + + documented in this encounter Results ECHO Interpretation of Outside Films (11/21/2015 1:49 PM PDT) + + | Specimen | + + | | + + + + + | Impressions | Performed At | + + + | 1. Essentially normal study. 2. See Dictation. | | + + + + + + | Narrative | Performed At | + + + | Patient Name: Corina Parada Date of : 1980 | | | Performing Physician: Luis Carlos Sullivan DO | | | | | | INDICATIONS syncope CONCLUSIONS 1. | | | Essentially normal study. 2. See Dictation. FINDINGS -------- | | | ECG rhythm: Sinus rhythm. Study: This was a technically adequate | | | study. Left Ventricle: Overall left ventricular systolic function is | | | normal with, an EF between 60 - 65 %. Left Ventricle: The left | | | ventricle cavity size is normal. Left Ventricle: Left ventricular | | | wall thickness is normal. Left Ventricle: The diastolic filling | | | pattern is normal for the age of the patient. Right Ventricle: The | | | right ventricle is normal in size and function. Left Atrium: The left | | | atrium is normal in size. Right Atrium: The right atrium is normal | | | in size. Aortic Valve: The aortic valve is trileaflet, and appears | | | anatomically normal. No aortic stenosis or regurgitation. Mitral | | | Valve: The mitral valve is normal. Tricuspid Valve: The tricuspid | | | valve appears structurally normal. Pulmonic Valve: Pulmonic valve | | | appears structurally normal. Pericardium: There is no pericardial | | | effusion. IVC/Hepatic Veins: The IVC is normal size (1.5-2.5cm) and | | | collapses >50% with sniff, consistent with central venous pressures of | | | 5-10mmHg. MEASUREMENTS Marketing Information Manager: MISAEL | | | Authenticated by: Luis Carlos Sullivan DO Report Date/Time: -- | | | [id number] | | + + + + + | Procedure Note | + + | Charles Meza - 02/23/2019 8:59 PM PDT Patient Name: Ni Parada | | of : 1980 Performing Physician: Luis Carlos Sullivan | | DO INDICATIONS s | | yncope CONCLUSIONS 1. Essentially normal study.2. See Dictation. | | FINDINGS--------ECG rhythm: Sinus rhythm.Study: This was a technically adequate | | study.Left Ventricle: Overall left ventricular systolic function is normal with, an EF | | between 60 - 65 %.Left Ventricle: The left ventricle cavity size is normal.Left | | Ventricle: Left ventricular wall thickness is normal.Left Ventricle: The diastolic | | filling pattern is normal for the age of the patient.Right Ventricle: The right | | ventricle is normal in size and function.Left Atrium: The left atrium is normal in | | size.Right Atrium: The right atrium is normal in size.Aortic Valve: The aortic valve is | | trileaflet, and appears anatomically normal. No aortic stenosis or regurgitation.Mitral | | Valve: The mitral valve is normal.Tricuspid Valve: The tricuspid valve appears | | structurally normal.Pulmonic Valve: Pulmonic valve appears structurally | | normal.Pericardium: There is no pericardial effusion.IVC/Hepatic Veins: The IVC is | | normal size (1.5-2.5cm) and collapses >50% with sniff, consistent with central venous | | pressures of 5-10mmHg. MEASUREMENTS Marketing Information Manager: DHAuthenticated by: | | Luis Carlos White Date/Time: -- [id number] IMPRESSION: 1. Essentially | | normal study.2. See Dictation. | |ECG rhythm: Sinus rhythm. | |Study: This was a technically adequate study. | |Left Ventricle: Overall left ventricular systolic function is normal with, an EF between 60 - 65 %. | |Left Ventricle: The left ventricle cavity size is normal. | |Left Ventricle: Left ventricular wall thickness is normal. | |Left Ventricle: The diastolic filling pattern is normal for the age of the patient. | |Right Ventricle: The right ventricle is normal in size and function. | |Left Atrium: The left atrium is normal in size. | |Right Atrium: The right atrium is normal in size. | |Aortic Valve: The aortic valve is trileaflet, and appears anatomically normal. No aortic st enosis or regurgitation. | |Mitral Valve: The mitral valve is normal. | |Tricuspid Valve: The tricuspid valve appears structurally normal. | |Pulmonic Valve: Pulmonic valve appears structurally normal. | |Pericardium: There is no pericardial effusion. | |IVC/Hepatic Veins: The IVC is normal size (1.5-2.5cm) and collapses >50% with sniff, consis tent with central venous pressures of 5-10mmHg. | | | |MEASUREMENTS | | | | | |Marketing Information Manager: MISAEL | |Authenticated by: Luis Carlos Sullivan DO | |Report Date/Time: -- [id number] | | | |IMPRESSION: | |1. Essentially normal study. | |2. See Dictation. | + + documented in this encounter Visit Diagnoses Not on filedocumented in this encounter"
--- OUTSIDE RECORDS SUMMARY | ~2019-11-14 | XMS | Encounter Summary ---
Demographics + + + | Address | [address] | | | [place] [address] | + + + | Home Phone | | + + + | Preferred Language | Unknown | + + + | Marital Status | | + + + | Pentecostalism Affiliation | Unknown | + + + | Race | Unknown | + + + | Ethnic Group | Unknown | + + + Author + + + | Author | [facility] | | | and [place] | + + + | Organization | [facility] | [...] Team Providers + +------+ + | Care Air Press Operator Name | Role | Phone | [...] [address] | | | | | [place], | [address] [place] | | | | | [place] [address] | [place] [address] | | | | | [phone] | [phone] | | | | | | | [...]
--- OUTSIDE RECORDS SUMMARY | ~2019-11-14 | XMS | Clinical Summary ---
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 MODEL NAME MODEL# SERIAL# DATE IMPLANTED GENERATOR | | Medtronic LINQ [id number] 02/18/16 Explanted 11/09/16 by | Shi Dupont. [...] /[id number] | | Delvin Khan MD at [facility] | Loop | Chest | | | | [address] | | [facility] | Record | | | | [...] | [employer] | MODA | [id number] | | [phone] | | Medica | | MEDICAID HMO | HEALTH | | 020-Pr | 1 | | id | | | MDCD | | esent | | | | | | HMO OR | | | | | | + +--------+ +--------+ +---------+--------+ | [employer] | MOD[employer] | [id number] | 06/27/ | [phone] | | Medica | | MEDICAID HMO [...] Jenise | al/Garcia | | 1980 | [phone] | [place] [address] | | | erwin | | | 4 (Home) | | | | | | | [phone] | | | | | | | 4 (Work) | | + +--------+ +--------+ + + | Coirna Woods | Person | Self | [birth year] | [address] | | Jenise | al/Garcia | | 1980 | [phone] | [place] [address] | | | [place]win | | | 4 (Home) | | | | | | | [phone] | | | | | | | 4 (Work) | | + +--------+ +--------+ + + Advance Directives + + + + + | Type | Date Recorded | Patient | Explanation | | | | Customer Service Representative Teacher | | + + + + + | Power of | | | | | Planning Intern | | | | + + + + + | Power of | | | | | Planning Intern | | | | + + + [...]
--- OUTSIDE RECORDS SUMMARY | ~2019-11-14 | XMS | Encounter Summary ---
Demographics + + + | Address | [address] | | | [place] [address] | + + + | Home Phone | | + + + | Preferred Language | Unknown | + + + | Marital Status | | + + + | Mu-Ism Affiliation | Unknown | + + + | Race | Unknown | + + + | Ethnic Group | Unknown | + + + Author + + + | Author | [facility] | | | and [place] | + + + | Organization | [facility] | | | and [...] Team Providers + +------+ + | Care Helper Animal Laboratory Name | Role | Phone | + [...] | +--------+ + + + + | 09/04/ | Telephone | [facility] | Delvin Dupont | Appointment | | 2017 | | [facility] [address] | MD Bill [address] | | | | | [place], | [address] [place] | | | | | [place] [address] | [place] [address] | | | | | [phone] | [phone] | | | | | | | [...]
--- OUTSIDE RECORDS SUMMARY | ~2019-11-14 | XMS | Encounter Summary ---
Demographics + + + | Address | [address] | | | [place] [address] | + + + | Home Phone | | + + + | Preferred Language | Unknown | + + + | Marital Status | | + + + | Uatsdin Affiliation | Unknown | + + + [...] Team Providers + +------+ + | Care Waste Treatment Operator Name | Role | Phone | [...] Monitor | CARDIOLOGY [address] | MD [address] | Interrogation | | | | [place], | [address] [place] | (Primary Dx); Status | | | | [place] [address] | [place] [address] | post placement of | | | | [phone] | [phone] | implantable loop | | | | | | ajyfyiah-JBMU-Hwuwkh | | | | | | kathi-02/18/16-[facility]; [...] results section. | | | | | kbxcuclp-JBLX-Smnbrh | | | | | | kathi-02/18/16-[facility] [...] | documentation and remote PDF scanned into [employer] for remote | | | interrogation results. [...] | Status post placement of implantable loop wqrugmbg-GVHS-Bfomrcrsn-02/18/16-[facility] | + + | Syncope, unspecified syncope type | + + documented in this encounter
--- OUTSIDE RECORDS SUMMARY | ~2019-11-14 | XMS | Encounter Summary ---
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 [address] | MD Bill | | | | | hypertension | [address] | [address] | | | | | Syncope | [place], | [place] | | | | | and collapse | [place] [address] | [place], [place] | | | | | Pure | Phone: | [phone] Phone: | | | | | hypercholest | [phone] | [phone] | | | | | erolemia | Fax: | Fax: | | | | | WOUND CHECK | [phone] | [phone] | | | | | FOR IMPLANT [...] | placement of | | | | [place], | [address] [place] | implantable loop | | | | [place] [address] | [place] [address] | ywpratgr-KNOZ-Nhvscf | | | | [phone] | [phone] | kathi-02/18/16-[facility] | | | | | [...] she thought looked like a car cigarette english language learner tutor burn turned out to be the glue [...] | Status post placement of implantable loop aesgmuyo-DYDL-Sgpvpypnp-02/18/16-[facility] - | | Primary | + + | Syncope, unspecified syncope type | + + documented in this encounter"
--- OUTSIDE RECORDS SUMMARY | ~2019-11-14 | XMS | Encounter Summary ---
Demographics + + + | Address | [address] | | | [place] [address] | + + + | Home Phone | | + + + | Preferred Language | Unknown | + + + | Marital Status | | + + + | Sabianist Affiliation | Unknown | + + + [...] Team Providers + +------+ + | Care Lipstick Molder Name | Role | Phone | + [...] W | Interrogation | | | | [address], | [address] [place] | (Primary Dx); Status | | | | [place] [address] | [place] [address] | post placement of | | | | [phone] | [phone] | implantable loop | | | | | | hcdgvuvo-TZBV-Xfdnmk | | | | | | kathi-02/18/16-[facility]; [...] loop | | | | | | rdozerim-IDVW-Cgybiw | | | | | | kathi-02/18/16-[facility] [...] | documentation and remote PDF scanned into [employer] for remote | | | interrogation results. [...] | Status post placement of implantable loop tbhudugv-YTQD-Rqwadpbqn-02/18/16-[facility] | + + | Syncope, unspecified syncope type | + + documented in this encounter
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
--- OUTSIDE RECORDS SUMMARY | ~2019-11-14 | XMS | Encounter Summary ---
Demographics + + + | Address | [address] | | | [place] [address] | + + + | Home Phone | | + + + | Preferred Language | Unknown | + + + | Marital Status | | + + + | Pentecostalism Affiliation | Unknown | + + + | Race | Unknown | + + + | Ethnic Group | Unknown | + + + Author + + + | Author | [facility] | | | and [place] | + + + | Organization | [facility] | | [...] Team Providers + +------+ + | Care Vendor Representatives Name | Role | Phone | + +------+ + PCP | Unavailable | + +------+ + Encounter Details +--------+ + + + + | Date | Type | Department | Care Team | Description | +--------+ + + + + | 03/21/ | Hospital | [facility] | Conversion | Pain | | 2015 | Encounter | CONVERSION [address] | Transaction, | | | | | [address] | Provider Unknown | | | | | [place] | [phone] | | | | | [address] | | | | | | [phone] | | | +--------+ + + + [...]
--- OUTSIDE RECORDS SUMMARY | ~2019-11-14 | XMS | Encounter Summary ---
Demographics + + + | Address | [address] | | | [place] [address] | + + + | Home Phone | | + + + | Preferred Language | Unknown | + + + | Marital Status | | + + + | Zoroastrianism Affiliation | Unknown | + + + | Race | Unknown | + + + | Ethnic Group | Unknown | + + + Author + + + | Author | [facility] | | | and [place] | + + + | Organization | [facility] | | | and [...] Team Providers + +------+ + | Care Project Leader Name | Role | Phone | + +------+ + PCP | Unavailable | + +------+ + Encounter Details +--------+ + + + + | Date | Type | Department | Care Team | Description | +--------+ + + + + | 12/05/ | Documentati | [facility] | Vinay Lyn PA | | | 2015 | on | SLEEP DISORDER [address] | [address] | | | | | [address] [place] | [place] | | | | | [place] [id number] | [id number] | | | | | [phone] | | | +--------+ + + + [...] documented as of this encounter Progress Notes Vinay Lyn PA - 12/05/2014 3:19 PM Bren was last seen in our office on 11/17/19 14. She did not cancel or show up for her appointment on 11/06/2014. We were not able to co ntact her due to a disconnected phone number. We will not make further calls. Problem #1: OBSTRUCTIVE SLEEP APNEA (327.23) This is controlled with CPAP. Her compliance was going well at her last appointment. She did not cancel or show up for her follow up appointment and we were not able to contact her due to a disconnected phone number. 1. I will follow up with Corina at her request. We will not make further efforts to sc hedule her. Cc: Deonte Salmeron DO dosheron benson in this encounter Plan of Treatment Not on filedocumented as of this encounter Visit Diagnoses Not on filedocumented in this encounter"
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
--- OUTSIDE RECORDS SUMMARY | ~2019-11-14 | XMS | Encounter Summary ---
Demographics + + + | Address | [address] | | | [place] [address] | + + + | Home Phone [...] Team Providers + +------+ + | Care Label Machine Operator Name | Role | Phone [...] + + | 02/17/ | Hospital | [facility] | Delvin Dupont | Lightheadedness | | 2016 | Encounter | MED CTR CV INTRA OP | MD Bill [address] | (Primary Dx); | | | | [address] | [address] [place] | Syncope, unspecified | | | | [place], [place] | [place] [address] | syncope type | | | | [address] | [phone] | | | | | [phone] | | | +--------+ + + + [...] about which risks most apply to you. [id number] [employer]. [address] [place] [address] [place] [address]. All righ ts reserved. This information is [...] | | | FNPSURGEON:Delvin Dupont MD, PhD, [facility] DATE OF PROCEDURE: | | | 02/18/2016 PROCEDURES PERFORMED:1. Implantation of a Medtronic | | | loop recorder. INDICATIONS: 1. Syncope, lightheadedness | | | DESCRIPTION OF PROCEDURE: After informed consent was obtained, the | | | patient was taken to the laborer adjustable steel joist lab. Patient was hooked up to | [...] | | model Reveal LINQ, serial #: [id number]. DEVICE SETTINGS: VT: 350 | | | ms(171bpm) for 16 beatsBradycardia: 2000 ms(30bpm) for 4 | | | beats.Asystole: 3 seconds. Delvin Dupont MD, PhD, | | | [facility]02/18/2016 15:15 | | |After informed consent was obtained, the patient was taken to | | |the laborer adjustable steel joist lab. Patient was hooked up to EKG, [...] | | |DEVICE INFORMATION: | | |A. Do IT developers loop recorder, model Reveal LINQ, serial #: | | |[id number]. | | | | | |DEVICE SETTINGS: [...] [address] | [place] | [phone] | | [facility] | | [id number] | | | - LABORATORY | | [...]
--- OUTSIDE RECORDS SUMMARY | ~2019-11-14 | XMS | Encounter Summary ---
Demographics + + + | Address | [address] | | | [place] [address] | + + + | Home Phone | | + + + | Preferred Language | Unknown | + + + | Marital Status | | + + + | Restoration Affiliation | Unknown | + + + | Race | Unknown | + + + | Ethnic Group | Unknown | + + + Author + + + | Author | [facility] | | | and [place] | + + + | Organization | [facility] [...] Team Providers + +------+ + | Care Carpenter Prototype Name | Role | Phone | + +------+ + | Tiffanie Flynn | PCP | | + +------+ + Reason for Visit + + + | Reason | Comments | + + + | Appointment | NO SHOW ON 01-13-17 NEEDS RESCHEDULED | + + + Encounter Details +--------+ + + + + | Date | Type | Department | Care Team | Description | +--------+ + + + + | 03/12/ | Telephone | [facility] | Delvin Dupont | Appointment (NO SHOW | | 2017 | | CARDIOLOGY [address] | MD [address] | ON 01-13-17 NEEDS | | | | [place] [address], | [address] [place] | RESCHEDULED) | | | | [place] [address] | [place] [address] | | | | | [phone] | [phone] | | | | | | | [...]
--- OUTSIDE RECORDS SUMMARY | ~2019-11-14 | XMS | Encounter Summary ---
Demographics + + + | Address | [address] | | | [place] [address] | + + + | Home Phone [...] + + | Author | [facility] | | | and [place] | + + + | Organization | [facility] | | | [...] Team Providers + +------+ + | Care Piece Marker Small Arms Name | Role | Phone | + +------+ + PCP | Unavailable | + +------+ + Encounter Details +--------+ + + + + | Date | Type | Department | Care Team | Description | +--------+ + + + + | 03/21/ | Hospital | [facility] | Conversion | Pain | | 2015 | Encounter | CONVERSION [address] | Transaction, | | | | | [address] | Provider Unknown | | | | | [place] | [phone] | | | | | [address] | | | | | | [phone] | | | +--------+ + + + [...]
--- OUTSIDE RECORDS SUMMARY | ~2019-11-14 | XMS | Encounter Summary ---
Demographics + + + | Address | [address] | | | [place] [address] | + + + | Home Phone | | + + + | Preferred Language | Unknown | + + + | Marital Status | | + + + | Adventism Affiliation | Unknown | + + + | Race | Unknown | + + + | Ethnic Group | Unknown | + + + Author + + + | Author | [facility] | | | and [place] | + + + | Organization | [facility] | | [...] Team Providers + +------+ + | Care Certified Personal Trainer Name | Role | Phone | + +------+ + PCP | Unavailable | + +------+ + Encounter Details +--------+ + + + + | Date | Type | Department | Care Team | Description | +--------+ + + + + | 04/25/ | Hospital | [facility] | Conversion | | | 2015 | Encounter | [facility] | Transaction, | | | | | CLINIC [address] | Provider Unknown | | | | | [address] [place], [place] | | | | | | [address] | (Fax) | | | | | [phone] | | | +--------+ + + + [...]
--- OUTSIDE RECORDS SUMMARY | ~2019-11-14 | XMS | Encounter Summary ---
Demographics + + + | Address | [address] | | | [place] [address] | + + + | Home Phone | | + + + | Preferred Language | Unknown | + + + | Marital Status | | + + + | Faith Affiliation | Unknown | + + + [...] Team Providers + +------+ + | Care Rn Primary Care Name | Role | Phone | + +------+ + PCP | Unavailable | + +------+ + Encounter Details +--------+ + + + + | Date | Type | Department | Care Team | Description | +--------+ + + + + | 05/03/ | Hospital | [facility] | Kirby Castro | Mediastinal | | 2015 | Encounter | [facility] | Stephen Dc MD [address] | adenopathy | | | | INTRA OP [address] | [address] | | | | | [place], [place] | [place] [address] | | | | | [address] | [phone] | | | | | [phone] | | | +--------+ + + + [...] XR CHEST 1 VIEW | Routin | 05/03/2015 | | Results for this | | | e | 9:52 AM | | procedure are in the | | | | PDT | | results section. | + +--------+ + + + | HISTORICAL | Routin | 05/03/2015 | | Results for this | | MICROBIOLOGY RESULT | e | 8:11 AM | | procedure are in the | | | | PDT | | results section. | + +--------+ + + + | HCG, URINE, QUAL | Routin | 05/03/2015 | | Results for this | | | e | 6:02 AM | | procedure are in the | | | | PDT | | results section. | + +--------+ + + + | MEDICAL CYTOLOGY | Routin | 05/03/2015 | | Results for this | | | e | 12:00 AM | | procedure are in the | | | | PDT | | results section. | + +--------+ + + + documented in this encounter Results XR Chest 1 Vw (05/03/2015 9:52 AM PDT) + + | Specimen | + + | | + + + + + | Impressions | Performed At | + + + | Air-fluid level of the right mid hemithorax. This may represent a | | | cavitary lesion of the right lung, loculated pleural fluid or density | | | overlying the patient. CT could evaluate this area more accurately. | | | | | + + + + + + | Narrative | Performed At | + + + | CORINA SANCHEZNTON 1980 35 years XR CHEST 1 VIEW 05/03/2015 | | | 9:52 AM INDICATION: Endobronchial fine needle aspiration. | | | COMPARISON: April 25, 2015 CT. TECHNIQUE: Chest 1 view, AP view | | | of the chest FINDINGS: Lungs are clear. No pleural effusion, | | | no pneumothorax. Air-fluid level of the right mid hemithorax, this | | | may represent an intrinsic pulmonary cavitary lesion, loculated | | | pleural fluid or a density overlying the chest wall. No acute | | | osseous abnormality. | | + + + + + | Procedure Note | + + | Derrick, Rad Conversion - 02/17/2019 10:10 AM PDT CORINA SAUCEDA1980 35 yearsXR | | CHEST 1 VIEW05/03/2015 9:52 AM INDICATION: Endobronchial fine needle aspiration. | | COMPARISON: April 25, 2015 CT. TECHNIQUE: Chest 1 view, AP view of the chest | | FINDINGS:Lungs are clear. No pleural effusion, no pneumothorax. Air-fluid level of the | | right mid hemithorax, this may represent an intrinsic pulmonary cavitary lesion, | | loculated pleural fluid or a density overlying the chest wall. No acute osseous | | abnormality. IMPRESSION: Air-fluid level of the right mid hemithorax. This may | | represent a cavitary lesion of the right lung, loculated pleural fluid or density | | overlying the patient. CT could evaluate this area more accurately. Electronically | | signed by Arnold Beauchamp MD on 05/03/2015 10:08 AM | |TECHNIQUE: Chest 1 view, AP view of the chest | | | |FINDINGS: | |Lungs are clear. | | | |No pleural effusion, no pneumothorax. | | | |Air-fluid level of the right mid hemithorax, this may represent an intrinsic pulmonary cavi tary lesion, loculated pleural fluid or a density overlying the chest wall. | | | |No acute osseous abnormality. | | | |IMPRESSION: | | | |Air-fluid level of the right mid hemithorax. This may represent a cavitary lesion of the ri ght lung, loculated pleural fluid or density overlying the patient. CT could evaluate this a larry more accurately. | | | | | + + HISTORICAL MICROBIOLOGY RESULT (05/03/2015 8:11 AM PDT) + + | Specimen | + + | | + + + + + | Narrative | Performed At | + + + | FLUID TYPE BRONCHIAL LAVAGE | EXTERNAL LAB | | Testing performed at [facility] [place] [place];[address] [facility];[place] [address] COLOR | | | CLEAR Testing performed | | | at [facility] [place] [place];[address];[place] [address] APPEARANCE | | | CLEAR Testing performed at [facility] [place] [place];[address];[place] [address] NEUTROPHILS | | | 6 Testing performed at [facility] [place] [place];[address];[place], [place] | | | [address] LYMPHOCYTES 1 | | | Testing performed at [facility] [place] [place];[address];[place] [address] Mesothelial | | | Cells 93 Testing performed at | | | [facility] [place] [place];[facility];[place] [address] CELLS COUNTED | | | 100 Testing performed at [facility] [place] [place];[address];[place] [address] | | + + + + +---------+ + + | Performing | Address | City/State/Zipcode | Phone Number | | Organization | | | | + +---------+ + + | EXTERNAL LAB | | | | + +---------+ + + , Urine, Qual (05/03/2015 6:02 AM PDT) + + + + + + | Component | Value | Ref Range | Performed | Pathologist | | | | | At | Signature | + + + + + + | Preg Test, | NEGATIVEComment: Testing | | EXTERNAL | | | Ur | performed at [facility] [place] [place];[address] | | LAB | | | | [address];[place], [place] | | | | | | [address] | | | | + + + + + + + + | Specimen | + + | Urine specimen | | (specimen) | + + + +---------+ + + | Performing | Address | City/State/Zipcode | Phone Number | | Organization | | | | + +---------+ + + | EXTERNAL LAB | | | | + +---------+ + + Medical Cytology (05/03/2015 12:00 AM PDT) + + | Specimen | + + | | + + + + + | Narrative | Performed At | + + + | ORDERING PHYSICIAN: Gallo Brasher MD PATIENT NAME: SOHAIL, | EXTERNAL LAB | | CORINA GENDER: F : 1980 SPECIMEN(S): A NEEDLE | | | SAMPLING, STATION 7 SPECIMEN(S): B NEEDLE SAMPLING, 12 R | | | SPECIMEN(S): C NEEDLE SAMPLING, 11 L GROSS DESCRIPTION: A:10ML | | | CLOUDY ORANGE FLUID, 30 PREPARED SLIDES B:10ML CLEAR ORANGE FLUID, | | | 14 PREPARED SLIDES C:10ML CLEAR ORANGE FLUID, 20 PREPARED SLIDES | | | CLINICAL HISTORY: NO CLINICAL DATA PROVIDED LABORATORY | | | PREPARATIONS: A:1 MONOLAYER, 1 CYTOLOGY CELL BLOCK, 30 PREPARED | | | SLIDES B: 1 MONOLAYER, 1 CYTOLOGY CELL BLOCK, 14 PREPARED SLIDES | | | C:1 MONOLAYER, 1 CYTOLOGY CELL BLOCK, 20 PREPARED SLIDES CYTOLOGIC | | | INTERPRETATION: A. Station 7, needle core biopsies: - Negative | | | for malignant cells. B. 12R, needle sampling: - Negative for | | | malignant cells. C. 11L, needle sampling: - Negative for | | | malignant cells. See microscopic description. MICROSCOPIC | | | DESCRIPTION: A. A monolayer, 30 stained smears and 1 cell block | | | are reviewed. Findings include abundant blood, fragments of fibrous | | | tissue, scattered lymphocytes, macrophages and bronchial epithelial | | | cells which appear mildly degenerated. Cytologic features of | | | malignancy are not identified. B. A monolayer, 14 stained slides | | | and cell block are reviewed. Findings include abundant blood, chronic | | | inflammatory cells (including lymphocytes and macrophages) and benign | | | bronchial columnar epithelial cells. Cytologic features of malignancy | | | are not identified. C. A monolayer, cell block and 20 stained | | | slides are reviewed. Findings include abundant blood, chronic | | | inflammatory cells (lymphocytes, macrophages) and benign bronchial | | | columnar epithelial cells. Cytologic features of malignancy are not | | | identified. RAPID ASSESSMENT: A: Fine needle sampling of a | | | target lesion was performed with collection of material for rapid | | | assessment and cytopathology evaluation. Pass#1: Additional material | | | requested Pass#2: Additional material requested Pass#3: Additional | | | material requested Pass#4: Additional material requested Pass#5: | | | Additional material requested Pass#6: Additional material | | | requested Pass#7: Additional material requested Pass#8: | | | Additional material requested Pass#9: Additional material | | | requested Pass#10: Additional material requested Pass#11: | | | Additional material requested Pass#12: Additional material | | | requested Pass#13: Additional material requested Pass#14: | | | Additional material requested Pass#15: Additional material | | | requested There was a total of 1 evaluation episode B: Fine | | | needle sampling of a target lesion was performed with collection of | | | material for rapid assessment and cytopathology evaluation. Pass#1: | | | Additional material requested Pass#2: Additional material | | | requested Pass#3: Additional material requested Pass#4: Additional | | | material requested Pass#5: Additional material requested There | | | was a total of 1 evaluation episode C: Fine needle sampling of a | | | target lesion was performed with collection of material for rapid | | | assessment and cytopathology evaluation. Pass#1: Additional material | | | requested Pass#2: Additional material requested Pass#3: Additional | | | material requested Pass#4: Additional material requested Pass#5: | | | Additional material requested Pass#6: Additional material | | | requested Pass#7: Additional material requested Pass#8: | | | Additional material requested Pass#9: Additional material | | | requested Pass#10: Additional material requested There was a | | | total of 1 evaluation episode TECHNICAL NOTES: Technical preparation | | | was performed by [facility], [address] [facility] [address] [facility] | | | [place] [address] (Adjunct Instructor Chemistry: Hakan Ward M.D.; CLIA#: | | | [id number]). ADDITIONAL NOTES: PERFORMING LABORATORY: | | | Professional interpretation was performed by [facility], | | | [address] [address] | | | (Adjunct Instructor Chemistry: Aden Valdes M.D.; CLIA#: [id number]). | | | Diagnostician: Albert PENALOZA([facility]) Statement Distribution Clerk Diagnostician: | | | Antonella Barry MD Pathologist Electronically Signed 05/06/2015 | | + + + + +---------+ + + | Performing | Address | City/State/Zipcode | Phone Number | | Organization | | | | + +---------+ + + | EXTERNAL LAB | | | | + +---------+ + + documented in this encounter Visit Diagnoses + + | Diagnosis | + + | Mediastinal adenopathy Enlargement of lymph nodes | + + documented in this encounter"
--- OUTSIDE RECORDS SUMMARY | ~2019-11-14 | XMS | Encounter Summary ---
Demographics + + + | Address | [address] | | | [place] [address] | + + + | Home Phone | | + + + | Preferred Language | Unknown | + + + | Marital Status | | + + + | Baptism Affiliation | Unknown | + + + | Race | Unknown | + + + | Ethnic Group | Unknown | + + + Author + + + | Author | [facility] | | | and [place] | + + + | Organization | [facility] | [...] Team Providers + +------+ + | Care Graphics Software Engineer Name | Role | Phone | + [...] | Appointment | | 2016 | | [facility] [address] | MD Bill [address] | | | | | [place], | [address] [place] | | | | | [place] [address] | [place] [address] | | | | | [phone] | [phone] | | | | | | | [...]
--- OUTSIDE RECORDS SUMMARY | ~2019-11-14 | XMS | Encounter Summary ---
Demographics + + + | Address | [address] | | | [place] [address] | + + + | Home Phone | | + + + | Preferred Language | Unknown | + + + | Marital Status | | + + + | Restorationism Affiliation | Unknown | + + + | Race | Unknown | + + + | Ethnic Group | Unknown | + + + Author + + + | Author | [facility] | | | and [place] | + + + | Organization | [facility] | | [...] Team Providers + +------+ + | Care Thermal Cutter Hand Name | Role | Phone | + [...] | | | | | | | [place] | | | | | | | ESOPHAGOGAST | | | | | | | RODUODENOSCO | | | | | | | PY TRANSORAL | | | | | | | DIAGNOSTIC | | | | | | | [place] EGD | | | | | | | TRANSORAL | | | | | | | BIOPSY | | | | | | | SINGLE/MULTI | | | | | | | PLE [place] | | | | | | | [...] + + + + | 06/30/ | Anesthesia | [facility] | Nitesh Mtz | | | 2019 | Event | [facility] | MD Stephany [address] | | | | [address] | [address] [place] | | | | | [place] | [address] | | | | | [address] | | | | | | [phone] | | | +--------+ + + + + Anesthesia Record + + + + + | Procedure Name | Responsible | Anesthesia Start | Anesthesia Stop Time | | | Anesthesiologist | Time | | + + + + + | COLONOSCOPY (N/A | Nitesh Mtz Jr., | 06/30/19 1412 | 06/30/19 1445 | | Rectum) | MD | | | + + + + + +----+---+ + + | Da | T | Event | Comment | | te | i | | | | | m | | | | | e | | | +----+---+ + + | 12 | 1 | | | | /2 | 4 | | | | 7/ | 0 | | | | 20 | 4 | | | | 19 | | | | +----+---+ + + | | 1 | An Checkout | Pre-use anesthesia machine/equipment checkout. | | | 4 | | | | | 0 | | | | | 4 | | | +----+---+ + + | | 1 | An Start | Reassessment prior to anesthesia induction/procedure. | | | 4 | | | | | 1 | | | | | 2 | | | +----+---+ + + | | 1 | Pre-Procedu | | | | 4 | ral Timeout | | | | 1 | Completed | | | | 4 | | | +----+---+ + + | | 1 | An | | | | 4 | Induction | | | | 1 | | | | | 4 | | | +----+---+ + + | | 1 | Breathing | | | | 4 | Spontaneous | | | | 1 | ly | | | | 4 | | | +----+---+ + + | | 1 | First | | | | 4 | Inc/Proc St | | | | 2 | | | | | 0 | | | +----+---+ + + | | 1 | an stop | | | | 4 | data | | | | 4 | | | | | 4 | | | +----+---+ + + | | 1 | An Stop | Patient handed off to recovery nurse. | | | 4 | | | | | 5 | | | +----+---+ + + +------+ | Meds | +------+ + +--------+ | Name | Total | + +--------+ | lidocaine 2% | 40 mg | + +--------+ | propofol | 260 mg | + +--------+ | dexamethasone 4 mg/mL | 4 mg | + +--------+ | lactated ringers (LR) infusion | 900 mL | + +--------+ + + | Name | + + | N2O Flow Rate (L/Min) | + + | O2 Flow Rate (L/Min) | + + | Insp O2 | + + | Exp N2O | + + | Air Flow Rate (L/Min) | + + + + | No blood administrations on file. | + + +--------+ + + + | Type | Details | Placement | Removal | +--------+ + + + | Periph | 06/30/19; 1244; Right; | 06/30/19 1244 by | 06/30/19 1531 by | | eral | Antecubital; [id number] | Sirisha Cruz RN | Marilia Hernandez RN | | IV | catheter system; 20 gauge; 1; | | | | | distraction, tolerated well; no | | | | | longer indicated, removed per | | | | | policy/procedure, catheter/device | | | | | intact; short term use; | | | | | 06/30/19; 1531 | | | +--------+ + + + documented in this encounter Social History + +-------+ +--------+------+ | Tobacco [...] | | | + +--------+ +------+------+------+ | dexamethasone (DECADRON) 4 | Given | 06/30/20 | 4 mg | | | | mg/mL injection Intravenous, | | 19 2:15 | | | | | PRN, Starting 06/30/19 at | | PM PST | | | | | 1415, Anesthesia Intra-op | | | | | | + +--------+ +------+------+------+ +---+---+ | | | +---+---+ + +---------+ +---+---+---+ | lactated ringers (LR) infusion | New Bag | 06/30/20 | | | | | at 10-100 mL/hr, Intravenous, | | 19 2:00 | | | | | CONTINUOUS, Starting Wed06/30/19 | | PM PST | | | | | at 1230, TKO., Pre-op | | | | | | + +---------+ +---+---+---+ +---+---+ | | | +---+---+ + +-------+ +-------+---+---+ | lidocaine 2% injection Other, | Given | 06/30/20 | 40 mg | | | | PRN, Starting Wed06/30/19 at | | 19 2:14 | | | | | 1414, Anesthesia Intra-op | | PM PST | | | | + +-------+ +-------+---+---+ +---+---+ | | | +---+---+ + +-------+ +-------+---+---+ | propofol (DIPRIVAN) injection | Given | 06/30/20 | 40 mg | | | | Intravenous, PRN, Starting Fri | | 19 2:36 | | | | | 06/30/19 at 1414, Anesthesia | | PM PST | | | | | Intra-op | | | | | | + +-------+ +-------+---+---+ +-------+ +-------+---+---+ | Given | 06/30/20 | 40 mg | | | | | 19 2:27 | | | | | | PM PST | | | | +-------+ +-------+---+---+ | Given | 06/30/20 | 60 mg | | | | | 19 2:20 | | | | | | PM PST | | | | +-------+ +-------+---+---+ +---+---+ | | | +---+---+ documented in this encounter"
--- OUTSIDE RECORDS SUMMARY | ~2019-11-14 | XMS | Encounter Summary ---
Demographics + + + | Address | [address] | | | [place] [address] | + + + | Home Phone | | + + + | Preferred Language | Unknown | + + + | Marital Status | | + + + | Sabianism Affiliation | Unknown | + + + [...] Providers + +------+ + | Care Airport Operations Supervisor Name | Role | Phone | + [...] W | Interrogation | | | | [place], | [address] [place] | (Primary Dx); Status | | | | [place] [address] | [place] [address] | post placement of | | | | [phone] | [phone] | implantable loop | | | | | | [id number] | | | | | | [id number]-02/18/16-SSM; [...] loop | | | | | | [id number] | | | | | | [id number]-02/18/16-SSM [...] | documentation and remote PDF scanned into GERS for remote | | | interrogation results. [...] | Status post placement of implantable loop [id number]-02/18/16-SSM | + + | Syncope, unspecified syncope type | + + documented in this encounter"
--- OUTSIDE RECORDS SUMMARY | ~2019-11-14 | XMS | Encounter Summary ---
Demographics + + + | Address | [address] | | | [place] [address] | + + + | Home Phone [...] Team Providers + +------+ + | Care Electric Motor Winders Assembler Name | Role | Phone | + +------+ + | Tiffanie Flynn | PCP | | + +------+ + Reason for Visit +--------+ + | Reason | Comments | +--------+ + | Other | issue with wound and pain | +--------+ + Encounter Details +--------+ + + + + | Date | Type | Department | Care Team | Description | +--------+ + + + + | 02/18/ | Telephone | [facility] | Delvin Dupont | Other (issue with | | 2016 | | CARDIOLOGY [address] | [address] | wound and pain) | | | | [place], | [address] [place] | | | | | [place] [address] | [place] [address] | | | | | [phone] | [phone] | | | | | | | [...]
--- OUTSIDE RECORDS SUMMARY | ~2019-11-14 | XMS | Encounter Summary ---
Demographics + + + | Address | [address] | | | [place] [address] | + + + | Home Phone | | + + + | Preferred Language | Unknown | + + + | Marital Status | | + + + | Mormon Affiliation | Unknown | + + + | Race | Unknown | + + + | Ethnic Group | Unknown | + + + Author + + + | Author | [facility] | | | and [place] | + + + | Organization | [facility] | | | [...] Team Providers + +------+ + | Care Fountain Dispenser Name | Role | Phone | + +------+ + | Tiffanie Flynn | PCP | | + +------+ + Encounter Details +--------+ + + + + | Date | Type | Department | Care Team | Description | +--------+ + + + + | 02/03/ | Abstract | [facility] [place] | Troy Page, | | | 2016 | | PHYSIATRY [address] | [address] | | | | | [address] | [place] | | | | | [place] | [id number] | | | | | [address] | | | | | | [phone] | | | +--------+ + + + [...]
--- OUTSIDE RECORDS SUMMARY | ~2019-11-14 | XMS | Encounter Summary ---
Demographics + + + | Address | [address] | | | [place] [address] | + + + | Home Phone | | + + + | Preferred Language | Unknown | + + + | Marital Status | | + + + | Mu-Ism Affiliation | Unknown | + + + | Race | Unknown | + + + | Ethnic Group | Unknown | + + + Author + + + | Author | [facility] | | | and [place] | + + + | Organization | [facility] | | [...] Team Providers + +------+ + | Care Sales Utility Representative Name | Role | Phone | + +------+ + | Tiffanie Flynn | PCP | | + +------+ + Reason for Referral Evaluate & Treat (Routine) +--------+ + + + + + | Status | Reason | Specialty | Diagnoses / | Referred By | Referred To | | | | | Procedures | Contact | Contact | +--------+ + + + + + | Closed | Specialty | Physical | Diagnoses | Page, | Troy Page | | | Services | Medicine and | Numbness | Troy Buchanan MD | Hasmukh Buchanan MD [address] | | | Required | Rehabilitatio | and tingling | [address] | | | | n | in both | [address] | [place], | | | | | hands | [place], | [place] [address] | | | | | Numbness in | [place] [address] | Phone: | | | | | feet | Phone: | [phone] | | | | | Procedures | [phone] | Fax: | | | | | [place] NEEDLE | Fax: | [phone] | | | | | EMG EA | [phone] | | | | | | EXTREMITY | | | | | | | W/PARASPINL | | | | | | | AREA LIMITED | | | | | | | [place] OFFICE | | | | | | | OUTPATIENT | | | | | | | VISIT 25 | | | | | | | MINUTES [place] | | | | | | | MOTOR &/SENS | | | | | | | 13/> NRV | | | | | | | CNDJ PRECONF | | | | | | | ELTRODE | | | | | | | LIMB [place] | | | | | | | NEEDLE EMG | | | | | | | EA EXTREMTY | | | | | | | W/PARASPINL | | | | | | | AREA | | | | | | | COMPLETE | | | | | | | DOS 03/11/16 | | | +--------+ + + + + + Diagnostic/Screening (Routine) +--------+--------+ [...] | Troy Buchanan MD | [address] | | | | | and tingling | [address] | [place], | | | | | in both | [address] | [place] | | | | | hands | [place], | [address] | | | | | Hyperreflexi | [place] [address] | Phone: | | | | | a | Phone: | [phone] | | | | | Procedures | [phone] | Fax: | | | | | MRI Cervical | Fax: | [phone] | | | | | Spine wo | [phone] | | | | | | Contrast | | | +--------+--------+ + + + + Diagnostic/Screening (Routine) +--------+--------+ + + + + | Status | Reason | Specialty | Diagnoses / | Referred By | Referred To | | | | | Procedures | Contact | Contact | +--------+--------+ + + + + | Closed | | Radiology | Diagnoses | Camilo, | [facility] | | | | | Syncope, | Troy Buchanan MD | [address] | | | | | unspecified | [address] | [place], | | | | | syncope type | [address] | [place] | | | | | | [place], | [address] | | | | | Bradycardia | [place] [address] | Phone: | | | | | | Phone: | [phone] | | | | | Hyperreflexi | [phone] | Fax: | | | | | a | Fax: | [phone] | | | | | Procedures | [phone] | | | | | | MRI | | | | | | | Angiogram | | | | | | | Head WO Con | | | | | | | Neck W WO | | | | | | | Con | | | +--------+--------+ + + + + Evaluate & Treat (Urgent) +--------+ + + + + + | Status | Reason | Specialty | Diagnoses / | Referred By | Referred To | | | | | Procedures | Contact | Contact | +--------+ + + + + + | Closed | Specialty | Neurology | Diagnoses | Camilo, | Thad, | | | Services | | | Troy Buchanan MD | Jose Mortensen MD | | | Required | | Bradycardia, | [address] | | | | | unspecified | [address] | [place] | | | | | Syncope | [place], | [place], [place] | | | | | and collapse | [place] [address] | [address] Phone: | | | | | | Phone: | [phone] | | | | | | [phone] | Fax: | | | | | | Fax: | [phone] | | | | | | [phone] | | +--------+ + + + + + Evaluate & Treat (Routine) +--------+ + + + + + | Status | Reason | Specialty | Diagnoses / | Referred By | Referred To | | | | | Procedures | Contact | Contact | +--------+ + + + + + | Closed | Specialty | Cardiology | Diagnoses | [place] | Andrey [place] | | | Services | | | Troy Buchanan MD | Cardiology | | | Required | | Bradycardia, | [address] | [address] | | | | | unspecified | [address] | [place], | | | | | Syncope | [place], | [place] | | | | | and collapse | [place] [address] | [address] | | | | | | Phone: | Phone: | | | | | | [phone] | [phone] | | | | | | Fax: | Fax: | | | | | | [phone] | [phone] | +--------+ + + + + + Reason for Visit + + + | Reason | Comments | + + + | Bradycardia | | + + + | Neurologic Problem | | + + + | Dizziness | | + + + Evaluate & Treat (Routine) +--------+--------+ + + + + | Status | Reason | Specialty | Diagnoses / | Referred By | Referred To | | | | | Procedures | Contact | Contact | +--------+--------+ + + + + | Closed | | Physical | Diagnoses | Gee, | Troy Page | | | | Medicine and | Neurologic | Tiffanie Gale, | Hasmukh Buchanan MD [address] | | | | Rehabilitatio | abnormality | INSURANCE LEGAL ASSISTANT [address] | | | | n | | [address] | [place], | | | | | Bradycardia, | [place], | [place] [address] | | | | | unspecified | [place] [address] | Phone: | | | | | | Phone: | [phone] | | | | | | [phone] | Fax: | | | | | | Fax: | [phone] | | | | | | [phone] | | +--------+--------+ + + + + Encounter Details +--------+---------+ + + + | Date | Type | Department | Care Team | Description | +--------+---------+ + + + | 02/04/ | Office | [facility] [place] | Troy Page, | Syncope, unspecified | | 2016 | Visit | PHYSIATRY [address] | [address] | syncope type | | | | [address] | [place] [facility], [place] | (Primary Dx); | | | | [place] | [address] | Bradycardia; | | | | [address] | | Numbness and | | | | [phone] | | tingling in both | | | | | | hands; Numbness in | | | | | | feet; Hyperreflexia; | | | | | | Vertigo | +--------+---------+ + + + Social History [...] + + + | Blood Pressure | 128/81 | 02/05/2016 2:21 PM | | | | | PDT | | + + + + + | Pulse | 48 | 02/05/2016 2:21 PM | | | | | PDT | | + + + + + | Temperature | - | - | | + + + + + | Respiratory Rate | 18 | 02/05/2016 2:21 PM | | | | | PDT | | + + + + + | Oxygen Saturation | - | - | | + + + + + | Inhaled Oxygen | - | - | | | Concentration | | | | + + + + + | Weight | 91.6 kg (202 lb) | 02/05/2016 2:21 PM | | | | | PDT | | + + + + + | Height | 152.4 cm (5') | 02/05/2016 2:21 PM | | | | | PDT | | + + + + + | Body Mass Index | 39.45 | 02/05/2016 2:21 PM | | | | | PDT | | + + + + + documented in this encounter Patient Instructions Patient Instructions Troy Page MD - 02/05/2016 3:37 PM PDTA cardiology consult has been requested for second opinion about your slow heart rate. Please allow us to request copies of the records from Dr. Sullivan. A neurology consult has been requested to evaluate for seizures. MR arteriogram has been requested to evaluate the blood flow through the vertebral arteries . MRI of the neck has been requested to evaluate for pressure on the spinal cord. Laboratory tests have been requested. Please go to the lab to complete your laboratory pat ting. The results of your laboratory testing will be reviewed at your next appointment. If your labratory results demonstrate any emergent results the clinic will contact you. Please attend your scheduled nerve conduction study and EMG appointment. Nerve conduction studies and EMG require a great deal of time to complete. If you will be unable to make your appointment please contact the clinic at least one full business day cris or to your appointment . Missed appoints without cancellation will only be re scheduled once. Children under the age of 13 are not permitted in the room during the nerve study. If acco mpanied by children under the age of 13, they will need an adult to supervise them, while th ey wait in the lobby. Prior to your appointment wash the skin with soap and water. This is to remove any of the natural oils on the skin which may interfere with the completion of the study. Please do not wear any lotion prior to the study as lotion may also interfere with the comp letion of the study. When attending your study please bring appropriate attire. If you are having a study of th e upper extremities please bring a short sleeve shirt to wear during the study. If you are having a study of the lower extremities please bring shorts to wear during the study. At the time of your study, please remind the physician if you are taking any blood thinning medications such as Coumadin, or heparin. At the time of your study, please remind the physician if you have an implanted electronic device such as a pacemaker. documented in this encounter Progress Notes Troy Page MD - 02/05/2016 5:16 PM PDT [facility] PHY[facility]RY [address] [facility] [address] OFFICE NOTE TROY PAGE JR, MD Patient: CORINA PARADA Admitting: MR #: [id number] LOC: PT TYPE: Adm Date: 02/05/2016 : 1980 PHYSICAL MEDICINE REHABILITATION CONSULT DATE OF : 1980 CONSULT REQUESTED BY: TIERNEY King DATE OF SERVICE: 02/05/2016 PATIENT IDENTIFICATION: A 36-year-old female with bradycardia, syncopal episodes. HISTORY OF PRESENT ILLNESS: Corina reports that starting in 04/2015, she had her first syncopal episode. She indicates that she had loss of consciousness for a few seconds, the n would regain consciousness. She indicates that she often will feel faint. She reports t hat she has presyncope frequently. She will also have syncope frequently. She indicates that there have been a few occasions where she will have a smell of burning rubber before s he has a syncopal episode. She indicates that there have been occasions where she will hea r ringing in the ears before she will have a syncopal episode. She indicates that after m ost presyncopal episodes, she feels exhausted for hours consistent with a postictal phase. She indicates that she has some memory loss associated with syncopal episodes where she wi ll have forgotten some of the events previous to loss of consciousness. She indicates flavio t she is having on average around 9 syncopal episodes per month and many more presyncopal e pisodes. She indicates that sometimes she will have up to 5-6 syncopal episodes a week and sometimes she will go a week or two without one. She indicates that if she puts her neck into extension, she creates presyncopal feelings as if she might pass out. She reports di zziness with movement as well. She indicates that she has also developed numbness in the h ands. She has had a cardiology workup. She reports that she was simply told that she need s to eat more salt. She reports that she was not scheduled for any followup with the card iologist. She was told that she had bradycardia. She has not had neurology consult. She has not had nerve study. She is wondering what more might be going on causing her symptoms . She indicates that she is having problems with memory and focus. She reports some neck discomfort. She is very aware of numbness in the hands. She reports that she has burning, numbness, tingling in hands and feet. She reports that s he has lack of energy. She indicates that she worked very hard to lose weight and this is when her symptoms began. She reports that she has always had some problems with weight. S he reports lack of energy constantly. ALLERGIES: MORPHINE, PORK DERIVED PRODUCTS, DOXEPIN, LISINOPRIL, ADHESIVE TAPE. CURRENT MEDICATIONS: She is not currently taking any medications. She reports that she h as discontinued all of her medications because of the symptoms she is having. She indicate s that occasionally she will use DOXEPIN when the burning, numbness, tingling in hands and feet becomes too great. REVIEW OF SYSTEMS: She reports night sweats. She reports fatigue. She reports anemia in the past. She is unsure if she is anemic now. She reports that she has ringing in the ea rs, especially before syncopal episodes. She reports dizziness. She reports that she has both dizziness and syncopal episodes. She is very clear that the two are different. She reports that she will have vertigo episodes. She will also have syncopal episodes. She in dicates that with neck extension she will have syncopal episodes. She reports that she has numbness in arms. She indicates that she had a head injury when she was young. She repor ts frequent fainting spells, memory problems, speech difficulty, confusion and numbness of the face. She reports anxiety, depression, and difficulty sleeping. She denies a heart attack. She denies shortness of breath, or chest pain. She reports fr equent urination. She has question of diabetes. She denies history of thyroid disease. Sh e denies rheumatologic disease. PAST SURGICAL HISTORY: She had . She has had a cholecystectomy. She has had he rnia repair. She reports that she had an exploratory abdominal surgery. FAMILY MEDICAL HISTORY: She reports that her parents are alive. She reports that father has high blood pressure. She reports that in the family, there is a history of cancer, hea rt disease, diabetes, mental illness, hypertension and asthma. SOCIAL MEDICAL HISTORY: She reports that she rarely consumes alcohol. She indicates that she is sexually active. She reports that she has used substances such as marijuana and met hamphetamines in the distant past, but is not a current user. She does not smoke. PHYSICAL EXAMINATION: VITAL SIGNS: Orthostatic blood pressures were taken. She was very bradycardiac on intake . On initial evaluation, her blood pressure is 128/81 with a pulse of 48. Respiratory rat e 18. Her weight is 202 pounds, height 5 feet. Her heart rate was retested by the physici an and found to be 44. Nursing staff performed orthostatic blood pressures. While lying d own, her blood pressure is 130/80 with heart rate of 46, sitting up her blood pressure is 1 18/78 with a heart rate of 45, standing up her blood pressure dropped to 112/66 with a hear t rate of 50. GENERAL: She is able to recreate presyncopal episodes with neck extension. She appeared faint today. NECK: Limited range of motion. Spurling's test negative. HEENT: Extraocular muscles int act. Sclerae are clear. Pupils equal and reactive. HEART: Bradycardic. No murmurs appreciated. Her heart rate seems to be regular. LUNGS: Clear to auscultation, no wheezing, no crackles. ABDOMEN: Nontender, obese, diste nded, positive for bowel sounds. BACK: Symmetric, seated straight leg raise negative. Pat nick's test negative. EXTREMITIES: Reveals no clubbing, cyanosis or edema. NEUROLOGICAL: Demonstrates intact cranial nerves. Memory seems to be grossly intact. Richardson bjectively, she reports that her memory is poor. Her speech is normal. Sensation was redu susan in both upper extremities diffusely. She has intact sensation in lower extremities. S he has hyperreflexia over the patella, Achilles, biceps and triceps of upper extremities. She has widespread hyperreflexia. She has a few beats of clonus at each ankle. Babinski is upgoing in both lower extremities. Gait is normal. Romberg test demonstrates significan t swaying but she did not break balance. She did not have to step out of her positioning. DATABASE: Brain MRI 01/10/2016 imaging reviewed by me. I concur with the findings as rep orted by the radiologist. The brain MRI is unremarkable. ASSESSMENT: 1. Syncopal episodes frequently, ICD-10 R55. 2. Bradycardia, symptomatic, ICD-10 R00.1. 3. Numbness and tingling in hands, ICD-10 R20.2. 4. Numbness in feet to a lesser degree, ICD-10 R20.0. 5. Widespread hyperreflexia, ICD-10 R29.2. 6. Vertigo, ICD-10 R42. PLAN: The patient has widespread neurologic symptoms including hyperreflexia, numbness. I wonder about autonomic dysfunction. This may be causing bradycardia. I also wonder abou t neuropathy. For her to have hyperreflexia and clonus, I do have to wonder about upper mo tor neuron injury. Certainly, she reports a burnt rubber smell before some of her syncopa l episodes. This does raise question of a seizure. I do wonder, however, if she is actual ly having a seizure as a result of bradycardia and inadequate blood flow. I wonder about v ertebral artery insufficiency, as she reports increasing syncopal episodes whenever she ex tends the neck. She has previously had cardiology consult, but she was simply told to eat more salt. Today, she obviously is orthostatic, blood pressure is dropping, heart rate is too low, especially for a young 36-year-old woman who should not have a resting heart rate in the 40s. I am requesting cardiology consultation for a second opinion. I do wonder if the patient needs a pacemaker. I am requesting neurology consultation. I would like eval uation for seizures, specifically I would like them to consider EEG. Arteriogram of the he ad and neck looking for vertebral artery insufficiency. MRI of the neck has been requested , as I would like to evaluate for a cervical spinal stenosis, Chiari malformation, anything that would cause upper motor neuron symptoms. Her brain MRI is unremarkable. This is why I would like to examine the neck, especially s rufina she is certainly having upper motor neuron findings with her hyperreflexia. It may al so give an explanation as to why she is having sensory changes in the arms. She will retur n to clinic for nerve conduction study and EMG will look for the reason for numbness in th e arms. It may be something as simple as carpal tunnel. It may be that she is having cervi lizbeth radiculopathy. Nerve conduction study cannot diagnose spinal stenosis. It is possible that she is having spinal stenosis with myelopathy, which would be caught by her cervical MRI that has been requested. I am also wondering about fatigue, weight changes, hyperreflexia. One possibility is hype rthyroidism. A number of laboratory tests have been requested. Laboratory tests requested include TSH, free T4. I have requested CBC and metabolic profile as well. Lastly, I have requested a 24-hour urine screen for heavy metals. Heavy metals can cause neuropathy, nu mbness in arms, seizures, bradycardia. Thank you for allowing me to be involved in the care of your patient. If you have any ques tions regarding the care of Ms. Parada, please do not hesitate to call. More than an hour was spent face to face today with the patient, over half of which was sp ent formulating and discussing her medical treatment plan. TROY PAGE JR, MD Dictated by TROY PAGE JR, MD 02/05/2016 17:16:37 Transcribed on 02/06/2016 13:34:07 by job# [id number] Confirmation #: [id number] signed by Troy Page MD at 02/06/2016 2:22 PM Troy Trent MD - 02/05/2016 5:16 PM PDTThis office note has been dictated. Report Confirmation# [id number] signed by Troy Page MD at 02/05/2016 5:16 PM PDTMacrina Romero RN - 02/05/2016 4:20 PM PDTOrthostatic blood pressures Laying:BP 130/80 HR 46 Sitting:BP 118/78 HR 45 Standing: BP 112/66 HR 50 P M PDTdocumented in this encounter Plan of Treatment + +---------+--------+ + + | Name | Type | Priori | Associated Diagnoses | Order Schedule | | | | ty | | | + +---------+--------+ + + | CBC with | Lab | Routin | Syncope, | Expected: | | Differential | | e | Unspecified Syncope | 02/05/2016, Expires: | | | | | Type Bradycardia | 02/04/2017 | + +---------+--------+ + + | Comprehensive | Lab | Routin | Syncope, | Expected: | | Metabolic Panel | | e | Unspecified Syncope | 02/05/2016, Expires: | | | | | Type Bradycardia | 02/04/2017 | + +---------+--------+ + + | TSH | Lab | Routin | Syncope, | Expected: | | | | e | Unspecified Syncope | 02/05/2016, Expires: | | | | | Type Bradycardia | 02/04/2017 | + +---------+--------+ + + | T4, Free | Lab | Routin | Syncope, | Expected: | | | | e | Unspecified Syncope | 02/05/2016, Expires: | | | | | Type Bradycardia | 02/04/2017 | + +---------+--------+ + + | Heavy Metals Screen, | Lab | Routin | Syncope, | 1 Occurrences | | Urine, 24Hr | | e | Unspecified Syncope | starting 02/05/2016 | | | | | Type Bradycardia | until 02/04/2017 | | | | | Numbness And | | | | | | Tingling In Both | | | | | | Hands Numbness in | | | | | | feet | | + +---------+--------+ + + | MRI Angiogram Head | Imaging | Routin | Syncope, | Expected: | | WO Con Neck W WO Con | | e | Unspecified Syncope | 02/05/2016, Expires: | | | | | Type Bradycardia | 02/04/2017 | | | | | Hyperreflexia | | + +---------+--------+ + + + + +--------+ + + | Name | Type | Priori | Associated Diagnoses | Order Schedule | | | | ty | | | + + +--------+ + + | * [facility] [place] | Outpatient | Routin | Syncope, | Ordered: 02/05/2016 | | Cardiology - AMB | Referral | e | Unspecified Syncope | | | Referral | | | Type Bradycardia | | + + +--------+ + + | Neurology, External | Outpatient | Routin | Syncope, | Ordered: 02/05/2016 | | - AMB Referral | Referral | e | Unspecified Syncope | | | | | | Type Bradycardia | | + + +--------+ + + | Ambulatory referral | Outpatient | Routin | Numbness And | Ordered: 02/05/2016 | | to Physical Medicine | Referral | e | Tingling In Both | | | Rehab | | | Hands Numbness in | | | | | | feet | | + + +--------+ + + documented as of this encounter Results MRI Cervical Spine wo Contrast (02/26/2016 2:45 PM PDT) + + | Specimen | + + | | + + + + + | Narrative | Performed At | + + + | MRI CERVICAL SPINE WO CONTRAST. 02/26/2016 2:30 PM HISTORY: | [facility] | | numbness in hands, hyperreflexion. COMPARISON: None available. | [facility] | | TECHNIQUE: Multiplanar, multisequence MRI images of the cervical [facility] | | spine were obtained without IV [...] | Derrick, Rad Results In - 02/26/2016 5:32 PM PDT [...] [address] | [place] | [phone] | | [facility] | | [address] | | | - IMAGING | | | | + + + + + documented in this encounter Visit Diagnoses + + | Diagnosis | + + | Syncope, unspecified syncope type - Primary | + + | Bradycardia Other specified cardiac dysrhythmias | + + | Numbness and tingling in both hands | + + | Numbness in feet Disturbance of skin sensation | + + | Hyperreflexia Abnormal reflex | + + | Vertigo Dizziness and giddiness | + + documented in this encounter"
--- OUTSIDE RECORDS SUMMARY | ~2019-11-14 | XMS | Encounter Summary ---
Demographics + + + | Address | [address] | | | [place] [address] | + + + | Home Phone | | + + + | Preferred Language | Unknown | + + + | Marital Status | | + + + | Jehovah'S Witness Affiliation | Unknown | + + + | Race | Unknown | + + + | Ethnic Group | Unknown | + + + Author + + + | Author | [facility] | | | and [place] | + + + | Organization | [facility] | | [...] Team Providers + +------+ + | Care Handle Rounder Operator Name | Role | Phone | [...] + + | 03/12/ | Telephone | [facility] | Delvin Dupont | Appointment (NO SHOW | | 2017 | | CARDIOLOGY [address] | MD Bill [address] | ON 01-13-17 NEEDS | | | | [place], | [address] [place] | RESCHEDULED) | | | | [place] [address] | [place] [address] | | | | | [phone] | [phone] | | | | | | | [...]
--- OUTSIDE RECORDS SUMMARY | ~2019-11-14 | XMS | Encounter Summary ---
Demographics + + + | Address | [address] | | | [place] [address] | + + + | Home Phone | | + + + | Preferred Language | Unknown | + + + | Marital Status | | + + + | Restorationism Affiliation | Unknown | + + + | Race | Unknown | + + + | Ethnic Group | Unknown | + + + Author + + + | Author | [facility] | | | and [place] | + + + | Organization | [facility] | | | [...] Team Providers + +------+ + | Care Group Underwriter Name | Role | Phone | + +------+ + PCP | Unavailable | + +------+ + Encounter Details +--------+ + + + + | Date | Type | Department | Care Team | Description | +--------+ + + + + | 05/07/ | [facility] | [facility]EL SANTOS | Kapil Martinez | | | 2014 | Encounter | HOSPITAL EMERGENCY | MD Jose D [address] | | | | | CENTER [address] | [facility] [place] [place] | | | | | [address] [place] | [place] [address] | | | | | [address] | [phone] | | | | | [phone] | | | +--------+ + + + [...]
--- OUTSIDE RECORDS SUMMARY | ~2019-11-14 | XMS | Encounter Summary ---
Demographics + + + | Address | [address] | | | [place] [address] | + + + | Home Phone [...] + | Author | [facility] | | | and [place] | + + + | Organization | [facility] | | | and [...] Providers + +------+ + | Care Educational Technician Name | Role | Phone | [...] Bradycardia, | [address] | | | | | unspecified | [address] | [place], | | | | | Syncope | [place], | [place] | | | | | and collapse | [place] [address] | [address] | | | | | | Phone: | Phone: | | | | | | [phone] | [phone] | | | | | | Fax: | Fax: | | | | | | [phone] | [phone] | +--------+ + + + + + Encounter Details +--------+---------+ + + + | Date | Type | Department | Care Team | Description | +--------+---------+ + + + | 02/11/ | Office | [facility] [place] | Delvin Kimball | Essential | | 2016 | Visit | CARDIOLOGY [address] | MD Bill [address] | hypertension, | | | | [place], | [address] [place] | hypertension with | | | | [place] [address] | [place] [address] | unspecified goal | | | | [phone] | [phone] | (Primary Dx); | | | | [...] Implantation Date: Check-In Time: 1. Check-In at [facility]. 2. Do not eat [...] home. Wound Check: Nurse only - At [facility], 4th floor Cardiology Date: Check-in Time: Initial/Next [...] further consultation. She is referred by Troy Page for further evaluation after having had a [...] results of recent thorough cardiac workup from [facility]. 3. Continue other workup including neurologic and consider contribution from other causes such as sleep apnea and diabetes. 4. Follow-up visit in a few months. 5. Continue to exercise caution and expectant behavior. Portions of this report were transcribed using voice recognition software. Every effort wa s made to ensure accuracy; however, inadvertent computerized wooden tank erector errors may be pre sent. Electronically signed by: Elijah Kimball MD PhD [facility] 02/12/2016 documented in this encounter Plan [...] MD | | | | | | ([id number]) on 02/12/2016 | | | | | [...]
--- OUTSIDE RECORDS SUMMARY | ~2019-11-14 | XMS | Encounter Summary ---
Demographics + + + | Address | [address] | | | [place] [address] | + + + | Home Phone | | + + + | Preferred Language | Unknown | + + + | Marital Status | | + + + | Samaritan Affiliation | Unknown | + + + | Race | Unknown | + + + | Ethnic Group | Unknown | + + + Author + + + | Author | [facility] | | | and [place] | + + + | Organization | [facility] | | | [...] Team Providers + +------+ + | Care Domestic Freight Forwarder Name | Role | Phone | + +------+ + PCP | Unavailable | + +------+ + Encounter Details +--------+ + + + + | Date | Type | Department | Care Team | Description | +--------+ + + + + | 05/03/ | Hospital | [facility] | Kirby Castro | Mediastinal | | 2015 | Encounter | [facility] | Stephen Dc MD [address] | adenopathy | | | | INTRA OP [address] | [address] | | | | | [place], [place] | [place] [address] | | | | | [address] | [phone] | | | | | [phone] | | | +--------+ + + + [...] EXTERNAL LAB | | Testing performed at [facility];[address];[place] [address] COLOR | | | CLEAR Testing performed | | | at [facility];[address];[place] [address] APPEARANCE | | | CLEAR Testing performed at [facility];[address] | [address];[place] [address] NEUTROPHILS | | | 6 Testing performed at [facility];[address];[place], [place] | | | [address] LYMPHOCYTES 1 | | | Testing performed at [facility];[address];[place] [address] Mesothelial | | | Cells 93 Testing performed at | | | [facility];[place] [address] CELLS COUNTED | | | 100 Testing performed at [facility];[address];[place] [address] | | + + + + +---------+ [...] | | | Ur | performed at [facility];[address] | | LAB | | | | [address];[place], [place] | | | | | | [address] | | | | + + + [...] preparation | | | was performed by [facility], [address] | | | [place] [address] (Screw Machine Adjuster Automatic: Hakan Ward M.D.; CLIA#: | | | [id number]). ADDITIONAL NOTES: PERFORMING LABORATORY: | | | Professional interpretation was performed by [facility], | | | [address] [address] | | | (Screw Machine Adjuster Automatic: Aden Valdes M.D.; CLIA#: [id number]). | | | Diagnostician: Albert PENALOZA([facility]) Museum Service Scheduler Diagnostician: | | | Antnoella Barry MD Pathologist Electronically Signed 05/06/2015 | [...]
--- OUTSIDE RECORDS SUMMARY | ~2019-11-14 | XMS | Encounter Summary ---
Demographics + + + | Address | [address] | | | [place] [address] | + + + | Home Phone | | + + + | Preferred Language | Unknown | + + + | Marital Status | | + + + | Nondenominational Affiliation | Unknown | + + + | Race | Unknown | + + + | Ethnic Group | Unknown | + + + Author + + + | Author | [facility] | | | and [place] | + + + | Organization | [facility] | | [...] Team Providers + +------+ + | Care Theatrical Trouper Name | Role | Phone | + +------+ + PCP | Unavailable | + +------+ + Encounter Details +--------+ + + + + | Date | Type | Department | Care Team | Description | +--------+ + + + + | 03/21/ | Hospital | [facility] GENER[facility] IP | Conversion | Pain | | 2015 | Encounter | CONVERSION [address] | Transaction, | | | | | [address] | Provider Unknown | | | | | [place] | [phone] | | | | | [address] | | | | | | [phone] | | | +--------+ + + + [...]
--- OUTSIDE RECORDS SUMMARY | ~2019-11-14 | XMS | Encounter Summary ---
Demographics + + + | Address | [address] | | | [place] [address] | + + + | Home Phone | | + + + | Preferred Language | Unknown | + + + | Marital Status | | + + + | Sabianist Affiliation | Unknown | + + + | Race | Unknown | + + + | Ethnic Group | Unknown | + + + Author + + + | Author | [facility] | | | and [place] | + + + | Organization | [facility] | | | [...] Providers + +------+ + | Care Chemicals Distiller Name | Role | Phone | + [...] | recorder check | | | | [place], | [address] [place] | (Primary Dx); Status | | | | [place] [address] | [place] [address] | post placement of | | | | [phone] | [phone] | implantable loop | | | | | | pdbaqvfe-NSRX-Bjdojd | | | | | | kathi-02/18/16-SSM; [...] loop | | | | | | erjyjlsk-ENUD-Yoagao | | | | | | kathi-02/18/16-SSM [...] | documentation and remote PDF scanned into [employer] for remote | | | interrogation results. [...] + + | Performing | Address | City/State/[facility] | Phone Number | | Organization | | | | + +---------+ + + | [facility] | | | | + +---------+ + + documented in this encounter Visit Diagnoses + + | Diagnosis | + + | Encounter for loop recorder check - Primary | + + | Status post placement of implantable loop xiywuiky-NOHP-Sgfoytafn-02/18/16-SSM | + + | Lightheadedness Dizziness and giddiness | + + | Syncope, unspecified syncope type | + + documented in this encounter"
--- OUTSIDE RECORDS SUMMARY | ~2019-11-14 | XMS | Encounter Summary ---
Demographics + + + | Address | [address] | | | [place] [address] | + + + | Home Phone | | + + + | Preferred Language | Unknown | + + + | Marital Status | | + + + | Christianity Affiliation | Unknown | + + + | Race | Unknown | + + + | Ethnic Group | Unknown | + + + Author + + + | Author | [facility] | | | and [place] | + + + | Organization | [facility] | | | [...] Team Providers + +------+ + | Care Welt Sole Layer Name | Role | Phone | + [...] | +--------+ + + + + | 10/04/ | Implant | [facility] [place] | Delvin Dupont | Remote Device | | 2017 | Monitor | CARDIOLOGY [address] | MD Bill [address] | Interrogation | | | | [place], | [address] [place] | (Primary Dx); | | | | [place] [address] | [place] [address] | Syncope, unspecified | | | | [phone] | [phone] | syncope type; | | | | | | Status post | | | | | | placement of | | | | | | implantable loop | | | | | | hwbinuyi-ZJPN-Hfsgdn | | | | | | kathi-02/18/16-SSM | +--------+ + + + + Social [...] + + | DEVICE | Routin | 11/06/2016 | Remote Device | Results for this | | INTERROGATION- | e | 5:02 PM | Interrogation | procedure are in the | | REMOTE | | PDT | Syncope, unspecified | results section. | | | | | syncope type | | | | | | Status post | | | | | | placement of | | | | | | implantable loop | | | | | | ffdpsnrt-LFZM-Afgngs | | | | | | kathi-02/18/16-SSM | | + +--------+ + + + documented in this encounter Results Device Interrogation - Remote (11/06/2016 5:02 PM PDT) + + + | Narrative | Performed At | + + + | Delvin Dupont MD 11/06/2016 17:02 Refer to [facility] | [facility] | | documentation and remote PDF scanned into [employer] for remote | | | interrogation results. Data collected by Antonella Dooley RN | | | Presenting rhythm: Sinus rhythm heart rate 60-70 with PAC. 1 Symptom | | | Episodes #19 occurred 09/15 at 1034. EGM is consistent with sinus | | | rhythm to sinus bradycardia heart rate 52-74. 0 Tachy Episodes 0 | | | Pause Episodes 0 Jean Episodes 0 AT Episodes 0 AF Episodes % of | | | time in AT/AF 0.0 % Histogram good. Battery ok. Apparent normal | | | and stable function. Device interrogation due in office in 10/14. | | | Patient notified. Patient states "weird, beating fast feeling." | | + + + + +---------+ + + | Performing | Address | City/State/Zipcode | Phone Number | | Organization | | | | + +---------+ + + | [facility] | | | | + +---------+ + + documented in this encounter Visit Diagnoses + + | Diagnosis | + + | Remote Device Interrogation - Primary | + + | Syncope, unspecified syncope type | + + | Status post placement of implantable loop toxfjllp-RDKN-Seyxodpsz-02/18/16-SSM | + + documented in this encounter
--- OUTSIDE RECORDS SUMMARY | ~2019-11-14 | XMS | Encounter Summary ---
Demographics + + + | Address | [address] | | | [place] [address] | + + + | Home Phone [...] Team Providers + +------+ + | Care Verification Engineer Name | Role | Phone | [...] | | | | | | | MI | | | | | | | ESOPHAGOGAST | | | | | | | RODUODENOSCO | | | | | | | PY TRANSORAL | | | | | | | DIAGNOSTIC | | | | | | | MI EGD | | | | | | | TRANSORAL | | | | | | | BIOPSY | | | | | | | SINGLE/MULTI | | | | | | | PLE MI | | | | | | | [...] Description | +--------+---------+ + + + | 06/30/ | Surgery | [facility] | Shun, | COLONOSCOPY | | 2019 | | HOSPITAL INTRA OP | [place], | | | | | [address] [place] | [address] | | | | | [place] | [place] | | | | | [address] | [address] | | | | | [phone] | [phone] | | | | | | | [...] drowsiness. Do not drink alcohol or dr ap[place]aca while you were taking these medications. [] [...] any questions, call your physician at or [phone]. If you need assistance after normal business hours, please contact the [facility] at . documented in this encounter Medications at Time of Discharge + + + +---------+ + + | Medication | Sig | Dispensed | Refills | Start | End Date | | | | | | Date | | + + + +---------+ + + | atorvaSTATin | | | 0 | 05/19/20 | | | (LIPITOR) 20 mg | [...] + + + +---------+ + + | Alejandro Saha. MISC | Use to test blood | [...] | + +--------+ + + + | [place] COLONOSCOPY FLX | Routin | 06/30/2019 | | Results for this | | DX W/COLLJ SPEC WHEN | e | 2:45 PM | | procedure are in the | | PFRMD | | PST | | results section. | + +--------+ + + + | [place] | Routin | 06/30/2019 | | Results [...] | | | 06/30/2019 2:46 PM [facility] This note was | | | transcribed using voice recognition software; there may be speech | | | recognition errors which escaped detection during mill laborer. | | | | | + + [...] | | | 06/30/2019 2:46 PM [facility] This note was | | | transcribed using voice recognition software; there may be speech | | | recognition errors which escaped detection during mill laborer. | | | | | + + [...] + + | [facility] | [address] | [place] | [phone] | | HOSPITAL LABORATORY | | [address] | | + + + + + [...] + + | M[facility]EL SANTOS | [address] | [place] | [phone] | | HOSPITAL LABORATORY | | [address] | | + + + + + [...] | The technical component was performed by [facility], [address] | | | [place], [place] [address] (Chair Inspector: Arianne Shankar | | | Christina Magaña). Professional interpretation was performed by [facility] [facility] | | | Diagnostics, [facility], [address], [address], [place] | | | [place] [address] (Chair Inspector: Bob Quevedo, | | | Christina; CLIA# [id number]). Diagnostician: Arianne Magaña MD | | | Pathologist Electronically Signed 07/04/2019 | | + + + + +---------+ + + | Performing | Address | City/State/[facility] | Phone Number | | Organization [...]
--- OUTSIDE RECORDS SUMMARY | ~2019-11-14 | XMS | Encounter Summary ---
Demographics + + + | Address | [address] | | | [place] [address] | + + + | Home Phone | | + + + | Preferred Language | Unknown | + + + | Marital Status | | + + + | Jain Affiliation | Unknown | + + + [...] Team Providers + +------+ + | Care Chief Crna Name | Role | Phone | + [...] | PHYSIATRY [address] | [address] | | | | | [address] | [place] | | | | | [place] | [id number] | | | | | [address] | | | | | | [phone] | | | +--------+ + + + [...]
--- OUTSIDE RECORDS SUMMARY | ~2019-11-14 | XMS | Encounter Summary ---
Demographics + + + | Address | [address] | | | [place] [address] | + + + | Home Phone | | + + + | Preferred Language | Unknown | + + + | Marital Status | | + + + | Hinduism Affiliation | Unknown | + + + | Race | Unknown | + + + | Ethnic Group | Unknown | + + + Author + + + | Author | [facility] | | | and [place] | + + + | Organization | [facility] | | | [...] Team Providers + +------+ + | Care Bread Packer Name | Role | Phone | + +------+ + PCP | Unavailable | + +------+ + Encounter Details +--------+ + + + + | Date | Type | Department | Care Team | Description | +--------+ + + + + | 06/08/ | Hospital | [facility] | Tiffanie Hardy, | | | 2010 | Encounter | MED CTR XRAY [address] | PA-C [address] | | | | | [place] | [address] | | | | | [place] [address] | [place] [address] | | | | | [phone] | | | | | | | [...] Performed At | + + + | [facility] Diagnostic Imaging Department | [facility] | | [address] [facility] | [facility] | | ENHANCED CT ABDOMEN AND PELVIS, [...] Transcribed Date/Time: 06/09/2011 07:16 | | | Director Mortgage: <Electronically Signed by Justin Alvarado MD> | | | 06/09/11 1048 | | + + + + + | Procedure Note | + + | Derrick, Rad Conversion - 08/11/2013 4:20 PM [facility] | | Diagnostic Imaging Department [address] [place] [address] | | ENHANCED CT ABDOMEN AND PELVIS, [...] 07:07 | |Transcribed Date/Time: 06/09/2011 07:16 | |Director Mortgage: | |<Electronically Signed by Justin Alvarado MD> 06/09/11 1048 | + + + +---------+ + + | Performing | Address | City/State/Zipcode | Phone Number | | Organization | | | | + +---------+ + + | [place] | | | | | [facility] | | | | + +---------+ + + documented in this encounter Visit Diagnoses Not on filedocumented in this encounter"
--- OUTSIDE RECORDS SUMMARY | ~2019-11-14 | XMS | Encounter Summary ---
Demographics + + + | Address | [address] | | | [place] [address] | + + + | Home Phone | | + + + | Preferred Language | Unknown | + + + | Marital Status | | + + + | Latter Day Affiliation | Unknown | + + + [...] Providers + +------+ + | Care Automotive Welder Name | Role | Phone | [...] | Troy Buchanan MD | [address] | | | | | unspecified | [address] | [place], | | | | | syncope type | [address] | [place] | | | | | | [place], | [address] | | | | | Bradycardia | [place] [address] | Phone: | | | | | | Phone: | [phone] | | | | | Hyperreflexi | [phone] | Fax: | | | | | a | Fax: | [phone] | | | | | Procedures | [phone] | | | | | | MRI [...] | Radiology | Diagnoses | Page, | [facility] Mri | | | | | Syncope, | Troy E A, MD | [address] | | | | | unspecified | [address] | [place], | | | | | syncope type | [address] | [place] | | | | | | [place], | [address] | | | | | Bradycardia | [place] [address] | Phone: | | | | | | Phone: | [phone] | | | | | Hyperreflexi | [phone] | Fax: | | | | | a | Fax: | [phone] | | | | | Procedures | [phone] | | | | | | MRI [...] PHYSIATRY [address] | MD [address] | syncope type | | | | [address] | [place] | (Primary Dx); | | | | [place] | [address] | [place]; | | | | [address] | | Hyperreflexia | | | | [phone] | | | +--------+ + + + [...] MEDICAL CENTER | | MRA HEAD: 3-D azad-va-ytiyls magnetic resonance angiograms were | - IMAGING | | obtained of the [place] and vertebrobasilar systems. MIP | | | and source images are available. TECHNIQUE MRA NECK: 3-D | | | gyes-fr-pzbjjl magnetic resonance angiograms were obtained from the [...] head 01/10/2016TECHNIQUE MRA HEAD: 3-D | | lmsl-mf-ywaboe magnetic resonance angiograms wereobtained of the [place] and | | vertebrobasilar systems. MIP and sourceimages are available.TECHNIQUE MRA NECK: 3-D | | jfsr-ls-njgkxj magnetic resonance angiograms wereobtained from the level [...] ST. | [address] | [place], [place] | [phone] | | [facility] | | [address] | | | - IMAGING | | [...] feet. COMPARISON: MRI head 01/10/2016 TECHNIQUE | [facility] | | MRA HEAD: 3-D fpnq-dd-vpbbre magnetic resonance angiograms were | - IMAGING | | obtained of the [place] and vertebrobasilar systems. MIP | | | and source images are available. TECHNIQUE MRA NECK: 3-D | | | uhss-cw-zskatj magnetic resonance angiograms were obtained from the [...] head 01/10/2016TECHNIQUE MRA HEAD: 3-D | | mqcd-xf-psulkt magnetic resonance angiograms wereobtained of the [place] and | | vertebrobasilar systems. MIP and sourceimages are available.TECHNIQUE MRA NECK: 3-D | | pexe-hx-mdszlu magnetic resonance angiograms wereobtained from the level [...] [address] | [place] | [phone] | | [facility] | | [address] | | | - IMAGING | | [...]
--- OUTSIDE RECORDS SUMMARY | ~2019-11-14 | XMS | Encounter Summary ---
Demographics + + + | Address | [address] | | | [place] [address] | + + + | Home Phone [...] + + | Author | [facility] | | | and [place] | + + + | Organization | [facility] | | [...] Team Providers + +------+ + | Care Police Captain Name | Role | Phone | + +------+ + PCP | Unavailable | + +------+ + Encounter Details +--------+ + + + + | Date | Type | Department | Care Team | Description | +--------+ + + + + | 03/21/ | Hospital | [facility] GENER[facility] IP | Conversion | Pain | | 2015 | Encounter | CONVERSION [address] | Transaction, | | | | | [address] | Provider Unknown | | | | | [place] | [phone] | | | | | [address] | | | | | | [phone] | | | +--------+ + + + [...] XR CHEST 2 VIEWS | Routin | 12/15/2013 | | Results for this | | | e | 1:07 AM | | procedure are in the | | | | PDT | | results section. | + +--------+ + + + documented in this encounter Results XR Chest 2 Vws (12/15/2013 1:07 AM PDT) + + | Specimen [...]
--- OUTSIDE RECORDS SUMMARY | ~2019-11-14 | XMS | Encounter Summary ---
Demographics + + + | Address | [address] | | | [place] [address] | + + + | Home Phone [...] Team Providers + +------+ + | Care Propulsion Systems Engineer Name | Role | Phone | [...] | Appointment | | 2017 | | [facility] [address] | MD Bill [address] | | | | | [place], | [place] [address] [place] | | | | | [place] [address] | [place] [address] | | | | | [phone] | [phone] | | | | | | | [...]
--- OUTSIDE RECORDS SUMMARY | ~2019-11-14 | XMS | Encounter Summary ---
Demographics + + + | Address | [address] | | | [place] [address] | + + + | Home Phone [...] Team Providers + +------+ + | Care Special Education Teaching Assistant Name | Role | Phone | + +------+ + PCP | Unavailable | + +------+ + Encounter Details +--------+ + + + + | Date | Type | Department | Care Team | Description | +--------+ + + + + | 04/25/ | Hospital | [facility] MEDICAL | Conversion | | | 2015 | Encounter | CENTER P[facility] | Transaction, | | | | | CLINIC [address] | Provider Unknown | | | | | [address] [place], [place] | | | | | | [address] | (Fax) | | | | | [phone] | | | +--------+ + + + [...]
--- OUTSIDE RECORDS SUMMARY | ~2019-11-14 | XMS | Encounter Summary ---
Demographics + + + | Address | [address] | | | [place] [address] | + + + | Home Phone | | + + + | Preferred Language | Unknown | + + + | Marital Status | | + + + | Zoroastrian Affiliation | Unknown | + + + | Race | Unknown | + + + | Ethnic Group | Unknown | + + + Author + + + | Author | [facility] | | | and [place] | + [...] Providers + +------+ + | Care Tool Designer Apprentice Name | Role | Phone | + [...] | Troy Buchanan MD | [address] | | | | | unspecified | [address] | [place], | | | | | syncope type | [address] | [place] | | | | | | [place], | [address] | | | | | [place] | [place] [address] | Phone: | | | | | | Phone: | [phone] | | | | | Hyperreflexi | [phone] | Fax: | | | | | a | Fax: | [phone] | | | | | Procedures | [phone] | | | | | | MRI [...] Troy Hasmukh Buchanan MD | [address] | | | | | unspecified | [address] | [place], | | | | | syncope type | [address] | [place] | | | | | | [place], | [address] | | | | | [place] | [place] [address] | Phone: | | | | | | Phone: | [phone] | | | | | Hyperreflexi | [phone] | Fax: | | | | | a | Fax: | [phone] | | | | | Procedures | [phone] | | | | | | MRI [...] + + | 02/25/ | Hospital | [facility] | Troy Page, | Syncope, unspecified | | 2016 | Encounter | MED CTR MRI [address] | MD [address] | syncope type; | | | | [address] [place], | [place], [place] | [place]; | | | | [place] [address] | [address] | Hyperreflexia | | | | [phone] | | | +--------+ + + + [...] feet. COMPARISON: MRI head 01/10/2016 TECHNIQUE | [facility] | | MRA HEAD: 3-D pktx-ws-kwzydv magnetic resonance angiograms were | - IMAGING | | obtained of the [place] and vertebrobasilar systems. MIP | | | and source images are available. TECHNIQUE MRA NECK: 3-D | | | vxwl-xv-avlgtj magnetic resonance angiograms were obtained from the [...] head 01/10/2016TECHNIQUE MRA HEAD: 3-D | | euzl-ai-yysvql magnetic resonance angiograms wereobtained of the [place] and | | vertebrobasilar systems. MIP and sourceimages are available.TECHNIQUE MRA NECK: 3-D | | uwqn-ot-sdrphm magnetic resonance angiograms wereobtained from the level [...] [address] | [place] | [phone] | | [facility] | | [address] | | | - IMAGING | | | | + + + + + documented in this encounter Visit Diagnoses + + | Diagnosis | + + | Syncope, unspecified syncope type | + + | Bradycardia Other specified cardiac dysrhythmias | + + | Hyperreflexia Abnormal reflex | + + documented in this encounter"
--- OUTSIDE RECORDS SUMMARY | ~2019-11-14 | XMS | Encounter Summary ---
Demographics + + + | Address | [address] | | | [place] [address] | + + + | Home Phone [...] Providers + +------+ + | Care Supervisor Decorating Name | Role | Phone | + [...] [place] | | | | | | [address] | [address] | | | | | | Phone: | Phone: | | | | | | [phone] | [phone] | | | | | | Fax: | Fax: | | | | | | [phone] | [phone] | +--------+--------+ + + + + Encounter Details +--------+---------+ + + + | Date | Type | Department | Care Team | Description | +--------+---------+ + + + | 06/15/ | Office | [facility] | Shun, | Epigastric pain | | 2019 | Visit | [facility] | Bob Johnson, | (Primary Dx) | | | | SURGERY [address] | [address] | | | | | [address] [place], | [place], [place] | | | | | [place] [address] | [address] | | | | | [phone] | [phone] | | | | | | | [...] note might be different from the original. [facility] Bob Hoffmann M.D. [address] , [place], [place] [address] - Colonoscopy Education A colonoscopy is a [...] contact your insurance company with any questions. [facility] Giselle Rosales M.D [facility] [place], [place] [address] - PATIENT NAME: Corina Woods IF YOU [...] vomiting, or vomiting blood Date Last Reviewed: 01/03/201619999177-4675 [employer]. [address] [place] [address]. All righ ts reserved. This information is [...] Needle Localization [] Lumpectomy [] Mastectomy [] Sandborn Node Biopsy [] Isosulfan Blue Dye [] Technesium 99 HERNIA [] Left [] Right [] Bilateral [] Inguinal [] Ventral [] Umbilical [] Open [] Laparoscopic COLON [] Right [] Left [] Sigmoid [] Open [] Laparoscopic [] Preop Ureteral Stent Placement - [] Left / [] Right GALLBLADDER [] [facility] Bob Johnson MD - 06/15/2019 2:00 PM [...] Recorder Procedure; Surgeon: Delvin Dupont MD; Location: [facility] CV LAB PACEMAKER INSERTION N/A 11/03/2016 Procedure: CV EP Loop Recorder Procedure; Surgeon: Delvin Dupont MD; Location: [facility] CV LAB PONV MEDICATIONS Current Outpatient Medications [...] file Gets together: Not on file Attends hinduism service: Not on file Active member of [...] as well as multiple biopsies of the [facility] er GI tract. Electronically signed by: Bob Hoffmann MD 06/15/2019 2:06 PM This note was transcribed using voice recognition software; there may be speech recognition errors which escaped detection during technology integration specialist. documented in this encounter Plan of Treatment Not on filedocumented as of this encounter Visit Diagnoses + + | Diagnosis | + + | Epigastric pain - Primary Abdominal pain, epigastric | + + documented in this encounter"
--- OUTSIDE RECORDS SUMMARY | ~2019-11-14 | XMS | Encounter Summary ---
Demographics + + + | Address | [address] | | | [place] [address] | + + + | Home Phone | | + + + | Preferred Language | Unknown | + + + | Marital Status | | + + + | Religion Affiliation | Unknown | + + + [...] Team Providers + +------+ + | Care Crtts Name | Role | Phone | + [...] + + | 11/03/ | Surgery | [facility] | Delvin Dupont | CV EP Loop Recorder | | 2017 | | MED CTR CV INTRA OP | MD Bill [address] | Procedure | | | | [address] | [address] [facility] | | | | | [place] | [place] [address] | | | | | [address] | [phone] | | | | | [phone] | | | +--------+---------+ + + + [...] [address] | [place] | [phone] | | [facility] | | [address] | | | - LABORATORY | | [...] | | mL/hr | | | Intravenous, POSTMASTER RELIEF, Starting | | AM PDT | | [...]
--- OUTSIDE RECORDS SUMMARY | ~2019-11-14 | XMS | Encounter Summary ---
Demographics + + + | Address | [address] | | | [place] [address] | + + + | Home Phone | | + + + | Preferred Language | Unknown | + + + | Marital Status | | + + + | Congregational Affiliation | Unknown | + + + | Race | Unknown | + + + | Ethnic Group | Unknown | + + + Author + + + | Author | [facility] | | | and [place] | + + + | Organization | [facility] | | | [...] Team Providers + +------+ + | Care Social Service Worker Name | Role | Phone | + [...] | +--------+ + + + + | 10/13/ | Implant | [facility] [place] | Delvin Dupont | Remote Device | | 2017 | Monitor | CARDIOLOGY [address] | MD Bill [address] | Interrogation | | | | [place], | [address] [place] [address] [place] | (Primary Dx); | | | | [place] [address] | [place] [address] | Syncope, unspecified | | | | [phone] | [phone] | syncope type; | | | | | | Status post | | | | | | placement of | | | | | | implantable loop | | | | | | bgmkhipp-HNHG-Tweyhz | | | | | | kathi-02/18/16-SSM [...] this | | INTERROGATION- | e | 5:01 PM | Interrogation | procedure are in the | | REMOTE | | PDT | Syncope, unspecified | results section. | | | | | syncope type | | | | | | Status post | | | | | | placement of | | | | | | implantable loop | | | | | | ufiupwyr-POFA-Iqycqn | | | | | | kathi-02/18/16-SSM | | + +--------+ + + + documented in this encounter Results Device Interrogation - Remote (11/06/2016 5:01 PM PDT) + + + | Narrative | Performed At | + + + | Delvin Dupont MD 11/06/2016 17:01 Refer to [employer]ace[employer] | PACEART | | documentation and remote PDF scanned into [employer] for remote | | | interrogation results. Data collected by Antonella Dooley RN | | | Presenting rhythm: Sinus rhythm heart rate 95-97. 0 Symptom Episodes | | | 0 Tachy Episodes 0 Pause Episodes 0 Jean Episodes 0 AT | | | Episodes 0 AF Episodes % of time in AT/AF 0.0 % Histogram good. | | | Battery ok. Apparent normal and stable function. Device | | | interrogation in office 10-14-16 Patient notified. | | + + + + +---------+ [...] | Status post placement of implantable loop ugdqmdwp-WCMC-Bzcgworul-02/18/16-SSM | + + documented in this encounter"
--- OUTSIDE RECORDS SUMMARY | ~2019-11-14 | XMS | Encounter Summary ---
Demographics + + + | Address | [address] | | | [place] [address] | + + + | Home Phone [...] Team Providers + +------+ + | Care Meat Boner And Slicer Name | Role | Phone | + [...] Stephanie Mccurdy | | | | | [place], [place] | [place] [address] | | | | | [address] | [phone] | | | | | [phone] | | | +--------+ + + + [...] 1980 | | | Performing Physician: Luis Carlso Sullivan DO | | | | | [...] pressures of | | | 5-10mmHg. MEASUREMENTS Ict Trainer: MISAEL | | | Authenticated by: Luis Carlos Sullivan DO Report Date/Time: -- | | | [id number] | | + + + + + [...] venous | | pressures of 5-10mmHg. MEASUREMENTS Ict Trainer: DHAuthenticated by: | | Luis Carlos White Date/Time: -- [id number] IMPRESSION: 1. Essentially | | normal study.2. [...] | |MEASUREMENTS | | | | | |Ict Trainer: MISAEL | |Authenticated by: Luis Carlos Sullivan DO | |Report Date/Time: -- [id number]:59 | | | |IMPRESSION: | |1. Essentially normal study. | |2. See Dictation. | + + documented in this encounter Visit Diagnoses Not on filedocumented in this encounter"
--- OUTSIDE RECORDS SUMMARY | ~2019-11-14 | XMS | Encounter Summary ---
Demographics + + + | Address | [address] | | | [place] [address] | + + + | Home Phone [...] Team Providers + +------+ + | Care Hob Grinder Name | Role | Phone | + [...] | +--------+ + + + + | 07/22/ | Implant | [facility] [place] | Delvin Dupont | Remote Device | | 2017 | Monitor | CARDIOLOGY [address] | MD Bill [address] | Interrogation | | | | [place], | [address] [place] | (Primary Dx); | | | | [place] [address] | [place] [address] | Syncope, unspecified | | | | [phone] | [phone] | syncope type; | | | | | | Status post | | | | | | placement of | | | | | | implantable loop | | | | | | ojtixrya-IQXQ-Bbyyjn | | | | | | kathi-02/18/16-SSM [...] loop | | | | | | hiblvbbi-ZRZZ-Upbwre | | | | | | kathi-02/18/16-SSM | | + +--------+ + + + documented in this encounter Results Device Interrogation - Remote (11/06/2016 5:02 PM PDT) + + + | Narrative | Performed At | + + + | Delvin Dupont MD 11/06/2016 17:02 Refer to Paceart | PACEART | | documentation and remote PDF scanned into [employer] for remote | | | interrogation results. Data collected by Lluvia Fernández CNA | | | Presenting rhythm: Sinus rhythm heart rate 78-80. 3 Symptom Episodes | | | #18 occurred 06/25 at 2330. EGM is consistent with sinus rhythm to | | | sinus bradycardia heart rate 48-98. #17 occurred 06/25 at 0200. EGM | | | is consistent with sinus rhythm heart rate 69-95. #16 occurred | | | 06/02 at 1602. EGM is consistent with sinus rhythm to sinus | | | tachycardia heart rate 63-135. 0 Tachy Episodes 0 Pause Episodes | | | 0 Jean Episodes 0 AT Episodes 0 AF Episodes % of time in AT/AF | | | 0.0 % Histogram unavailable. Battery ok. Apparent normal and | | | stable function. Device interrogation due in office in 09/02. Patient | | | notified. | | + + + + [...] | Status post placement of implantable loop sqgeamcc-UBZF-Gbwuzjotn-02/18/16-SSM | + + documented in this encounter"
--- OUTSIDE RECORDS SUMMARY | ~2019-11-14 | XMS | Encounter Summary ---
Demographics + + + | Address | [address] | | | [place] [address] | + + + | Home Phone | | + + + | Preferred Language | Unknown | + + + | Marital Status | | + + + | Nondenominational Affiliation | Unknown | + + + | Race | Unknown | + + + | Ethnic Group | Unknown | + + + Author + + + | Author | [facility] | | | and [place] | + + + | Organization | [facility] | | | [...] Team Providers + +------+ + | Care Construction Driller Name | Role | Phone | + +------+ + PCP | Unavailable | + +------+ + Encounter Details +--------+ + + + + | Date | Type | Department | Care Team | Description | +--------+ + + + + | 03/21/ | Hospital | [facility] | Conversion | Pain | | 2015 | Encounter | [address]VERSION [address] | Transaction, | | | | | [address] | Provider Unknown | | | | | [place] | [phone] | | | | | [address] | | | | | | [phone] | | | +--------+ + + + [...]
--- OUTSIDE RECORDS SUMMARY | ~2019-11-14 | XMS | Encounter Summary ---
Demographics + + + | Address | [address] | | | [place] [address] | + + + | Home Phone | | + + + | Preferred Language | Unknown | + + + | Marital Status | | + + + | Judaism Affiliation | Unknown | + + + | Race | Unknown | + + + | Ethnic Group | Unknown | + + + Author + + + | Author | [facility] | | | and [place] | + + + | Organization | [facility] | | | [...] Team Providers + +------+ + | Care Rehabilitation Worker Name | Role | Phone | [...] sleep apnea) | | | | [address] [place] | [address] [place] | (Primary Dx); | | | | [place] [address] | [place] [address] | Nocturnal hypoxemia; | | | | [phone] | [phone] | Organic insomnia; | | | | [...] might be differen t from the original. [facility] [place] [address] Ref: Deonte Salmeron DO CC: Chief Complaint Patient presents with Consult Snoring History of the Present Illness:This is a 33 year old female who is referred for sleep medic ine consultation by Dr. Tevin Salmeron because of NIKOLAS and insomnia. Other significant medical iss ues include obesity, AODM, OCD, HBP, Anxiety. The patient's records (Sleep reports from [facility] [address] Samleron's note of 08/08/2013) are reviewed. The patient is inte rviewed and examined. PSG was performed at 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 She is being treat [...] she developed eclampsia where she was flown [facility] in [place]. She has had two pregnancies since and had pre-eclampsia on one and full blown eclampsia with the other. She says that she has mild renal failure since then but that did not have seizures. Past Medical History: has a past medical history of Obesity; H/O eclampsia; HBP (high bloo d pressure); Chronic kidney disease (HCC); Diabetes type 2, controlled ([facility]); NIKOLAS (obstructi ve sleep apnea); Nocturnal hypoxemia; [...] Review: The score of 11 on the Jeff Sleepiness scale suggests moderately severe recognized excessive [...] was found to have mild NIKOLAS in [place] 4 years ago. It is cornell y [...] Insomnia Severity Index Insomnia Severity Index 28 Jeff Sleepiness Scale Sitting and reading 1 Watching [...]
--- OUTSIDE RECORDS SUMMARY | ~2019-11-14 | XMS | Encounter Summary ---
Demographics + + + | Address | [address] | | | [place] [address] | + + + | Home Phone [...] Team Providers + +------+ + | Care Jewelry Department Supervisor Name | Role | Phone | + +------+ + PCP | Unavailable | + +------+ + Encounter Details +--------+ + + + + | Date | Type | Department | Care Team | Description | +--------+ + + + + | 03/21/ | Hospital | [facility] IP | Conversion | Pain | | 2015 | Encounter | [address] | Transaction, | | | | | [address] | Provider Unknown | | | | | [place] | [phone] | | | | | [address] | | | | | | [phone] | | | +--------+ + + + [...] + +--------+ + + + | CT ANGIOGRAM | Routin | 02/23/2015 | | Results for this | | PULMONARY | e | 1:05 AM | | procedure are in the | | | | PDT | | results section. | + +--------+ + + + documented in this encounter Results CT Angiogram Pulmonary w Contrast (02/23/2015 1:05 AM PDT) + + | Specimen | + + | | + + + + + | Narrative | Performed At | + + + | This is a non-reportable procedure without a radiologist report and | | | is used for image storage only | | + + + + + | Procedure Note | + + | Charles Mzea Lilli - 02/17/2019 10:10 AM PDT This is a non-reportable procedure | | without a radiologist report and isused for image storage only | + + documented in this encounter Visit Diagnoses + + | Diagnosis | + + | Pain Generalized pain | + + documented in this encounter"
--- OUTSIDE RECORDS SUMMARY | ~2019-11-14 | XMS | Encounter Summary ---
Demographics + + + | Address | [address] | | | [place] [address] | + + + | Home Phone | | + + + | Preferred Language | Unknown | + + + | Marital Status | | + + + | Moravian Affiliation | Unknown | + + + | Race | Unknown | + + + | Ethnic Group | Unknown | + + + Author + + + | Author | [facility] | | | and [place] | + + + | Organization | [facility] | | [...] Team Providers + +------+ + | Care Migratory Farm Hand Name | Role | Phone | [...] W | Interrogation | | | | [place], | [address] [place] | (Primary Dx); | | | | [place] [address] | [place] [address] | Syncope, unspecified | | | | [phone] | [phone] | syncope type; | | | | | | Status post | | | | | | placement of | | | | | | implantable loop | | | | | | udztmfts-LIZF-Szeitz | | | | | | kathi-02/18/16-SSM [...] loop | | | | | | bsqwhhgi-KDUF-Rglwaq | | | | | | kathi-02/18/16-SSM | | + +--------+ + + + documented in this encounter Results Device Interrogation - Remote (11/06/2016 5:02 PM PDT) + + + | Narrative | Performed At | + + + | Delvin Dupont MD 11/06/2016 17:02 Refer to Paceart | PACEART | | documentation and remote PDF scanned into [employer] for remote | | | interrogation results. [...] | Status post placement of implantable loop fjmidfdt-JOUA-Znnrxkkrz-02/18/16-SSM | + + documented in this encounter
--- OUTSIDE RECORDS SUMMARY | ~2019-11-14 | XMS | Encounter Summary ---
Demographics + + + | Address | [address] | | | [place] [address] | + + + | Home Phone | | + + + | Preferred Language | Unknown | + + + | Marital Status | | + + + | Shinto Affiliation | Unknown | + + + [...] Team Providers + +------+ + | Care Furnace Filler Name | Role | Phone | + [...] + + | 06/08/ | Hospital | [facility] | Stoney Suero, | Menorrhagia with | | 2018 - | Encounter | [facility] | MD Sarthak ALICIA | irregular cycle; | | | | [address] | [place] | Type 2 diabetes | | 06/11/ | | [place] [address] | [address] | mellitus with | | 2018 | | [phone] | [phone] | complication, | | | | | | without long-term | | | | | | current use of | | | | | | insulin ([facility]); | | | | | | Hypertension, [...] whether | | | | | | [place] or | | | | | | [...] Martinez DO - 06/11/2018 2:24 PM PST [place], [place] HOSPITALIST DISCHARGE SUMMARY Pt. Name/Age/: Corina [...] only occurs with exertion. 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 The chest pressure radiated to the left jar, ear, and left arm. She presented to [facility] then was transferred to [facility] for further work up. Cardiology was consult [...] c/c/e Pych: normal mood and affect Neuro: material hauler grossly intact, no focal weakness or sensory deficits PROCEDURES AND CONSULTS: Procedures cardiac stress test, echo Consults cardiology PENDING RESULTS: catecholamines 24hr urine and fractionated DISPOSITION AND DISCHARGE INSTRUCTIONS: Follow-up Information Please follow up. Why: Clinic will contact you regarding scheduling a new patient appointment. Please conta ct them at [phone] if you have not heard from them by the end of next week. Contact information: [facility] [address] [phone] No Physician on file In 1 week. Contact information: P Condition: Patient being discharged with condition improved Diet:cardiac and diabetic Greater than 30 minutes were spent on discharge and coordination of post-hospital care. Electronically signed by: Norm Martinez DO, 06/11/2018 14:24 [facility] Portions of this chart may have been created with [employer] voice recognition software. Occasi onal wrong-word or [...] resources below can help you learn more: Citizen Of [place] Diabetes Yfkiwsccoid599-481-3247sfk.diabetes.org Lighthouse Sqniyaljvdewy978-190-4172htd.lighthouse.org National Eye Oimfcftou997-963-3453 www.nei.nih.gov Hormone Health [phone] www.hormone.org Date Last Reviewed: 11/03/201519991848-5142 [employer]. [address] [place] [address], [place] [address]. All righ ts reserved. This information is not intended as a substitute for professional medical care. Always follow your healthcare professional's instructions. Jekt-fk-Xblz Checking Your Blood Pressure Date Last Reviewed: 10/30/201519996230-4976 [employer]. [address] [place] [address], [place] [address]. All [facility] ts reserved. This information is not [...] redness in one leg Date Last Reviewed: 06/04/201619990168-1542 [employer]. [address] [place] [address], [place] [address]. All righ ts reserved. This information is [...] and need help quitting, talk to your [facility] team. Testing your blood sugar is the [...] cut down on salt. A dietitian or informatics educator can help form a meal plan that works for you even if you are on a low budget. Being activecan help reduce your weight, strengthen your heart, and lower your lipid l evels and blood pressure. Exercise and activity are good for your whole body. Talk to your [facility] team about increasing your activity safely over time. Keeping your appointmentswith your healthcare provider helps you stay healthy. Go in f or checkups and lab tests as scheduled. Date Last Reviewed: 11/21/201519992639-7433 [employer]. [address] [place] [address], [place] [address]. All righ ts reserved. This information is [...] Academy of Nutrition and Dietetics www.eatright.org The Citizen Of [place] Diabetes Association [phone] www.diabetes.org Date Last Reviewed: 02/03/201619997884-[address] [employer] [place] [address]. All righ ts reserved. This information is [...] of rice 4 to 6 crackers 1/2 Liberian muffin 1/2 cup of black beans 1/4 of a large baked potato (3 ounces) 2/3 cup of plain fat-free yogurt 1 cup of soup 1/2 cup of casserole 6 chicken nuggets 0-koih-cplbhz brownie or cake without frosting 2 small [...] sugar. It also affects your weight. Your [facility] team will tell you how much [...] yourself by bringing a healthy dish to [employer]. Choose healthy snacks When it comes to [...] could get too high. Date Last Reviewed: 01/03/201619992701-4273 [employer]. [address] [place] [address], [place] [address]. All righ ts reserved. This information is [...] heartbeat Confusion or irritability Date Last Reviewed: 12/04/201519992320-[address] [employer] [place] [address]. All righ ts reserved. This information is [...] Signed by: Damián Crowley MD, 06/11/2018 9:11 [facility] Norm Mead DO - 01/2018 4:13 PM PST [facility] [place] HOSPITALIST PROGRESS NOTE Patient: Corina Woods : 1980: Age: 38 y.o. MedRec: [id number] Admission date: 06/08/2018 Hospital day # : [...] became so severe that she presented to [facility] in [place]. On arrival th [facility], chest pain continued and pt's BP was markedly elevated. The pt reports that she has caballero d difficulty affording her medication and therefore has not been taking her usual antihypert ensives or her oral hypoglycemic agents. The evaluating physician at [facility] was concerned about ACS and referred pt to [facility] f or further evaluation. While there pt [...] Procedure Component Value Units Date/Time Culture, MRSA [[id number]] (Normal) Collected: 06/08/18 1639 Order Status: Completed [...] c/c/e Pych: normal mood and affect Neuro: material hauler grossly intact, no focal weakness or sensory deficits Norm Martinez DO 06/10/2018 16:13 [facility] Portions of this chart may have been created with [employer] voice recognition software. Occasi onal wrong-word or [...] by: Damián Crowley MD, 06/10/2018 14:54 [facility] ee, Damián Perez MD - 12/2017 10:41 [...] ECGs available Confirmed by CHRISTOPHER MARIE, DIANE ([id number]) on 06/09/2018 6:51:55 AM Troponin I Result [...] E' Septal Velocity 10.46 cm/s MV Deceleration Schleicher 410.2 cm/s2 MV Deceleration Time 217.39 msec [...] by: Damián Crowley MD, 06/09/2018 10:41 [facility] Norm Mead DO - 12/2017 6:57 AM PST [facility] [place] HOSPITALIST PROGRESS NOTE Patient: Corina Woods : 1980: Age: 38 y.o. MedRec: [id number] Admission date: 06/08/2018 Hospital day # : [...] became so severe that she presented to [facility] in [place]. On arrival th ere, chest pain continued and pt's BP was markedly elevated. The pt reports that she has caball[place] d difficulty affording her medication and therefore has not been taking her usual antihypert ensives or her oral hypoglycemic agents. The evaluating physician at [facility] was concerned about ACS and referred pt to [facility] f or further evaluation. While there pt [...] ECGs available Confirmed by CHRISTOPHER MARIE, DIANE ([id number]) on 06/09/2018 6:51:55 AM Troponin I Collection [...] E' Septal Velocity 10.46 cm/s MV Deceleration Schleicher 410.2 cm/s2 MV Deceleration Time 217.39 msec [...] Procedure Component Value Units Date/Time Culture, MRSA [[id number]] Collected: 06/08/18 5895 Order Status: Sent Lab Status: In process Updated: 06/08/18 1214 Specimen: Tissue from Nares Radiology results Xr [...] c/c/e Pych: normal mood and affect Neuro: material hauler grossly intact, no focal weakness or sensory deficits Norm Martinez DO 06/09/2018 9:26 [facility] Portions of this chart may have been created with [employer] voice recognition software. Occasi onal wrong-word or sound-alike substitutions may have occurred due to the inherent degroot itations of voice recognition software. Please read the chart carefully and recognize, using context, where these substitutions have occurred Marline Garcia RN - 06/08/2018 6:55 PM PSTChristina was a [place] transfer, denies any chest pain ju st [...] [place] [address], | REFERENCE LAB | | [place], [place] [id number] Campaign Assistant: Hakan Blood MD, Phone: | [facility] | | [phone] | | + + + + + + + + | Performing | Address | City/State/Zipcode | Phone Number | | Organization | | | | + + + + + | REFERENCE LAB | [address] | [place], [place] | [phone] | | [facility] | Drive [facility] | [address] | | + + + + + [...] [address] | [place] | [phone] | | [facility] | | [address] | | | - LABORATORY | | [...] + | [facility] | [address] | [place] | [phone] | | [facility] | | [address] | | | - LABORATORY | | [...] [address] | [place] | [phone] | | [facility] | | [address] | | | - LABORATORY | | [...] [address] | [place] | [phone] | | [facility] | | [address] | | | - LABORATORY | | [...] 7 | 7 - 18 mg/dL | [facility] | | | | | | [facility] | | | | | | MEDICAL | | | | | | CENTER - | | | | | | LABORATORY | | + + + + + + | Creatinine | 0.53 (L) | 0.60 - 1.30 | [facility] | | | | | mg/dL | [facility] | | | | | | MEDICAL | | | | | | CENTER - | | | | | | LABORATORY | | + + + + + + | eGFR if not | >60Comment: GLOMERULAR | >=60 | [facility] | | | | FILTRATION | mL/min/1.73m2 | [facility] | | | [place] | RATE,ESTIMATED | | MEDICAL | | | | mL/min/1.77t0Zuwa than | | CENTER - | | [...] [address] | [place] | [phone] | | [facility] | | [address] | | | - LABORATORY | | [...] [address] | [place] | [phone] | | [facility] | | [address] | | | - LABORATORY | | [...] | Performed at: 01 - Marlene [facility] Carl Khan, | REFERENCE LAB | | [place], [place] [id number] Campaign Assistant: Jennifer Negrete MD, Phone: | [facility] | | [phone] | | + + + + + + + + | Performing | Address | City/State/Zipcode | Phone Number | | Organization | | | | + + + + + | REFERENCE LAB | [address] | [place], [place] | [phone] | | [facility] | [address] [facility] | [address] | | + + + + + [...] [address] | [place] | [phone] | | [facility] | | [address] | | | - LABORATORY | | [...] + | Performed at: 01 - [facility] [place] [address], | REFERENCE LAB | | [place], [place] [id number] Campaign Assistant: Ar Rios MD, Phone: | [facility] | | [phone] | | + + + + + + + + | Performing | Address | City/State/Zipcode | Phone Number | | Organization | | | | + + + + + | REFERENCE LAB | [address] | [place], [place] | [phone] | | MAR[facility]E GARCIA | [address] [facility] | [address] | | + + + + + [...] [address] | [place] | [phone] | | [facility] | | [address] | | | - LABORATORY | | [...] + | [facility] | [address] | [place] | [phone] | | [facility] | | [address] | | | - LABORATORY | | [...] [address] | [place] | [phone] | | [facility] | | [address] | | | - LABORATORY | | [...] [address] | [place] | [phone] | | [facility] | | [address] | | | - LABORATORY | | [...] + | [facility] | [address] | [place] | [phone] | | [facility] | | [address] | | | - LABORATORY | | [...] [address] | [place] | [phone] | | [facility] | | [address] | | | - LABORATORY | | [...] | | | FILTRATION | mL/min/1.73m2 | [facility] | | | [place] | RATE,ESTIMATED | | MEDICAL | | | | mL/min/1.53e9Jnbk than | | CENTER - | | [...] + | [facility] | [address] | [place] | [phone] | | [facility] | | [address] | | | - LABORATORY | | [...] [address] | [place] | [phone] | | [facility] | | [address] | | | - LABORATORY | | [...] [address] | [place] | [phone] | | [facility] | | [address] | | | - LABORATORY | | [...] + | [facility] | [address] | [place] | [phone] | | [facility] | | [address] | | | - LABORATORY | | [...] | | , Urine | | | [facility] | | | [...] [address] | [place] | [phone] | | [facility] | | [address] | | | - LABORATORY | | [...] | Estimated | 283 | mg/dL | [facility] | | | Average | | | [...] [address] | [place] | [phone] | | [facility] | | [address] | | | - LABORATORY | | [...] [address] | [place] | [phone] | | [facility] | | [address] | | | - LABORATORY | | | | + + + + + Stress ECG (06/09/2018 3:05 PM PST) + + + | Narrative | Performed At | + + + | Delvin Dupont MD 06/09/2018 15:07 | [facility] | | [place] STRESS TEST REPORT [...] | Signed by: Elijah Dupont MD PhD [facility] 06/09/2018, 15:05 | | + + + + +---------+ + + | Performing | Address | City/State/[facility]code | Phone Number | | Organization | [...] + | [facility] | [address] | [place] | [phone] | | [facility] | | [address] | | | - LABORATORY | | [...] [address] | [place] | [phone] | | [facility] | | [address] | | | - LABORATORY | | [...] | | | | | | n Schleicher | | | | | + +--------+ [...] | | | | | | The [employer] [place] [employer] | | | | | [...] [address] | [place] | [phone] | | [facility] | | [address] | | | - LABORATORY | | [...] [address] | [place] | [phone] | | [facility] | | [address] | | | - LABORATORY | | [...] 7 | 7 - 18 mg/dL | [facility] | | | | | | [facility] | | | | | | MEDICAL | | | | | | CENTER - | | | | | | LABORATORY | | + + + + + + | Creatinine | 0.51 (L) | 0.60 - 1.30 | [facility] | | | | | mg/dL | [facility] | | | | | | MEDICAL | | | | | | CENTER - | | | | | | LABORATORY | | + + + + + + | eGFR if not | >60Comment: GLOMERULAR | >=60 | [facility] | | | | FILTRATION | mL/min/1.73m2 | [facility] | | | [place] | RATE,ESTIMATED | | MEDICAL | | | | mL/min/1.59i9Spmo than | | CENTER - | | [...] [address] | [place] | [phone] | | [facility] | | [address] | | | - LABORATORY | | [...] | | | | M/uL | [facility] | | | | [...] [address] | [place] | [phone] | | [facility] | | [address] | | | - LABORATORY | | [...] | | | | | | [employer] [place] [employer] | | | | | [...] + + | Performing | Address | City/State/[facility] Health Cliniccode | Phone Number | | Organization | | | | + + + + + | [facility] | [address] | [place] | [phone] | | [facility] | | [address] | | | - LABORATORY | | | | + + + + + POC Glucose (06/08/2018 9:56 PM PST) + +---------+ + + + | Component | Value | Ref Range | Performed | Pathologist | | | | | At | Signature | + +---------+ + + + | Glucose, | 316 (H) | 70 - 109 mg/dL | [facility] | | | POC [...] + | [facility] | [address] | [place] | [phone] | | [facility] | | [address] | | | - LABORATORY | | [...] + | [facility] | [address] | [place] | [phone] | | [facility] | | [address] | | | - LABORATORY | | [...] + | [facility] | [address] | [place] | [phone] | | [facility] | | [address] | | | - LABORATORY | | [...] | | | POC | | | [facility] | | | | | | [...] | + + + + + | [facility] | [address] | [place] | [phone] | | [facility] | | [address] | | | - LABORATORY | | [...] | | | | | | [employer] [place] [employer] | | | | | [...] [address] | [place] | [phone] | | [facility] | | [address] | | | - LABORATORY | | [...] | | | | DIANE WHITE MD ([id number]) | | | | | | on [...] [address] | [place] | [phone] | | [facility] | | [address] | | | - LABORATORY | | [...] or lesion | | type, unspecified whether [place] or transplanted heart | + + | [...] | | | | | | | 9662-4343 Use NIGHT DOSE for | | | | | | | doses scheduled: HS, 3AM, | | | | | | | Nighttime 7232-7032, | | | | | | + [...] | | | | | | | 5756-7354 Use NIGHT DOSE for | | | | | | | doses scheduled: HS, 3AM, | | | | | | | Nighttime 1781-5482, | | | | | | + [...]
--- OUTSIDE RECORDS SUMMARY | ~2019-11-14 | XMS | Encounter Summary ---
Demographics + + + | Address | [address] | | | [place] [address] | + + + | Home Phone | | + + + | Preferred Language | Unknown | + + + | Marital Status | | + + + | Scientology Affiliation | Unknown | + + + | Race | Unknown | + + + | Ethnic Group | Unknown | + + + Author + + + | Author | [facility] | | | and [place] | + + + | Organization | [facility] | | | [...] Team Providers + +------+ + | Care Health Underwriter Name | Role | Phone | + +------+ + PCP | Unavailable | + +------+ + Encounter Details +--------+---------+ + + + | Date | Type | Department | Care Team | Description | +--------+---------+ + + + | 11/06/ | Office | [facility] | Vinay Lyn PA | NIKOLAS on CPAP (Primary | | 2013 | Visit | SLEEP DISORDER [address] | [address] | Dx) | | | | [address] | [place] | | | | | [place] [address] | [address] | | | | | [phone] | | | +--------+---------+ + + + [...] Insomnia Severity Index Insomnia Severity Index 2 [place] Sleepiness Scale Sitting and reading 1 Watching [...] was: 09/07/2013 date of polysomnography: 12/16/2009 at [facility] RDI: 5.4 O2%: 68% Machine type: ResMed S9 with Enedina nasal mask obtained from: [facility] in [place] pressure: 5-20 cm 95%: 12.5 cm maxium: [...] a prescription to [facility] in [place] to convert her ResMed S9 to purchase. I have recommended that she touch base with them twice per year to ensure that her equipment is satisfactory. I will follow up again in 1 year, sooner prn. At that time we will reassess with all appro piate paperwork. Fifteen minutes were spent nahh-kx-xarz, with the majority of time spent i [...]
--- OUTSIDE RECORDS SUMMARY | ~2019-11-14 | XMS | Encounter Summary ---
Demographics + + + | Address | [address] | | | [place] [address] | + + + | Home Phone | | + + + | Preferred Language | Unknown | + + + | Marital Status | | + + + | Taoist Affiliation | Unknown | + + + | Race | Unknown | + + + | Ethnic Group | Unknown | + + + Author + + + | Author | [facility] | | | and [place] | + + + | Organization | [facility] | | | [...] Team Providers + +------+ + | Care Yardage Caller Name | Role | Phone | + [...] | | | | | | | MT | | | | | | | ESOPHAGOGAST | | | | | | | RODUODENOSCO | | | | | | | PY TRANSORAL | | | | | | | DIAGNOSTIC | | | | | | | MT EGD | | | | | | | TRANSORAL | | | | | | | BIOPSY | | | | | | | SINGLE/MULTI | | | | | | | PLE MT | | | | | | | [...] 06/30/ | Hospital | [facility] | [place], | | | 2019 | Encounter | H[facility] | [place], | | | | | [address] | [address] | | | | | [place] | [place] | | | | | [address] | [address] | | | | | [phone] | [phone] | | | | | | | [...] after normal business hours, please contact the [facility] at . documented in this encounter [...] | + +--------+ + + + | MT COLONOSCOPY FLX | Routin | 06/30/2019 | | Results for this | | DX W/COLLJ SPEC WHEN | e | 2:45 PM | | procedure are in the | | PFRMD | | PST | | results section. | + +--------+ + + + | MT | Routin | 06/30/2019 | | Results [...] | | | 06/30/2019 2:46 PM CC [facility] This note was | | | transcribed using voice recognition software; there may be speech | | | recognition errors which escaped detection during assembly machine tender. | | | | | + + [...] | | | 06/30/2019 2:46 PM CC [facility] This note was | | | transcribed using voice recognition software; there may be speech | | | recognition errors which escaped detection during assembly machine tender. | | | | | + + [...] + + | [facility] | [address] | [place] | [phone] | | HOSPITAL LABORATORY | | [address] | | + + + + + [...] + + | [facility] | [address] | [place] | [phone] | | HOSPITAL LABORATORY | | [address] | | + + + + + [...] | The technical component was performed by [facility], [address] | | | [place], [place] [address] (Drum Sander Setter: Arianne Shankar | | | [place] Magaña). Professional interpretation was performed by [employer] | | | Diagnostics, [facility], [address], [address], [address] | | | [place] [address] (Drum Sander Setter: Bob Quevedo, | | | Christina; [facility]# [id number]. Diagnostician: Arianne Magaña MD | | | Pathologist Electronically Signed 07/04/2019 | | + + + + +---------+ + + | Performing | Address | City/State/[facility] | Phone Number | [...]
--- OUTSIDE RECORDS SUMMARY | ~2019-11-14 | XMS | Encounter Summary ---
Demographics + + + | Address | [address] | | | [place] [address] | + + + | Home Phone | | + + + | Preferred Language | Unknown | + + + | Marital Status | | + + + | Presybeterian Affiliation | Unknown | + + + | Race | Unknown | + + + | Ethnic Group | Unknown | + + + Author + + + | Author | [facility] | | | and [place] | + + + | Organization | [facility] | | | [...] Providers + +------+ + | Care Rn Orthopaedics Name | Role | Phone | + [...] | HOSPITAL EMERGENCY | KEN Perez [address] | | | | | CENTER [address] | [place] | | | | | [address] [place] | [address] | | | | | [address] | | | | | | [phone] | | | +--------+ + + + [...] - 1.030 | EXTERNAL | | | [place], | | | LAB | | | [...]
--- OUTSIDE RECORDS SUMMARY | ~2019-11-14 | XMS | Encounter Summary ---
Demographics + + + | Address | [address] | | | [place] [address] | + + + | Home Phone [...] Team Providers + +------+ + | Care Digital Marketing Project Manager Name | Role | Phone | [...] | [address] | [address] | | | | | other | [place], | [place] | | | | | cardiac | [place] | [place] | | | | | implants and | [address] | [address] Phone: | | | | | grafts | Phone: | [phone] | | | | | Essential | [phone] | Fax: | | | | | (primary) | Fax: | [phone] | | | | | hypertension | [phone] | | | | | | Pure [...] + | 10/14/ | Office | [facility] | Delvin Dupont | Encounter for loop | | 2017 | Visit | CARDIOLOGY [address] | MD Bill [address] | recorder check | | | | [place], | [address] [place] | (Primary Dx); Status | | | | [place] [address] | [place] [address] | post placement of | | | | [phone] | [phone] | implantable loop | | | | | | qhzvmdxn-CXJO-Ywabus | | | | | | kathi-02/18/16-SSM; [...] Implantation Date: Check-In Time: 1. Check-In at [facility]. 2. Do not eat [...] home. Wound Check: Nurse only - At [facility], 4th floor Cardiology Date: Check-in Time: Follow [...] She has been followed remotely via her Skyscanner device and no arrhythmias have been observed. [...] Recorder Procedure; Surgeon: Delvin Dupont MD; Location: [facility] CV LAB Family History Problem Relation [...] made to ensure accuracy; however, inadvertent computerized crayon grader errors may be pre sent. Electronically signed by: Elijah Dupont MD PhD [facility] 10/14/2016 documented in this encounter Plan of [...] results section. | | | | | apwhvezb-DQCY-Dispos | | | | | | kathi-02/18/16-SSM [...] placement of implantable loop | | | avhrjijj-PIAW-Jihnblmbw-02/18/16-[facility] Z95.818 V45.09 Device | | | [...] | Status post placement of implantable loop ntajcwjj-YIGY-Uttjzfxlz-02/18/16-[facility] | + + | Essential hypertension Unspecified essential hypertension | + + | Hypercholesterolemia Pure hypercholesterolemia | + + | Syncope, unspecified syncope type | + + | NIKOLAS (obstructive sleep apnea) Obstructive sleep apnea (adult) (pediatric) | + + | Lightheadedness Dizziness and giddiness | + + documented in this encounter"
--- OUTSIDE RECORDS SUMMARY | ~2019-11-14 | XMS | Encounter Summary ---
Demographics + + + | Address | [address] | | | [place] [address] | + + + | Home Phone | | + + + | Preferred Language | Unknown | + + + | Marital Status | | + + + | Spiritism Affiliation | Unknown | + + + | Race | Unknown | + + + | Ethnic Group | Unknown | + + + Author + + + | Author | [facility] | | | and [place] | + + + | Organization | [facility] | | | [...] Team Providers + +------+ + | Care Medical Researcher Name | Role | Phone | + +------+ + PCP | Unavailable | + +------+ + Reason for Visit +--------+ + | Reason | Comments | +--------+ + | Apnea | | +--------+ + Encounter Details +--------+---------+ + + + | Date | Type | Department | Care Team | Description | +--------+---------+ + + + | 09/07/ | Office | [facility] | Vinay Lyn PA | NIKOLAS on CPAP (Primary | | 2013 | Visit | SLEEP DISORDER [address] | [address] | Dx) | | | | [address] [place] | [place], [place] | | | | | [place] [address] | [address] | | | | | [phone] | | | +--------+---------+ + + + [...] + + + | Blood Pressure | 140/94 | 09/07/2013 2:22 PM | | | | | PST | | + + + + + | Pulse | 92 | 09/07/2013 2:22 PM | | | | | PST | | + + + + + | Temperature | - | - | | + + + + + | Respiratory Rate | 16 | 09/07/2013 2:22 PM | | | | | PST | | + + + + + | Oxygen Saturation | 98% | 09/07/2013 2:22 PM | | | | | PST | | + + + + + | Inhaled Oxygen | - | - | | | Concentration | | | | + + + + + | Weight | 107.9 kg (237 lb | 09/07/2013 2:22 PM | | | | 14.4 oz) | PST | | + + + + + | Height | - | - | | + + + + + | Body Mass Index | 44.95 | 08/16/2013 1:58 PM | | | | | PST | | + + + + + documented in this encounter Progress Notes Vinay Lyn PA - 09/07/2013 2:25 PM PST Subjective: Patient ID: Corina Parada is a 33 y.o. female. HPI last office visit was: 08/16/2013 date of polysomnography: 12/16/2009 at [facility] RDI: 5.4 O2%: 68% Machine type: ResMed S9 with Enedina nasal mask obtained from: [facility] [place] pressure: 5-20 cm 95%: 12.8 cm maxium: 14.3 cm Nights using CPAP: average usage (all nights): 6:25 average usage (nights used): 6:25 AHI: 0.1 Corina comes in for CPAP compliance. She has used her CPAP each of the first 17 nights. She "loves" the ResMed S9. She attempted to use CPAP four years ago and was not able to t olerate it. She says that she hated it then, but is sleeping so much better now. She feels rested with more energy and is excited to go to sleep at night. She also says that she is much nicer now because she is sleeping so well. She had three difficult nights because she was trying a different mask. Returning to the Enedina nasal mask has allowed her to sleep well again. She is comfortable with her current settings and is comfortable making adjustments to the settings, if necessary. She does not have any questions or concerns. I have discussed the download in detail. This shows that her sleep apnea is well controlle d, with an AHI of 0.1. It also shows that her leaks are well controlled. Review of Systems Objective: Physical Exam Assessment: Problem #1: OBSTRUCTIVE SLEEP APNEA (327.23) This is well controlled with CPAP. Her CPAP compliance is going well. Plan: She is to continue with CPAP indefinitely. I will follow up again in 2 months, sooner prn. At that time we will reassess with all gurpreet ropiate paperwork. Fifteen minutes were spent nvil-ym-sbjc, with the majority of time spent in counseling. Vinay Lyn PA-C cc: Dr. Deonte Salmeron documented in this enco unter Plan of Treatment Not on filedocumented as of this encounter Visit Diagnoses + + | Diagnosis | + + | NIKOLAS on CPAP - Primary Obstructive sleep apnea (adult) (pediatric) | + + documented in this encounter
--- OUTSIDE RECORDS SUMMARY | ~2019-11-14 | XMS | Encounter Summary ---
Demographics + + + | Address | [address] | | | [place] [address] | + + + | Home Phone | | + + + | Preferred Language | Unknown | + + + | Marital Status | | + + + | Mandaeism Affiliation | Unknown | + + + | Race | Unknown | + + + | Ethnic Group | Unknown | + + + Author + + + | Author | [facility] | | | and [place] | + + + | Organization | [facility] | | | [...] Team Providers + +------+ + | Care Tire Inspector Name | Role | Phone | + +------+ + PCP | Unavailable | + +------+ + Encounter Details +--------+ + + + + | Date | Type | Department | Care Team | Description | +--------+ + + + + | 05/07/ | [facility] | [place] [facility] | Kapil Martinez | | | 2014 | Encounter | HOSPITAL EMERGENCY | MD Jose [address] | | | | | C[address] | [facility] | | | | | [address] [place] | [place] [address] | | | | | [address] | [phone] | | | | | [phone] | | | +--------+ + + + [...]
--- OUTSIDE RECORDS SUMMARY | ~2019-11-14 | XMS | Encounter Summary ---
Demographics + + + | Address | [address] | | | [place] [address] | + + + | Home Phone [...] Team Providers + +------+ + | Care Electronics Teacher Name | Role | Phone | [...] W | Interrogation | | | | [place], | [address] [place] | (Primary Dx); | | | | [place] [address] | [place] [address] | Syncope, unspecified | | | | [phone] | [phone] | syncope type; | | | | | | Status post | | | | | | placement of | | | | | | implantable loop | | | | | | nalkiqjj-GPWP-Bvexfd | | | | | | kathi-02/18/16-SSM [...] loop | | | | | | cqwsxboi-WEFC-Onxwjm | | | | | | kathi-02/18/16-SSM | | + +--------+ + + + documented in this encounter Results Device Interrogation - Remote (11/06/2016 5:02 PM PDT) + + + | Narrative | Performed At | + + + | Delvin Dupont MD 11/06/2016 17:02 Refer to Paceart | PACEART | | documentation and remote PDF scanned into [employer] for remote | | | interrogation results. [...] | Status post placement of implantable loop suqonxkh-LFEQ-Uxblacogz-02/18/16-SSM | + + documented in this encounter"
--- OUTSIDE RECORDS SUMMARY | ~2019-11-14 | XMS | Encounter Summary ---
Demographics + + + | Address | [address] | | | [place] [address] | + + + | Home Phone [...] Providers + +------+ + | Care Supervisor Yard Name | Role | Phone | + +------+ + PCP | Unavailable | + +------+ + Encounter Details +--------+ + + + + | Date | Type | Department | Care Team | Description | +--------+ + + + + | 03/21/ | Hospital | [facility] | Conversion | Pain | | 2015 | Encounter | CONVERSION DEP [address] | Transaction, | | | | | [address] | Provider Unknown | | | | | [place] | [phone] | | | | | [address] | | | | | | [phone] | | | +--------+ + + + [...]
--- OUTSIDE RECORDS SUMMARY | ~2019-11-14 | XMS | Encounter Summary ---
Demographics + + + | Address | [address] | | | [place] [address] | + + + | Home Phone | | + + + | Preferred Language | Unknown | + + + | Marital Status | | + + + | Congregation Affiliation | Unknown | + + + | Race | Unknown | + + + | Ethnic Group | Unknown | + + + Author + + + | Author | [facility] | | | and [place] | + + + | Organization | [facility] | | [...] Team Providers + +------+ + | Care Paralegal Instructor Name | Role | Phone | + [...] | | | | | | | [place] | | | | | | | ESOPHAGOGAST | | | | | | | RODUODENOSCO | | | | | | | PY TRANSORAL | | | | | | | DIAGNOSTIC | | | | | | | [place] EGD | | | | | | | TRANSORAL | | | | | | | BIOPSY | | | | | | | SINGLE/MULTI | | | | | | | PLE [place] | | | | | | | [...] | [address] [place] | [address] | | | | | [place] | [place] | | | | | [address] | [address] | | | | | [phone] | [phone] | | | | | | | [...] after normal business hours, please contact the [facility] at . documented in this encounter Medications [...] | + +--------+ + + + | [place] COLONOSCOPY FLX | Routin | 06/30/2019 | | Results for this | | DX W/COLLJ SPEC WHEN | e | 2:45 PM | | procedure are in the | | PFRMD | | PST | | results section. | + +--------+ + + + | [place] | Routin | 06/30/2019 | | Results [...] | | 06/30/2019 2:46 PM CC [facility] This note was | | | transcribed using voice recognition software; there may be speech | | | recognition errors which escaped detection during coin box inspector. | | | | | + + [...] | | 06/30/2019 2:46 PM CC [facility] This note was | | | transcribed using voice recognition software; there may be speech | | | recognition errors which escaped detection during coin box inspector. | | | | | + + [...] + + | [facility] | [address] | [place] | [phone] | | HOSPITAL LAB[facility]ORY | | [address] | | + + + + + [...] + + | [facility] | [address] | [place] | [phone] | | HOSPITAL LABORATORY | | [address] | | + + + + + [...] | The technical component was performed by [facility], [address] | | | [place], [place] [address] (Practice Professional: Arianne Shankar | | | Christina Magaña). Professional interpretation was performed by [facility] | | | [facility], [facility], [address], [address], Pr | | | [place] [address] (Practice Professional: Bob Quevedo, | | | Christina; CLIA# [id number]). Diagnostician: Arianne Magaña MD | | | Pathologist Electronically Signed 07/04/2019 | | + + + + +---------+ + + | Performing | Address | City/State/[facility] | Phone Number | | Organization [...]
--- OUTSIDE RECORDS SUMMARY | ~2019-11-14 | XMS | Encounter Summary ---
Demographics + + + | Address | [address] | | | [place] [address] | + + + | Home Phone | | + + + | Preferred Language | Unknown | + + + | Marital Status | | + + + | Episcopal Affiliation | Unknown | + + + | Race | Unknown | + + + | Ethnic Group | Unknown | + + + Author + + + | Author | [facility] | | | and [place] | + + + | Organization | [facility] | | [...] Team Providers + +------+ + | Care Front End Drupal Developer Name | Role | Phone | + +------+ + PCP | Unavailable | + +------+ + Encounter Details +--------+ + + + + | Date | Type | Department | Care Team | Description | +--------+ + + + + | 12/05/ | Documentati | [facility] | Vinay Lyn PA | | | 2015 | on | SLEEP DISORDER [address] | [address] | | | | | [address] [place] | [place] | | | | | [place] [address] | [address] | | | | | [phone] | | | +--------+ + + + [...]
--- OUTSIDE RECORDS SUMMARY | ~2019-11-14 | XMS | Encounter Summary ---
Demographics + + + | Address | [address] | | | [place] [address] | + + + | Home Phone [...] Team Providers + +------+ + | Care Automobile Club Travel Counselor Name | Role | Phone | + [...] and tingling | [address] | | | | n | in both | [address] | [place], | | | | | hands | [place], | [place] [address] | | | | | Numbness in | [place] [address] | Phone: | | | | | feet | Phone: | [phone] | | | | | Procedures | [phone] | Fax: | | | | | [place] NEEDLE | Fax: | [phone] | | | | | EMG EA | [phone] | | | | | | EXTREMITY | | | | | | | W/PARASPINL | | | | | | | AREA LIMITED | | | | | | | [place] OFFICE | | | | | | | OUTPATIENT | | | | | | | VISIT 25 | | | | | | | MINUTES [place] | | | | | | | MOTOR &/SENS | | | | | | | 13/> NRV | | | | | | | CNDJ PRECONF | | | | | | | ELTRODE | | | | | | | LIMB [place] | | | | | | | [...] | Troy Buchanan MD | [address] | | | | | and tingling | [address] | [place], | | | | | in both | [address] | [place] | | | | | hands | [place], | [address] | | | | | Hyperreflexi | [place] [address] | Phone: | | | | | a | Phone: | [phone] | | | | | Procedures | [phone] | Fax: | | | | | MRI Cervical | Fax: | [phone] | | | | | Spine wo | [phone] | | | | | | Contrast [...] | Troy Buchanan MD | [address] | | | | | unspecified | [address] | [place], | | | | | syncope type | [address] | [place] | | | | | | [place], | [address] | | | | | [place] | [place] [address] | Phone: | | | | | | Phone: | [phone] | | | | | Hyperreflexi | [phone] | Fax: | | | | | a | Fax: | [phone] | | | | | Procedures | [phone] | | | | | | MRI [...] | | | | | unspecified | [address] | [place] | | | | | Syncope | [place], | [place], [place] | | | | | and collapse | [place] [address] | [address] Phone: | | | | | | Phone: | [phone] | | | | | | [phone] | Fax: | | | | | | Fax: | [phone] | | | | | | [phone] | | +--------+ + + + + [...] [place]cardia, | [address] | [address] | | | | | unspecified | [address] | [place], | | | | | Syncope | [place], | [place] | | | | | and collapse | [place] [address] | [address] | | | | | | Phone: | Phone: | | | | | | [phone] | [phone] | | | | | | Fax: | Fax: | | | | | | [phone] | [phone] | +--------+ + + + + + [...] | Neurologic | Tiffanie Gale, | Hasmukh Buchnaan MD [address] | | | | Rehabilitatio | abnormality | [facility] [address] | | | | n | | [address] | [place], | | | | | [place], | [place], | [place] [address] | | | | | unspecified | [place] [address] | Phone: | | | | | | Phone: | [phone] | | | | | | [phone] | Fax: | | | | | | Fax: | [phone] | | | | | | [phone] | | +--------+--------+ + + + + Encounter Details +--------+---------+ + + + | Date | Type | Department | Care Team | Description | +--------+---------+ + + + | 02/04/ | Office | [facility] [place] | Troy Page, | Syncope, unspecified | | 2016 | Visit | PHYSIATRY [address] | [address] | syncope type | | | | [address] | [place] [facility], [place] | (Primary Dx); | | | | [place] | [address] | [place]; | | | | [address] | | Numbness and | | | | [phone] | | tingling in both | | [...] MD - 02/05/2016 5:16 PM PDT [facility] PHYSIATRY [address] [facility] [address] OFFICE NOTE TROY PAGE JR, MD Patient: CORINA PARADA Admitting: MR #: [id number] LOC: PT TYPE: Adm Date: 02/05/2016 : [...] 17:16:37 Transcribed on 02/06/2016 13:34:07 by job# [id number] Confirmation #: [id number] signed by Troy Page MD at 02/06/2016 2:22 PM Troy Trent MD - 02/05/2016 5:16 PM PDTThis office note has been dictated. Report Confirmation# [id number] signed by Troy Page MD at 02/05/2016 [...] in hands, hyperreflexion. COMPARISON: None available. | [facility] | | TECHNIQUE: Multiplanar, multisequence MRI images of the cervical [facility] | | spine were obtained without [...] [address] | [place] | [phone] | | [facility] | | [address] | | | - IMAGING | | [...]
--- OUTSIDE RECORDS SUMMARY | ~2019-11-14 | XMS | Encounter Summary ---
Demographics + + + | Address | [address] | | | [place] [address] | + + + | Home Phone | | + + + | Preferred Language | Unknown | + + + | Marital Status | | + + + | Anabaptism Affiliation | Unknown | + + + | Race | Unknown | + + + | Ethnic Group | Unknown | + + + Author + + + | Author | [facility] | | | and [place] | + + + | Organization | [facility] | | [...] Team Providers + +------+ + | Care Actuary Clerk Name | Role | Phone | + [...] wound and pain) | | | | [place], | [address] [place] | | | | | [place] [address] | [place] [address] | | | | | [phone] | [phone] | | | | | | | [...]
--- OUTSIDE RECORDS SUMMARY | ~2019-11-14 | XMS | Encounter Summary ---
Demographics + + + | Address | [address] | | | [place] [address] | + + + | Home Phone | | + + + | Preferred Language | Unknown | + + + | Marital Status | | + + + | Scientologist Affiliation | Unknown | + + + | Race | Unknown | + + + | Ethnic Group | Unknown | + + + Author + + + | Author | [facility] | | | and [place] | + + + | Organization | [facility] | | [...] Team Providers + +------+ + | Care Aluminum Boat Assembly Supervisor Name | Role | Phone | [...] | SLEEP DISORDER [address] | [address] | Dx) | | | | [address] [place] | [place], [place] | | | | | [place] [address] | [address] | | | | | [phone] | | | +--------+---------+ + + + [...] was: 08/16/2013 date of polysomnography: 12/16/2009 at [facility] RDI: 5.4 O2%: 68% Machine type: ResMed S9 with Enedina nasal mask obtained from: [facility] [place] pressure: 5-20 cm 95%: 12.8 cm maxium: [...] gurpreet ropiate paperwork. Fifteen minutes were spent iegh-yg-nsfo, with the majority of time spent in [...]
--- OUTSIDE RECORDS SUMMARY | ~2019-11-14 | XMS | Encounter Summary ---
Demographics + + + | Address | [address] | | | [place] [address] | + + + | Home Phone [...] Team Providers + +------+ + | Care Open Hearth Furnace Operator Name | Role | Phone | [...] W | Interrogation | | | | [place], | [address] [place] | (Primary Dx); | | | | [place] [address] | [place] [address] | Syncope, unspecified | | | | [phone] | [phone] | syncope type; | | | | | | Status post | | | | | | placement of | | | | | | implantable loop | | | | | | eflfqmhp-MSQF-Mdiauj | | | | | | kathi-02/18/16-SSM [...] loop | | | | | | zffuhkgt-BAKA-Wonesp | | | | | | kathi-02/18/16-SSM | | + +--------+ + + + documented in this encounter Results Device Interrogation - Remote (11/06/2016 5:01 PM PDT) + + + | Narrative | Performed At | + + + | Delvin Dupont MD 11/06/2016 17:01 Refer to Paceart | PACEART | | documentation and remote PDF scanned into [employer] for remote | | | interrogation results. [...] | Status post placement of implantable loop juzjyhlp-XOVY-Cbqxectbj-02/18/16-SSM | + + documented in this encounter"
--- OUTSIDE RECORDS SUMMARY | ~2019-11-14 | XMS | Encounter Summary ---
Demographics + + + | Address | [address] | | | [place] [address] | + + + | Home Phone [...] Team Providers + +------+ + | Care Engraver Letter Name | Role | Phone | + [...] PHYSIATRY [address] | MD [address] | | | | | [address] | [place], [place] | | | | | [place], [place] | [address] | | | | | [address] | | | | | | [phone] | | | +--------+ + + + [...]
--- OUTSIDE RECORDS SUMMARY | ~2019-11-14 | XMS | Encounter Summary ---
Demographics + + + | Address | [address] | | | [place] [address] | + + + | Home Phone [...] | Organization | [facility] | | | and [place] | + [...] Team Providers + +------+ + | Care Manufacturing Maintenance Mechanic Name | Role | Phone | + [...] | Troy Buchanan MD | [address] [place] [place] | | | | | unspecified | [address] | [place], | | | | | syncope type | [address] | [place] | | | | | | [place], | [address] | | | | | [place] | [place] [address] | Phone: | | | | | | Phone: | [phone] | | | | | [place]lex[place] | [phone] | Fax: | | | | | a | Fax: | [phone] | | | | | Procedures | [phone] | | | | | | MRI [...] | Troy Buchanan MD | [address] | | | | | unspecified | [address] | [place], | | | | | syncope type | [address] | [place] | | | | | | [place], | [address] | | | | | [place] | [place] [address] | Phone: | | | | | | Phone: | [phone] | | | | | Hyper[place]lex[place] | [phone] | Fax: | | | | | a | Fax: | [phone] | | | | | Procedures | [phone] | | | | | | MRI [...] + + | 02/25/ | Hospital | [facility] | Troy Page, | Syncope, unspecified | | 2016 | Encounter | MED CTR MRI [address] | MD [address] | syncope type; | | | | [place], | [place], [place] | [place]; | | | | [place] [address] | [address] | [place] | | | | [phone] | | | +--------+ + + + [...] feet. COMPARISON: MRI head 01/10/2016 TECHNIQUE | [facility] | | MRA HEAD: 3-D tcpk-qc-hqwcnq magnetic resonance angiograms were | - IMAGING | | obtained of the [place] and vertebrobasilar systems. MIP | | | and source images are available. TECHNIQUE MRA NECK: 3-D | | | pher-ol-tobvno magnetic resonance angiograms were obtained from the [...] head 01/10/2016TECHNIQUE MRA HEAD: 3-D | | ukaa-xh-ehhhkx magnetic resonance angiograms wereobtained of the [place] and | | vertebrobasilar systems. MIP and sourceimages are available.TECHNIQUE MRA NECK: 3-D | | bgid-ys-kitwad magnetic resonance angiograms wereobtained from the level [...] ST. | [address] | [place] | [phone] | | [facility] | | [address] | | | - IMAGING | | [...]
--- OUTSIDE RECORDS SUMMARY | ~2019-11-14 | XMS | Encounter Summary ---
Demographics + + + | Address | [address] | | | [place] [address] | + + + | Home Phone [...] Team Providers + +------+ + | Care Apprentice Instrument Technician Name | Role | Phone | [...] | | | | | | | [place] | | | | | | | ESOPHAGOGAST | | | | | | | RODUODENOSCO | | | | | | | PY TRANSORAL | | | | | | | DIAGNOSTIC | | | | | | | [place] EGD | | | | | | | TRANSORAL | | | | | | | BIOPSY | | | | | | | SINGLE/MULTI | | | | | | | PLE [place] | | | | | | | [...] | Anesthesia | [facility] | Nitesh tMz | | | 2019 | Event | HOSPITAL MP INTRA OP | MD Stephany [address] | | | | | [address] | [address] [place] [place] | | | | | [place] | [address] | | | | | [address] | | | | | | [phone] | | | +--------+ + + + [...] [address] by | | eral | Antecubital; pyfu-nhj-tgdyav | Sirisha Cruz RN | Marilia Hernandez [...]
[~2019-11-14 08:29] MED LIST changes: +FLOMAX0.4 MG PO; +ZOFRAN4 MG PO
--- OUTSIDE RECORDS SUMMARY | 2019-11-14 08:32 | XMS ---
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 Care History Medical/Surgical 12/16/2018 [facility] - Patient is currently established with [facility]. If patient is seen in the ED during business hours. Please contact CHWs at [facility]. Care Recommendation: This patient has had 5 or more Emergency Department visits in the last 12 months.\T\nbsp; Patient requires education on the scope and purpose of the ED as an acute care provider not a Primary Care Provider and should not be utilized for chronic conditions.\T\nbsp; These are guidelines and the provider should exercise clinical judgment when providing care. 06/09/2018 [facility] CHW OF [facility] HAS SENT OUT A REQUEST FOR PATIENT TO ESTABLISH CARE WITH A PROVIDER AT THE CLINIC. - PATIENT CURRENTLY DOES NOT HAVE A PCP BUT CAN UTILIZE THE WALK IN CLINIC UNTIL ESTABLISHED WITH A PROVIDER. [facility] NOTE: Visits indicate total known visits. ED/UCC VISIT TRACKING (12 MO.) 11/14/2019 08:30 [place] Jihan Moser [place] TYPE: Emergency COMPLAINT: - ABDOMINAL PAIN 04/18/2019 12:59 KAROLINE Youngony Jihan Moser [place] TYPE: Emergency COMPLAINT: - VAGINAL PAIN DIAGNOSES: - meterman (current) use of insulin - [facility] [place] [facility] (current) drug therapy - Type 2 diabetes mellitus without complications - Pelvic and perineal pain - Personal history of urinary calculi - Acquired absence of both cervix and uterus - Allergy status to other drugs, medicaments and biological sub - Hydronephrosis with renal and ureteral calculous obstruction - Allergy status to narcotic agent status - Essential (primary) hypertension - Acquired absence of other specified parts of digestive tract 02/10/2019 05:59 KAROLINE Erickson [place] TYPE: Emergency COMPLAINT: - URINE PROBLEM, FLANK PAIN DIAGNOSES: - Personal history of urinary calculi - Allergy status to narcotic agent status - meterman (current) use of insulin - Type 2 diabetes mellitus without complications - Calculus of ureter - Unspecified abdominal pain - Other terminal carman (current) drug therapy - Allergy status to other drugs, medicaments and biological sub - Essential (primary) hypertension 02/07/2019 17:04 KAROLINE Erickson [place] TYPE: Emergency COMPLAINT: - RIGHT FLANK PAIN 02/03/2019 06:40 KAROLINE Erickson [place] TYPE: Emergency COMPLAINT: - BLOOD IN URINE DIAGNOSES: - Hydronephrosis with renal and ureteral calculous obstruction - Unspecified abdominal pain - [facility] (current) use of insulin - Allergy status to narcotic agent status - Type 2 diabetes mellitus without complications - Essential (primary) hypertension - Allergy status to other drugs, medicaments and biological sub - Acquired absence of both cervix and uterus - Acquired absence of other specified parts of digestive tract - Other terminal carman (current) drug therapy 02/01/2019 12:48 KAROLINE Erickson [place] TYPE: Emergency COMPLAINT: - BLOOD IN URINE, ABDOMINAL PAIN DIAGNOSES: - Allergy status to narcotic agent status - Essential (primary) hypertension - Acquired absence of both cervix and uterus - Unspecified abdominal pain - [facility] [place] [facility] (current) drug therapy - Allergy status to other drugs, medicaments and biological sub - meterman (current) use of oral hypoglycemic drugs - Type 2 diabetes mellitus without complications - Urinary tract infection, site not specified 12/15/2018 13:56 KAROLINE Erickson [place] TYPE: Emergency COMPLAINT: - LOWER ABD PAIN DIAGNOSES: - meterman (current) use of insulin - Allergy status to narcotic agent status - Essential (primary) hypertension - Type 2 diabetes mellitus without complications - Acquired absence of both cervix and uterus - Other [place] (current) drug therapy - Unspecified abdominal pain - Acquired absence of other specified parts of digestive tract - Allergy status to other drugs, medicaments and biological sub INPATIENT VISIT TRACKING (12 MO.) 02/07/2019 21:32 KAROLINE Erickson [place] TYPE: Observation COMPLAINT: - KIDNEY STONES DIAGNOSES: - Right lower quadrant pain - Nausea with vomiting, unspecified - Calculus of ureter - Essential (primary) hypertension - meterman (current) use of insulin - Allergy status to other drugs, medicaments and biological sub - Allergy status to narcotic agent status - Morbid (severe) obesity due to excess calories - [facility] [place] [facility] (current) drug therapy - Obstructive sleep apnea (adult) (pediatric) - Sleep apnea, unspecified - Type 2 diabetes mellitus without complications - Personal history of urinary calculi - Body mass index (BMI) 40.0-44.9, adult [id number]
== END 2019-11-14 13:06 | disposition short-term general hospital (02) ==
LOC: ED 08:29
DX: R10.30 Lower abdominal pain, unspecified (principal); R19.7 Diarrhea, unspecified; R50.9 Fever, unspecified; E11.9 Type 2 diabetes mellitus without complications; I10 Essential (primary) hypertension; Z88.8 Allergy status to other drugs, medicaments and biological substances; Z88.5 Allergy status to narcotic agent; Z79.899 Other long term (current) drug therapy; Z79.4 Long term (current) use of insulin
CPT/HCPCS: 74022; 80053; 81001; 83690; 85025; 96361; 96374; 96375; 96376; 99285-25; J1170; J1885; J2405; J7030

== ENCOUNTER 2021-03-20 09:11 | Emergency (ER) | payer OTHER ==
[~2021-03-20] VITALS: Ht 152.4 cm; Wt 89.5 kg
[~2021-03-20 09:11] MED LIST changes: +GABAPENTIN600 MG PO; +PROMETHAZINE HC25 M1 PO
--- OUTSIDE RECORDS SUMMARY | 2021-03-20 09:14 | XMS ---
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 Security Tennis Coach Events No recent Security Events currently on file [facility] Manuela Katharine Community Health Worker 12/01/2019-Current PHONE: [phone] MARQUEZ PARADA, Urology 02/08/2019-Current Christina SAAVEDRA PHONE: [phone] SHRADDHA TATE Internal Medicine: Pulmonary Disease 12/16/2018-Current PHONE: Unknown Bertha has no Care Guidelines for this patient. Care History Medical/Surgical 11/20/2019 [facility] - PATIENT HAS A FOLLOW UP APT WITH DR LLANES ON 11/23/2019. 12/16/2018 [facility] - Patient is currently established with [facility]. If patient is seen in the ED during business hours. Please contact CHWs at [facility]. Care Recommendation: This patient has had 5 or more Emergency Department visits in the last 12 months.\T\nbsp; Patient requires education on the scope and purpose of the ED as an acute care provider not a Primary Care Provider and should not be utilized for chronic conditions.\T\nbsp; These are guidelines and the provider should exercise clinical judgment when providing care. 06/09/2018 [facility] CHW OF [facility] HAS SENT OUT A REQUEST FOR PATIENT TO ESTABLISH CARE WITH A PROVIDER AT THE CLINIC. - PATIENT CURRENTLY DOES NOT HAVE A PCP BUT CAN UTILIZE THE WALK IN CLINIC UNTIL ESTABLISHED WITH A PROVIDER. E.D. VISIT COUNT (12 MO.) 2 [facility]. TOTAL 2 NOTE: Visits indicate total known visits. 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 - Allergy status to other drugs, medicaments and biological substances - Allergy status to narcotic agent - Personal history of urinary calculi - Pelvic and perineal pain INPATIENT VISIT TRACKING (12 MO.) 12/09/2020 08:42 [facility] Jeanine TYLER TYPE: Surgical Services DIAGNOSES: - Spondylolisthesis, lumbar region - Spinal stenosis, lumbar region without neurogenic claudication - Other chronic pain - Radiculopathy, lumbar region - Arthrodesis status - Low back pain [id number]
[2021-03-20] MEDS ORDERED: OXYCODONE HCL5 MG PO (10:12)
[2021-03-20] MEDS ORDERED: DULOXETINE HCL30 MG PO (10:12)
== END 2021-03-20 11:50 | disposition home or self-care (01) ==
LOC: ED 09:11
DX: S33.5XXA Sprain of ligaments of lumbar spine, initial encounter (principal); I10 Essential (primary) hypertension; Z87.442 Personal history of urinary calculi; Z88.5 Allergy status to narcotic agent; Z88.8 Allergy status to other drugs, medicaments and biological substances; Z79.899 Other long term (current) drug therapy; X58.XXXA Exposure to other specified factors, initial encounter
CPT/HCPCS: 72100; 99283-25

== ENCOUNTER 2021-11-15 16:59 | Emergency (ER) | payer OTHER ==
[~2021-11-15] VITALS: Ht 152.4 cm; Wt 89.4 kg
[~2021-11-15 16:59] MED LIST changes: +DULOXETINE HCL30 MG PO; +OXYCODONE HCL5 MG PO
--- OUTSIDE RECORDS SUMMARY | 2021-11-15 17:02 | XMS ---
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 No recent Security Events currently on file CRITERIA MET - [facility] - [facility] - Has Care Guidelines CARE PROVIDERS Katharine Roy Community Health Worker 12/01/2019-Current PHONE: [phone] MARQUEZ PARADA, Urology 02/08/2019-Current Christina SAAVEDRA PHONE: [phone] SHRADDHA TATE Internal Medicine: Pulmonary Disease 12/16/2018-Current PHONE: Unknown Guidelines Source: [facility] Guidelines Date: 03/24/2021 Other Information: Patient was advised by surgeon to follow up with ED doc as patient was having pain after an encounter with dogs. Patient stated she will contact Dr. Blanchard if she is having any other concerns. Care History Medical/Surgical 11/20/2019 [facility] - PATIENT HAS A FOLLOW UP APT WITH DR BLANCHARD ON 11/23/2019. 12/16/2018 [facility] - Patient is currently established with [facility]. If patient is seen in the ED during business hours. Please contact CHWs at [facility]. Care Recommendation: This patient has had 5 or more Emergency Department visits in the last 12 months.\T\nbsp; Patient requires education on the scope and purpose of the ED as an acute care provider not a Primary Care Provider and should not be utilized for chronic conditions.\T\nbsp; These are guidelines and the provider should exercise clinical judgment when providing care. 06/09/2018 [facility] MARYLOU [facility] OF [facility] HAS SENT OUT A REQUEST FOR PATIENT TO ESTABLISH CARE WITH A PROVIDER AT THE CLINIC. - PATIENT CURRENTLY DOES NOT HAVE A PCP BUT CAN UTILIZE THE WALK IN CLINIC UNTIL ESTABLISHED WITH A PROVIDER. E.D. VISIT COUNT (12 MO.) 2 [facility]. TOTAL 2 NOTE: Visits indicate total known visits. ED/UCC VISIT TRACKING (12 MO.) 11/15/2021 16:[address] [facility] [place] TYPE: Emergency COMPLAINT: - CHEST IS TIGHT AND HURTING 03/20/2021 09:12 KAROLINE [place] TYPE: Emergency COMPLAINT: - LOWER BACK PAIN DIAGNOSES: - Sprain of ligaments of lumbar spine, initial encounter - Essential (primary) hypertension - Exposure to other specified factors, initial encounter - Low back pain - Allergy status to other drugs, medicaments and biological substances - Personal history of urinary calculi - Other nursing home (current) drug therapy - Allergy status to narcotic agent INPATIENT VISIT TRACKING (12 MO.) [facility]2020 [facility] DIAGNOSES: - Spondylolisthesis, lumbar region - Spinal stenosis, lumbar region without neurogenic claudication - Other chronic pain - Radiculopathy, lumbar region - Arthrodesis status - Low back pain [email or web address]
[2021-11-15] MEDS ORDERED: PREDNISONE20 MG PO (18:33)
--- NOTE | 2021-11-16 14:09 | EKG ---
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 rate has increased BY 40 BPM QRS axis shifted left Questionable change in initial forces of Anterior leads Confirmed by DENISSE MATTHEW MD ([id number]) on 11/16/2021 2:09:12 PM Electronically Signed By: DENISSE MATTHEW MD 11/16/21 1409 PATIENT NAME: RIAN WALTERS Electrocardiogram DATE OF : 82 PHYSICIAN: DENISSE MATTHEW MD REPORT #: [id number] REPORT IS CONFIDENTIAL AND NOT TO BE RELEASED WITHOUT AUTHORIZATION
== END 2021-11-15 18:50 | disposition home or self-care (01) ==
LOC: ED 16:59
DX: J45.901 Unspecified asthma with (acute) exacerbation (principal); Z20.822 Contact with and (suspected) exposure to COVID-19; I10 Essential (primary) hypertension; Z88.5 Allergy status to narcotic agent; Z88.8 Allergy status to other drugs, medicaments and biological substances; Z79.899 Other long term (current) drug therapy
CPT/HCPCS: 71045; 87502; 93005; 93010; 94640; 94664; 99285-25; C9803; J7512; U0003

== ENCOUNTER 2022-06-23 16:13 | Emergency (ER) | payer OTHER ==
[~2022-06-23] VITALS: Ht 152.4 cm; Wt 90.9 kg
[~2022-06-23 16:13] MED LIST changes: +PREDNISONE20 MG PO
--- OUTSIDE RECORDS SUMMARY | 2022-06-23 16:16 | XMS ---
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 Patient stated she will contact Dr. Blanchard if she is having any other concerns. Care History Medical/Surgical 11/20/2019 [facility] - PATIENT HAS A FOLLOW UP APT WITH DR BLANCHARD ON 11/23/2019. 12/16/2018 [facility] - Patient is currently established with [facility]. If patient is seen in the ED during business hours. Please contact CHWs at [facility]. Care Recommendation: This patient has had 5 or more Emergency Department visits in the last 12 months.\T\nbsp; Patient requires education on the scope and purpose of the ED as an acute care provider not a Primary Care Provider and should not be utilized for chronic conditions.\T\nbsp; These are guidelines and the provider should exercise clinical judgment when providing care. 06/09/2018 [facility] - MARYLOU CHW OF [facility] HAS SENT OUT A REQUEST FOR PATIENT TO ESTABLISH CARE WITH A PROVIDER AT THE CLINIC. - PATIENT CURRENTLY DOES NOT HAVE A PCP BUT CAN UTILIZE THE WALK IN CLINIC UNTIL ESTABLISHED WITH A PROVIDER. E.D. VISIT COUNT (12 MO.) 2 [facility]. TOTAL 2 NOTE: Visits indicate total known visits. 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
[2022-06-23] MEDS ORDERED: ONDANSETRON ODT4 MG PO (19:15)
[2022-06-23] MEDS ORDERED: PREDNISONE20 MG PO (19:15)
[2022-06-23] MEDS ORDERED: MORPHINE SULFAT15 MG PO (19:15)
== END 2022-06-23 20:09 | disposition home or self-care (01) ==
LOC: ED 16:13
DX: M54.16 Radiculopathy, lumbar region (principal); I10 Essential (primary) hypertension; Z87.442 Personal history of urinary calculi; Z88.5 Allergy status to narcotic agent; Z88.8 Allergy status to other drugs, medicaments and biological substances; Z79.899 Other long term (current) drug therapy; W00.0XXA Fall on same level due to ice and snow, initial encounter
CPT/HCPCS: 72125; 72128; 72131; 96372; 99283-25; A9270; J1885

== ENCOUNTER 2022-12-03 13:10 | Emergency (ER) | payer OTHER ==
[~2022-12-03] VITALS: Ht 152.4 cm; Wt 90.9 kg
[~2022-12-03 13:10] MED LIST changes: +AMOX TR-K CLV1 EAC1 PO; +MORPHINE SULFAT15 MG PO; +ONDANSETRON ODT4 MG PO
--- OUTSIDE RECORDS SUMMARY | 2022-12-03 13:12 | XMS ---
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 PHONE: [phone] Katharine Roy Community Health Worker 12/01/2019-Current PHONE: [phone] MARQUEZ PARADA 02/08/2019-Current PHONE: [phone] SHRADDHA TATE Internal Medicine: Pulmonary Disease 12/16/2018-Current PHONE: Unknown Guidelines Source: [facility] Guidelines Date: 03/24/2021 Other Information: Patient was advised by surgeon to follow up with ED doc as patient was having pain after an encounter with dogs. Patient stated she will contact Dr. Blanchard if she is having any other concerns. Care History Medical/Surgical 11/20/2019 [facility] - PATIENT HAS A FOLLOW UP APT WITH DR BLANCHARD ON 11/23/2019. 12/16/2018 [facility] - Patient is currently established with [facility]. If patient is seen in the ED during business hours. Please contact CHWs at [facility]. Care Recommendation: This patient has had 5 or more Emergency Department visits in the last 12 months.\T\nbsp; Patient requires education on the scope and purpose of the ED as an acute care provider not a Primary Care Provider and should not be utilized for chronic conditions.\T\nbsp; These are guidelines and the provider should exercise clinical judgment when providing care. 06/09/2018 [facility] MARYLOU CHW OF [facility] HAS SENT OUT A REQUEST FOR PATIENT TO ESTABLISH CARE WITH A PROVIDER AT THE CLINIC. - PATIENT CURRENTLY DOES NOT HAVE A PCP BUT CAN UTILIZE THE WALK IN CLINIC UNTIL ESTABLISHED WITH A PROVIDER. E.D. VISIT COUNT (12 MO.) 2 Lucio Bobo 3 [facility]. TOTAL 5 NOTE: Visits indicate total known visits. ED/UCC VISIT TRACKING (12 MO.) 12/03/2022 13:[address] [facility] [address] [facility] [place] TYPE: Emergency COMPLAINT: - ABD PAIN 09/29/2022 06:07 [facility]io CRUZ [place] TYPE: Emergency DIAGNOSES: - Other specified injuries of abdomen, initial encounter - Pelvic and perineal pain - Groin Pain 07/16/2022 11:44 [facility] [place] TYPE: Emergency DIAGNOSES: - Other specified health status - Synovitis and tenosynovitis, unspecified - hand injury - Hand Pain 07/14/2022 11:53 KAROLINE [place] TYPE: Emergency COMPLAINT: - DOG BITE DIAGNOSES: - Allergy status to narcotic agent - Bitten by dog, initial encounter - Encounter for immunization - Essential (primary) hypertension - Open bite of right hand, initial encounter - Other penitentiary (current) drug therapy 06/23/2022 16:15 KAROLINE [place]ks[place] TYPE: Emergency COMPLAINT: - FELL BACK PAIN, SURGERY [id number] DIAGNOSES: - Allergy status to narcotic agent - Allergy status to other drugs, medicaments and biological substances - Essential (primary) hypertension - Fall on same level due to ice and snow, initial encounter - Low back pain, unspecified - Other penitentiary (current) drug therapy - Personal history of urinary calculi - Radiculopathy, lumbar region INPATIENT VISIT TRACKING (12 MO.) 07/16/2022 11:44 [facility] CRUZ [place] TYPE: Internal Medicine DIAGNOSES: - Other specified health status - Synovitis and tenosynovitis, unspecified [email or web address]
[2022-12-03] MEDS ORDERED: METFORMIN HCL500 M2 PO (13:28)
[2022-12-03] MEDS ORDERED: HYDROCODON-ACE1 EA10 PO (14:46)
[2022-12-03] MEDS ORDERED: ONDANSETRON ODT8 MG PO (14:46)
[2022-12-03] MEDS ORDERED: LOMOTIL TABLET1 EACH PO (14:46)
[2022-12-03 15:13] VITALS: BP 136/94
== END 2022-12-03 15:10 | disposition home or self-care (01) ==
LOC: ED 13:10
DX: K52.9 Noninfective gastroenteritis and colitis, unspecified (principal); I10 Essential (primary) hypertension; E11.9 Type 2 diabetes mellitus without complications; Z88.8 Allergy status to other drugs, medicaments and biological substances; Z88.5 Allergy status to narcotic agent; Z79.899 Other long term (current) drug therapy; Z79.84 Long term (current) use of oral hypoglycemic drugs
CPT/HCPCS: 36415; 74177; 80053; 81003; 83690; 85025; 96375; 96376; 99284-25; J1170; J2405; J7030; Q9967

== ENCOUNTER 2023-01-01 12:39 | Inpatient (IN) | payer OTHER ==
[2023-01-01] VITALS (7 sets, daily range): BP systolic 125–146; BP diastolic 62–86
[~2023-01-01] VITALS: Ht 152.4 cm; Wt 89.5 kg
--- OUTSIDE RECORDS SUMMARY | ~2023-01-01 | XMS | Continuity of Care Document ---
Demographics + + + | Address | [address] | | | [place] [address] | + + + | Preferred Language | Unknown | + + + | Marital Status | | + + + | [employer] Affiliation | Unknown | + + + | Race | White | + + + | Ethnic Group | Not or | + + + Author + + + | Author | [facility] | + + + | Organization | [facility] | + + + | Address | [address] | | | [place] [address] | + + + | Phone | | + + + Care Team Providers + + + + | Care Clay Washer Name | Role | Phone | + + + + Unavailable | Unavailable | + + + + Unavailable | Unavailable | + + + + Unavailable | Unavailable | + + + + Allergies and Intolerances + + + + + | date | description | facility | type | + + + + + | (no date) | Lisinopril | [facility] | (unknown) | | | | [facility] | | + + + + + | (no date) | Nausea and | [facility] | (unknown) | | | vomiting | Hospital | | + + + + + | (no date) | Lisinopril | [facility] | (unknown) | | | | Hospital | | + + + + + | (no date) | Morphine | [facility] | (unknown) | | | | Hospital | | + + + + + | (no date) | Morphine | [facility] | (unknown) | | | | Hospital | | + + + + + | (no date) | Morphine | [facility] | (unknown) | | | | Hospital | | + + + + + | (no date) | Lisinopril | [facility] | (unknown) | | | | Hospital | | + + + + + Encounters No information. Functional Status No information. Immunizations + + + + | date | description | facility | + + + + | 2022-07-14 00:00 [facility] | + + + + | 2022-07-14 00:00 | Tdap | [facility] | + + + + Medications + + + + | date | description | facility | + + + + | 2022-07-14 00:00 | DOXEPIN HCL | [facility] | + + + + | 2022-12-03 00:00 | DOXEPIN HCL | [facility] | + + + + | 2019-04-18 00:00 | ONDANSETRON HCL | [facility] | + + + + | 2019-04-18 00:00 | ONDANSETRON HCL | [facility] | + + + + | 2022-07-14 00:00 | OXYCODONE HCL | [facility] | + + + + | 2022-12-03 00:00 | OXYCODONE HCL | [facility] | + + + + | 2022-07-14 00:00 | OXYCODONE | [facility] | | | HCL/ACETAMINOPHEN | | + + + + | 2022-12-03 00:00 | OXYCODONE | [facility] | | | HCL/ACETAMINOPHEN | | + + + + | 2014-05-01 00:00 | GABAPENTIN | [facility] | + + + + | 2014-05-01 00:00 | GABAPENTIN | [facility] | + + + + | 2022-12-03 00:00 | DIPHENOXYLATE HCL/ATROPINE | [facility] | | | | | + + + + | 2022-07-14 00:00 | Bupropion HCl | [facility] | + + + + | 2022-12-03 00:00 | Bupropion HCl | [facility] | + + + + | 2022-07-14 00:00 | ASPIRIN | [facility] | + + + + | 2022-12-03 00:00 | ASPIRIN | [facility] | + + + + | 2022-07-14 00:00 | ALPRAZOLAM | [facility] | + + + + | 2022-12-03 00:00 | ALPRAZOLAM | [facility] | + + + + | 2022-07-14 00:00 | DULAGLUTIDE | [facility] | + + + + | 2022-12-03 00:00 | DULAGLUTIDE | [facility] | + + + + | 2018-04-11 00:00 | DOXYCYCLINE HYCLATE | [facility] | + + + + | 2018-04-11 00:00 | DOXYCYCLINE HYCLATE | [facility] | + + + + | 2022-12-03 00:00 | METFORMIN HCL | [facility] | + + + + | 2018-12-15 00:00 | INDOMETHACIN | [facility] | + + + + | 2018-12-15 00:00 | INDOMETHACIN | [facility] | + + + + | 2018-04-11 00:00 | FLUCONAZOLE | [facility] | + + + + | 2018-04-11 00:00 | FLUCONAZOLE | [facility] | + + + + | 2014-05-01 00:00 | OXAPROZIN | [facility] | + + + + | 2014-05-01 00:00 | OXAPROZIN | [facility] | + + + + | 2014-11-14 00:00 | METRONIDAZOLE | [facility] | + + + + | 2014-11-14 00:00 | METRONIDAZOLE | [facility] | + + + + | 2022-07-14 00:00 | NITROGLYCERIN | [facility] | + + + + | 2022-12-03 00:00 | NITROGLYCERIN | [facility] | + + + + | 2022-07-14 00:00 | INSULIN GLARGINE | [facility] | + + + + | 2022-12-03 00:00 | INSULIN GLARGINE | [facility] | + + + + | 2022-07-14 00:00 | ALPRAZOLAM | [facility] | + + + + | 2022-12-03 00:00 | ALPRAZOLAM | [facility] | + + + + | 2017-11-09 00:00 | CEPHALEXIN | [facility] | + + + + | 2017-11-09 00:00 | CEPHALEXIN | [facility] | + + + + | 2022-07-14 00:00 | GABAPENTIN | [facility] | + + + + | 2022-12-03 00:00 | GABAPENTIN | [facility] | + + + + | 2022-07-14 00:00 | IBUPROFEN | [facility] | + + + + | 2022-12-03 00:00 | IBUPROFEN | [facility] | + + + + | 2022-07-14 00:00 | LISINOPRIL | [facility] | + + + + | 2022-12-03 00:00 | LISINOPRIL | [facility] | + + + + | 2022-12-03 00:00 | ONDANSETRON | [facility] | + + + + | 2022-07-14 00:00 | SIMVASTATIN | [facility] | + + + + | 2022-12-03 00:00 | SIMVASTATIN | [facility] | + + + + | 2022-07-14 00:00 | SIMVASTATIN | [facility] | + + + + | 2022-12-03 00:00 | SIMVASTATIN | [facility] | + + + + | 2022-07-14 00:00 | SUCRALFATE | [facility] | + + + + | 2022-12-03 00:00 | SUCRALFATE | [facility] | + + + + | 2022-07-14 00:00 | AMOXICILLIN/POTASSIUM CLAV | [facility] | | | | | + + + + | 2022-07-14 00:00 | AMOXICILLIN/POTASSIUM CLAV | [facility] | | | | | + + + + | 2022-07-14 00:00 | DULOXETINE HCL | [facility] | + + + + | 2022-12-03 00:00 | DULOXETINE HCL | [facility] | + + + + | 2022-07-14 00:00 | ATORVASTATIN | [facility] | + + + + | 2022-12-03 00:00 | ATORVASTATIN | [facility] | + + + + | 2013-10-22 00:00 | EPINEPHRINE | [facility] | + + + + | 2013-10-22 00:00 | EPINEPHRINE | [facility] | + + + + | 2014-04-13 00:00 | EPINEPHRINE | [facility] | + + + + | 2014-04-13 00:00 | EPINEPHRINE | [facility] | + + + + | 2019-02-10 00:00 | KETOROLAC TROMETHAMINE | [facility] | + + + + | 2019-02-10 00:00 | KETOROLAC TROMETHAMINE | [facility] | + + + + | 2022-07-14 00:00 | | [facility] | | | SULFAMETHOXAZOLE/TRIMETHOPR | | | | IM DS | | + + + + | 2022-12-03 00:00 | | [facility] | | | SULFAMETHOXAZOLE/TRIMETHOPR | | | | IM DS | | + + + + | 2022-07-14 00:00 | ZOLPIDEM TARTRATE | [facility] | + + + + | 2022-12-03 00:00 | ZOLPIDEM TARTRATE | [facility] | + + + + | 2022-07-14 00:00 | ZOLPIDEM TARTRATE | [facility] | + + + + | 2022-12-03 00:00 | ZOLPIDEM TARTRATE | [facility] | + + + + | 2022-12-03 00:00 | HYDROCODONE | [facility] | | | BIT/ACETAMINOPHEN | | + + + + | 2014-03-17 00:00 | [facility]ODONE [facility] | | | BIT/ACETAMINOPHEN | | + + + + | 2014-03-17 00:00 | [facility]OCODONE [facility] | | | BIT/ACETAMINOPHEN | | + + + + | 2014-11-14 00:00 | [facility]OCODONE | [facility] | | | BIT/ACETAMINOPHEN | | + + + + | 2014-11-14 00:00 | HY[facility]OCODONE | [facility] | | | BIT/ACETAMINOPHEN | | + + + + | 2017-11-07 00:00 | HYDROCODONE | [facility] | | | BIT/ACETAMINOPHEN | | + + + + | 2017-11-07 00:00 | HYDROCODONE | [facility] | | | BIT/ACETAMINOPHEN | | + + + + | 2018-04-11 00:00 | HYDROCODONE | [facility] | | | BIT/ACETAMINOPHEN | | + + + + | 2018-04-11 00:00 | HYDROCODONE | [facility] | | | BIT/ACETAMINOPHEN | | + + + + | 2019-04-18 00:00 | HYDROCODONE | [facility] | | | BIT/ACETAMINOPHEN | | + + + + | 2019-04-18 00:00 | HYDROCODONE | [facility] | | | BIT/ACETAMINOPHEN | | + + + + | 2022-07-14 00:00 | HYDROCODONE | [facility] | | | BIT/ACETAMINOPHEN | | + + + + | 2022-12-03 00:00 | HYDROCODONE | [facility] | | | BIT/ACETAMINOPHEN | | + + + + | 2014-05-01 00:00 | HYDROCODONE | [facility] | | | BIT/ACETAMINOPHEN | | + + + + | 2014-05-01 00:00 | HYDROCODONE | [facility] | | | BIT/ACETAMINOPHEN | | + + + + | 2022-07-14 00:00 | METFORMIN HCL | [facility] | + + + + | 2022-12-03 00:00 | METFORMIN HCL | [facility] | + + + + | 2022-07-14 00:00 | METFORMIN HCL | [facility] | + + + + | 2022-12-03 00:00 | METFORMIN HCL | [facility] | + + + + | 2018-01-25 00:00 | OXYBUTYNIN CHLORIDE | [facility] | + + + + | 2018-01-25 00:00 | OXYBUTYNIN CHLORIDE | [facility] | + + + + | 2019-04-18 00:00 | TAMSULOSIN HCL | [facility] | + + + + | 2019-04-18 00:00 | TAMSULOSIN HCL | [facility] | + + + + | 2022-07-14 00:00 | METOPROLOL SUCCINATE | [facility] | + + + + | 2022-12-03 00:00 | METOPROLOL SUCCINATE | [facility] | + + + + | 2022-07-14 00:00 | METOPROLOL SUCCINATE | [facility] | + + + + | 2022-12-03 00:00 | METOPROLOL SUCCINATE | [facility] | + + + + | 2022-07-14 00:00 | METOPROLOL SUCCINATE | [facility] | + + + + | 2022-12-03 00:00 | METOPROLOL SUCCINATE | [facility] | + + + + | 2022-07-14 00:00 | METOPROLOL TARTRATE | [facility] | + + + + | 2022-12-03 00:00 | METOPROLOL TARTRATE | [facility] | + + + + | 2014-03-17 00:00 | ONDANSETRON | [facility] | + + + + | 2014-03-17 00:00 | ONDANSETRON | [facility] | + + + + | 2022-07-14 00:00 | | [facility] | | | LOSARTAN/HYDROCHLOROTHIAZID | | | | E | | + + + + | 2022-12-03 00:00 | | [facility] | | | LOSARTAN/HYDROCHLOROTHIAZID | | | | E | | + + + + | 2022-07-14 00:00 | | [facility] | | | LOSARTAN/HYDROCHLOROTHIAZID | | | | E | | + + + + | 2022-12-03 00:00 | | [facility] | | | LOSARTAN/HYDROCHLOROTHIAZID | | | | E | | + + + + | 2022-07-14 00:00 | LOSARTAN POTASSIUM | [facility] | + + + + | 2022-12-03 00:00 | LOSARTAN POTASSIUM | [facility] | + + + + | 2017-11-09 00:00 | Promethazine HCl/Codeine | [facility] | + + + + | 2017-11-09 00:00 | Promethazine HCl/Codeine | [facility] | + + + + | 2022-07-14 00:00 | PROMETHAZINE HCL | [facility] | + + + + | 2022-12-03 00:00 | PROMETHAZINE HCL | [facility] | + + + + | 2022-07-14 00:00 | hydrOXYzine HCL | [facility] | + + + + | 2022-12-03 00:00 | hydrOXYzine HCL | [facility] | + + + + Problems + + + + | date | description | facility | + + + + | 2014-03-17 00:00 | Back pain | [facility] | + + + + | 2014-03-17 00:00 | Back pain | [facility] | + + + + | 2014-03-17 00:00 | Nausea, vomiting, and | [facility] | | | diarrhea | | + + + + | 2014-03-17 00:00 | Nausea, vomiting, and | [facility] | | | diarrhea | | + + + + | 2014-04-13 00:00 | Allergic reaction | [facility] | + + + + | 2014-04-13 00:00 | Allergic reaction | [facility] | + + + + | 2014-05-01 00:00 | Abdominal pain in female | [facility] | | | patient | | + + + + | 2014-05-01 00:00 | Abdominal pain in female | [facility] | | | patient | | + + + + | 2014-05-01 00:00 | Diarrhea | [facility] | + + + + | 2014-05-01 00:00 | Diarrhea | [facility] | + + + + | 2014-05-28 00:00 | Patient left without being | [facility] | | | seen | | + + + + | 2014-05-28 00:00 | Patient left without being | [facility] | | | seen | | + + + + | 2014-07-30 00:00 | Chest pain | [facility] | + + + + | 2014-07-30 00:00 | Chest pain | [facility] | + + + + | 2014-09-08 00:00 | Allergic reaction to food | [facility] | + + + + | 2014-09-08 00:00 | Allergic reaction to food | [facility] | + + + + | 2014-11-14 00:00 | Acute pelvic inflammatory | [facility] | | | disease | | + + + + | 2014-11-14 00:00 | Acute pelvic inflammatory | [facility] | | | disease | | + + + + | 2015-02-23 00:00 | Syncope | [facility] | + + + + | 2015-02-23 00:00 | Syncope | [facility] | + + + + | 2015-02-23 00:00 | Lung nodule | [facility] | + + + + | 2015-02-23 00:00 | Lung nodule | [facility] | + + + + | 2015-07-10 00:00 | Head contusion | [facility] | + + + + | 2015-07-10 00:00 | Head contusion | [facility] | + + + + | 2015-10-24 00:00 | Syncope and collapse | [facility] | + + + + | 2015-10-24 00:00 | Syncope and collapse | [facility] | + + + + | 2016-08-20 00:00 | Dysmenorrhea | [facility] | + + + + | 2016-08-20 00:00 | Dysmenorrhea | [facility] | + + + + | 2017-11-06 00:00 | 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 | | + + + + | 2017-11-06 00:00 | 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 | | + + + + | 2017-11-09 00:00 | Pulmonary atelectasis | [facility] | + + + + | 2017-11-09 00:00 | Pulmonary atelectasis | [facility] | + + + + | 2017-11-09 00:00 | Cellulitis of abdominal | [facility] | | | wall | | + + + + | 2017-11-09 00:00 | Cellulitis of abdominal | [facility] | | | wall | | + + + + | 2017-11-09 00:00 | Incisional pain | [facility] | + + + + | 2017-11-09 00:00 | Incisional pain | [facility] | + + + + | 2017-11-09 00:00 | Cough | [facility] | + + + + | 2017-11-09 00:00 | Cough | [facility] | + + + + | 2017-11-09 00:00 | Dehiscence of operative | [facility] | | | wound | | + + + + | 2017-11-09 00:00 | Dehiscence of operative | [facility] | | | wound | | + + + + | 2017-11-09 00:00 | Postoperative complication | [facility] | | | | | + + + + | 2017-11-09 00:00 | Postoperative complication | [facility] | | | | | + + + + | 2018-06-08 00:00 | Hypertensive urgency | [facility] | + + + + | 2018-06-08 00:00 | Hypertensive urgency | [facility] | + + + + | 2018-12-15 00:00 | Abdominal pain | [facility] | + + + + | 2018-12-15 00:00 | Abdominal pain | [facility] | + + + + | 2019-02-07 00:00 | Calculus of kidney | [facility] | + + + + | 2019-02-07 00:00 | Calculus of kidney | [facility] | + + + + | 2019-02-10 00:00 | Ureteric colic | [facility] | + + + + | 2019-02-10 00:00 | Ureteric colic | [facility] | + + + + | 2019-04-18 00:00 | Calculus of left ureter | [facility] | + + + + | 2019-04-18 00:00 | Calculus of left ureter | [facility] | + + + + | 2020-10-29 00:00 | Pain in pelvis | [facility] | + + + + | 2020-10-29 00:00 | Pain in pelvis | [facility] | + + + + | 2021-11-15 00:00 | Reactive airway disease | [facility] | | | with acute exacerbation | | + + + + | 2021-11-15 00:00 | Reactive airway disease | [facility] | | | with acute exacerbation | | + + + + | 2022-06-23 00:00 | Radiculopathy | [facility] | + + + + | 2022-06-23 00:00 | Radiculopathy | [facility] | + + + + | 2022-06-23 00:00 | Fall | [facility] | + + + + | 2022-06-23 00:00 | Fall | [facility] | + + + + | 2022-07-14 00:00 | Dog bite of hand | [facility] | + + + + | 2022-07-14 00:00 | Dog bite of hand | [facility] | + + + + | 2022-12-03 00:00 | Gastroenteritis | [facility] | + + + + | 2022-12-03 00:00 | Musculoskeletal pain | [facility] | + + + + Procedures No information. Results/Labs +--------+--------+ + +---------+--------+ + | test | date | author | facility | value | unit | | | | | | | | | interpreta | | | | | | | | tion | +--------+--------+ + +---------+--------+ + + + | Result panel 1 | + + + + + + +---------+ + + | (unknown) | (no date) | (unknown) | [facility] | (no | (units | (unknown) | | | | [facility] | value) | unknown) | | | [facility] | | | | + + + + +---------+ + + + + | Result panel 2 | + + + + + + +---------+ + + | (unknown) | (no date) | (unknown) | [facility] | (no | (units | (unknown) | | | | | [facility] | value) | unknown) | | | | [facility] | | | | + + + + +---------+ + + + + | Result panel 3 | + + + + + + +---------+ + + | (unknown) | (no date) | (unknown) | [facility] | (no | (units | (unknown) | | | | | [facility] | value) | unknown) | | | | | [facility] | | | | + + + + +---------+ + + + + | Result panel 4 | + + + + + + +---------+ + + | (unknown) | (no date) | (unknown) | [facility] | (no | (units | (unknown) | | | | | [facility] | value) | unknown) | | | | | [facility] | | | | + + + + +---------+ + + + + | Result panel 5 | + + + + + + +---------+ + + | (unknown) | (no date) | (unknown) | [facility] | (no | (units | (unknown) | | | | | [facility] | value) | unknown) | | | | | [facility] | | | | + + + + +---------+ + + + + | Result panel 6 | + + + + + + +---------+ + + | (unknown) | (no date) | (unknown) | [facility] | (no | (units | (unknown) | | | | | [facility] | value) | unknown) | | | | | [facility] | | | | + + + + +---------+ + + + + | Result panel 7 | + + + + + + +---------+ + + | (unknown) | (no date) | (unknown) | [facility] | (no | (units | (unknown) | | | | | [facility] | value) | unknown) | | | | | [facility] | | | | + + + + +---------+ + + + + | Result panel 8 | + + + + + + +---------+ + + | (unknown) | (no date) | (unknown) | [facility] | (no | (units | (unknown) | | | | | [facility] | value) | unknown) | | | | | [facility] | | | | + + + + +---------+ + + + + | Result panel 9 | + + + + + + +---------+ + + | (unknown) | (no date) | (unknown) | [facility] | (no | (units | (unknown) | | | | | [facility] | value) | unknown) | | | | | [facility] | | | | + + + + +---------+ + + + + | Result panel 10 | + + + + + + +---------+ + + | (unknown) | (no date) | (unknown) | [facility] | (no | (units | (unknown) | | | | | [facility] | value) | unknown) | | | | | [facility] | | | | + + + + +---------+ + + + + | Result panel 11 | + + + + + + +---------+ + + | (unknown) | (no date) | (unknown) | [facility] | (no | (units | (unknown) | | | | | [facility] | value) | unknown) | | | | | [facility] | | | | + + + + +---------+ + + + + | Result panel 12 | + + + + + + +---------+ + + | (unknown) | (no date) | (unknown) | [facility] | (no | (units | (unknown) | | | | | [facility] | value) | unknown) | | | | | [facility] | | | | + + + + +---------+ + + + + | Result panel 13 | + + + + + + +---------+ + + | (unknown) | (no date) | (unknown) | [facility] | (no | (units | (unknown) | | | | | [facility] | value) | unknown) | | [facility] | [facility] | | | | + + + + +---------+ + + + + | Result panel 14 | + + + + + + +---------+ + + | (unknown) | (no date) | (unknown) | [facility] | (no | (units | (unknown) | | | | | [facility] | value) | unknown) | | | | [facility] | | | | + + + + +---------+ + + + + | Result panel 15 | + + + + + + +---------+ + + | (unknown) | (no date) | (unknown) | [facility] | (no | (units | (unknown) | | | | | [facility] | value) | unknown) | | | | [facility] | | | | + + + + +---------+ + + + + | Result panel 16 | + + + + + + +---------+ + + | (unknown) | (no date) | (unknown) | [facility] | (no | (units | (unknown) | | | | | [facility] | value) | unknown) | | | | [facility] | | | | + + + + +---------+ + + + + | Result panel 17 | + + + + + + +---------+ + + | (unknown) | (no date) | (unknown) | [facility] | (no | (units | (unknown) | | | | | [facility] | value) | unknown) | | | | | [facility] | | | | + + + + +---------+ + + + + | Result panel 18 | + + + + + + +---------+ + + | (unknown) | (no date) | (unknown) | [facility] | (no | (units | (unknown) | | | | | [facility] | value) | unknown) | | | | | [facility] | | | | + + + + +---------+ + + + + | Result panel 19 | + + + + + + +---------+ + + | (unknown) | (no date) | (unknown) | [facility] | (no | (units | (unknown) | | | | | [facility] | value) | unknown) | | | | [facility] | | | | + + + + +---------+ + + + + | Result panel 20 | + + + + + + +---------+ + + | (unknown) | (no date) | (unknown) | [facility] | (no | (units | (unknown) | | | | | [facility] | value) | unknown) | | | | [facility] | | | | + + + + +---------+ + + + + | Result panel 21 | + + + + + + +---------+ + + | (unknown) | (no date) | (unknown) | [facility] | (no | (units | (unknown) | | | | | [facility] | value) | unknown) | | | | [facility] | | | | + + + + +---------+ + + + + | Result panel 22 | + + + + + + +---------+ + + | (unknown) | (no date) | (unknown) | [facility] | (no | (units | (unknown) | | | | | [facility] | value) | unknown) | | [facility] | [facility] | | | | + + + + +---------+ + + + + | Result panel 23 | + + + + + + +---------+ + + | (unknown) | (no date) | (unknown) | [facility] | (no | (units | (unknown) | | | | | [facility] | value) | unknown) | | | | [facility] | | | | + + + + +---------+ + + + + | Result panel 24 | + + + + + + +---------+ + + | (unknown) | (no date) | (unknown) | [facility] | (no | (units | (unknown) | | | | | [facility] | value) | unknown) | | | | [facility] | | | | + + + + +---------+ + + + + | Result panel 25 | + + + + + + +---------+ + + | (unknown) | (no date) | (unknown) | [facility] | (no | (units | (unknown) | | | | | [facility] | value) | unknown) | [facility] | | [facility] | | | | + + + + +---------+ + + + + | Result panel 26 | + + + + + + +---------+ + + | (unknown) | (no date) | (unknown) | [facility] | (no | (units | (unknown) | | | | | [facility] | value) | unknown) | | | | [facility] | | | | + + + + +---------+ + + + + | Result panel 27 | + + + + + + +---------+ + + | (unknown) | (no date) | (unknown) | [facility] | (no | (units | (unknown) | | | | | [facility] | value) | unknown) | | | | [facility] | | | | + + + + +---------+ + + + + | Result panel 28 | + + + + + + +---------+ + + | (unknown) | (no date) | (unknown) | [facility] | (no | (units | (unknown) | | | | | [facility] | value) | unknown) | | [facility] | [facility] | | | | + + + + +---------+ + + + + | Result panel 29 | + + + + + + +---------+ + + | (unknown) | (no date) | (unknown) | [facility] | (no | (units | (unknown) | | | | | [facility] | value) | unknown) | | | | | | [facility] | | | | + + + + +---------+ + + + + | Result panel 30 | + + + + + + +---------+ + + | (unknown) | (no date) | (unknown) | [facility] | (no | (units | (unknown) | | | | | [facility] | value) | unknown) | | | | | | [facility] | | | | + + + + +---------+ + + + + | Result panel 31 | + + + + + + +---------+ + + | (unknown) | (no date) | (unknown) | [facility] | (no | (units | (unknown) | | | | | [facility] | value) | unknown) | | | | | | [facility] | | | | + + + + +---------+ + + + + | Result panel 32 | + + + + + + +---------+ + + | (unknown) | (no date) | (unknown) | [facility] | (no | (units | (unknown) | | | | | [facility] | value) | unknown) | | | | | | [facility] | | | | + + + + +---------+ + + + + | Result panel 33 | + + + + + + +---------+ + + | (unknown) | (no date) | (unknown) | [facility] | (no | (units | (unknown) | | | | | [facility] | value) | unknown) | | | | | | [facility] | | | | + + + + +---------+ + + + + | Result panel 34 | + + + + + + +---------+ + + | (unknown) | (no date) | (unknown) | [facility] | (no | (units | (unknown) | | | | | [facility] | value) | unknown) | | | | | | [facility] | | | | + + + + +---------+ + + + + | Result panel 35 | + + + + + + +---------+ + + | (unknown) | (no date) | (unknown) | [facility] | (no | (units | (unknown) | | | | | [facility] | value) | unknown) | | | | | | [facility] | | | | + + + + +---------+ + + + + | Result panel 36 | + + + + + + +---------+ + + | (unknown) | (no date) | (unknown) | [facility] | (no | (units | (unknown) | | | | | [facility] | value) | unknown) | | | | | [facility] | | | | + + + + +---------+ + + + + | Result panel 37 | + + + + + + +---------+ + + | (unknown) | (no date) | (unknown) | [facility] | (no | (units | (unknown) | | | | | [facility] | value) | unknown) | | | | | [facility] | | | | + + + + +---------+ + + + + | Result panel 38 | + + + + + + +---------+ + + | (unknown) | (no date) | (unknown) | [facility] | (no | (units | (unknown) | | | | | [facility] | value) | unknown) | | | | | [facility] | | | | + + + + +---------+ + + + + | Result panel 39 | + + + + + + +---------+ + + | (unknown) | (no date) | (unknown) | [facility] | (no | (units | (unknown) | | | | | [facility] | value) | unknown) | | | | | [facility] | | | | + + + + +---------+ + + + + | Result panel 40 | + + + + + + +---------+ + + | (unknown) | (no date) | (unknown) | [facility] | (no | (units | (unknown) | | | | | [facility] | value) | unknown) | | | | | [facility] | | | | + + + + +---------+ + + + + | Result panel 41 | + + + + + + +---------+ + + | (unknown) | (no date) | (unknown) | [facility] | (no | (units | (unknown) | | | | | [facility] | value) | unknown) | | | | | [facility] | | | | + + + + +---------+ + + + + | Result panel 42 | + + + + + + +---------+ + + | (unknown) | (no date) | (unknown) | [facility] | (no | (units | (unknown) | | | | | [facility] | value) | unknown) | | | | | [facility] | | | | + + + + +---------+ + + + + | Result panel 43 | + + + + + + +---------+ + + | (unknown) | (no date) | (unknown) | [facility] | (no | (units | (unknown) | | | | | [facility] | value) | unknown) | | | | | [facility] | | | | + + + + +---------+ + + + + | Result panel 44 | + + + + + + +---------+ + + | (unknown) | (no date) | (unknown) | [facility] | (no | (units | (unknown) | | | | | [facility] | value) | unknown) | | | | | [facility] | | | | + + + + +---------+ + + + + | Result panel 45 | + + + + + + +---------+ + + | (unknown) | (no date) | (unknown) | [facility] | (no | (units | (unknown) | | | | | [facility] | value) | unknown) | | | | | [facility] | | | | + + + + +---------+ + + + + | Result panel 46 | + + + + + + +---------+ + + | (unknown) | (no date) | (unknown) | [facility] | (no | (units | (unknown) | | | | | [facility] | value) | unknown) | | | | | [facility] | | | | + + + + +---------+ + + + + | Result panel 47 | + + + + + + +---------+ + + | (unknown) | (no date) | (unknown) | [facility] | (no | (units | (unknown) | | | | | [facility] | value) | unknown) | | | | | [facility] | | | | + + + + +---------+ + + Social History No information. Vital Signs + + + +---------+ | date | measurement | value | units | + + + +---------+ | 2022-06-23 00:00 | BMI | 39.1 | kg/m2 | + + + +---------+ | 2022-06-23 00:00 | BP_diastolic | 88 | mmHg | + + + +---------+ | 2022-06-23 00:00 | BP_systolic | 138 | mmHg | + + + +---------+ | 2022-06-23 00:00 | heart_rate | 78 | /min | + + + +---------+ | 2022-06-23 00:00 | height_metric | 152.4 | cm | + + + +---------+ | 2022-06-23 00:00 | height_standard | 60 | in | + + + +---------+ | 2022-06-23 00:00 | o2_saturation | 98 | % | + + + +---------+ | 2022-06-23 00:00 | respiration_rate | 16 | /min | + + + +---------+ | 2022-06-23 00:00 | temperature_metric | 36.94 | C | | | | | | + + + +---------+ | 2022-06-23 00:00 | | 98.5 | F | | | temperature_standar | | | | | d | | | + + + +---------+ | 2022-06-23 00:00 | weight_metric | 90.86 | kg | + + + +---------+ | 2022-06-23 00:00 | weight_standard | 200.31 | lb | + + + +---------+ | 2022-07-14 00:00 | BMI | 39.1 | kg/m2 | + + + +---------+ | 2022-07-14 00:00 | BP_diastolic | 70 | mmHg | + + + +---------+ | 2022-07-14 00:00 | BP_systolic | 130 | mmHg | + + + +---------+ | 2022-07-14 00:00 | heart_rate | 89 | /min | + + + +---------+ | 2022-07-14 00:00 | height_metric | 152.4 | cm | + + + +---------+ | 2022-07-14 00:00 | height_standard | 60 | in | + + + +---------+ | 2022-07-14 00:00 | o2_saturation | 100 | % | + + + +---------+ | 2022-07-14 00:00 | respiration_rate | 16 | /min | + + + +---------+ | 2022-07-14 00:00 | temperature_metric | 36.67 | C | | | | | | + + + +---------+ | 2022-07-14 00:00 | | 98 | F | | | temperature_standar | | | | | d | | | + + + +---------+ | 2022-07-14 00:00 | weight_metric | 90.86 | kg | + + + +---------+ | 2022-07-14 00:00 | weight_standard | 200.31 | lb | + + + +---------+ | 2022-12-03 00:00 | BMI | 39.1 | kg/m2 | + + + +---------+ | 2022-12-03 00:00 | BP_diastolic | 94 | mmHg | + + + +---------+ | 2022-12-03 00:00 | BP_systolic | 136 | mmHg | + + + +---------+ | 2022-12-03 00:00 | heart_rate | 87 | /min | + + + +---------+ | 2022-12-03 00:00 | height_metric | 152.4 | cm | + + + +---------+ | 2022-12-03 00:00 | height_standard | 60 | in | + + + +---------+ | 2022-12-03 00:00 | o2_saturation | 95 | % | + + + +---------+ | 2022-12-03 00:00 | respiration_rate | 20 | /min | + + + +---------+ | 2022-12-03 00:00 | temperature_metric | 36.5 | C | | | | | | + + + +---------+ | 2022-12-03 00:00 | | 97.7 | F | | | temperature_standar | | | | | d | | | + + + +---------+ | 2022-12-03 00:00 | weight_metric | 90.86 | kg | + + + +---------+ | 2022-12-03 00:00 | weight_standard | 200.31 | lb | + + + +---------+"
--- OUTSIDE RECORDS SUMMARY | ~2023-01-01 | XMS | Continuity of Care Document ---
Demographics + + + | Address | [address] | | | [place] [address] | + + + | Preferred Language | Unknown | + + + | Marital Status | | + + + | Orthodox Affiliation | Unknown | + + + | Race | White | + + + | Ethnic Group | Not or | + + + Author + + + | Author | [facility] | + + + | Organization | [facility] | + + + | Address | [address] | | | [place] [address] | + + + | Phone | | + + + Care Team Providers + + + + | Care Channel Turner Name | Role | Phone | + + + + Unavailable | Unavailable | + + + + Unavailable | Unavailable | + + + + Unavailable | Unavailable | + + + + Allergies and Intolerances + + + + + | date | description | facility | type | + + + + + | (no date) | Lisinopril | [facility] | (unknown) | | | | Hospital | | + + + + + | (no date) | Nausea and | [facility] | (unknown) | | | vomiting | Hospital | | + + + + + | (no date) | Lisinopril | [facility] | (unknown) | | | | Hospital | | + + + + + | (no date) | Morphine | [facility] | (unknown) | | | | Hospital | | + + + + + | (no date) | Morphine | [facility] | (unknown) | | | | Hospital | | + + + + + | (no date) | Morphine | [facility] | (unknown) | | | | Hospital | | + + + + + | (no date) | Lisinopril | [facility] | (unknown) | | | | Hospital | | + + + + + Encounters No information. Functional Status No information. Immunizations + + + + | date | description | facility | + + + + | 2022-07-14 00:00 [facility] | + + + + | 2022-07-14 00:00 | Tdap | [facility] | + + + + Medications + + + + | date | description | facility | + + + + | 2022-07-14 00:00 | DOXEPIN HCL | [facility] | + + + + | 2022-12-03 00:00 | DOXEPIN HCL | [facility] | + + + + | 2019-04-18 00:00 | ONDANSETRON HCL | [facility] | + + + + | 2019-04-18 00:00 | ONDANSETRON HCL | [facility] | + + + + | 2022-07-14 00:00 | OXYCODONE HCL | [facility] | + + + + | 2022-12-03 00:00 | OXYCODONE HCL | [facility] | + + + + | 2022-07-14 00:00 | OXYCODONE | [facility] | | | HCL/ACETAMINOPHEN | | + + + + | 2022-12-03 00:00 | OXYCODONE | [facility] | | | HCL/ACETAMINOPHEN | | + + + + | 2014-05-01 00:00 | GABAPENTIN | [facility] | + + + + | 2014-05-01 00:00 | GABAPENTIN | [facility] | + + + + | 2022-12-03 00:00 | DIPHENOXYLATE HCL/ATROPINE | [facility] | | | | | + + + + | 2022-07-14 00:00 | Bupropion HCl | [facility] | + + + + | 2022-12-03 00:00 | Bupropion HCl | [facility] | + + + + | 2022-07-14 00:00 | ASPIRIN | [facility] | + + + + | 2022-12-03 00:00 | ASPIRIN | [facility] | + + + + | 2022-07-14 00:00 | ALPRAZOLAM | [facility] | + + + + | 2022-12-03 00:00 | ALPRAZOLAM | [facility] | + + + + | 2022-07-14 00:00 | DULAGLUTIDE | [facility] | + + + + | 2022-12-03 00:00 | DULAGLUTIDE | [facility] | + + + + | 2018-04-11 00:00 | DOXYCYCLINE HYCLATE | [facility] | + + + + | 2018-04-11 00:00 | DOXYCYCLINE HYCLATE | [facility] | + + + + | 2022-12-03 00:00 | METFORMIN HCL | [facility] | + + + + | 2018-12-15 00:00 | INDOMETHACIN | [facility] | + + + + | 2018-12-15 00:00 | INDOMETHACIN | [facility] | + + + + | 2018-04-11 00:00 | FLUCONAZOLE | [facility] | + + + + | 2018-04-11 00:00 | FLUCONAZOLE | [facility] | + + + + | 2014-05-01 00:00 | OXAPROZIN | [facility] | + + + + | 2014-05-01 00:00 | OXAPROZIN | [facility] | + + + + | 2014-11-14 00:00 | METRONIDAZOLE | [facility] | + + + + | 2014-11-14 00:00 | METRONIDAZOLE | [facility] | + + + + | 2022-07-14 00:00 | NITROGLYCERIN | [facility] | + + + + | 2022-12-03 00:00 | NITROGLYCERIN | [facility] | + + + + | 2022-07-14 00:00 | INSULIN GLARGINE | [facility] | + + + + | 2022-12-03 00:00 | INSULIN GLARGINE | [facility] | + + + + | 2022-07-14 00:00 | ALPRAZOLAM | [facility] | + + + + | 2022-12-03 00:00 | ALPRAZOLAM | [facility] | + + + + | 2017-11-09 00:00 | CEPHALEXIN | [facility] | + + + + | 2017-11-09 00:00 | CEPHALEXIN | [facility] | + + + + | 2022-07-14 00:00 | GABAPENTIN | [facility] | + + + + | 2022-12-03 00:00 | GABAPENTIN | [facility] | + + + + | 2022-07-14 00:00 | IBUPROFEN | [facility] | + + + + | 2022-12-03 00:00 | IBUPROFEN | [facility] | + + + + | 2022-07-14 00:00 | LISINOPRIL | [facility] | + + + + | 2022-12-03 00:00 | LISINOPRIL | [facility] | + + + + | 2022-12-03 00:00 | ONDANSETRON | [facility] | + + + + | 2022-07-14 00:00 | SIMVASTATIN | [facility] | + + + + | 2022-12-03 00:00 | SIMVASTATIN | [facility] | + + + + | 2022-07-14 00:00 | SIMVASTATIN | [facility] | + + + + | 2022-12-03 00:00 | SIMVASTATIN | [facility] | + + + + | 2022-07-14 00:00 | SUCRALFATE | [facility] | + + + + | 2022-12-03 00:00 | SUCRALFATE | [facility] | + + + + | 2022-07-14 00:00 | AMOXICILLIN/POTASSIUM CLAV | [facility] | | | | | + + + + | 2022-07-14 00:00 | AMOXICILLIN/POTASSIUM CLAV | [facility] | | | | | + + + + | 2022-07-14 00:00 | DULOXETINE HCL | [facility] | + + + + | 2022-12-03 00:00 | DULOXETINE HCL | [facility] | + + + + | 2022-07-14 00:00 | ATORVASTATIN | [facility] | + + + + | 2022-12-03 00:00 | ATORVASTATIN | [facility] | + + + + | 2013-10-22 00:00 | EPINEPHRINE | [facility] | + + + + | 2013-10-22 00:00 | EPINEPHRINE | [facility] | + + + + | 2014-04-13 00:00 | EPINEPHRINE | [facility] | + + + + | 2014-04-13 00:00 | EPINEPHRINE | [facility] | + + + + | 2019-02-10 00:00 | KETOROLAC TROMETHAMINE | [facility] | + + + + | 2019-02-10 00:00 | KETOROLAC TROMETHAMINE | [facility] | + + + + | 2022-07-14 00:00 | | [facility] | | | SULFAMETHOXAZOLE/TRIMETHOPR | | | | IM DS | | + + + + | 2022-12-03 00:00 | | [facility] | | | SULFAMETHOXAZOLE/TRIMETHOPR | | | | IM DS | | + + + + | 2022-07-14 00:00 | ZOLPIDEM TARTRATE | [facility] | + + + + | 2022-12-03 00:00 | ZOLPIDEM TARTRATE | [facility] | + + + + | 2022-07-14 00:00 | ZOLPIDEM TARTRATE | [facility] | + + + + | 2022-12-03 00:00 | ZOLPIDEM TARTRATE | [facility] | + + + + | 2022-12-03 00:00 | HYDROCODONE | [facility] | | | BIT/ACETAMINOPHEN | | + + + + | 2014-03-17 00:00 | HY[facility]OCODONE | [facility] | | | BIT/ACETAMINOPHEN | | + + + + | 2014-03-17 00:00 | HY[facility]OCODONE | [facility] | | | BIT/ACETAMINOPHEN | | + + + + | 2014-11-14 00:00 | HYDROCODONE | [facility] | | | BIT/ACETAMINOPHEN | | + + + + | 2014-11-14 00:00 | HYDROCODONE | [facility] | | | BIT/ACETAMINOPHEN | | + + + + | 2017-11-07 00:00 | HYDROCODONE | [facility] | | | BIT/ACETAMINOPHEN | | + + + + | 2017-11-07 00:00 | HYDROCODONE | [facility] | | | BIT/ACETAMINOPHEN | | + + + + | 2018-04-11 00:00 | HYDROCODONE | [facility] | | | BIT/ACETAMINOPHEN | | + + + + | 2018-04-11 00:00 | HYDROCODONE | [facility] | | | BIT/ACETAMINOPHEN | | + + + + | 2019-04-18 00:00 | HYDROCODONE | [facility] | | | BIT/ACETAMINOPHEN | | + + + + | 2019-04-18 00:00 | HYDROCODONE | [facility] | | | BIT/ACETAMINOPHEN | | + + + + | 2022-07-14 00:00 | HYDROCODONE | [facility] | | | BIT/ACETAMINOPHEN | | + + + + | 2022-12-03 00:00 | HYDROCODONE | [facility] | | | BIT/ACETAMINOPHEN | | + + + + | 2014-05-01 00:00 | HYDROCODONE | [facility] | | | BIT/ACETAMINOPHEN | | + + + + | 2014-05-01 00:00 | HYDROCODONE | [facility] | | | BIT/ACETAMINOPHEN | | + + + + | 2022-07-14 00:00 | METFORMIN HCL | [facility] | + + + + | 2022-12-03 00:00 | METFORMIN HCL | [facility] | + + + + | 2022-07-14 00:00 | METFORMIN HCL | [facility] | + + + + | 2022-12-03 00:00 | METFORMIN HCL | [facility] | + + + + | 2018-01-25 00:00 | OXYBUTYNIN CHLORIDE | [facility] | + + + + | 2018-01-25 00:00 | OXYBUTYNIN CHLORIDE | [facility] | + + + + | 2019-04-18 00:00 | TAMSULOSIN HCL | [facility] | + + + + | 2019-04-18 00:00 | TAMSULOSIN HCL | [facility] | + + + + | 2022-07-14 00:00 | METOPROLOL SUCCINATE | [facility] | + + + + | 2022-12-03 00:00 | METOPROLOL SUCCINATE | [facility] | + + + + | 2022-07-14 00:00 | METOPROLOL SUCCINATE | [facility] | + + + + | 2022-12-03 00:00 | METOPROLOL SUCCINATE | [facility] | + + + + | 2022-07-14 00:00 | METOPROLOL SUCCINATE | [facility] | + + + + | 2022-12-03 00:00 | METOPROLOL SUCCINATE | [facility] | + + + + | 2022-07-14 00:00 | METOPROLOL TARTRATE | [facility] | + + + + | 2022-12-03 00:00 | METOPROLOL TARTRATE | [facility] | + + + + | 2014-03-17 00:00 | ONDANSETRON | [facility] | + + + + | 2014-03-17 00:00 | ONDANSETRON | [facility] | + + + + | 2022-07-14 00:00 | | [facility] | | | LOSARTAN/HYDROCHLOROTHIAZID | | | | E | | + + + + | 2022-12-03 00:00 | | [facility] | | | LOSARTAN/HYDROCHLOROTHIAZID | | | | E | | + + + + | 2022-07-14 00:00 | | [facility] | | | LOSARTAN/HYDROCHLOROTHIAZID | | | | E | | + + + + | 2022-12-03 00:00 | | [facility] | | | LOSARTAN/HYDROCHLOROTHIAZID | | | | E | | + + + + | 2022-07-14 00:00 | LOSARTAN POTASSIUM | [facility] | + + + + | 2022-12-03 00:00 | LOSARTAN POTASSIUM | [facility] | + + + + | 2017-11-09 00:00 | Promethazine HCl/Codeine | [facility] | + + + + | 2017-11-09 00:00 | Promethazine HCl/Codeine | [facility] | + + + + | 2022-07-14 00:00 | PROMETHAZINE HCL | [facility] | + + + + | 2022-12-03 00:00 | PROMETHAZINE HCL | [facility] | + + + + | 2022-07-14 00:00 | hydrOXYzine HCL | [facility] | + + + + | 2022-12-03 00:00 | hydrOXYzine HCL | [facility] | + + + + Problems + + + + | date | description | facility | + + + + | 2014-03-17 00:00 | Back pain | [facility] | + + + + | 2014-03-17 00:00 | Back pain | [facility] | + + + + | 2014-03-17 00:00 | Nausea, vomiting, and | [facility] | | | diarrhea | | + + + + | 2014-03-17 00:00 | Nausea, vomiting, and | [facility] | | | diarrhea | | + + + + | 2014-04-13 00:00 | Allergic reaction | [facility] | + + + + | 2014-04-13 00:00 | Allergic reaction | [facility] | + + + + | 2014-05-01 00:00 | Abdominal pain in female | [facility] | | | patient | | + + + + | 2014-05-01 00:00 | Abdominal pain in female | [facility] | | | patient | | + + + + | 2014-05-01 00:00 | Diarrhea | [facility] | + + + + | 2014-05-01 00:00 | Diarrhea | [facility] | + + + + | 2014-05-28 00:00 | Patient left without being | [facility] | | | seen | | + + + + | 2014-05-28 00:00 | Patient left without being | [facility] | | | seen | | + + + + | 2014-07-30 00:00 | Chest pain | [facility] | + + + + | 2014-07-30 00:00 | Chest pain | [facility] | + + + + | 2014-09-08 00:00 | Allergic reaction to food | [facility] | + + + + | 2014-09-08 00:00 | Allergic reaction to food | [facility] | + + + + | 2014-11-14 00:00 | Acute pelvic inflammatory | [facility] | | | disease | | + + + + | 2014-11-14 00:00 | Acute pelvic inflammatory | [facility] | | | disease | | + + + + | 2015-02-23 00:00 | Syncope | [facility] | + + + + | 2015-02-23 00:00 | Syncope | [facility] | + + + + | 2015-02-23 00:00 | Lung nodule | [facility] | + + + + | 2015-02-23 00:00 | Lung nodule | [facility] | + + + + | 2015-07-10 00:00 | Head contusion | [facility] | + + + + | 2015-07-10 00:00 | Head contusion | [facility] | + + + + | 2015-10-24 00:00 | Syncope and collapse | [facility] | + + + + | 2015-10-24 00:00 | Syncope and collapse | [facility] | + + + + | 2016-08-20 00:00 | Dysmenorrhea | [facility] | + + + + | 2016-08-20 00:00 | Dysmenorrhea | [facility] | + + + + | 2017-11-06 00:00 | 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 | | + + + + | 2017-11-06 00:00 | 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 | | + + + + | 2017-11-09 00:00 | Pulmonary atelectasis | [facility] | + + + + | 2017-11-09 00:00 | Pulmonary atelectasis | [facility] | + + + + | 2017-11-09 00:00 | Cellulitis of abdominal | [facility] | | | wall | | + + + + | 2017-11-09 00:00 | Cellulitis of abdominal | [facility] | | | wall | | + + + + | 2017-11-09 00:00 | Incisional pain | [facility] | + + + + | 2017-11-09 00:00 | Incisional pain | [facility] | + + + + | 2017-11-09 00:00 | Cough | [facility] | + + + + | 2017-11-09 00:00 | Cough | [facility] | + + + + | 2017-11-09 00:00 | Dehiscence of operative | [facility] | | | wound | | + + + + | 2017-11-09 00:00 | Dehiscence of operative | [facility] | | | wound | | + + + + | 2017-11-09 00:00 | Postoperative complication | [facility] | | | | | + + + + | 2017-11-09 00:00 | Postoperative complication | [facility] | | | | | + + + + | 2018-06-08 00:00 | Hypertensive urgency | [facility] | + + + + | 2018-06-08 00:00 | Hypertensive urgency | [facility] | + + + + | 2018-12-15 00:00 | Abdominal pain | [facility] | + + + + | 2018-12-15 00:00 | Abdominal pain | [facility] | + + + + | 2019-02-07 00:00 | Calculus of kidney | [facility] | + + + + | 2019-02-07 00:00 | Calculus of kidney | [facility] | + + + + | 2019-02-10 00:00 | Ureteric colic | [facility] | + + + + | 2019-02-10 00:00 | Ureteric colic | [facility] | + + + + | 2019-04-18 00:00 | Calculus of left ureter | [facility] | + + + + | 2019-04-18 00:00 | Calculus of left ureter | [facility] | + + + + | 2020-10-29 00:00 | Pain in pelvis | [facility] | + + + + | 2020-10-29 00:00 | Pain in pelvis | [facility] | + + + + | 2021-11-15 00:00 | Reactive airway disease | [facility] | | | with acute exacerbation | | + + + + | 2021-11-15 00:00 | Reactive airway disease | [facility] | | | with acute exacerbation | | + + + + | 2022-06-23 00:00 | Radiculopathy | [facility] | + + + + | 2022-06-23 00:00 | Radiculopathy | [facility] | + + + + | 2022-06-23 00:00 | Fall | [facility] | + + + + | 2022-06-23 00:00 | Fall | [facility] | + + + + | 2022-07-14 00:00 | Dog bite of hand | [facility] | + + + + | 2022-07-14 00:00 | Dog bite of hand | [facility] | + + + + | 2022-12-03 00:00 | Gastroenteritis | [facility] | + + + + | 2022-12-03 00:00 | Musculoskeletal pain | [facility] | + + + + Procedures No [...] | (unknown) | | | | | [facility] | value) | unknown) | | | [...]
--- OUTSIDE RECORDS SUMMARY | ~2023-01-01 | XMS | Continuity of Care Document ---
Demographics + + + | Address | [address] | | | [place] [address] | + + + | Preferred Language | Unknown | + + + | Marital Status | | + + + | Hindu Affiliation | Unknown | + + + | Race | White | + + + | Ethnic Group | Not or | + + + Author + + + | Author | [facility] | + + + | Organization | [facility] | + + + | Address | [address] | | | [place] [address] | + + + | Phone | | + + + Care Team Providers + + + + | Care Intermediate [employer] Teacher Name | Role | Phone | + + + + Unavailable | Unavailable | + + + + Unavailable | Unavailable | + + + + Unavailable | Unavailable | + + + + Allergies and Intolerances + + + + + | date | description | facility | type | + + + + + | (no date) | Lisinopril | [facility] | (unknown) | | | | Hospital | | + + + + + | (no date) | Nausea and | [facility] | (unknown) | | | vomiting | Hospital | | + + + + + | (no date) | Lisinopril | [facility] | (unknown) | | | | Hospital | | + + + + + | (no date) | Morphine | [facility] | (unknown) | | | | Hospital | | + + + + + | (no date) | Morphine | [facility] | (unknown) | | | | Hospital | | + + + + + | (no date) | Morphine | [facility] | (unknown) | | | | Hospital | | + + + + + | (no date) | Lisinopril | [facility] | (unknown) | | | | Hospital | | + + + + + Encounters No information. Functional Status No information. Immunizations + + + + | date | description | facility | + + + + | 2022-07-14 00:00 | [facility] | + + + + | 2022-07-14 00:00 | Tdap | [facility] | + + + + Medications + + + + | date | description | facility | + + + + | 2022-07-14 00:00 | DOXEPIN HCL | [facility] | + + + + | 2022-12-03 00:00 | DOXEPIN HCL | [facility] | + + + + | 2019-04-18 00:00 | ONDANSETRON HCL | [facility] | + + + + | 2019-04-18 00:00 | ONDANSETRON HCL | [facility] | + + + + | 2022-07-14 00:00 | OXYCODONE HCL | [facility] | + + + + | 2022-12-03 00:00 | OXYCODONE HCL | [facility] | + + + + | 2022-07-14 00:00 | OXYCODONE | [facility] | | | HCL/ACETAMINOPHEN | | + + + + | 2022-12-03 00:00 | OXYCODONE | [facility] | | | HCL/ACETAMINOPHEN | | + + + + | 2014-05-01 00:00 | GABAPENTIN | [facility] | + + + + | 2014-05-01 00:00 | GABAPENTIN | [facility] | + + + + | 2022-12-03 00:00 | DIPHENOXYLATE HCL/ATROPINE | [facility] | | | | | + + + + | 2022-07-14 00:00 | Bupropion HCl | [facility] | + + + + | 2022-12-03 00:00 | Bupropion HCl | [facility] | + + + + | 2022-07-14 00:00 | ASPIRIN | [facility] | + + + + | 2022-12-03 00:00 | ASPIRIN | [facility] | + + + + | 2022-07-14 00:00 | ALPRAZOLAM | [facility] | + + + + | 2022-12-03 00:00 | ALPRAZOLAM | [facility] | + + + + | 2022-07-14 00:00 | DULAGLUTIDE | [facility] | + + + + | 2022-12-03 00:00 | DULAGLUTIDE | [facility] | + + + + | 2018-04-11 00:00 | DOXYCYCLINE HYCLATE | [facility] | + + + + | 2018-04-11 00:00 | DOXYCYCLINE HYCLATE | [facility] | + + + + | 2022-12-03 00:00 | METFORMIN HCL | [facility] | + + + + | 2018-12-15 00:00 | INDOMETHACIN | [facility] | + + + + | 2018-12-15 00:00 | INDOMETHACIN | [facility] | + + + + | 2018-04-11 00:00 | FLUCONAZOLE | [facility] | + + + + | 2018-04-11 00:00 | FLUCONAZOLE | [facility] | + + + + | 2014-05-01 00:00 | OXAPROZIN | [facility] | + + + + | 2014-05-01 00:00 | OXAPROZIN | [facility] | + + + + | 2014-11-14 00:00 | METRONIDAZOLE | [facility] | + + + + | 2014-11-14 00:00 | METRONIDAZOLE | [facility] | + + + + | 2022-07-14 00:00 | NITROGLYCERIN | [facility] | + + + + | 2022-12-03 00:00 | NITROGLYCERIN | [facility] | + + + + | 2022-07-14 00:00 | INSULIN GLARGINE | [facility] | + + + + | 2022-12-03 00:00 | INSULIN GLARGINE | [facility] | + + + + | 2022-07-14 00:00 | ALPRAZOLAM | [facility] | + + + + | 2022-12-03 00:00 | ALPRAZOLAM | [facility] | + + + + | 2017-11-09 00:00 | CEPHALEXIN | [facility] | + + + + | 2017-11-09 00:00 | CEPHALEXIN | [facility] | + + + + | 2022-07-14 00:00 | GABAPENTIN | [facility] | + + + + | 2022-12-03 00:00 | GABAPENTIN | [facility] | + + + + | 2022-07-14 00:00 | IBUPROFEN | [facility] | + + + + | 2022-12-03 00:00 | IBUPROFEN | [facility] | + + + + | 2022-07-14 00:00 | LISINOPRIL | [facility] | + + + + | 2022-12-03 00:00 | LISINOPRIL | [facility] | + + + + | 2022-12-03 00:00 | ONDANSETRON | [facility] | + + + + | 2022-07-14 00:00 | SIMVASTATIN | [facility] | + + + + | 2022-12-03 00:00 | SIMVASTATIN | [facility] | + + + + | 2022-07-14 00:00 | SIMVASTATIN | [facility] | + + + + | 2022-12-03 00:00 | SIMVASTATIN | [facility] | + + + + | 2022-07-14 00:00 | SUCRALFATE | [facility] | + + + + | 2022-12-03 00:00 | SUCRALFATE | [facility] | + + + + | 2022-07-14 00:00 | AMOXICILLIN/POTASSIUM CLAV | [facility] | | | | | + + + + | 2022-07-14 00:00 | AMOXICILLIN/POTASSIUM CLAV | [facility] | | | | | + + + + | 2022-07-14 00:00 | DULOXETINE HCL | [facility] | + + + + | 2022-12-03 00:00 | DULOXETINE HCL | [facility] | + + + + | 2022-07-14 00:00 | ATORVASTATIN | [facility] | + + + + | 2022-12-03 00:00 | ATORVASTATIN | [facility] | + + + + | 2013-10-22 00:00 | EPINEPHRINE | [facility] | + + + + | 2013-10-22 00:00 | EPINEPHRINE | [facility] | + + + + | 2014-04-13 00:00 | EPINEPHRINE | [facility] | + + + + | 2014-04-13 00:00 | EPINEPHRINE | [facility] | + + + + | 2019-02-10 00:00 | KETOROLAC TROMETHAMINE | [facility] | + + + + | 2019-02-10 00:00 | KETOROLAC TROMETHAMINE | [facility] | + + + + | 2022-07-14 00:00 | | [facility] | | | SULFAMETHOXAZOLE/TRIMETHOPR | | | | IM DS | | + + + + | 2022-12-03 00:00 | | [facility] | | | SULFAMETHOXAZOLE/TRIMETHOPR | | | | IM DS | | + + + + | 2022-07-14 00:00 | ZOLPIDEM TARTRATE | [facility] | + + + + | 2022-12-03 00:00 | ZOLPIDEM TARTRATE | [facility] | + + + + | 2022-07-14 00:00 | ZOLPIDEM TARTRATE | [facility] | + + + + | 2022-12-03 00:00 | ZOLPIDEM TARTRATE | [facility] | + + + + | 2022-12-03 00:00 | HYDROCODONE | [facility] | | | BIT/ACETAMINOPHEN | | + + + + | 2014-03-17 00:00 | HYDROCODONE | [facility] | | | BIT/ACETAMINOPHEN | | + + + + | 2014-03-17 00:00 | HYDROCODONE | [facility] | | | BIT/ACETAMINOPHEN | | + + + + | 2014-11-14 00:00 | HYDROCODONE | [facility] | | | BIT/ACETAMINOPHEN | | + + + + | 2014-11-14 00:00 | HYDROCODONE | [facility] | | | BIT/ACETAMINOPHEN | | + + + + | 2017-11-07 00:00 | HYDROCODONE | [facility] | | | BIT/ACETAMINOPHEN | | + + + + | 2017-11-07 00:00 | HYDROCODONE | [facility] | | | BIT/ACETAMINOPHEN | | + + + + | 2018-04-11 00:00 | HYDROCODONE | [facility] | | | BIT/ACETAMINOPHEN | | + + + + | 2018-04-11 00:00 | HYDROCODONE | [facility] | | | BIT/ACETAMINOPHEN | | + + + + | 2019-04-18 00:00 | HYDROCODONE | [facility] | | | BIT/ACETAMINOPHEN | | + + + + | 2019-04-18 00:00 | HYDROCODONE | [facility] | | | BIT/ACETAMINOPHEN | | + + + + | 2022-07-14 00:00 | HYDROCODONE | [facility] | | | BIT/ACETAMINOPHEN | | + + + + | 2022-12-03 00:00 | HYDROCODONE | [facility] | | | BIT/ACETAMINOPHEN | | + + + + | 2014-05-01 00:00 | HYDROCODONE | [facility] | | | BIT/ACETAMINOPHEN | | + + + + | 2014-05-01 00:00 | HYDROCODONE | [facility] | | | BIT/ACETAMINOPHEN | | + + + + | 2022-07-14 00:00 | METFORMIN HCL | [facility] | + + + + | 2022-12-03 00:00 | METFORMIN HCL | [facility] | + + + + | 2022-07-14 00:00 | METFORMIN HCL | [facility] | + + + + | 2022-12-03 00:00 | METFORMIN HCL | [facility] | + + + + | 2018-01-25 00:00 | OXYBUTYNIN CHLORIDE | [facility] | + + + + | 2018-01-25 00:00 | OXYBUTYNIN CHLORIDE | [facility] | + + + + | 2019-04-18 00:00 | TAMSULOSIN HCL | [facility] | + + + + | 2019-04-18 00:00 | TAMSULOSIN HCL | [facility] | + + + + | 2022-07-14 00:00 | METOPROLOL SUCCINATE | [facility] | + + + + | 2022-12-03 00:00 | METOPROLOL SUCCINATE | [facility] | + + + + | 2022-07-14 00:00 | METOPROLOL SUCCINATE | [facility] | + + + + | 2022-12-03 00:00 | METOPROLOL SUCCINATE | [facility] | + + + + | 2022-07-14 00:00 | METOPROLOL SUCCINATE | [facility] | + + + + | 2022-12-03 00:00 | METOPROLOL SUCCINATE | [facility] | + + + + | 2022-07-14 00:00 | METOPROLOL TARTRATE | [facility] | + + + + | 2022-12-03 00:00 | METOPROLOL TARTRATE | [facility] | + + + + | 2014-03-17 00:00 | ONDANSETRON | [facility] | + + + + | 2014-03-17 00:00 | ONDANSETRON | [facility] | + + + + | 2022-07-14 00:00 | | [facility] | | | LOSARTAN/HYDROCHLOROTHIAZID | | | | E | | + + + + | 2022-12-03 00:00 | | [facility] | | | LOSARTAN/HYDROCHLOROTHIAZID | | | | E | | + + + + | 2022-07-14 00:00 | | [facility] | | | LOSARTAN/HYDROCHLOROTHIAZID | | | | E | | + + + + | 2022-12-03 00:00 | | [facility] | | | LOSARTAN/HYDROCHLOROTHIAZID | | | | E | | + + + + | 2022-07-14 00:00 | LOSARTAN POTASSIUM | [facility] | + + + + | 2022-12-03 00:00 | LOSARTAN POTASSIUM | [facility] | + + + + | 2017-11-09 00:00 | Promethazine HCl/Codeine | [facility] | + + + + | 2017-11-09 00:00 | Promethazine HCl/Codeine | [facility] | + + + + | 2022-07-14 00:00 | PROMETHAZINE HCL | [facility] | + + + + | 2022-12-03 00:00 | PROMETHAZINE HCL | [facility] | + + + + | 2022-07-14 00:00 | hydrOXYzine HCL | [facility] | + + + + | 2022-12-03 00:00 | hydrOXYzine HCL | [facility] | + + + + Problems + + + + | date | description | facility | + + + + | 2014-03-17 00:00 | Back pain | [facility] | + + + + | 2014-03-17 00:00 | Back pain | [facility] | + + + + | 2014-03-17 00:00 | Nausea, vomiting, and | [facility] | | | diarrhea | | + + + + | 2014-03-17 00:00 | Nausea, vomiting, and | [facility] | | | diarrhea | | + + + + | 2014-04-13 00:00 | Allergic reaction | [facility] | + + + + | 2014-04-13 00:00 | Allergic reaction | [facility] | + + + + | 2014-05-01 00:00 | Abdominal pain in female | [facility] | | | patient | | + + + + | 2014-05-01 00:00 | Abdominal pain in female | [facility] | | | patient | | + + + + | 2014-05-01 00:00 | Diarrhea | [facility] | + + + + | 2014-05-01 00:00 | Diarrhea | [facility] | + + + + | 2014-05-28 00:00 | Patient left without being | [facility] | | | seen | | + + + + | 2014-05-28 00:00 | Patient left without being | [facility] | | | seen | | + + + + | 2014-07-30 00:00 | Chest pain | [facility] | + + + + | 2014-07-30 00:00 | Chest pain | [facility] | + + + + | 2014-09-08 00:00 | Allergic reaction to food | [facility] | + + + + | 2014-09-08 00:00 | Allergic reaction to food | [facility] | + + + + | 2014-11-14 00:00 | Acute pelvic inflammatory | [facility] | | | disease | | + + + + | 2014-11-14 00:00 | Acute pelvic inflammatory | [facility] | | | disease | | + + + + | 2015-02-23 00:00 | Syncope | [facility] | + + + + | 2015-02-23 00:00 | Syncope | [facility] | + + + + | 2015-02-23 00:00 | Lung nodule | [facility] | + + + + | 2015-02-23 00:00 | Lung nodule | [facility] | + + + + | 2015-07-10 00:00 | Head contusion | [facility] | + + + + | 2015-07-10 00:00 | Head contusion | [facility] | + + + + | 2015-10-24 00:00 | Syncope and collapse | [facility] | + + + + | 2015-10-24 00:00 | Syncope and collapse | [facility] | + + + + | 2016-08-20 00:00 | Dysmenorrhea | [facility] | + + + + | 2016-08-20 00:00 | Dysmenorrhea | [facility] | + + + + | 2017-11-06 00:00 | Irreducible umbilical | [facility] | | | hernia | | + + + + | 2017-11-06 00:00 | Irreducible umbilical | [facility] | | | hernia | | + + + + | 2017-11-09 00:00 | Pulmonary atelectasis | [facility] | + + + + | 2017-11-09 00:00 | Pulmonary atelectasis | [facility] | + + + + | 2017-11-09 00:00 | Cellulitis of abdominal | [facility] | | | wall | | + + + + | 2017-11-09 00:00 | Cellulitis of abdominal | [facility] | | | wall | | + + + + | 2017-11-09 00:00 | Incisional pain | [facility] | + + + + | 2017-11-09 00:00 | Incisional pain | [facility] | + + + + | 2017-11-09 00:00 | Cough | [facility] | + + + + | 2017-11-09 00:00 | Cough | [facility] | + + + + | 2017-11-09 00:00 | Dehiscence of operative | [facility] | | | wound | | + + + + | 2017-11-09 00:00 | Dehiscence of operative | [facility] | | | wound | | + + + + | 2017-11-09 00:00 | Postoperative complication | [facility] | | | | | + + + + | 2017-11-09 00:00 | Postoperative complication | [facility] | | | | | + + + + | 2018-06-08 00:00 | Hypertensive urgency | [facility] | + + + + | 2018-06-08 00:00 | Hypertensive urgency | [facility] | + + + + | 2018-12-15 00:00 | Abdominal pain | [facility] | + + + + | 2018-12-15 00:00 | Abdominal pain | [facility] | + + + + | 2019-02-07 00:00 | Calculus of kidney | [facility] | + + + + | 2019-02-07 00:00 | Calculus of kidney | [facility] | + + + + | 2019-02-10 00:00 | Ureteric colic | [facility] | + + + + | 2019-02-10 00:00 | Ureteric colic | [facility] | + + + + | 2019-04-18 00:00 | Calculus of left ureter | [facility] | + + + + | 2019-04-18 00:00 | Calculus of left ureter | [facility] | + + + + | 2020-10-29 00:00 | Pain in pelvis | [facility] | + + + + | 2020-10-29 00:00 | Pain in pelvis | [facility] | + + + + | 2021-11-15 00:00 | Reactive airway disease | [facility] | | | with acute exacerbation | | + + + + | 2021-11-15 00:00 | Reactive airway disease | [facility] | | | with acute exacerbation | | + + + + | 2022-06-23 00:00 | Radiculopathy | [facility] | + + + + | 2022-06-23 00:00 | Radiculopathy | [facility] | + + + + | 2022-06-23 00:00 | Fall | [facility] | + + + + | 2022-06-23 00:00 | Fall | [facility] | + + + + | 2022-07-14 00:00 | Dog bite of hand | [facility] | + + + + | 2022-07-14 00:00 | Dog bite of hand | [facility] | + + + + | 2022-12-03 00:00 | Gastroenteritis | [facility] | + + + + | 2022-12-03 00:00 | Musculoskeletal pain | [facility] | + + + + Procedures No [...]
[~2023-01-01 12:39] MED LIST changes: +HYDROCODON-ACE1 EA10 PO; +LOMOTIL TABLET1 EACH PO; +METFORMIN HCL500 M2 PO
--- OUTSIDE RECORDS SUMMARY | 2023-01-01 12:41 | XMS ---
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 - [facility] - 2 Visits in 30 Days CARE PROVIDERS -[place]- Dentist: Chip Tuner [facility] PHONE: [phone] Katharine Roy Community Health Worker 12/01/2019-Current PHONE: [phone] MARQUEZ PARADA 02/08/2019-Current PHONE: [phone] SHRADDHA TATE Internal Medicine: Pulmonary Disease 12/16/2018-Current PHONE: Unknown Guidelines Source: [facility] Guidelines Date: 03/24/2021 Other Information: Patient was advised by surgeon to follow up with ED doc as patient was having pain after an encounter with dogs. Patient stated she will contact Dr. Blanchard if she is having any other concerns. Care History Medical/Surgical 11/20/2019 [facility] - PATIENT HAS A FOLLOW UP APT WITH DR BLANCHARD ON 11/23/2019. 12/16/2018 [facility] - Patient is currently established with [facility]. If patient is seen in the ED during business hours. Please contact CHWs at [facility]. Care Recommendation: This patient has had [...] care. 06/09/2018 [facility] MARYLOU CHW OF [facility] HAS SENT OUT A REQUEST FOR PATIENT TO ESTABLISH CARE WITH A PROVIDER AT THE CLINIC. - PATIENT CURRENTLY DOES NOT HAVE A PCP BUT CAN UTILIZE THE WALK IN CLINIC UNTIL ESTABLISHED WITH A PROVIDER. E.D. VISIT COUNT (12 MO.) 2 Lucio Bobo 4 [facility]. TOTAL 6 NOTE: Visits indicate total known visits. 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 - Type 2 diabetes mellitus without complications - Unspecified abdominal pain 09/29/2022 06:07 Lucio CRUZ [place] TYPE: Emergency [...] of right hand, initial encounter - Other fdc (current) drug therapy 06/23/2022 16:15 KAROLINE Erickson [place] TYPE: Emergency COMPLAINT: - FELL BACK PAIN, SURGERY [id number] DIAGNOSES: - Allergy status to narcotic agent - Allergy status to other drugs, medicaments and biological substances - Essential (primary) hypertension - Fall on same level due to ice and snow, initial encounter - Low back pain, unspecified - Other fdc (current) drug therapy - Personal history of urinary calculi - Radiculopathy, lumbar region INPATIENT VISIT TRACKING (12 MO.) 07/16/2022 11:44 Lucio CRUZ [place] TYPE: Internal Medicine DIAGNOSES: - Other specified health status - Synovitis and tenosynovitis, unspecified [email or web address]
--- NOTE | 2023-01-01 14:55 | NUR ---
PATIENT ARRIVED TO THE CCU WITH HAY CHRISTOPHER. PATIENT ABLE TO STAND AND TRANSFER TO THE CAMMODE AND THEN THE BED.
--- NOTE | 2023-01-01 15:19 | NUR ---
HOSPITALIST IN TO CONT TO INTERVIEW PT.
[2023-01-01] MEDS ORDERED: LOSARTAN POTAS100 MG PO (15:41)
[2023-01-01] MEDS ORDERED: BUSPIRONE HCL5 MG PO (15:42)
[2023-01-01] MEDS ORDERED: JARDIANCE25 MG PO (15:42)
[2023-01-01] MEDS ORDERED: HYDROCHLOROTHIA25 MG PO (15:49)
[2023-01-01] MEDS ORDERED: TRULICITY1.5 MG/0.5 SUB-Q (15:50)
[2023-01-01] MEDS ORDERED: INSULIN GL100 UNIT/2 SUB-Q (15:52)
[2023-01-01] MEDS ORDERED: DIPHENOXYLATE-1 EACH PO (16:03)
--- NOTE | 2023-01-01 16:18 | NUR ---
PATIENTS BLOOD SUGAR CHECKED AND REVIEWED WITH HAY CHRISTOPHER AND MD CERRATO. PATIENT STARTED ON INSULIN GTT AT 2.4MLS/HR PER TITRATION SCALE AND D51/2NS AT 125MLS PER/HR. SEE EMAR. PATIENT UPDATED ON PLAN OF CARE. PATIENT REPORTS FEELING BETTER THAN WHEN SHE WAS ADMITTED THIS AM. PATIENT HAS CALL LIGHT IN PLACE AND PATIENTS AT THE BEDSIDE.
[2023-01-01] MEDS ORDERED: DULOXETINE HCL60 MG PO (16:22)
--- NOTE | 2023-01-01 16:23 | NUR ---
MED REC COMPLETE
--- NOTE | 2023-01-01 17:00 | NUR ---
PATIENT RESTING ON HER SIDE IN BED AT THIS TIME. PATIENTS BS CHECKED AND INSULIN GTT DECREASED PER FLOWSHEET. PATIENTS AT THE BEDSIDE. NO OTHER NEEDS AT THIS TIME.
--- NOTE | 2023-01-01 18:50 | NUR ---
MD CERRATO NOTIFIED OF CO2 7 WHICH IS UNCHANGED FROM PRIOR LABS. SEE NEW ORDERS. STAFF WILL GET VBG LAB AND UPDATE ON NEXT PENDING LABS AT 2200.
--- NOTE | 2023-01-01 20:00 | NUR ---
RECEIVED REPORT FROM HAY FISHER; WAS PRESENT DURING REPORT AND ORDERED ONE TIME DOSE OF HYDROCODONE D/T PT C/O HEADACHE THAT WAS NOT RESOLVED BY TYLENOL; REPEAT VBG DRAWN, PENDING RESULTS, REPEAT LABS TO BE DRAWN AT 2200, WILL CONTINUE TO CHECK HOURLY FSBG AND TITRATE INSULIN PER PROTOCOL, VSS, PT DENIES ANY CHEST PAIN AT THIS TIME, HR 110'S, DENIES SOB, HANDS ARE COOL TO THE TOUCH BUT PERIPHERAL PULSES ALL PRESENT; WILL CONTINUE TO MONITOR AND NOTIFY PROVIDER WITH LAB RESULTS FROM 2200.
[2023-01-02] VITALS (7 sets, daily range): BP systolic 98–132; BP diastolic 58–69
--- NOTE | 2023-01-02 03:30 | NUR ---
PT'S LABS IMPROVING SLIGHTLY, NO CHANGES TO IVF, INSULIN GTT TITRATED PER PROTOCOL, FSBG REMAINS Q1H; WILL CONTINUE TO MONITOR
--- NOTE | 2023-01-02 07:22 | EKG ---
[facility] [address] [place] [address] Signed Normal sinus rhythm Right superior axis deviation Inferior infarct , age undetermined Anteroseptal infarct (cited on or before 01-NOV-2018) Abnormal ECG prolonged QTc Confirmed by KARLY CERRATO MD ([id number]) on 01/02/2023 7:22:45 AM Electronically Signed By: KARLY CERRATO 01/02/23721 PATIENT NAME: ROMEORIAN Electrocardiogram DATE OF : 82 PHYSICIAN: KARLY CERRATO REPORT #: [id number] REPORT IS CONFIDENTIAL AND NOT TO BE RELEASED WITHOUT AUTHORIZATION
--- NOTE | 2023-01-02 07:30 | NUR ---
REPORT RECIEVED. PATIENT IS SLEEPING. IVF/INSULIN GTT PATENT.
--- NOTE | 2023-01-02 08:00 | NUR ---
ASSESSMENT DONE. DR. YOUNG HERE TO SEE PATIENT. ORDERS RECIEVED. PATIENT STATES SHE IS FEELING BETTER. C/O LOWER BACK PAIN, HAS HX OF BACK PAIN. DENIES NAUSEA. IVF PATENT. INSULIN GTT AT 0.9 UNITS/HR, ACCUCHECK-147. IVF INCREASED TO 200 ML/HR PER ORDERS. HAS BEEN TAKING SIPS AND CHIPS, C/O OF MILD NAUSEA.
--- NOTE | 2023-01-02 08:15 | NUR ---
UP TO BR TO VOID. IS STABLE ON FEET. BACK TO BED W/O INCIDENT.
--- NOTE | 2023-01-02 09:50 | NUR ---
LABS DRAWN. PATIENT HAS BEEN SLEEPING.
--- NOTE | 2023-01-02 10:30 | NUR ---
DR. YOUNG UDATED ON LABS AND PATIENT STATUS. IS AWARE THAT PATIENT STATES SHE SHE IS FEELING WORSE. PATIENT C/O HEADACHE AND NAUSEA. XANAFLEX GIVEN FOR BACK PAIN AND TYLENO GIVEN FOR HEADACHE. INSULIN GTT REMAINS AT 1.2 UNITS HR.
--- NOTE | 2023-01-02 10:35 | NUR ---
TO BR TO VOID.
--- NOTE | 2023-01-02 12:05 | NUR ---
ASSESSMENT UNCHANGED. PATIENT STATES SHE IS FEELING BETTER. DENIES NAUSEA. STATES NO HEADACHE. MORE TALKATIVE. ACCUCHECK-202. INSULIN GTT = 2.8.
--- NOTE | 2023-01-02 14:00 | NUR ---
LABS DRAWN FROM [facility] SITE. ACCUCHECK-129. INSULIN GTT TO 0.7 UNITS/HR.
--- NOTE | 2023-01-02 15:00 | NUR ---
DR. YOUNG AWARE OF 1400 LABS. NO FUTHER ORDRES. PATIENT IS VISITING WITH [employer]ILY [employer]. INSULIN GTT, NOW AT 1 UNIT/HR.
--- NOTE | 2023-01-02 17:10 | NUR ---
PATIENT SAID SHE IS FEELING HUNGRY. MD IS AWARE. 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 THIS DONE.
--- NOTE | 2023-01-02 18:00 | NUR ---
LABS DRAWN. DENIES PAIN OR NAUSEA. ACCUCHECK-161, INSULIN GTT TO 1 UNIT/HR. FACE HAS BEEN FLUSHED TODAY. NO FEVER OR CHILLS.
--- NOTE | 2023-01-02 19:45 | NUR ---
ROUNDING ON PT, SHE IS RESTING IN BED, ALERT AND ORIENTED, SHE REPORTS NO NAUSEA, STILL HAS MILD MONTE, AND MODERATE BACK PAIN 12/12, DISCUSSED PLAN OF CARE FOR THIS SHIFT, AND TREATMENT PLAN, MEDICATIONS. PT VERBALIZED UNDERSTANDING AND AGREEMENT TO ALL CARES PLANNED.
--- NOTE | 2023-01-02 20:00 | NUR ---
PT ADMINISTERED TYLENOL AND ZANAFLEX FOR MILD MONTE AND 6/10 BACK PAIN. PT RPEORTS NO NAUSEA. AGNIESZKA BAKER INTO VISIT WITH PT AND HER SPOUSE AT BEDSIDE NELY. PT HAS NO OTHER CONCERNS OR REQUESTS AT THIS TIME. ASSESSMENT COMPLETE NO NEW CONCERNS FOUND, PAIGE OVIEDO RN AT BEDSIDE TO ASSESS FOR ADDITIONAL NEW IV SITE, NOT IN BEND OF ARM.
--- NOTE | 2023-01-02 20:10 | NUR ---
20G IV PLACED IN LFA, 1 ATTEMPT. PT TOLERATED WELL. IV FLUIDS AND MED MOVED TO THE LFA IV. PT TOLERATED WELL. NO OTHER NEEDS. CALL LIGHT IN REACH, SPOUSE IN ROOM.
--- NOTE | 2023-01-02 20:23 | NUR ---
RN'S PAIGE AND REJI REQUESTED I VISIT PT. SHE IS ALERT, ORIENTED AND HER NELY IS IN RM AT BS. PT FEELS BETTER SINCE ADMISSION, BOTH ALSO FEEL INFORMED. IV ALARM SOLUNDING, RN'S REJI AND PAIGE IN TO CARE FOR PT. PT HAVING DIFFICULTY WITH IV SITE, GAVE ENCOURAGEMENT. CCU STAFF NEED TO CARE FOR PT. OFFERED TO PRAY FOR PT-SHE DECLINED. GAVE BLESSING AND WILL FOLLOW
--- NOTE | 2023-01-02 20:23 | NUR ---
PT REQUESTED AND PROVIDED BED BATH KIT AND SHAMPOO CAP. SHE SAID SHE DOES NOT NEED ASSISTANCE FROM STAFF HER SPOUSE CAN HELP HER. SHE IS NOW UP TO BATHROOM TO VOID AND BRUSH HER TEETH. PT TOLERATING ACTIVITY WITH STEADY GAIT, INCREASE HEART RATE TO 115-120 WHILE UP AMBULATING.
[2023-01-03 00:13] VITALS: BP 116/66
--- NOTE | 2023-01-03 00:27 | NUR ---
ASSESSMENT, V/S, PT UP TO BATHROOM TO VOID. NO NEW CONCERNS
--- NOTE | 2023-01-03 04:00 | NUR ---
PT RESTING IN BED EYES CLOSED RESP RATE SHALLOW/REGULAR AT 18/MIN. PT ALERT TO RN SAYING HER NAME. FOR BLOOD SUGAR CHECK, NEW PRIMARY INFUSION SET WITH NEW INSULIN DRIP INFUSION BAG SET UP. PT DOES NOT VERBALIZE ANY PAIN OR NASUEA.
[2023-01-03 06:19] VITALS: BP 136/87
--- NOTE | 2023-01-03 06:21 | NUR ---
PT UP TO BATHROOM, TOLERATING ACTIVITY WELL, INDEPENDENT WITH STAFF IN ROOM. VOIDED 450ML YELLOW URINE, THIS AM ASSESSMENT, NO NEW CONCERNS, LABS DRAWN AND SENT AT 0600. PT REPORTS THAT HER HEADACHE IS INTERMITTEN, SHE FEELS LIKE SHE REALLY WANTS TO EAT "REAL FOOD" SHE SAID SHE EXPECTS FOOD WILL HELP WITH HER MONTE.
--- NOTE | 2023-01-03 07:30 | NUR ---
REPORT RECEIVED. PATIENT IS RESTING IN BED. IVF AND IV INSULIN INFUSING.
[2023-01-03 08:00] VITALS: BP 133/87
--- NOTE | 2023-01-03 08:00 | NUR ---
ASSESSMENT DONE. DR. YOUNG SAW PATIENT EARLIER. ORDERS RECEIVED. PATIENT AWARE OF ORDERS. LONG ACTING INSULIN GIVEN WELL SHORT ACTING INSULIN ACCUCHECK 167. 1 UNIT SHORT ACTING INSULIN GIVEN. PLAN TO DC IVF AND INSULIN GTT AND GIVE BREAKFAST IN APPROX 2 HRS.
--- NOTE | 2023-01-03 09:30 | NUR ---
TYLENOL GIVEN FOR C/O MONTE.
--- NOTE | 2023-01-03 09:50 | NUR ---
LABS DRAW. ACCUCHECK-117. BREAKFAST GIVEN, IVF AND INSULIN GTT DC'D PER ORDERS. PATEINT STATES SHE FEELS GOOD OTHER THAN HAVING A HEADACHE. TALKATIVE AND IN GOOD SPIRITS.
--- NOTE | 2023-01-03 10:10 | NUR ---
TOOK BREAKFAST WELL. DENIES NAUSEA.
--- NOTE | 2023-01-03 12:10 | NUR ---
ACCUCHECK-185. HUMALOG 3 UITS SQ GIVEN. SITTING UP IN BED READY FOR LUNCH. MONITOR DC'D. PATIENT NOW HOUSE CONVENIENCE.
[2023-01-03 12:29] VITALS: BP 150/85
--- NOTE | 2023-01-03 13:30 | NUR ---
STAYING IN CCU HOUSE CONVENIENCE. MONITOR DC'D.
--- NOTE | 2023-01-03 15:00 | NUR ---
NAPPING. NO DISTRESS NOTED.
--- NOTE | 2023-01-03 16:00 | NUR ---
ASSESSMENT UNCHANGED. ACCUCHECK 137 1 UNIT INSULIN GIVEN. HAS BEEN UP IN ROOM.
[2023-01-03 16:09] VITALS: BP 145/100
--- NOTE | 2023-01-03 18:20 | NUR ---
TOOK APPROX 20% OF DINNER. DENIES NAUSEA.
--- NOTE | 2023-01-03 18:59 | NUR ---
NO CHANGES REPORT TO NEXT SHIFT.
[2023-01-03 22:00] VITALS: BP 143/70
--- NOTE | 2023-01-04 03:35 | NUR ---
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
--- NOTE | 2023-01-04 07:30 | NUR ---
REPORT RECEIVED. PATIENT IS RESTING IN BED. TALKED WITH ME ABOUT THE RESTLESS NIGHT SHE HAD LAST NIGHT. STATES SHE IS FEELING BETTER THIS MORNING. C/O HEADACHE, DENIES OTHER PAIN.
--- NOTE | 2023-01-04 07:45 | NUR ---
ACCUCHECK-203. LONG ACTING 20 UNITS AND SHORT ACTING 3 UNITS SQ GIVEN. ASSESSMENT DONE. PATIENT IS LOOKING FORWARD TO DISCHARGE TO HOME TODAY.
[2023-01-04 07:51] VITALS: BP 139/101
--- NOTE | 2023-01-04 08:30 | NUR ---
TOOK BREAKFAST POOR. STATES SHE IS NOT FEELING WELL SHE WAS EARLIER. C/O STOMACH CRAMPING. HAD BM EARLIER.
--- NOTE | 2023-01-04 09:00 | NUR ---
SLEEPING NOW. NO DISTRESS NOTED.
--- NOTE | 2023-01-04 09:29 | NUR ---
SPOKE TO PATIENT ABOUT THE DISCHARGE PLAN, PATIENT WILL GO HOME WITH HER TO [place] OR. A[place]REYT CAN DO HER OWN ADLS.PATIENT CAN AFFORD HOUSING AND FOOD NEEDED. PATIENT DOES NOT NEED DME.PATIENT HAS A SUPORTIVE FAMILY THAT IS AVAILABLE NEEDED.PATIENT'S DEMOGRAPHICS ARE CORRECT IN THE CHART. PATIENT WILL BE DICHARGED WHEN MEDICALLY CLEARED BY MD. ENCOURAGED PATIENT TO CALL CASE MANAGEMENT FOR ANY ISSUES OR CONCERNS.
[2023-01-04] MEDS ORDERED: INSULIN GL100 UNIT/1 SUB-Q (10:11)
[2023-01-04] MEDS ORDERED: TIZANIDINE HCL4 MG PO (10:12)
--- NOTE | 2023-01-04 10:15 | NUR ---
DISCHARGE ORDERS RECIEVED.
== END 2023-01-04 11:20 | disposition home or self-care (01) | DRG 638 ==
LOC: ED 12:39 → CCU 14:20
PROVIDERS: ADMIT Family Medicine; ATTEND Family Medicine
DX: E11.10 Type 2 diabetes mellitus with ketoacidosis without coma (principal); R65.10 Systemic inflammatory response syndrome (SIRS) of non-infectious origin without acute organ dysfunction; I10 Essential (primary) hypertension; E87.6 Hypokalemia; E87.5 Hyperkalemia; E86.0 Dehydration; K40.90 Unilateral inguinal hernia, without obstruction or gangrene, not specified as recurrent; K42.9 Umbilical hernia without obstruction or gangrene; M54.50 Low back pain, unspecified; Z90.49 Acquired absence of other specified parts of digestive tract; Z90.710 Acquired absence of both cervix and uterus; Z98.51 Tubal ligation status; Z98.890 Other specified postprocedural states; Z87.442 Personal history of urinary calculi; Z98.891 History of uterine scar from previous surgery; Z98.1 Arthrodesis status; Z79.891 Long term (current) use of opiate analgesic; Z88.5 Allergy status to narcotic agent; Z88.8 Allergy status to other drugs, medicaments and biological substances; Z79.4 Long term (current) use of insulin; Z79.899 Other long term (current) drug therapy
CPT/HCPCS: 36415; 74022; 80048; 80053; 81001; 82010; 82803; 83036; 83690; 83735; 84484; 84703; 85025; 93005; 93010; 96361; 96374; 99285 25; A9270; J1815; J2405; J3480; J7030; J7042

== ENCOUNTER 2023-01-29 19:08 | Emergency (ER) | payer OTHER ==
[~2023-01-29] VITALS: Ht 152.4 cm; Wt 89.5 kg
[~2023-01-29 19:08] MED LIST changes: +BUSPIRONE HCL5 MG PO; +DIPHENOXYLATE-1 EACH PO; +DULOXETINE HCL60 MG PO; +HYDROCHLOROTHIA25 MG PO; +INSULIN GL100 UNIT/1 SUB-Q; +INSULIN GL100 UNIT/2 SUB-Q; +JARDIANCE25 MG PO; +LOSARTAN POTAS100 MG PO; +TIZANIDINE HCL4 MG PO; +TRULICITY1.5 MG/0.5 SUB-Q
--- OUTSIDE RECORDS SUMMARY | 2023-01-29 19:11 | XMS ---
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 Events No recent Security Events currently on file CRITERIA MET - [facility] - [facility] - 2 Visits in 30 Days CARE PROVIDERS -[place]- Dentist: Continuous Drier Helper [facility] PHONE: [phone] Katharine Roy Community Health Worker 12/01/2019-Current PHONE: [phone] MARQUEZ PARADA 02/08/2019-Current PHONE: [phone] SHRADDHA TATE Internal Medicine: Pulmonary Disease 12/16/2018-Current PHONE: Unknown Guidelines Source: [facility] Guidelines Date: 03/24/2021 Other Information: Patient was advised by surgeon to follow up with ED doc as patient was having pain after an encounter with dogs. Patient stated she will contact Dr. Blanchard if she is having any other concerns. Care History Medical/Surgical 11/20/2019 [facility] - PATIENT HAS A FOLLOW UP APT WITH DR BLANCHARD ON 11/23/2019. 12/16/2018 [facility] - Patient is currently established with [facility]. If patient is seen in the ED during business hours. Please contact CHWs at [facility]. Care Recommendation: This patient has had [...] care. 06/09/2018 [facility] MARYLOU [facility] OF [facility] HAS SENT OUT A REQUEST FOR PATIENT TO ESTABLISH CARE WITH A PROVIDER AT THE CLINIC. - PATIENT CURRENTLY DOES NOT HAVE A PCP BUT CAN UTILIZE THE WALK IN CLINIC UNTIL ESTABLISHED WITH A PROVIDER. E.D. VISIT COUNT (12 MO.) 2 [facility] An[facility]jar. 5 [facility]. TOTAL 7 NOTE: Visits indicate total known visits. 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 [place] TYPE: Emergency COMPLAINT: - DOG BITE DIAGNOSES: - Allergy status to narcotic agent - Bitten by dog, initial encounter - Encounter for immunization - Essential (primary) hypertension - Open bite of right hand, initial encounter - Other usp (current) drug therapy 06/23/2022 16:15 [facility] [place] TYPE: Emergency COMPLAINT: - FELL BACK PAIN, SURGERY [id number] DIAGNOSES: - Allergy status to narcotic agent - Allergy status to other drugs, medicaments and biological substances - Essential (primary) hypertension - Fall on same level due to ice and snow, initial encounter - Low back pain, unspecified - 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 - Personal history of urinary calculi - Radiculopathy, lumbar region INPATIENT VISIT TRACKING (12 MO.) 01/01/2023 14:20 [facility] [place] TYPE: Critical Care COMPLAINT: - DKA DIAGNOSES: - Acquired absence of both cervix and uterus - Acquired absence of both cervix and uterus - Acquired absence of other specified parts of digestive tract - Acquired absence of other specified parts of digestive tract - Allergy status to narcotic agent - Allergy status to narcotic agent - Allergy status to other drugs, medicaments and biological substances - Allergy status to other drugs, medicaments and biological substances - Arthrodesis status - Arthrodesis status - Dehydration - Dehydration - Essential (primary) hypertension - Essential (primary) hypertension - History of uterine scar from previous surgery - History of uterine scar from previous surgery - Hyperkalemia - Hyperkalemia - Hypokalemia - Hypokalemia - [facility] (current) use of insulin - [facility] (current) use of insulin - [facility] (current) use of opiate analgesic - 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 - Low back pain, unspecified - Low back pain, unspecified - Other usp (current) drug therapy - Other usp (current) drug therapy - Other specified postprocedural states - Other specified postprocedural states - Personal history of urinary calculi - Personal history of urinary calculi - Systemic inflammatory response syndrome (SIRS) of non-infectious origin without acute organ dysfunction - Tubal ligation status - Tubal ligation status - Type 2 diabetes mellitus with ketoacidosis without coma - Umbilical hernia without obstruction or gangrene - Umbilical hernia without obstruction or gangrene - Unilateral inguinal hernia, without obstruction or gangrene, not specified as recurrent - Unilateral inguinal hernia, without obstruction or gangrene, not specified as recurrent 07/16/2022 11:44 [facility] TYPE: Internal Medicine DIAGNOSES: - Other specified health status - Synovitis and tenosynovitis, unspecified [email or web address]
[2023-01-29 20:19] VITALS: BP 00/00
--- NOTE | 2023-01-30 06:33 | EKG ---
[facility] [address] [place] [address] Signed Sinus tachycardia Inferior infarct , age undetermined Anterolateral infarct , age undetermined Abnormal ECG No previous ECGs available Confirmed by KARLY CERRATO MD ([id number]) on 01/30/2023 6:33:27 AM Electronically Signed By: KARLY CERRATO 01/30/23 0633 PATIENT NAME: RIAN WALTERS Electrocardiogram DATE OF : 82 PHYSICIAN: KARLY CERRATO REPORT #: [id number] REPORT IS CONFIDENTIAL AND NOT TO BE RELEASED WITHOUT AUTHORIZATION
== END 2023-01-29 20:19 | disposition left against medical advice (07) ==
LOC: ED 19:08
DX: R07.9 Chest pain, unspecified (principal); R11.2 Nausea with vomiting, unspecified; Z53.21 Procedure and treatment not carried out due to patient leaving prior to being seen by health care provider
CPT/HCPCS: 93005; 93010

== ENCOUNTER 2024-02-27 09:41 | Emergency (ER) | payer OTHER ==
[~2024-02-27] VITALS: Ht 152.4 cm; Wt 101.0 kg
[~2024-02-27 09:41] MED LIST changes: +AMLODIPINE BESYL5 MG PO; +HYDROCODON-ACE1 EA11 PO; +METFORMIN HCL500 M1 PO
[2024-02-27 09:57] LABS: BASOPHILS 0.8 % (0-2); EOSINOPHILS 2.4 % (0-6); HEMATOCRIT 34.3 % (35.0-50.0); HEMOGLOBIN 11.5 g/dL (12.0-18.0); LYMPHOCYTES 37.7 % (24-44); MCH 29.2 (27-36); MCHC 33.6 g/dl (30-36); MCV 86.9 fl (81-99); MONOCYTES 6.1 % (0-12); PLATELET COUNT 261 K/uL (140-440); RBC 3.95 M/ul (4.3-5.7); RDW 14.8 (10.5-15.0)
[2024-02-27] MEDS ORDERED: SODIUM CHLORIDE 0.9% 1,000 ML IV PRN (10:00)
[2024-02-27] MEDS ORDERED: Insulin Regular, Human 100 UNIT/ML ML IV ONE (10:00)
[2024-02-27 10:04] LABS: PARTIAL THROMBOPLASTIN TIME 24.3 Sec (22.9-41.3)
[2024-02-27 10:05] LABS: INR 0.98 (0.80-1.30); PROTIME 12.3 Sec (11.2-14.2)
[2024-02-27] MEDS ORDERED: PIOGLITAZONE HC15 MG PO (10:18)
[2024-02-27] MEDS ORDERED: ATORVASTATIN CA20 MG PO (10:19)
[2024-02-27 10:20] LABS: ALBUMIN 3.4 g/dL (3.4-5.0); ALBUMIN/GLOBULIN RATIO 0.92 (1.1-2.4); ALKALINE PHOSPHATASE 95 U/L (46-116); ALT (SGPT) 37 U/L (14-59); ANION GAP 13.5 (7-21); AST (SGOT) 19 U/L (15-37); BILIRUBIN, TOTAL 0.3 ng/dL (0.2-1.0); BUN/CREATININE RATIO 18.29 (6.0-28.6); CALCIUM 9.5 mg/dL (8.5-10.1); CARBON DIOXIDE 26 mmol/L (21-32); CHLORIDE 100 mmol/L (98-107); CREATININE, SERUM 0.82 mg/dL (0.55-1.02); GLOMERULAR FILTRATION RATE,EST 91 mL/min (>60); MAGNESIUM 1.5 mg/dL (1.8-2.4); POTASSIUM 4.5 mmol/L (3.5-5.1); PROTEIN, TOTAL 7.1 g/dL (6.4-8.2); UREA NITROGEN 15 mg/dL (7-18)
[2024-02-27 10:35] LABS: BILIRUBIN, URINE NEGATIVE (negative); BLOOD/HGB, URINE NEGATIVE (Negative); KETONE, URINE NEGATIVE (Negative); LEUK ESTERASE, URINE NEGATIVE (negative); NITRITE, URINE NEGATIVE (negative)
[2024-02-27] MEDS ORDERED: KETOROLAC TROMETHAMINE 30 MG/ML VIAL IV ONE (10:45)
--- NOTE | 2024-02-27 12:42 | EKG ---
[facility] [address] [facility] [place] [address] Signed Normal sinus rhythm Left axis deviation Low voltage QRS Cannot rule out Anterior infarct (cited on or before 01-NOV-2018) Abnormal ECG When compared with ECG of 22-NOV-2023 15:01, No significant change was found Confirmed by Joel Anton MD ([id number]) on 02/27/2024 12:42:21 PM Electronically Signed By: JOEL ANTON MD 02/27/24 1242 PATIENT NAME: ROMEORIAN Electrocardiogram DATE OF : 82 PHYSICIAN: JOEL ANTON MD REPORT #: [id number] REPORT IS CONFIDENTIAL AND NOT TO BE RELEASED WITHOUT AUTHORIZATION
[2024-02-27] MEDS ORDERED: LEVOFLOXACIN750 MG PO (13:20)
[2024-02-27 13:29] VITALS: BP 137/88
== END 2024-02-27 13:30 | disposition home or self-care (01) ==
LOC: ED 09:41
PROVIDERS: Emergency Medicine
DX: E10.65 Type 1 diabetes mellitus with hyperglycemia (principal); J18.9 Pneumonia, unspecified organism; I10 Essential (primary) hypertension; I25.10 Atherosclerotic heart disease of native coronary artery without angina pectoris; K50.90 Crohn's disease, unspecified, without complications; Z20.822 Contact with and (suspected) exposure to COVID-19; Z88.5 Allergy status to narcotic agent; Z88.8 Allergy status to other drugs, medicaments and biological substances; Z79.4 Long term (current) use of insulin; Z79.84 Long term (current) use of oral hypoglycemic drugs; Z79.899 Other long term (current) drug therapy
CPT/HCPCS: 36415; 70450; 71045; 80053; 81003; 83735; 83880; 84484; 85025; 85610; 85730; 93005; 93010; 96374; 96375; 99285-25; J1815; J1885; J7030; U0002

== ENCOUNTER 2024-03-31 10:47 | Emergency (ER) | payer OTHER ==
[~2024-03-31] VITALS: Ht 152.4 cm; Wt 98.6 kg
[~2024-03-31 10:47] MED LIST changes: +ATORVASTATIN CA20 MG PO; +LEVOFLOXACIN750 MG PO; +PIOGLITAZONE HC15 MG PO
[2024-03-31] MEDS ORDERED: HYDROCODON-ACE1 EA10 PO (11:07)
[2024-03-31 11:16] VITALS: BP 145/109
== END 2024-03-31 11:16 | disposition home or self-care (01) ==
LOC: ED 10:47
DX: K08.89 Other specified disorders of teeth and supporting structures (principal); I10 Essential (primary) hypertension; E11.9 Type 2 diabetes mellitus without complications; Z88.5 Allergy status to narcotic agent; Z88.8 Allergy status to other drugs, medicaments and biological substances; Z79.4 Long term (current) use of insulin; Z79.84 Long term (current) use of oral hypoglycemic drugs; Z79.899 Other long term (current) drug therapy
CPT/HCPCS: 99282

== ENCOUNTER 2024-04-16 07:26 | Emergency (ER) | payer OTHER ==
[~2024-04-16] VITALS: Ht 152.4 cm; Wt 77.1 kg
--- OUTSIDE RECORDS SUMMARY | ~2024-04-16 | XMS | Continuity of Care Document ---
Demographics + + + | Address | [id number] [place] [address] | | | [place] [address] | + + + | Preferred Language | Unknown | + + + | Marital Status | Unknown | + + + | Muslim Affiliation | Unknown | + + + | Race | White | + + + | Ethnic Group | Not or | + + + Author + + + | Author | [facility] | + + + | Organization | [facility] | + + + | Address | [address] | | | [place] [address] | + + + | Phone | | + + + Care Team Providers + + + + | Care Supervisor Air Conditioning Installer Name | Role | Phone | + + + + Unavailable | Unavailable | + + + + Allergies No information. Encounters No information. Functional Status No information. Immunizations No information. Medications No information. Problems + + + + | date | description | facility | + + + + | 2024-04-12 15:24:05 | Non-ST elevation (NSTEMI) | [facility] | | | myocardial infarction | | + + + + | 2024-04-12 15:24:05 | Presence of coronary | [facility] | | | angioplasty implant and | | | | graft | | + + + + | 2024-04-13 12:05:26 | Non-ST elevation (NSTEMI) | [facility] | | | myocardial infarction | | + + + + | 2024-04-13 12:05:26 | Presence of coronary | [facility] | | | angioplasty implant and | | | | graft | | + + + + Procedures No information. Results/Labs No information. Social History +--------+ + + | date | description | facility | +--------+ + + Vital Signs No information."
[2024-04-16] MEDS ORDERED: SODIUM CHLORIDE 0.9% 1,000 ML IV ONE (08:15)
[2024-04-16] MEDS ORDERED: DIPHENOXYLATE/ATROPINE 1 EA TAB PO ONE (08:15)
[2024-04-16] MEDS ORDERED: PANTOPRAZOLE SODIUM 40 MG/10 ML VIAL IV ONE (08:15)
[2024-04-16] MEDS ORDERED: ondansetron HCL 4 MG/2 ML VIAL IV ONE ×2 (08:15→14:45)
[2024-04-16 08:22] LABS: HEMOGLOBIN 14.4 g/dL (12.0-18.0)
[2024-04-16 08:24] LABS: BASOPHILS 0.7 % (0-2); EOSINOPHILS 1.6 % (0-6); HEMATOCRIT 41.9 % (35.0-50.0); LYMPHOCYTES 26.7 % (24-44); MCH 29.4 (27-36); MCHC 34.4 g/dl (30-36); MCV 85.4 fl (81-99); MONOCYTES 9.2 % (0-12); NEUTROPHILS 61.8 % (39-80); PLATELET COUNT 294 K/uL (140-440); RBC 4.91 M/ul (4.3-5.7); RDW 14.3 (10.5-15.0)
[2024-04-16 08:25] LABS: INR 0.98 (0.80-1.30); PROTIME 12.5 Sec (11.2-14.2)
[2024-04-16 08:27] LABS: PARTIAL THROMBOPLASTIN TIME 24.8 Sec (22.9-41.3)
[2024-04-16 09:14] LABS: ALBUMIN 3.6 g/dL (3.4-5.0); ALBUMIN/GLOBULIN RATIO 0.97 (1.1-2.4); ANION GAP 12.2 (7-21); BUN/CREATININE RATIO 20.23 (6.0-28.6); CALCIUM 9.7 mg/dL (8.5-10.1); CREATININE, SERUM 0.84 mg/dL (0.55-1.02); MAGNESIUM 1.5 mg/dL (1.8-2.4); POTASSIUM 4.2 mmol/L (3.5-5.1); PROTEIN, TOTAL 7.3 g/dL (6.4-8.2)
[2024-04-16 10:59] LABS: BILIRUBIN, URINE NEGATIVE (negative); BLOOD/HGB, URINE NEGATIVE (Negative); KETONE, URINE NEGATIVE (Negative); LEUK ESTERASE, URINE NEGATIVE (negative); NITRITE, URINE NEGATIVE (negative); PH, URINE 5.5 (5-7)
[2024-04-16] MEDS ORDERED: HEPARIN SOD,PORK IN 0.45% NACL 500 ML IV SCH (17:15)
[2024-04-16 18:26] VITALS: BP 121/82
--- NOTE | 2024-04-17 08:02 | EKG ---
[facility] [address] [facility] [place] [address] Signed Normal sinus rhythm Left axis deviation Inferior infarct , age undetermined Anterolateral infarct (cited on or before 01-NOV-2018) Abnormal ECG When compared with ECG of 27-FEB-2024 10:13, Questionable change in initial forces of Anterolateral leads Confirmed by David Alejo MD () on 04/17/2024 8:02:30 AM Electronically Signed By: DAVID ALEJO MD 04/17/24 0802 PATIENT NAME: RIAN WALTERS Electrocardiogram DATE OF : 82 PHYSICIAN: DAVID ALEJO MD REPORT #: [id number] REPORT IS CONFIDENTIAL AND NOT TO BE RELEASED WITHOUT AUTHORIZATION
== END 2024-04-16 18:26 | disposition short-term general hospital (02) ==
LOC: ED 07:26
PROVIDERS: Emergency Medicine
DX: R53.1 Weakness (principal); R79.89 Other specified abnormal findings of blood chemistry; R11.2 Nausea with vomiting, unspecified; I10 Essential (primary) hypertension; I25.2 Old myocardial infarction; Z88.5 Allergy status to narcotic agent; Z88.8 Allergy status to other drugs, medicaments and biological substances; Z79.4 Long term (current) use of insulin; Z79.84 Long term (current) use of oral hypoglycemic drugs; Z79.899 Other long term (current) drug therapy
CPT/HCPCS: 36415; 71045; 74176; 80053; 81003; 83690; 83735; 83880; 84484; 85025; 85610; 85730; 93005; 93010; 96361; 96374; 96375; 96376; 99285-25; J1644; J2405; J2470; J7030

== ENCOUNTER 2024-05-12 17:47 | Emergency (ER) | payer OTHER ==
[~2024-05-12] VITALS: Ht 152.4 cm; Wt 100.0 kg
--- OUTSIDE RECORDS SUMMARY | ~2024-05-12 | XMS | Continuity of Care Document ---
Demographics + + + | Address | [address] | | | [place] [address] | + + + | Preferred Language | Unknown | + + + | Marital Status | Unknown | + + + | Buddhist Affiliation | Unknown | + + + | Race | White | + + + | Ethnic Group | Not or | + + + Author + + + | Author | [facility] | + + + | Organization | [facility] | + + + | Address | [address] | | | [place] [address] | + + + | Phone | | + + + Care Team Providers + + + + | Care Mft Name | Role | Phone | + [...] | | + + + + | 2024-04-17 00:08:39 | Diarrhea, unspecified | [facility] | + + + + | 2024-04-17 14:59:04 | Diarrhea, unspecified | [facility] | + + + + Procedures No information. Results/Labs No information. Social History +--------+ + + | date | description | facility | +--------+ + + Vital Signs No information."
[2024-05-12] MEDS ORDERED: METOPROLOL SUCC50 MG PO (18:00)
[2024-05-12] MEDS ORDERED: FUROSEMIDE20 MG PO (18:00)
[2024-05-12] MEDS ORDERED: PANTOPRAZOLE SO40 MG PO (18:00)
[2024-05-12] MEDS ORDERED: POTASSIUM CHLO10 MEQ PO (18:01)
[2024-05-12 18:07] LABS: EOSINOPHILS 1.1 % (0-6); HEMATOCRIT 35.4 % (35.0-50.0); HEMOGLOBIN 12.2 g/dL (12.0-18.0); LYMPHOCYTES 36.6 % (24-44); MCH 29.9 (27-36); MCHC 34.3 g/dl (30-36); MCV 87.2 fl (81-99); NEUTROPHILS 54.3 % (39-80); PLATELET COUNT 218 K/uL (140-440); RBC 4.07 M/ul (4.3-5.7); RDW 15.8 (10.5-15.0)
[2024-05-12 18:15] LABS: PARTIAL THROMBOPLASTIN TIME 24.1 Sec (22.9-41.3)
[2024-05-12 18:16] LABS: INR 0.97 (0.80-1.30); PROTIME 12.2 Sec (11.2-14.2)
[2024-05-12 18:21] LABS: ALBUMIN 3.6 g/dL (3.4-5.0); ANION GAP 18.6 (7-21); BILIRUBIN, TOTAL 1.1 ng/dL (0.2-1.0); BUN/CREATININE RATIO 13.23 (6.0-28.6); CALCIUM 10.3 mg/dL (8.5-10.1); CREATININE, SERUM 0.68 mg/dL (0.55-1.02); MAGNESIUM 1.3 mg/dL (1.8-2.4); POTASSIUM 3.6 mmol/L (3.5-5.1); PROTEIN, TOTAL 7.2 g/dL (6.4-8.2)
[2024-05-12] MEDS ORDERED: ondansetron HCL 4 MG/2 ML VIAL IV ONE (18:30)
[2024-05-12] MEDS ORDERED: SODIUM CHLORIDE 0.9% 1,000 ML IV PRN (18:30)
[2024-05-12] MEDS ORDERED: NITROGLYCERIN PACKET TOP ONE (18:30)
[2024-05-12 20:02] VITALS: BP 125/80
--- NOTE | 2024-05-13 22:17 | EKG ---
[facility] [address] [facility] [place] [address] Signed Normal sinus rhythm Right superior axis deviation Anteroseptal infarct , age undetermined Abnormal ECG When compared with ECG of 16-APR-2024, 07:46, No significant change was found Confirmed by David Alejo MD () on 05/13/2024 10:17:39 PM Electronically Signed By: DAVID ALEJO MD 05/13/24 2217 PATIENT NAME: RIAN WALTERSN Electrocardiogram DATE OF : 82 PHYSICIAN: DAVID ALEJO MD REPORT #: [id number] REPORT IS CONFIDENTIAL AND NOT TO BE RELEASED WITHOUT AUTHORIZATION
== END 2024-05-12 20:03 | disposition home or self-care (01) ==
LOC: ED 17:47
PROVIDERS: Emergency Medicine
DX: R07.89 Other chest pain (principal); I25.2 Old myocardial infarction; I10 Essential (primary) hypertension; K50.90 Crohn's disease, unspecified, without complications; Z95.5 Presence of coronary angioplasty implant and graft; Z88.5 Allergy status to narcotic agent; Z88.8 Allergy status to other drugs, medicaments and biological substances; Z79.84 Long term (current) use of oral hypoglycemic drugs; Z79.4 Long term (current) use of insulin; Z79.899 Other long term (current) drug therapy
CPT/HCPCS: 36415; 71045; 80053; 83735; 84484; 85025; 85610; 85730; 93005; 93010; 96374; 99285-25; J2405; J7030

== ENCOUNTER 2024-09-20 15:33 | Emergency (ER) | payer OTHER ==
[~2024-09-20] VITALS: Ht 152.4 cm; Wt 96.7 kg
[~2024-09-20 15:33] MED LIST changes: +FUROSEMIDE20 MG PO; +PANTOPRAZOLE SO40 MG PO; +POTASSIUM CHLO10 MEQ PO
[2024-09-20] MEDS ORDERED: ASPIRIN 81 MG CHEW PO ONE (15:45)
[2024-09-20] MEDS ORDERED: NITROGLYCERIN 0.4 MG SUBL SL PRN (15:45)
[2024-09-20 15:51] LABS: BASOPHILS 0.7 % (0-2); EOSINOPHILS 1.4 % (0-6); HEMATOCRIT 40.1 % (35.0-50.0); HEMOGLOBIN 13.9 g/dL (12.0-18.0); MCH 28.5 (27-36); MCHC 34.7 g/dl (30-36); MCV 82.3 fl (81-99); MONOCYTES 6.2 % (0-12); NEUTROPHILS 57.7 % (39-80); PLATELET COUNT 275 K/uL (140-440); RBC 4.88 M/ul (4.3-5.7); RDW 15.1 (10.5-15.0)
[2024-09-20] MEDS ORDERED: SODIUM CHLORIDE 0.9% 1,000 ML IV PRN (16:00)
[2024-09-20 16:08] LABS: ALBUMIN 4.2 g/dL (3.4-5.0); ALKALINE PHOSPHATASE 93 U/L (46-116); ALT (SGPT) 48 U/L (14-59); ANION GAP 15.1 (7-21); AST (SGOT) 21 U/L (15-37); BILIRUBIN, TOTAL 0.6 mg/dL (0.2-1.0); BUN/CREATININE RATIO 13.58 (6.0-28.6); CARBON DIOXIDE 27 mmol/L (21-32); CHLORIDE 95 mmol/L (98-107); CREATININE, SERUM 0.81 mg/dL (0.55-1.02); GLOMERULAR FILTRATION RATE,EST 92 mL/min (>60); MAGNESIUM 1.8 mg/dL (1.8-2.4); POTASSIUM 3.1 mmol/L (3.5-5.1); PROTEIN, TOTAL 7.7 g/dL (6.4-8.2); UREA NITROGEN 11 mg/dL (7-18)
[2024-09-20 17:43] LABS: BILIRUBIN, URINE NEGATIVE (negative); BLOOD/HGB, URINE NEGATIVE (Negative); KETONE, URINE NEGATIVE (Negative); LEUK ESTERASE, URINE NEGATIVE (negative); NITRITE, URINE NEGATIVE (negative)
[2024-09-20] MEDS ORDERED: ASPIRIN 325 MG TAB PO ONE (18:00)
[2024-09-20 18:10] VITALS: BP 116/59
--- NOTE | 2024-09-22 10:49 | EKG ---
[facility] [address] [facility] [place] [address] Signed Normal sinus rhythm Right superior axis deviation Septal infarct (cited on or before 01-NOV-2018) Inferior infarct , age undetermined Abnormal ECG When compared with ECG of 12-MAY-2024 17:50, Questionable change in initial forces of Anterior leads T wave inversion now evident in Anterior leads Confirmed by Charu Anton MD ([id number]) on 09/22/2024 10:49:39 AM Electronically Signed By: CHARU ANTON MD 09/22/24 1049 PATIENT NAME: RIAN WALTERS Electrocardiogram DATE OF : 82 PHYSICIAN: CHARU ANTON MD REPORT #: [id number] REPORT IS CONFIDENTIAL AND NOT TO BE RELEASED WITHOUT AUTHORIZATION
== END 2024-09-20 18:16 | disposition home or self-care (01) ==
LOC: ED 15:33
PROVIDERS: Emergency Medicine
DX: I20.9 Angina pectoris, unspecified (principal); Z79.84 Long term (current) use of oral hypoglycemic drugs; Z79.899 Other long term (current) drug therapy; Z88.5 Allergy status to narcotic agent; Z88.8 Allergy status to other drugs, medicaments and biological substances
CPT/HCPCS: 36415; 71045; 80053; 81003; 83690; 83735; 84484; 85025; 85379; 93005; 93010; 99285-25; A9270; J7030

== ENCOUNTER 2025-03-02 12:21 | Emergency (ER) | payer OTHER ==
[~2025-03-02] VITALS: Ht 152.4 cm; Wt 87.0 kg
[~2025-03-02 12:21] MED LIST changes: +INSULIN LI100 UNIT/2 SQ; +PRASUGREL HCL10 MG PO
[2025-03-02 13:59] LABS: BASOPHILS 0.4 % (0.1-1.2); EOSINOPHILS 1.0 % (0.7-5.8); LYMPHOCYTES 37.3 % (19.3-51.7); MCH 27.6 PG (25.6-32.2); MCHC 33.0 g/dL (32.2-35.5); MCV 83.6 fL (79.4-94.8); MONOCYTES 7.3 % (4.7-12.5); NEUTROPHILS 53.7 % (34.0-71.1); RBC 4.93 M/uL (3.93-5.22)
[2025-03-02] MEDS ORDERED: SODIUM CHLORIDE 0.9% 500 ML IV ONE (14:00)
[2025-03-02 14:13] LABS: ALT (SGPT) 83.0 U/L (14-59); AST (SGOT) 60.0 U/L (15-37); GLOMERULAR FILTRATION RATE,EST 113.0 mL/min (>60); PROTEIN, TOTAL 7.7 g/dL (6.4-8.2); UREA NITROGEN 11.0 mg/dL (7-18)
[2025-03-02] MEDS ORDERED: REGLAN10 MG PO (15:26)
[2025-03-02 16:58] VITALS: BP 112/58
[2025-03-02 18:05] LABS: BLOOD/HGB, URINE NEGATIVE (Negative); KETONE, URINE SMALL (Negative); LEUK ESTERASE, URINE NEGATIVE (negative); NITRITE, URINE NEGATIVE (negative)
== END 2025-03-02 16:58 | disposition home or self-care (01) ==
LOC: ED 12:21
PROVIDERS: Emergency Medicine
DX: R11.2 Nausea with vomiting, unspecified (principal); I10 Essential (primary) hypertension; I25.2 Old myocardial infarction; E11.9 Type 2 diabetes mellitus without complications; Z88.5 Allergy status to narcotic agent; Z88.8 Allergy status to other drugs, medicaments and biological substances; Z79.4 Long term (current) use of insulin; Z79.84 Long term (current) use of oral hypoglycemic drugs; Z79.899 Other long term (current) drug therapy
CPT/HCPCS: 36415; 80053; 81003; 83735; 85025; 96374; 99284-25; J2405; J7040